=== PATIENT | male | born 1955 | race Caucasian/White ===

== ENCOUNTER 2021-07-22 09:50 | Inpatient (IN) | payer SELFPAY ==
[~2021-07-22] VITALS: Ht 193 cm; Wt 136.2 kg
--- NOTE | 2021-07-22 09:59 | ED General ---
General Stated Complaint: GEN WEAKNESS Source of Information: Patient, EMS Exam Limitations: No Limitations History of Present Illness Date Seen by Provider: Jul 22, 2021 Time Seen by Provider: 09:56 Initial Comments 65-year-old male presents via EMS for call this morning for a lift assist. Patient states he was feeling weak when he got up this morning so he called 911 as he could not get out of bed. On arrival EMS states he had a heart rate 180s to 200s with a blood pressure of 80 systolic. He was given adenosine to convert SVT and had improvement of both heart rate and blood pressure, given 1 L of fluid in route and much better appearance on arrival. Patient states he is feeling a little better. Past medical history of hypertension and diabetes. Denies history of heart problems. Also states he has not had an appetite for a couple weeks. Allergies and Home Medications Allergies Coded Allergies: No Known Drug Allergies (Unverified , 07/22/21) NKDA Patient Home Medication List Home Medication List Reviewed: Yes Review of Systems Review of Systems Constitutional: No chills, No diaphoresis, No fever; malaise, weakness EENTM: no symptoms reported Respiratory: No cough, No short of breath Cardiovascular: No chest pain, No edema, No palpitations, No syncope Gastrointestinal: No abdominal pain, No nausea, No vomiting Musculoskeletal: no symptoms reported Skin: No change in color, No rash Psychiatric/Neurological: Denies Headache, Denies Numbness, Denies Paresthesia, Denies Seizure; Weakness Past Qccgazb-Utsyph-Qsegvu Hx Patient Social History Tobacco Use?: Yes Alcohol Use?: Yes Physical Exam Vital Signs Vital Signs - First Documented 07/22/21 10:36 Temp 35.8 Pulse 113 Resp 20 B/P (MAP) 75/45 (55) Pulse Ox 97 O2 Delivery Room Air Capillary Refill : Height, Weight, BMI Height: '" Weight: lbs. oz. kg; BMI Method: General Appearance: No Apparent Distress, WD/WN; No Anxious, No Cachetic Eyes: Bilateral Eye Normal Inspection, Bilateral Eye PERRL, Bilateral Eye EOMI HEENT: PERRL/EOMI, Normal ENT Inspection Neck: Non Tender Respiratory: Chest Non Tender, Lungs Clear Cardiovascular: Regular Rate, Rhythm, No Edema, No JVD Gastrointestinal: Normal Bowel Sounds, Non Tender, Soft Back: No CVA Tenderness, No Vertebral Tenderness Extremity: Normal Capillary Refill, Normal Inspection, Non Tender Neurologic/Psychiatric: Alert, Oriented x3, No Motor/Sensory Deficits, Normal Mood/Affect, mold filling operator II-XII Norm as Tested Skin: Normal Color, Warm/Dry Focused Exam Lactate Level 07/22/21 11:21: Lactic Acid Level 3.34*H Lactic Acid Level Laboratory Tests Test 07/22/21 11:21 Lactic Acid Level 3.34 MMOL/L (0.50-2.00) *H Progress/Results/Core Measures Suspected Sepsis SIRS Temperature: Pulse: Respiratory Rate: Laboratory Tests 07/22/21 09:55: White Blood Count 6.9 Blood Pressure / Mean: 07/22/21 11:21: Lactic Acid Level 3.34*H Laboratory Tests 07/22/21 09:55: Creatinine 3.19H, Platelet Count 339, Total Bilirubin 0.6 07/22/21 11:37: Creatinine 2.97H Results/Orders Lab Results Laboratory Tests Test 07/22/21 09:55 07/22/21 10:53 07/22/21 11:21 07/22/21 11:37 Range/Units White Blood Count 6.9 4.3-11.0 10^3/uL Red Blood Count 3.30 L 4.30-5.52 10^6/uL Hemoglobin 10.4 L 13.3-17.7 g/dL Hematocrit 30 L 40-54 % Mean Corpuscular Volume 90 80-99 fL Mean Corpuscular Hemoglobin 32 25-34 pg Mean Corpuscular Hemoglobin Concent 35 32-36 g/dL Red Cell Distribution Width 13.7 10.0-14.5 % Platelet Count 339 130-400 10^3/uL Mean Platelet Volume 8.9 L 9.0-12.2 fL Immature Granulocyte % (Auto) 1 % Neutrophils (%) (Auto) 82 H 42-75 % Lymphocytes (%) (Auto) 10 L 12-44 % Monocytes (%) (Auto) 6 0-12 % Eosinophils (%) (Auto) 1 0-10 % Basophils (%) (Auto) 0 0-10 % Neutrophils # (Auto) 5.7 1.8-7.8 X 10^3 Lymphocytes # (Auto) 0.7 L 1.0-4.0 X 10^3 Monocytes # (Auto) 0.4 0.0-1.0 X 10^3 Eosinophils # (Auto) 0.1 0.0-0.3 10^3/uL Basophils # (Auto) 0.0 0.0-0.1 10^3/uL Immature Granulocyte # (Auto) 0.0 0.0-0.1 10^3/uL Sodium Level 126 L 127 L 135-145 MMOL/L Potassium Level 3.2 L 3.2 L 3.6-5.0 MMOL/L Chloride Level 85 L 87 L 98-107 MMOL/L Carbon Dioxide Level 20 L 21 21-32 MMOL/L Anion Gap 21 H 19 H 5-14 MMOL/L Blood Urea Nitrogen 82 H 77 H 7-18 MG/DL Creatinine 3.19 H 2.97 H 0.60-1.30 MG/DL Estimat Glomerular Filtration Rate 20 21 BUN/Creatinine Ratio 26 26 Glucose Level 257 H 194 H 70-105 MG/DL Calcium Level 9.1 9.1 8.5-10.1 MG/DL Corrected Calcium 9.7 8.5-10.1 MG/DL Magnesium Level 1.5 L 1.6-2.4 MG/DL Total Bilirubin 0.6 0.1-1.0 MG/DL Aspartate Amino Transf (AST/SGOT) 22 5-34 U/L Alanine Aminotransferase (ALT/SGPT) 29 0-55 U/L Alkaline Phosphatase 73 40-136 U/L Troponin I < 0.30 <0.30 NG/ML Total Protein 7.2 6.4-8.2 GM/DL Albumin 3.3 3.2-4.5 GM/DL Serum Alcohol < 10 <10 MG/DL Urine Color YELLOW Urine Clarity CLEAR Urine pH 5.5 5-9 Urine Specific [place] <=1.005 1.016-1.022 Urine Protein NEGATIVE NEGATIVE Urine Glucose (UA) 1+ H NEGATIVE Urine Ketones NEGATIVE NEGATIVE Urine Nitrite NEGATIVE NEGATIVE Urine Bilirubin NEGATIVE NEGATIVE Urine Urobilinogen 0.2 < = 1.0 MG/DL Urine Leukocyte Esterase NEGATIVE NEGATIVE Urine RBC (Auto) NEGATIVE NEGATIVE Urine RBC NONE /HPF Urine WBC 0-2 /HPF Urine Squamous Epithelial Cells 2-5 /HPF Urine Crystals NONE /LPF Urine Bacteria TRACE /HPF Urine Casts NONE /LPF Urine Mucus NEGATIVE /LPF Urine Culture Indicated NO Urine Opiates Screen NEGATIVE NEGATIVE Urine Oxycodone Screen NEGATIVE NEGATIVE Urine Methadone Screen NEGATIVE NEGATIVE Urine Propoxyphene Screen NEGATIVE NEGATIVE Urine Barbiturates Screen NEGATIVE NEGATIVE Ur Tricyclic Antidepressants Screen NEGATIVE NEGATIVE Urine Phencyclidine Screen NEGATIVE NEGATIVE Urine Amphetamines Screen NEGATIVE NEGATIVE Urine Methamphetamines Screen NEGATIVE NEGATIVE Urine Benzodiazepines Screen NEGATIVE NEGATIVE Urine Cocaine Screen NEGATIVE NEGATIVE Urine Cannabinoids Screen NEGATIVE NEGATIVE Lactic Acid Level 3.34 *H 0.50-2.00 MMOL/L My Orders Orders - CAITLINVENSTKENDALL DIAMOND DO Ed Iv/Invasive Line Start (07/22/21 10:03) Cbc With Automated Diff (07/22/21 10:03) Comprehensive Metabolic Panel (07/22/21 10:03) Urinalysis (07/22/21 10:03) Troponin I Fs (07/22/21 10:03) Chest 1 View Ap/Pa Only (07/22/21 10:03) Alcohol (07/22/21 10:03) Drug Screen Stat (Urine) (07/22/21 10:03) Lactic Acid Analyzer (07/22/21 10:03) Magnesium (07/22/21 10:03) Ns Iv 1000 Ml (Sodium Chloride 0.9%) (07/22/21 10:41) Basic Metabolic Panel (07/22/21 11:08) Medications Given in ED Current Medications Medications Dose Ordered Sig/Stephen Route Start Time Stop Time Status Last Admin Dose Admin Sodium Chloride 1,000 ml @ STK-MED ONCE .ROUTE 07/22/21 10:41 07/22/21 10:44 DC 07/22/21 10:52 999 MLS/HR Vital Signs/I&O 07/22/21 10:36 Temp 35.8 Pulse 113 Resp 20 B/P (MAP) 75/45 (55) Pulse Ox 97 O2 Delivery Room Air Capillary Refill : Progress Note : Time: 10:51 Progress Note spoke to patient about NEED for hospital admission and he is adamantly opposed at this point. Explained his medical condition and findings and that admission is indicated. He says he does not want to go, he does not have insurance and want to go home. ECG Initial ECG Impression Date: Jul 22, 2021 Initial ECG Impression Time: 10:00 Initial ECG Rate: 115 Diagnostic Imaging Diagonstic Imaging: Xray Plain Films/CT/US/NM/MRI: chest Comments Date of Exam:07/22/21 CHEST 1 VIEW AP/PA ONLY INDICATION: Tachyarrhythmia, weakness. EXAMINATION: Chest 07/22/2021 FINDINGS: The heart is prominent. There is a density in the left perihilar region, likely a vessel on end. Follow-up recommended to exclude a lung nodule. Remaining lungs clear. No infiltrates, effusions or pneumothorax. IMPRESSION: 1. Densities in the left perihilar region, nonspecific, see above discussion. Follow-up recommended. Dictated on workstation # [id number] Dict: 07/22/21 1019 Trans: 07/22/21 1025 [facility] [id number] Interpreted by: MARIUSZ DICKEY MD Electronically signed by: Departure Communication (Admissions) Time/Spoke to Admitting Phy: 11:[address] Altamirano regarding pt HPI, PMHx and need for admission. She accepts for admission Impression Primary Impression: Weakness Additional Impressions: SVT (supraventricular tachycardia) ARF (acute renal failure) Qualified Codes: N17.9 - Acute kidney failure, unspecified Dehydration Disposition: 30 STILL A PATIENT Condition: Improved Admissions Decision to Admit Reason: Admit from ER (General) Decision to Admit/Date: Jul 22, 2021 Time/Decision to Admit Time: 10:00 KENDALL WELLS DO Jul 22, 2021 09:59
[2021-07-22 10:07] LABS: BASOPHILS % (AUTO) 0 % (0-10); EOSINOPHILS # (AUTO) 0.1 10^3/uL (0.0-0.3); EOSINOPHILS % (AUTO) 1 % (0-10); HEMATOCRIT 30 % (40-54); HEMOGLOBIN 10.4 g/dL (13.3-17.7); LYMPHOCYTES # (AUTO) 0.7 X 10^3 (1.0-4.0); LYMPHOCYTES % (AUTO) 10 % (12-44); MEAN CORPUSCULAR HEMOGLOBIN 32 pg (25-34); MEAN CORPUSCULAR HGB CONC 35 g/dL (32-36); MEAN CORPUSCULAR VOLUME 90 fL (80-99); MEAN PLATELET VOLUME 8.9 fL (9.0-12.2); MONOCYTES # (AUTO) 0.4 X 10^3 (0.0-1.0); MONOCYTES % (AUTO) 6 % (0-12); NEUTROPHILS # (AUTO) 5.7 X 10^3 (1.8-7.8); NEUTROPHILS % (AUTO) 82 % (42-75); PLATELET COUNT 339 10^3/uL (130-400); WHITE BLOOD COUNT 6.9 10^3/uL (4.3-11.0)
[2021-07-22 10:22] LABS: BUN/CREATININE RATIO 26; CALCIUM 9.1 MG/DL (8.5-10.1); CARBON DIOXIDE 20 MMOL/L (21-32); CHLORIDE 85 MMOL/L (98-107); CREATININE SERUM 3.19 MG/DL (0.60-1.30); GFR ESTIMATED 20; GLUCOSE 257 MG/DL (70-105); POTASSIUM 3.2 MMOL/L (3.6-5.0); SODIUM 126 MMOL/L (135-145)
[2021-07-22 10:23] LABS: ALANINE AMINOTRANSFERASE 29 U/L (0-55); ALBUMIN 3.3 GM/DL (3.2-4.5); ALKALINE PHOSPHATASE 73 U/L (40-136); BILIRUBIN,TOTAL 0.6 MG/DL (0.1-1.0); MAGNESIUM 1.5 MG/DL (1.6-2.4); TOTAL PROTEIN 7.2 GM/DL (6.4-8.2)
--- NOTE | 2021-07-22 10:26 | Diagnostic Imaging Report ---
INDICATION: Tachyarrhythmia, weakness. EXAMINATION: Chest 07/22/2021 FINDINGS: The heart is prominent. There is a density in the left perihilar region, likely a vessel on end. Follow-up recommended to exclude a lung nodule. Remaining lungs clear. No infiltrates, effusions or pneumothorax. IMPRESSION: 1. Densities in the left perihilar region, nonspecific, see above discussion. Follow-up recommended. Dictated by: Dictated on workstation # [id number]
[2021-07-22] MEDS ORDERED: NS IV 1000 ML 1,000 ML ONE ×2 (10:41→12:21)
[2021-07-22 11:01] LABS: CLARITY,URINE CLEAR; COLOR,URINE YELLOW; PH,URINE 5.5 (5-9)
[2021-07-22 11:02] LABS: BACTERIA,URINE TRACE /HPF; BILIRUBIN,URINE NEGATIVE (NEGATIVE); GLUCOSE, URINE (UA) 1+ (NEGATIVE); KETONES,URINE NEGATIVE (NEGATIVE); LEUKOCYTE ESTERASE ,URINE NEGATIVE (NEGATIVE); NITRITE,URINE NEGATIVE (NEGATIVE); PROTEIN,URINE NEGATIVE (NEGATIVE); WBC,URINE 0-2 /HPF
[2021-07-22 11:09] LABS: AMPHETAMINE SCREEN, URINE NEGATIVE (NEGATIVE); BARBITURATE SCREEN URINE NEGATIVE (NEGATIVE); BENZODIAZEPINES SCREEN URINE NEGATIVE (NEGATIVE); CANNABINOID SCREEN, URINE NEGATIVE (NEGATIVE); COCAINE SCREEN URINE NEGATIVE (NEGATIVE); METHADONE STAT NEGATIVE (NEGATIVE); METHAMPHETAMINE SCREEN URINE S NEGATIVE (NEGATIVE); OPIATE SCREEN URINE NEGATIVE (NEGATIVE); OXYCODONE STAT NEGATIVE (NEGATIVE); PROPOXYPHENE STAT NEGATIVE (NEGATIVE); TRICYCLIC ANTIDEPRESSANTS SCRE NEGATIVE (NEGATIVE)
[2021-07-22 12:00] LABS: CALCIUM 9.1 MG/DL (8.5-10.1); CREATININE SERUM 2.97 MG/DL (0.60-1.30); POTASSIUM 3.2 MMOL/L (3.6-5.0)
[2021-07-22] MEDS ORDERED: KCL 20 MEQ TAB (K-DUR) PO ONE (12:30)
[2021-07-22] MEDS ORDERED: NS IV 1000 ML 1,000 ML IV SCH (12:30)
[2021-07-22 15:30] VITALS: BP 109/68
[2021-07-22] MEDS ORDERED: MELATONIN 3 MG TABLET PO PRN (17:00)
[2021-07-22] MEDS ORDERED: MILK OF MAGNESIA 400 MG/5 ML 30 ML UDC PO PRN (17:00)
[2021-07-22] MEDS ORDERED: BENZONATATE 100 MG (TESSALON) CAPSULE PO PRN (17:00)
[2021-07-22] MEDS ORDERED: ANTACID SUSP 30 ML UDC (MYLANTA) PO PRN (17:00)
[2021-07-22] MEDS ORDERED: ONDANSETRON 4 MG/2 ML (SDV) Z0FRAN IV PRN (17:00)
[2021-07-22] MEDS: NS IV 1000 ML 1,000 ML IV SCH ×2 (18:18→23:04)
[2021-07-22 19:44] VITALS: BP 107/60
[2021-07-22] MEDS: inSUlin ASPART (NovoLOG) 1 UNIT/0.01 ML (CHARGE PER UNIT) SC SCH (20:54)
[2021-07-22 23:04] VITALS: BP 103/58
[2021-07-23 03:47] VITALS: BP 97/56
[2021-07-23 05:42] LABS: BASOPHILS % (AUTO) 0 % (0-10); EOSINOPHILS # (AUTO) 0.1 10^3/uL (0.0-0.3); EOSINOPHILS % (AUTO) 1 % (0-10); HEMATOCRIT 27 % (40-54); HEMOGLOBIN 9.1 g/dL (13.3-17.7); LYMPHOCYTES # (AUTO) 0.7 10^3/uL (1.0-4.0); LYMPHOCYTES % (AUTO) 8 % (12-44); MEAN CORPUSCULAR HEMOGLOBIN 32 pg (25-34); MEAN CORPUSCULAR HGB CONC 34 g/dL (32-36); MEAN CORPUSCULAR VOLUME 93 fL (80-99); MEAN PLATELET VOLUME 9.1 fL (9.0-12.2); MONOCYTES # (AUTO) 0.6 10^3/uL (0.0-1.0); MONOCYTES % (AUTO) 7 % (0-12); NEUTROPHILS # (AUTO) 7.6 10^3/uL (1.8-7.8); NEUTROPHILS % (AUTO) 83 % (42-75); PLATELET COUNT 257 10^3/uL (130-400); WHITE BLOOD COUNT 9.2 10^3/uL (4.3-11.0)
[2021-07-23 05:53] LABS: POTASSIUM 3.7 MMOL/L (3.6-5.0)
[2021-07-23 05:55] LABS: CALCIUM 9.1 MG/DL (8.5-10.1)
[2021-07-23 05:59] LABS: CREATININE SERUM 2.21 MG/DL (0.60-1.30)
[2021-07-23] MEDS: inSUlin ASPART (NovoLOG) 1 UNIT/0.01 ML (CHARGE PER UNIT) SC SCH ×4 (06:00→20:53)
[2021-07-23 06:01] LABS: MAGNESIUM 1.4 MG/DL (1.6-2.4)
[2021-07-23] MEDS: NS IV 1000 ML 1,000 ML IV SCH ×3 (06:47→21:31)
[2021-07-23 07:49] VITALS: BP 113/67
[2021-07-23] MEDS: MAGNESIUM 1 GM/100 ML IVPB 100 ML IV SCH ×3 (09:27→11:40)
[2021-07-23 11:27] VITALS: BP 126/79
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
--- NOTE | 2021-07-23 15:21 | Consultation - Surgery ---
MAC MA 07/23/21 1521: History of Present Illness History of Present Illness Patient Consulted On(josh/time) 07/23/21 15:15 Time Seen by Provider: 02:45 History of Present Illness Was consulted today about blood in the stool which the pt denies. Nurses note blood after his bowel movements. He has a PMH of internal hemorrhoids and he has never had a colonoscopy done, he denies family history of colon cancer. He denies abdominal pain, blood in the urine or stool, coughing up blood, N/V, or heartburn. He states that he use to sleep for 12 hours a day and recently has been sleeping for 8 hours. He does not completely agree that he has a loss of interest over the past 18 months as he states there is nothing to do at home. He has a loss of energy, and decreased appetite for several weeks. He denies feeling guilty, loss of concentration, or suicidal ideation. Allergies and Home Medications Allergies Coded Allergies: No Known Drug Allergies (Unverified , 07/22/21) NKDA Patient Home Medication List Amlodipine Besylate (Amlodipine Besylate) 10 Mg Tablet, 10 MG PO BID, (Reported) Entered as Reported by: WOO FRAIRE on 07/23/211703 Last Action: Reviewed Diphenhydramine HCl (Benadryl Allergy) 25 Mg Tablet, 25-50 MG PO DAILY PRN for ALLERGY SYMPTOMS, (Reported) Entered as Reported by: MECHELLE TAYLOR on 07/24/21 1011 Last Action: Reviewed Ibuprofen (Ibuprofen) 200 Mg Tablet, 400 MG PO Q8H PRN for PAIN-MILD (1-4), (Reported) Entered as Reported by: MECHELLE TAYLOR on 07/24/21 1009 Last Action: Reviewed Lisinopril/Hydrochlorothiazide (Lisinopril-Hctz 20-25 mg Tab) 1 Each Tablet, 1 TAB PO DAILY, (Reported) Entered as Reported by: WOO FRAIRE on 07/23/211703 Last Action: Reviewed Metoprolol Tartrate (Metoprolol Tartrate) 50 Mg Tablet, 50 MG PO BID, (Reported) Entered as Reported by: WOO FRAIRE on 07/23/211703 Last Action: Reviewed Pioglitazone HCl (Pioglitazone HCl) 45 Mg Tablet, 22.5 MG PO DAILY, (Reported) Entered as Reported by: WOO FRAIRE on 07/23/21 4234 Last Action: Reviewed Past Jysgdep-Bzcmmj-Kvmpzk Hx Patient Social History Smoking Status: Former Smoker (stopped smoking 6yo, would smoke on and off before that about one pack a week for all his adult life) Alcohol Use?: Yes (15 year history of abuse mainly on hard liquor, quit 6 weeks ago) Substance type: Marijuana (He use smoke for 10 years, denies any other drug use) Have you traveled recently?: No Surgeries History of Surgeries: Yes Surgeries: Orthopedic (arthroscopic left knee 31yo) Cardiovascular Cardiac Disorders: Hypertension Musculoskeletal Musculoskeletal Disorders: Chronic Back Pain Endocrine Endocrine Disorders: Diabetes, Non-Insulin dep Integumentary Skin/Integumentary Disorders: Psoriasis (scalp) Family Medical History Significant Family History: No Pertinent Family Hx, Cancer (renal cancer in both his brother and sister who ), GI Disease (mother: lower GI problems), Hypertension (father) Review of Systems-General Constitutional: No chills; dizziness; No fever; weakness Respiratory: No hemoptysis, No short of breath Cardiovascular: No chest pain, No palpitations Gastrointestinal: No abdominal pain, No constipation, No diarrhea, No hematemesis, No heartburn; loss of appetite; No nausea, No vomiting Genitourinary: no symptoms reported Musculoskeletal: back pain Skin: dryness Psychiatric/Neurological: Denies Anxiety, Denies Depressed Physical Exam-General Problems Physical Exam Vital Signs Vital Signs - First Documented 07/22/21 10:36 Temp 35.8 Pulse 113 Resp 20 B/P (MAP) 75/45 (55) Pulse Ox 97 O2 Delivery Room Air Capillary Refill : Less Than 3 Seconds General Appearance: no apparent distress, obese HEENT: PERRL/EOMI Respiratory: lungs clear, normal breath sounds, no respiratory distress, no accessory muscle use; No wheezing Cardiovascular: no murmur, tachycardia Gastrointestinal: normal bowel sounds, non tender, soft; No rebound Rectal: hemorrhoids (internal hemorrhoids ) Neurologic/Psychiatric: traffic enumerator II-XII 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 as tested, alert, oriented x 3 Skin: other (dry skin, bruises on scalp) Data Review Labs Laboratory Tests 07/22/21 20:28: Glucometer 132H 07/22/21 22:10: Lactic Acid Level 1.24 07/23/21 05:25: White Blood Count 9.2, Red Blood Count 2.87L, Hemoglobin 9.1L, Hematocrit 27L, Mean Corpuscular Volume 93, Mean Corpuscular Hemoglobin 32, Mean Corpuscular Hemoglobin Concent 34, Red Cell Distribution Width 13.8, Platelet Count 257, Mean Platelet Volume 9.1, Immature Granulocyte % (Auto) 2, Neutrophils (%) (Auto) 83H, Lymphocytes (%) (Auto) 8L, Monocytes (%) (Auto) 7, Eosinophils (%) (Auto) 1, Basophils (%) (Auto) 0, Neutrophils # (Auto) 7.6, Lymphocytes # (Auto) 0.7L, Monocytes # (Auto) 0.6, Eosinophils # (Auto) 0.1, Basophils # (Auto) 0.0, Immature Granulocyte # (Auto) 0.2H, Sodium Level 131L, Potassium Level 3.7, Chloride Level 100, Carbon Dioxide Level 19L, Anion Gap 12, Blood Urea Nitrogen 61H, Creatinine 2.21H, Estimat Glomerular Filtration Rate 30, BUN/Creatinine Ratio 28, Glucose Level 125H, Calcium Level 9.1, Magnesium Level 1.4L 07/23/21 10:36: Glucometer 138H Assessment/Plan Assessment/Plan Assessment/Plan Anemia Hgb 9.1 down from 10.4 yesterday, unknown baseline he will be checked for iron/B12/folate due to his chronic alcohol abuse. Recommended outpatient colonoscopy, will sign off on pt. Acute kidney injury Due to dehydration and poor nutrition. His BUN has decreased from 82 to 61 today, and his BUN has decreased from 3.19 to 2.21, and his lactic acid level has decreased from 3.34 to 1.24. Hyponatremia With IVF increased from 126 to 131. Alcohol abuse in remission drug screen was negative, monitor for withdrawal symptoms as he states that he quit 6 weeks ago which may not be accurate. Depression Loss of interest and low energy, and recent alcohol abuse. Monitor mood. RICHIE GUDINO DO 07/24/21 1136: History of Present Illness History of Present Illness Date Seen by Provider: Jul 23, 2021 Time Seen by Provider: 16:00 History of Present Illness Consult requested by Dr. Cohen for blood in stools. Patient is a 65 year old male admitted for dehydration. Patient has been feeling weak and not really caring for himself. He has not noticed any blood in his stools. He was being cleaned up by nursing 2 days and had noticed bright red blood. He states has some hemorrhoids. Never had colonoscopy. Denies n/v fever sweats chills shortness of breath or chest pain at this time. Allergies and Home Medications Allergies Coded Allergies: No Known Drug Allergies (Unverified , 07/22/21) NKDA Patient Home Medication List Home Medication List Reviewed: Yes Amlodipine Besylate (Amlodipine Besylate) 10 Mg Tablet, 10 MG PO BID, (Reported) Entered as Reported by: WOO FRAIRE on 07/23/211703 Last Action: Reviewed Diphenhydramine HCl (Benadryl Allergy) 25 Mg Tablet, 25-50 MG PO DAILY PRN for ALLERGY SYMPTOMS, (Reported) Entered as Reported by: MECHELLE TAYLOR on 07/24/21 1011 Last Action: Reviewed Ibuprofen (Ibuprofen) 200 Mg Tablet, 400 MG PO Q8H PRN for PAIN-MILD (1-4), (Reported) Entered as Reported by: MECHELLE TAYLOR on 07/24/21 1009 Last Action: Reviewed Lisinopril/Hydrochlorothiazide (Lisinopril-Hctz 20-25 mg Tab) 1 Each Tablet, 1 TAB PO DAILY, (Reported) Entered as Reported by: WOO FRAIRE on 07/23/211703 Last Action: Reviewed Metoprolol Tartrate (Metoprolol Tartrate) 50 Mg Tablet, 50 MG PO BID, (Reported) Entered as Reported by: WOO FRAIRE on 07/23/211703 Last Action: Reviewed Pioglitazone HCl (Pioglitazone HCl) 45 Mg Tablet, 22.5 MG PO DAILY, (Reported) Entered as Reported by: WOO FRAIRE on 07/23/211703 Last Action: Reviewed Past Bntmfgp-Hrbjpf-Loqzsr Hx Reviewed Nursing Assessment Reviewed/Agree w Nursing PMH: Yes Family Medical History Significant Family History: No Pertinent Family Hx, Cancer (renal cancer in both his brother and sister who ) Review of Systems-General Constitutional: No chills; dizziness; No fever; weakness EENTM: No blurred vision, No double vision Respiratory: No dyspnea on exertion, No hemoptysis, No short of breath Cardiovascular: No chest pain, No palpitations Gastrointestinal: loss of appetite; No nausea, No vomiting Musculoskeletal: back pain; No joint pain Skin: No change in color, No change in hair/nails Psychiatric/Neurological: Denies Anxiety, Denies Depressed All Other Systems Reviewed Negative Unless Noted: Yes (Negative excepted noted.) Physical Exam-General Problems Physical Exam General Appearance: WD/WN, no apparent distress, obese HEENT: PERRL/EOMI, normal ENT inspection Neck: non-tender, supple Respiratory: chest non-tender, no respiratory distress, no accessory muscle use Cardiovascular: regular rate, rhythm, no JVD Gastrointestinal: non tender, soft; No guarding, No rebound Rectal: hemorrhoids (internal hemorrhoids ), other (no gross blood) Back: normal inspection, no CVA tenderness Extremities: non-tender, no pedal edema Neurologic/Psychiatric: traffic enumerator II-XII nml as tested, alert, oriented x 3 Skin: normal color, warm/dry, other (abrasions on forehead.) Lymphatic: no adenopathy Assessment/Plan Assessment/Plan Assessment/Plan Bright red blood in stool Hemorrhoids Anemia Patient was discussed risks and benefits of having Colonoscopy to further evaluate. He has never had one and discussed screening purposes as well. He understands need to have one but not willing to have one at this time, or as outpatient. Patient if changes his mind can contact the office and we will discuss further on outpatient basis. Will sign off, call if needed. Supervisory-Addendum Brief Verification & Attestation Participated in pt care: history, MDM, physical Personally performed: exam, history, MDM, supervision of care Care discussed with: Medical Student Procedures: n/a Results interpretation: Verified all documentation Verification and Attestation of Medical Student E/M Service A medical student performed and documented this service in my presence. I revi ewed and verified all information documented by the medical student and made modifications to such information, when appropriate. I personally performed the physical exam and medical decision making. Richie Gudino, Jul 23, 2021,18:38 MAC MA Jul 23, 2021 15:21 RICHIE GUDINO DO Jul 24, 2021 11:36
[2021-07-23 16:22] VITALS: BP 113/70
[2021-07-23] MEDS ORDERED: METO50TA15 PO (17:04)
[2021-07-23] MEDS ORDERED: LISI1TAB26 PO (17:04)
[2021-07-23] MEDS ORDERED: AMLO-251 PO (17:04)
[2021-07-23] MEDS ORDERED: PIOG45TA65 PO (17:04)
[2021-07-23 20:00] VITALS: BP 130/77
[2021-07-24 00:16] VITALS: BP 129/75
[2021-07-24 04:44] VITALS: BP 111/76
[2021-07-24] MEDS: NS IV 1000 ML 1,000 ML IV SCH (05:41)
[2021-07-24] MEDS: inSUlin ASPART (NovoLOG) 1 UNIT/0.01 ML (CHARGE PER UNIT) SC SCH ×2 (05:41→11:00)
[2021-07-24 05:58] LABS: HEMOGLOBIN 9.4 g/dL (13.3-17.7)
[2021-07-24 06:16] LABS: POTASSIUM 3.5 MMOL/L (3.6-5.0)
[2021-07-24 06:17] LABS: CALCIUM 9.3 MG/DL (8.5-10.1)
[2021-07-24 06:21] LABS: CREATININE SERUM 1.58 MG/DL (0.60-1.30)
[2021-07-24 08:00] VITALS: BP 144/84
[2021-07-24] MEDS ORDERED: POTASSIUM CL 10MEQ/50ML IVPB 50 ML IV SCH (08:00)
[2021-07-24] MEDS ORDERED: KCL 20 MEQ TAB (K-DUR) PO SCH (08:00)
[2021-07-24] MEDS ORDERED: MAGNESIUM 1 GM/100 ML IVPB 100 ML IV SCH (08:00)
--- NOTE | 2021-07-24 09:52 | Physical Therapy Evaluation ---
PT Evaluation-General Medical Diagnosis Admission Date Jul 22, 2021 at 15:28 Medical Diagnosis: hypotension/dehydration/ARF Onset Date: Jul 22, 2021 Therapy Diagnosis Therapy Diagnosis: debility/weakness Precautions Precautions/Isolations: Fall Prevention, Standard Precautions Referral Physician: Vicki Reason for Referral: Evaluation/Treatment Medical History Pertinent Medical History: DM, HTN Additional Medical History morbid obesity Current History EMS for lift assist and was found to have elevated HR and weakness Reviewed History: Yes Social History Home: Single Level Current Living Status: Alone Entry Into Home: Level Entry Prior Prior Level of Function SCALE: Activities may be completed with or without assistive devices. 6-Iageuaagxw-aipvzbk completes the activity by him/herself with no assistance from a helper. 5-Set-up or Clean-up Assistance-helper sets up or cleans up; patient completes activity. [place] assists only prior to or following the activity. 4-Supervision or Touching Assistance-helper provides verbal cues and/or touching/steadying and/or contact guard assistance as patient completes activity. Assistance may be provided throughout the activity or intermittently. 3-Partial/Moderate Assistance-helper does LESS THAN HALF the effort. [place] lifts, holds or supports trunk or limbs, but provides less than half the effort. 2-Substantial/Maximal Assistance-helper does MORE THAN HALF the effort. [place] lifts or holds trunk or limbs and provides more than half the effort. 7-Hzzvodajr-pdmcbe does ALL the effort. Patient does none of the effort to complete the activity. Or, the assistance of 2 or more helpers is required for the patient to complete the activity. If activity was not attempted, code reason: 7-Patient Refused. 9-Not Applicable-not attempted and the patient did not perform the activity before the current illness, exacerbation or injury. 10-Not Attempted due to Environmental Limitations-(lack of equipment, weather restraints, etc.). 88-Not Attempted due to Medical Conditions or Safety Concerns. Bed Mobility: 6 Transfers (B,C,W/C): 6 Gait: 6 Stairs: 9 Indoor Mobility (Ambulation): Independent Stairs: Not Applicalbe Prior Devices Use: Walker PT Evaluation-Current Subjective Patient reports he doesn't do much at home. He reports he retired and decided he wasn't going to do much after that. Objective Patient Orientation: Normal For Age Attachments: IV ROM/Strength ROM Lower Extremities bilateral LE WFL Strength Lower Extremities 4-/5 grossly bilateral LE Integumentary/Posture Integumentary refer to nursing notes Bowel Incontinence: No Bladder Incontinence: No Posture WFL Neuromuscular (Tone, Coordination, Reflexes) grossly intact Sensory Vision: Wears Glasses Hearing: Functional Sensation Right Lower Extremit: Impaired Sensation Left Lower Extremity: Impaired Transfers Lying to Sitting/Side of Bed(Q: 6 Sit to Stand (QC): 4 (SBA) Chair/Vuu-pw-Ypdue Xfer(QC): 4 (SBA) Gait Does the Patient Walk?: Yes Mode of Locomotion: Walk Anticipated Mode of Locomotion: Walk Walk 10 feet (QC): 4 (SBA) Walk 50 ft with 2 Turns(QC): 4 (SBA) Walk 150 ft (QC): 7 Gait Assistive Device: FWW Comments/Gait Description slow, steady, functional gait sequence Balance Sitting Static: Normal Sitting Dynamic: Normal Standing Static: Normal Standing Dynamic: Normal Picking up an Object (QC): 88 Assessment/Needs 65 y.o. male, will be seen short term by skilled PT to address functional strength and mobility to ensure safe return to home at maximum LOF. Rehab Potential: Fair PT Snf Goals Materials Scheduler Goals PT Snf Goals Time Frame: Jul 29, 2021 Roll Left & Right (QC): 6 Sit to Lying (QC): 6 Lying-Sitting on Side/Bed(QC): 6 Sit to Stand (QC): 6 Chair/Opr-dq-Abbyu Xfer(QC): 6 Toilet Transfer (QC): 6 Walk 10 feet (QC): 6 Walk 50ft with 2 Turns (QC): 6 Walk 150 ft (QC): 6 PT Plan Problem List Problem List: Activity Tolerance, Functional Strength, Transfer Treatment/Plan Treatment Plan: Continue Plan of Care Treatment Plan: Bed Mobility, Education, Functional Activity Gabriella, Functional Strength, Gait, Safety, Therapeutic Exercise, Transfers Treatment Duration: Jul 29, 2021 Frequency: 6 times per week Estimated Hrs Per Day: .25 hour per day Patient and/or Family Agrees t: Yes Time/GCodes Time In: 804 Time Out: 820 Total Billed Treatment Time: 16 Total Billed Treatment 1 visit EVModC 16 min ESTEFANIA WASHINGTON PT Jul 24, 2021 09:52
[2021-07-24] MEDS ORDERED: IBUP-2473 PO (10:09)
[2021-07-24] MEDS ORDERED: DIPH25TA65 PO (10:11)
[2021-07-24 12:00] VITALS: BP 113/76
--- NOTE | 2021-07-24 12:04 | Occupational Therapy Eval ---
OT Evaluation-General/PLF Medical Diagnosis Admission Date Jul 22, 2021 at 15:28 Medical Diagnosis: hypotension/dehydration/ARF Onset Date: Jul 22, 2021 Therapy Diagnosis Therapy Diagnosis: NA Precautions Precautions/Isolations: Fall Prevention, Standard Precautions Referral Physician: Vicki Fields Reason: Evaluation/Treatment Medical History Pertinent Medical History: DM, HTN Additional Medical History alcohol abuse Current History Admit due to dehydration Social History Home: Single Level Current Living Status: Alone Entry Into Home: Level Entry ADL-Prior Level of Function SCALE: Activities may be completed with or without assistive devices. 4-Cikxnkejkq-ztdmpah completes the activity by him/herself with no assistance from a helper. 5-Set-up or Clean-up Assistance-helper sets up or cleans up; patient completes activity. [place] assists only prior to or following the activity. 4-Supervision or Touching Assistance-helper provides verbal cues and/or touching/steadying and/or contact guard assistance as patient completes activity. Assistance may be provided throughout the activity or intermittently. 3-Partial/Moderate Assistance-helper does LESS THAN HALF the effort. [place] lifts, holds or supports trunk or limbs, but provides less than half the effort. 2-Substantial/Maximal Assistance-helper does MORE THAN HALF the effort. [place] lifts or holds trunk or limbs and provides more than half the effort. 3-Oafojqeat-zspsrs does ALL the effort. Patient does none of the effort to complete the activity. Or, the assistance of 2 or more helpers is required for the patient to complete the activity. If activity was not attempted, code reason: 7-Patient Refused. 9-Not Applicable-not attempted and the patient did not perform the activity before the current illness, exacerbation or injury. 10-Not Attempted due to Environmental Limitations-(lack of equipment, weather restraints, etc.). 88-Not Attempted due to Medical Conditions or Safety Concerns. ADL PLOF Comments Pt reports IND with ADLs and functional mobility at PLOF, no AD/AE. He indicates he is looking into buying a shower chair and grab bars for his bathroom. He has a tall toilet. Self Care: Independent Functional Cognition: Independent DME/Equipment: Shower, Tall Toilet OT Current Status Subjective Pt seated in recliner, agreeable to OT Tx. Mental Status/Objective Patient Orientation: Person, Place, Time, Situation Attachments: IV Current Upper Extremity ROM WFL Upper Extremity Strength WFL ADL-Treatment Eating (QC): 6 (Per pt report) On/Off Footwear (QC): 6 Toileting Hygiene (QC): 6 (Pt indicates able to manage clothing and hygiene.) Other Treatments Pt up in recliner, agreeable to OT Tx. states he is independent with ADLs and at his PLOF, him main concern is his balance and fear of falling. OT educated pt on home modifications/adaptations in house to decrease fall risk, including recommendations for SC and GBs in bathroom, removing falls, and being careful with thresholds between changes in surface of sara. Pt verbalized understanding. Pt states he has no concerns with ability to complete ADLs upon returning home, and feels like he is at his PLOF. Pt declines further OT services. Post tx, pt up in recliner, call light in reach and all needs met. Education OT Patient Education: Correct positioning, Modified ADL techniques, Progress toward Goal/Update tx plan, Purpose of tx/functional activities Teaching Recipient: Patient Teaching Methods: Discussion Response to Teaching: Verbalize Understanding OT Prison Goals Blind Teacher Goals 1=Demonstrate adherence to instructed precautions during ADL tasks. 2=Patient will verbalize/demonstrate understanding of assistive devices/modifications for ADL. 3=Patient will improve strength/tolerance for activity to enable patient to perform ADL's. OT Education/Plan Problem List/Assessment Assessment: No Skilled OT Needs ID'd No skilled OT services indicated at this time, as pt is independent with ADLs and at his PLOF. Pt declines further OT services. Discharge Recommendations Plan/Recommendations: Discharge/Goals Met Treatment Plan/Plan of Care Patient would benefit from OT for education, treatment and training to promote independence in ADL's, mobility, safety and/or upper extremity function for ADL's. Plan of Care: ADL Retraining, Functional Mobility, UE Funct Exercise/Act Treatment Duration: Jul 24, 2021 Frequency: 1 time per week Rehab Potential: Fair Time/GCodes Start Time: 11:31 Stop Time: 11:40 Total Time Billed (hr/min): 9 Billed Treatment Time 1, LIT ERAZO OT Jul 24, 2021 12:04
[2021-07-24] MEDS ORDERED: FOLI1TAB33 PO (13:24)
--- NOTE | 2021-07-24 13:32 | Discharge Summary ---
Discharge Summary Hospital Course Problems/Dx: (1) Acute kidney injury superimposed on chronic kidney disease Status: Acute (2) JENNI (acute kidney injury) (3) SVT (supraventricular tachycardia) Status: Acute (4) Alcohol abuse, in remission Status: Chronic (5) Hyponatremia Status: Acute (6) Hypokalemia Status: Acute (7) Hypomagnesemia Status: Acute (8) Normocytic anemia Status: Acute (9) Hypertension Status: Chronic (10) Type 2 diabetes mellitus Status: Chronic Qualifiers: Qualified Codes: E11.9 - Type 2 diabetes mellitus without complications (11) Debility Status: Acute (12) Obesity Status: Chronic Hospital Course Date of Admission: Jul 22, 2021 at 15:28 Admission Diagnosis : Acute kidney injury superimposed on chronic kidney disease Family Physician/Provider: Sam Zambrano DO Date of Discharge: 07/24/21 Discharge Diagnosis: Acute kidney injury superimposed on chronic kidney disease Hospital Course: Capo Matthews is a 65-year-old male with past medical history of hypertension, diabetes, CKD3, who was admitted with acute kidney injury superimposed on chronic kidney disease. He was treated with IV fluids and his knee function improved. His course was complicated by electrolyte abnormalities which were corrected as needed. He was also anemic and found to have folic acid deficiency. He was started on folic acid replacement. He also had issues with weakness. Physical and Occupational Therapy evaluated him and worked with him while inpatient. He was offered home health care but refused. He was discharged home in stable condition. Labs and Pending Lab Test: Laboratory Tests 07/23/21 16:12: Glucometer 193H 07/23/21 20:24: Glucometer 125H 07/24/21 04:59: Glucometer 119H 07/24/21 05:25: Hemoglobin 9.4L, Hematocrit 27L, Sodium Level 135, Potassium Level 3.5L, Chloride Level 102, Carbon Dioxide Level 21, Anion Gap 12, Blood Urea Nitrogen 36H, Creatinine 1.58H, Estimat Glomerular Filtration Rate 44, BUN/Creatinine Ratio 23, Glucose Level 113H, Calcium Level 9.3, Magnesium Level 1.9 07/24/21 11:06: Glucometer 159H Home Meds Active Folic Acid 1 Mg Tablet 1 Mg PO DAILY@0700 90 Days Reported Benadryl Allergy (Diphenhydramine HCl) 25 Mg Tablet 25-50 Mg PO DAILY PRN Ibuprofen 200 Mg Tablet 400 Mg PO Q8H PRN Amlodipine Besylate 10 Mg Tablet 10 Mg PO BID Metoprolol Tartrate 50 Mg Tablet 50 Mg PO BID Lisinopril-Hctz 20-25 mg Tab (Lisinopril/Hydrochlorothiazide) 1 Each Tablet 1 Tab PO DAILY Pioglitazone HCl 45 Mg Tablet 22.5 Mg PO DAILY TAKES 1/2 OF A 45MG TABLET Assessment/Pt Instructions Take medications as prescribed. Follow-up with your primary care physician. Apply for Medicare once you are able. Return with worsening weakness or if you feel like you are getting worse. Discharge Planning: <30 minutes discharge planning Discharge Instructions Discharge Diet: No Restrictions Activity as Tolerated: Yes Discharge Physical Examination Vital Signs Vital Signs Date Time Temp Pulse Resp B/P (MAP) Pulse Ox O2 Delivery O2 Flow Rate FiO2 07/24/21 12:00 36.4 104 20 113/76 (88) 97 Room Air General Appearance: No Apparent Distress, WD/WN Respiratory: Lungs Clear, Normal Breath Sounds, No Respiratory Distress Cardiovascular: Regular Rate, Rhythm, No Edema, No Murmur Gastrointestinal: Normal Bowel Sounds, Non Tender, Soft Extremity: Normal Inspection, Non Tender, No Pedal Edema Skin: Normal Color, Warm/Dry Neurologic/Psychiatric: Alert, Oriented x3, No Motor/Sensory Deficits, Normal Mood/Affect Allergies: Coded Allergies: No Known Drug Allergies (Unverified , 07/22/21) NKDA Copy Copies To 1: SAM ZAMBRANO DO Discharge Summary Date of Admission Jul 22, 2021 at 15:28 Date of Discharge Discharge Date: Jul 24, 2021 Discharge Time: 13:31 Admission Diagnosis Acute kidney injury superimposed on chronic kidney disease Discharge Diagnosis Acute kidney injury superimposed on chronic kidney disease (1) Acute kidney injury superimposed on chronic kidney disease Status: Acute (2) JENNI (acute kidney injury) (3) SVT (supraventricular tachycardia) Status: Acute (4) Alcohol abuse, in remission Status: Chronic (5) Hyponatremia Status: Acute (6) Hypokalemia Status: Acute (7) Hypomagnesemia Status: Acute (8) Normocytic anemia Status: Acute (9) Hypertension Status: Chronic (10) Type 2 diabetes mellitus Status: Chronic Qualifiers: Qualified Codes: E11.9 - Type 2 diabetes mellitus without complications (11) Debility Status: Acute (12) Obesity Status: Chronic COMPA PATHAK MD Jul 24, 2021 13:31
[2021-07-25] MEDS ORDERED: FOLIC ACID 1 MG TAB PO SCH (07:00)
== END 2021-07-24 16:00 | disposition home or self-care (01) | DRG 683 ==
LOC: ER FS 09:51 → OBSVTOIN 15:28 → 4TH 15:28
PROVIDERS: ADMIT Family Medicine; ATTEND Internal Medicine
DX: N17.9 Acute kidney failure, unspecified (principal); E87.1 Hypo-osmolality and hyponatremia; I47.1 Supraventricular tachycardia; K92.1 Melena; E86.0 Dehydration; D64.9 Anemia, unspecified; I12.9 Hypertensive chronic kidney disease with stage 1 through stage 4 chronic kidney disease, or unspecified chronic kidney disease; N18.30 Chronic kidney disease, stage 3 unspecified; F10.11 Alcohol abuse, in remission; E87.6 Hypokalemia; E83.42 Hypomagnesemia; E11.22 Type 2 diabetes mellitus with diabetic chronic kidney disease; E66.9 Obesity, unspecified; E53.8 Deficiency of other specified B group vitamins; F32.A Depression, unspecified; K64.9 Unspecified hemorrhoids; R53.1 Weakness; Z68.36 Body mass index [BMI] 36.0-36.9, adult; Z87.891 Personal history of nicotine dependence; Z79.84 Long term (current) use of oral hypoglycemic drugs; Z79.899 Other long term (current) drug therapy
CPT/HCPCS: 36415; 71045; 80048; 80053; 80306; 80320; 81000; 82607; 82728; 82746; 82947; 83540; 83550; 83605; 83735; 84484; 85014; 85018; 85025; 93005

== ENCOUNTER 2021-08-18 16:26 | Observation (INO) | payer SELFPAY ==
[~2021-08-18] VITALS: Ht 190.5 cm; Wt 113.4 kg
[~2021-08-18 16:26] MED LIST: AMLO-251 PO; DIPH25TA65 PO; FOLI1TAB33 PO; IBUP-2473 PO; LISI1TAB26 PO; METO50TA15 PO; PIOG45TA65 PO
--- NOTE | 2021-08-18 16:36 | ED General ---
General Stated Complaint: GENERAL WEAKNESS History of Present Illness Date Seen by Provider: Aug 18, 2021 Time Seen by Provider: 16:36 Initial Comments 65-year-old male brought in with complaints of generalized weakness. EMS reports that over approximately the last week and a half that they have had to go out for lift assist as patient lives alone.. They reported that it was every couple days but now has been 1-2 times daily over the last few days. Patient reports that he "got out of the hospital about 2 weeks ago" and is gotten worse since then. Chart review shows that he was admitted on 07/22-07/24 for acute on chronic kidney failure was discharged on the at that time he was offered home health care and declined. Patient has no other complaints besides his "generalized weakness. Patient was evaluated by PT OT at his previous hospital visit. Patient also complains of some mild swelling and erythema to his left hand and wrist with no injury. patient denies any nausea vomiting fevers chills cough abdominal pain or any other systemic complaints outside of his generalized weakness and mild erythema to his left hand and wrist. Allergies and Home Medications Allergies Coded Allergies: No Known Drug Allergies (Unverified , 07/22/21) NKDA Patient Home Medication List Home Medication List Reviewed: Yes Diphenhydramine HCl (Benadryl Allergy) 25 Mg Tablet, 25-50 MG PO DAILY PRN for ALLERGY SYMPTOMS, (Reported) Entered as Reported by: MECHELLE TAYLOR on 07/24/21 1011 Folic Acid (Folic Acid) 1 Mg Tablet, 1 MG PO DAILY@0700 Prescribed by: COMPA PATHAK on 07/24/21 1324 Metoprolol Tartrate (Metoprolol Tartrate) 50 Mg Tablet, 50 MG PO BID, (Reported) Entered as Reported by: WOO FRAIRE on 07/23/21 1704 Pioglitazone HCl (Pioglitazone HCl) 45 Mg Tablet, 22.5 MG PO DAILY, (Reported) Entered as Reported by: WOO FRAIRE on 07/23/211703 Review of Systems Review of Systems Constitutional: No chills, No fever; malaise, weakness EENTM: no symptoms reported Respiratory: no symptoms reported Cardiovascular: no symptoms reported Gastrointestinal: no symptoms reported Genitourinary: no symptoms reported Musculoskeletal: see HPI Skin: see HPI Psychiatric/Neurological: No Symptoms Reported Hematologic/Lymphatic: No Symptoms Reported Immunological/Allergic: no symptoms reported Past Rxahtki-Elfjpx-Neswls Hx Immunizations Up To Date First/Initial COVID19 Vaccinat: 04-27-21 Second COVID19 Vaccination Duc: 05-14-21 Past Medical History Surgeries: Yes Orthopedic Hypertension Chronic Back Pain Diabetes, Non-Insulin dep Psoriasis Family Medical History No Pertinent Family Hx, Cancer Physical Exam Vital Signs Vital Signs - First Documented 08/18/21 08/18/21 16:28 19:39 Temp 36.1 Pulse 84 Resp 16 B/P (MAP) 145/89 (107) Pulse Ox 98 O2 Delivery Room Air Capillary Refill : Height, Weight, BMI Height: '" Weight: lbs. oz. kg; 36.56 BMI Method: General Appearance: No Apparent Distress, WD/WN Neck: Non Tender, Supple Respiratory: Lungs Clear, Normal Breath Sounds Cardiovascular: Regular Rate, Rhythm, No Edema Gastrointestinal: Non Tender, Soft Extremity: Normal Capillary Refill, Swelling (mild left hand/wrist ) Neurologic/Psychiatric: Oriented x3, No Motor/Sensory Deficits Skin: Erythema (mild dorsal aspect left hand ) Progress/Results/Core Measures Suspected Sepsis SIRS Temperature: Pulse: Respiratory Rate: Laboratory Tests 08/18/21 16:50: White Blood Count 14.5H Blood Pressure / Mean: Laboratory Tests 08/18/21 16:50: Creatinine 1.46H, Platelet Count 399, Total Bilirubin 1.0 Results/Orders Lab Results Laboratory Tests Test 08/18/21 16:50 Range/Units White Blood Count 14.5 H 4.3-11.0 10^3/uL Red Blood Count 3.18 L 4.30-5.52 10^6/uL Hemoglobin 9.7 L 13.3-17.7 g/dL Hematocrit 29 L 40-54 % Mean Corpuscular Volume 91 80-99 fL Mean Corpuscular Hemoglobin 31 25-34 pg Mean Corpuscular Hemoglobin Concent 34 32-36 g/dL Red Cell Distribution Width 14.6 H 10.0-14.5 % Platelet Count 399 130-400 10^3/uL Mean Platelet Volume 9.2 9.0-12.2 fL Immature Granulocyte % (Auto) 0 % Neutrophils (%) (Auto) 88 H 42-75 % Lymphocytes (%) (Auto) 5 L 12-44 % Monocytes (%) (Auto) 6 0-12 % Eosinophils (%) (Auto) 0 0-10 % Basophils (%) (Auto) 0 0-10 % Neutrophils # (Auto) 12.7 H 1.8-7.8 X 10^3 Lymphocytes # (Auto) 0.8 L 1.0-4.0 X 10^3 Monocytes # (Auto) 0.9 0.0-1.0 X 10^3 Eosinophils # (Auto) 0.0 0.0-0.3 10^3/uL Basophils # (Auto) 0.0 0.0-0.1 10^3/uL Immature Granulocyte # (Auto) 0.1 0.0-0.1 10^3/uL Neutrophils % (Manual) 91 % Lymphocytes % (Manual) 6 % Monocytes % (Manual) 3 % Sodium Level 133 L 135-145 MMOL/L Potassium Level 3.9 3.6-5.0 MMOL/L Chloride Level 95 L 98-107 MMOL/L Carbon Dioxide Level 25 21-32 MMOL/L Anion Gap 13 5-14 MMOL/L Blood Urea Nitrogen 16 7-18 MG/DL Creatinine 1.46 H 0.60-1.30 MG/DL Estimat Glomerular Filtration Rate 49 BUN/Creatinine Ratio 11 Glucose Level 144 H 70-105 MG/DL Calcium Level 9.3 8.5-10.1 MG/DL Corrected Calcium 9.7 8.5-10.1 MG/DL Magnesium Level 1.7 1.6-2.4 MG/DL Total Bilirubin 1.0 0.1-1.0 MG/DL Aspartate Amino Transf (AST/SGOT) 30 5-34 U/L Alanine Aminotransferase (ALT/SGPT) 32 0-55 U/L Alkaline Phosphatase 87 40-136 U/L Troponin I < 0.30 <0.30 NG/ML C-Reactive Protein 16.74 H <0.50 MG/DL Total Protein 7.8 6.4-8.2 GM/DL Albumin 3.5 3.2-4.5 GM/DL Serum Alcohol < 10 <10 MG/DL My Orders Orders - CANELA,SANDRA L DO Alcohol (08/18/21 16:37) Cbc With Automated Diff (08/18/21 16:37) Comprehensive Metabolic Panel (08/18/21 16:37) Lactic Acid Analyzer (08/18/21 16:37) Magnesium (08/18/21 16:37) Ua Culture If Indicated (08/18/21 16:37) Crp Fs (08/18/21 16:37) Troponin I Fs (08/18/21 16:37) Ed Iv/Invasive Line Start (08/18/21 16:37) Ekg Tracing (08/18/21 16:37) Manual Differential (08/18/21 16:50) Hand 2 View Left (08/18/21 17:00) Wrist 2 View Left (08/18/21 17:00) Ceftriaxone (Rocephin) (08/18/21 17:45) Medications Given in ED Vital Signs/I&O 08/18/21 08/18/21 16:28 19:39 Temp 36.1 Pulse 84 80 Resp 16 18 B/P (MAP) 145/89 (107) 157/96 Pulse Ox 98 O2 Delivery Room Air Room Air Capillary Refill : Progress Note : Progress Note Patient with generalized weakness of unknown cause. He does have what appears to be maybe some mild cellulitis on the left hand with a slight increase in white count and CRP. Patient otherwise has no generalized complaints. Patient would likely benefit from PT OT. Discussed with Dr. Altamirano. Patient may warrant further evaluation after PT OT if no improvement or if his symptoms change to give it better clarification what might be causing elevated white count and CRP. Patient will be admitted to [facility] for observation. ECG Initial ECG Impression Date: Aug 18, 2021 Initial ECG Impression Time: 16:51 Initial ECG Rate: 83 Initial ECG Rhythm: Normal Sinus Initial ECG Intervals: QT (qtc 505) Initial ECG Impression: Nonspecific Changes Comment no acute st elevation or changes Departure Impression Primary Impression: Cellulitis of left hand Additional Impressions: Reactive arthritis of left hand Generalized muscle weakness Disposition: 30 STILL A PATIENT Condition: Stable Admissions Decision to Admit Reason: Admit from ER (General) Decision to Admit/Date: Aug 18, 2021 Time/Decision to Admit Time: 18:20 Transfer Method of Transfer: EMS Departure-Patient Inst. Referrals: SANDY MONGE DO (PCP/Family) Primary Care Physician SANDRA CANELA DO Aug 18, 2021 16:36
[2021-08-18 16:59] LABS: BASOPHILS % (AUTO) 0 % (0-10); EOSINOPHILS % (AUTO) 0 % (0-10); HEMATOCRIT 29 % (40-54); HEMOGLOBIN 9.7 g/dL (13.3-17.7); LYMPHOCYTES # (AUTO) 0.8 X 10^3 (1.0-4.0); LYMPHOCYTES % (AUTO) 5 % (12-44); MEAN CORPUSCULAR HEMOGLOBIN 31 pg (25-34); MEAN CORPUSCULAR HGB CONC 34 g/dL (32-36); MEAN CORPUSCULAR VOLUME 91 fL (80-99); MEAN PLATELET VOLUME 9.2 fL (9.0-12.2); MONOCYTES # (AUTO) 0.9 X 10^3 (0.0-1.0); MONOCYTES % (AUTO) 6 % (0-12); NEUTROPHILS # (AUTO) 12.7 X 10^3 (1.8-7.8); NEUTROPHILS % (AUTO) 88 % (42-75); PLATELET COUNT 399 10^3/uL (130-400); WHITE BLOOD COUNT 14.5 10^3/uL (4.3-11.0)
[2021-08-18 17:17] LABS: ALANINE AMINOTRANSFERASE 32 U/L (0-55); ALBUMIN 3.5 GM/DL (3.2-4.5); ALKALINE PHOSPHATASE 87 U/L (40-136); BUN/CREATININE RATIO 11; CALCIUM 9.3 MG/DL (8.5-10.1); CARBON DIOXIDE 25 MMOL/L (21-32); CHLORIDE 95 MMOL/L (98-107); CREATININE SERUM 1.46 MG/DL (0.60-1.30); GFR ESTIMATED 49; GLUCOSE 144 MG/DL (70-105); MAGNESIUM 1.7 MG/DL (1.6-2.4); POTASSIUM 3.9 MMOL/L (3.6-5.0); SODIUM 133 MMOL/L (135-145); TOTAL PROTEIN 7.8 GM/DL (6.4-8.2)
[2021-08-18 17:27] LABS: LYMPHOCYTES % (MANUAL) 6 %; MONOCYTES % (MANUAL) 3 %; NEUTROPHILS % (MANUAL) 91 %
[2021-08-18] MEDS ORDERED: cefTRIAXone 1,000 MG in WATER (STERILE) FOR INJECTION 10 ML IV ONE (17:45)
--- NOTE | 2021-08-18 17:46 | Diagnostic Imaging Report ---
EXAM: WRIST 2 VIEW LEFT INDICATION: Left wrist pain, swelling and redness. COMPARISON: None. FINDINGS: No fracture or malalignment. Soft tissue shadows are unremarkable. IMPRESSION: No acute radiographic findings in the left wrist. Dictated by: Dictated on workstation # [id number]
--- NOTE | 2021-08-18 17:48 | Diagnostic Imaging Report ---
INDICATION: Left hand pain and swelling. EXAMINATION: AP and lateral views of left hand were obtained. FINDINGS: There is no acute fracture or malalignment. There is slight irregularity involving the terminal tuft of the 3rd finger which could be related to previous injury. Mild joint space narrowing at the 1st through 3rd metacarpophalangeal joints is likely related to developing osteoarthritis. There is also mild degenerative change at the distal radial and ulnar joints. IMPRESSION: Degenerative-type findings without acute osseous abnormality detected. Dictated by: Dictated on workstation # [id number]
[2021-08-19 00:30] VITALS: BP 132/93
[2021-08-19 04:23] VITALS: BP 156/95
[2021-08-19 06:37] LABS: BASOPHILS % (AUTO) 0 % (0-10); EOSINOPHILS % (AUTO) 0 % (0-10); HEMATOCRIT 28 % (40-54); LYMPHOCYTES # (AUTO) 0.8 10^3/uL (1.0-4.0); LYMPHOCYTES % (AUTO) 7 % (12-44); MEAN CORPUSCULAR HEMOGLOBIN 30 pg (25-34); MEAN CORPUSCULAR HGB CONC 33 g/dL (32-36); MEAN CORPUSCULAR VOLUME 93 fL (80-99); MEAN PLATELET VOLUME 9.3 fL (9.0-12.2); MONOCYTES # (AUTO) 0.7 10^3/uL (0.0-1.0); MONOCYTES % (AUTO) 6 % (0-12); NEUTROPHILS # (AUTO) 10.2 10^3/uL (1.8-7.8); NEUTROPHILS % (AUTO) 86 % (42-75); PLATELET COUNT 321 10^3/uL (130-400); WHITE BLOOD COUNT 11.8 10^3/uL (4.3-11.0)
[2021-08-19 06:52] LABS: CALCIUM 9.1 MG/DL (8.5-10.1); CREATININE SERUM 1.21 MG/DL (0.60-1.30); POTASSIUM 3.4 MMOL/L (3.6-5.0)
[2021-08-19 07:22] VITALS: BP 171/112
--- NOTE | 2021-08-19 08:14 | Physical Therapy Evaluation ---
PT Evaluation-General Medical Diagnosis Admission Date Aug 18, 2021 at 20:36 Medical Diagnosis: cellullitis Onset Date: Aug 18, 2021 Therapy Diagnosis Therapy Diagnosis: difficulty walking Precautions Precautions/Isolations: Standard Precautions Referral Physician: Carmen Reason for Referral: Evaluation/Treatment Medical History Pertinent Medical History: DM, HTN Social History Home: Single Level Current Living Status: Alone PT Steps Into Home: 0 PT Steps Inside Home: 0 Prior Prior Level of Function SCALE: Activities may be completed with or without assistive devices. 0-Ckvokrozco-mldiyla completes the activity by him/herself with no assistance from a helper. 5-Set-up or Clean-up Assistance-helper sets up or cleans up; patient completes activity. Martha assists only prior to or following the activity. 4-Supervision or Touching Assistance-helper provides verbal cues and/or touching/steadying and/or contact guard assistance as patient completes activity. Assistance may be provided throughout the activity or intermittently. 3-Partial/Moderate Assistance-helper does LESS THAN HALF the effort. Martha lifts, holds or supports trunk or limbs, but provides less than half the effort. 2-Substantial/Maximal Assistance-helper does MORE THAN HALF the effort. Martha lifts or holds trunk or limbs and provides more than half the effort. 8-Oopclewvc-srpleu does ALL the effort. Patient does none of the effort to complete the activity. Or, the assistance of 2 or more helpers is required for the patient to complete the activity. If activity was not attempted, code reason: 7-Patient Refused. 9-Not Applicable-not attempted and the patient did not perform the activity before the current illness, exacerbation or injury. 10-Not Attempted due to Environmental Limitations-(lack of equipment, weather restraints, etc.). 88-Not Attempted due to Medical Conditions or Safety Concerns. Bed Mobility: 6 Transfers (B,C,W/C): 6 Gait: 6 Indoor Mobility (Ambulation): Independent Prior Devices Use: Walker PT Evaluation-Current Subjective The patient states that he is really weak and that he has cellulitis in the (L) arm and hand. Pain Numeric Pain Scale: 4 Location Body Site: Back Objective Patient Orientation: Person, Place, Time ROM/Strength ROM Lower Extremities WFL Strength Lower Extremities 3+/5 Transfers Sit to Stand (QC): 4 Chair/Jbd-hf-Txyia Xfer(QC): 4 Gait Does the Patient Walk?: Yes Mode of Locomotion: Walk Anticipated Mode of Locomotion: Walk Walk 10 feet (QC): 88 Walk 50 ft with 2 Turns(QC): 88 Walk 150 ft (QC): 88 Walking 10ft/uneven surface-QC: 88 Distance: 5' Gait Assistive Device: Walker 4 Wheeled Comments/Gait Description shuffling gait pattern and poor foot clearance Balance Sitting Static: Good Sitting Dynamic: Fair Standing Static: Fair Standing Dynamic: Fair Assessment/Needs 65 y.o. male with significant functional mobility limitations. He has weakness in (B) legs and fear of falling. Rehab Potential: Good PT Short Term Goals Short Term Goals Time Frame: Aug 26, 2021 Roll Left & Right: 5 Sit to lyin Lying to sitting on side of be: 5 Sit to stand: 5 Chair/pua-dx-ostrn transfer: 5 Toilet transfer: 5 Walk 10 feet: 5 Walk 50 feet with two turns: 5 Walk 150 feet: 5 Walking 10ft on uneven surface: 5 1 step (curb): 5 4 steps: 5 Picking up objects: 5 PT Microeconomics Professor Goals Microeconomics Professor Goals PT Microeconomics Professor Goals Time Frame: Sep 02, 2021 Roll Left & Right (QC): 6 Sit to Lying (QC): 6 Lying-Sitting on Side/Bed(QC): 6 Sit to Stand (QC): 6 Chair/Xbx-id-Vtaum Xfer(QC): 6 Toilet Transfer (QC): 6 Car Transfer (QC): 6 Does the Patient Walk: Yes Walk 10 feet (QC): 6 Walk 50ft with 2 Turns (QC): 6 Walk 150 ft (QC): 6 Walking 10ft on Uneven Surface: 6 1 Step (curb) (QC): 6 4 Steps (QC): 6 PT Plan Problem List Problem List: Activity Tolerance, Functional Strength, Safety, Balance, Gait, Transfer, Bed Mobility, ROM Treatment/Plan Treatment Plan: Continue Plan of Care Treatment Plan: Bed Mobility, Functional Activity Gabriella, Functional Strength, Gait, Safety, Therapeutic Exercise, Transfers Treatment Duration: Sep 02, 2021 Frequency: 11 times per week Estimated Hrs Per Day: .5 hour per day Discharge Recommendations Therapy Discharge Recommendati: Post Acute PT Target Placement patient is a good candidate for SNF rehab Time/GCodes Time In: 0745 Time Out: 0810 Total Billed Treatment Time: 25 Total Billed Treatment 1, EV low complexity x 25' ROXY POTTS PT Aug 19, 2021 08:14
--- NOTE | 2021-08-19 11:15 | History & Physical-Hospitalist ---
History of Present Illness HPI/Chief Complaint Pt is a 66-year-old male with past medical history of hypertension who was recently admitted last month for debility and JENNI. He did well following that admission for a few days but over the past few weeks has had progressive weakness. Per ER report the fire department has been to his house multiple times a day due to falls or inability to get out of chair. He reports that he lives alone and declined home health after his last admission because he thought he was doing better. He also complains of some edema and redness to his left hand and wrist. He denies any injury. He was admitted due to inability to care for himself at home and for treatment of left hand cellulitis. His daughter is at bedside during our exam. They are inquiring about inpatient rehab. Date Seen 08/19/21 Time Seen by a Provider: 10:30 Attending Physician Irma Altamirano MD PCP Sam Zambrano DO Referring Physician Date of Admission Aug 18, 2021 at 20:36 Home Medications & Allergies Home Medications Reviewed patient Home Medication Reconciliation performed by pharmacy medication reconciliations bindery technician and/or nursing. Patients Allergies have been reviewed. Allergies Allergies Coded Allergies No Known Drug Allergies (Jyjtmsgfba47/9/21) NKDA Past Mwzmvnd-Ejzqir-Epdtoa Hx Patient Social History Employed/Student: retired Tobacco Use?: No Smoking Status: Former Smoker Substance use?: No Alcohol Use?: No Pt feels they are or have been: No Immunizations Up To Date First/Initial COVID19 Vaccinat: 03/2021 Second COVID19 Vaccination Duc: 03/2021 Tetanus Booster (TDap): Unknown Hepatitis A: No Hepatitis B: No Current Status Advance Directives: No Communicates: Verbally Primary Language: [place] Preferred Spoken Language: [place] Is interpretation needed?: No Sensory deficits: Vision impairment Implanted or Applied Medical D: None Past Medical History Surgeries: Orthopedic Hypertension Chronic Back Pain Diabetes, Non-Insulin dep Psoriasis Family Medical History Reviewed Nursing Family Hx Cancer Review of Systems Constitutional: No chills, No fever; malaise, weakness EENTM: no symptoms reported Respiratory: No cough, No short of breath Cardiovascular: No chest pain, No edema, No Hx of Intervention, No palpitations Gastrointestinal: No abdominal pain, No constipation, No nausea, No vomiting Genitourinary: no symptoms reported Musculoskeletal: no symptoms reported Skin: no symptoms reported Psychiatric/Neurological: No Symptoms Reported Physical Exam Physical Exam Vital Signs Vital Signs - First Documented 08/18/21 08/18/21 16:28 19:39 Temp 36.1 Pulse 84 Resp 16 B/P (MAP) 145/89 (107) Pulse Ox 98 O2 Delivery Room Air Capillary Refill : Less Than 3 Seconds Height, Weight, BMI Height: '" Weight: lbs. oz. kg; 31.24 BMI Method: General Appearance: No Apparent Distress, Chronically ill HEENT: PERRL/EOMI, Moist Mucous Membranes; No Scleral Icterus (L), No Scleral Icterus (R) Neck: Normal Inspection, Supple Respiratory: Lungs Clear, No Accessory Muscle Use, No Respiratory Distress Cardiovascular: Regular Rate, Rhythm, No Murmur Gastrointestinal: Normal Bowel Sounds, Non Tender, Soft Extremity: No Pedal Edema, Other (left hand with very minimal erythema on dorsal aspect, no evidence of skin breakdown) Neurologic/Psychiatric: Alert, Oriented x3, Normal Mood/Affect Skin: Normal Color, Warm/Dry Results Results/Procedures Labs Laboratory Tests 08/18/21 16:50 08/19/21 06:08 Patient resulted labs reviewed. Imaging: Reviewed Imaging Report Imaging [facility] [place], [place] NAME: [facility] REC#: [id number] PT STATUS: REG ER : 1955 PHYSICIAN: SANDRA CANELA DO ADMIT DATE: 08/18/21/ER FS Signed Date of Exam:08/18/21 HAND 2 VIEW LEFT INDICATION: Left hand pain and swelling. EXAMINATION: AP and lateral views of left hand were obtained. FINDINGS: There is no acute fracture or malalignment. There is slight irregularity involving the terminal tuft of the 3rd finger which could be related to previous injury. Mild joint space narrowing at the 1st through 3rd metacarpophalangeal joints is likely related to developing osteoarthritis. There is also mild degenerative change at the distal radial and ulnar joints. IMPRESSION: Degenerative-type findings without acute osseous abnormality detected. Dictated by: Dictated on workstation # [id number] Dict: 08/18/21 1745 Trans: 08/18/211816 [facility] [id number] Interpreted by: MIKHAIL LÓPEZ MD Electronically signed by: MIKHAIL LÓPEZ MD 08/18/211816 [facility] [place], [place] NAME: S[facility]ANNA [facility] REC#: [id number] PT STATUS: REG ER : 1955 PHYSICIAN: SANDRA CANELA DO ADMIT DATE: 08/18/21/ER FS Signed Date of Exam:08/18/21 WRIST 2 VIEW LEFT EXAM: WRIST 2 VIEW LEFT INDICATION: Left wrist pain, swelling and redness. COMPARISON: None. FINDINGS: No fracture or malalignment. Soft tissue shadows are unremarkable. IMPRESSION: No acute radiographic findings in the left wrist. Dictated by: Dictated on workstation # [id number] Dict: 08/18/21 174 Trans: 08/18/211844 [facility] [id number] Interpreted by: REBECCA ALVARADO MD Electronically signed by: REBECCA ALVARADO MD 08/18/21 Assessment/Plan Admission Diagnosis Cellulitis Admission Status: Observation Reason for Inpatient Admission: see below Assessment and Plan Cellulitis Continue on IV abx No wound to culture Hopefuly can transition to oral in a day or two Debility Failure to thrive Appears to have an significant weight loss through chart review (136kg to 113kg in 1 month) though physically no evidence of this PT/OT Open to IRF if able to admit there Agreeable to home health as well if unable to go to IRF, still hesistant to SNF Encouraged OOB HTN Resume metoprolol Reports only taking it once a daily though rx is for BID Will start Toprol XL to assist with compliance DMII Denies history of this Filled pioglitazone in April but denies taking this Fasting BS 107 so just trend BS for now DVT ppx: Lovenox Diagnosis/Problems Diagnosis/Problems (1) Cellulitis of left hand Status: Acute (2) Generalized muscle weakness Status: Acute (3) Type 2 diabetes mellitus Status: Chronic (4) Hypertension Status: Chronic (5) Normocytic anemia Status: Acute (6) Hyponatremia Status: Acute (7) Weakness Status: Acute (8) ARF (acute renal failure) Status: Acute Copy Copies To 1: SAM ZAMBRANO KATELYN M MD Aug 19, 2021 11:15
[2021-08-19] MEDS: IBUPROFEN 600 MG (MOTRIN) TAB PO PRN (11:21)
[2021-08-19] MEDS ORDERED: MILK OF MAGNESIA 400 MG/5 ML 30 ML UDC PO PRN (11:30)
[2021-08-19] MEDS ORDERED: KCL 20 MEQ TAB (K-DUR) PO ONE (11:30)
[2021-08-19] MEDS ORDERED: meTOproloL SUCCINATE 50 MG (TOPROL XL) TAB PO SCH (11:30)
[2021-08-19] MEDS ORDERED: ANTACID SUSP 30 ML UDC (MYLANTA) PO PRN (11:30)
[2021-08-19] MEDS ORDERED: BENZONATATE 100 MG (TESSALON) CAPSULE PO PRN (11:30)
[2021-08-19] MEDS ORDERED: ONDANSETRON 4 MG/2 ML (SDV) Z0FRAN IV PRN (11:30)
[2021-08-19] MEDS ORDERED: MELATONIN 3 MG TABLET PO PRN (11:30)
[2021-08-19 11:35] VITALS: BP 149/101
[2021-08-19 16:00] VITALS: BP 136/94
[2021-08-19] MEDS: cefTRIAXone 1,000 MG/SWFI 10 ML IV PUSH IV SCH ×2 (18:17)
[2021-08-19 19:46] VITALS: BP 153/98
[2021-08-20] VITALS (7 sets, daily range): BP systolic 134–167; BP diastolic 93–106
[2021-08-20] MEDS: MAGNESIUM 1 GM/100 ML IVPB 100 ML IV SCH (07:00)
[2021-08-20] MEDS: POTASSIUM CL 10MEQ/50ML IVPB 50 ML IV SCH (07:00)
[2021-08-20 07:09] LABS: HEMATOCRIT 28 % (40-54); HEMOGLOBIN 9.1 g/dL (13.3-17.7); MEAN CORPUSCULAR HEMOGLOBIN 30 pg (25-34); MEAN CORPUSCULAR HGB CONC 33 g/dL (32-36); MEAN CORPUSCULAR VOLUME 92 fL (80-99); MEAN PLATELET VOLUME 9.3 fL (9.0-12.2); PLATELET COUNT 317 10^3/uL (130-400); WHITE BLOOD COUNT 9.7 10^3/uL (4.3-11.0)
[2021-08-20 07:29] LABS: CALCIUM 9.1 MG/DL (8.5-10.1); CREATININE SERUM 1.29 MG/DL (0.60-1.30); MAGNESIUM 1.8 MG/DL (1.6-2.4); POTASSIUM 3.6 MMOL/L (3.6-5.0)
[2021-08-20] MEDS: meTOproloL SUCCINATE 50 MG (TOPROL XL) TAB PO SCH (08:11)
[2021-08-20] MEDS: KCL 20 MEQ TAB (K-DUR) PO SCH (08:11)
[2021-08-20] MEDS: IBUPROFEN 600 MG (MOTRIN) TAB PO PRN ×2 (09:06→15:55)
--- NOTE | 2021-08-20 11:00 | Progress Note - Hospitalist ---
Subjective HPI/CC On Admission Date Seen by Provider: Aug 20, 2021 Time Seen by Provider: 10:57 Pt is a 66-year-old male with past medical history of hypertension who was recently admitted last month for debility and JENNI. He did well following that admission for a few days but over the past few weeks has had progressive w eakness. Per ER report the fire department has been to his house multiple times a day due to falls or inability to get out of chair. He reports that he lives alone and declined home health after his last admission because he thought he was doing better. He also complains of some edema and redness to his left hand and wrist. He denies any injury. He was admitted due to inability to care for himself at home and for treatment of left hand cellulitis. His daughter is at bedside during our exam. They are inquiring about inpatient rehab. Subjective/Events-last exam Pt reports feeling ok today. Hand felt better overnight but now some swelling (though on exam appears improved from yesterday). He has ice pack in place. Objective Exam Vital Signs Vital Signs Date Time Temp Pulse Resp B/P (MAP) Pulse Ox O2 Delivery O2 Flow Rate FiO2 08/20/21 08:59 36.2 103 18 158/93 (114) 96 Room Air Capillary Refill : Less Than 3 Seconds General Appearance: No Apparent Distress, Obese Respiratory: Lungs Clear, No Respiratory Distress Cardiovascular: Regular Rate, Rhythm, No Murmur Gastrointestinal: Normal Bowel Sounds, Non Tender, Soft Extremity: Other (left hand with very minimal edema on the dorsal aspect and no erythema noted) Neurologic/Psychiatric: Alert, Oriented x3 Results/Procedures Lab Laboratory Tests 08/20/21 06:43 Patient resulted labs reviewed. Imaging: Reviewed Imaging Report Assessment/Plan Assessment and Plan Assess & Plan/Chief Complaint Cellulitis Continue on IV abx No wound to culture Hopefully can transition to oral tomorrow Debility Failure to thrive Appears to have an significant weight loss through chart review (136kg to 113kg in 1 month) though physically no evidence of this PT/OT Open to IRF if able to admit there Agreeable to home health as well if unable to go to IRF, still hesistant to SNF Encouraged OOB again today HTN Continue metoprolol, BP running in the 150s so tolerable Will add back him amlodipine that he filled in April is second agent needed DMII Denies history of this Filled pioglitazone in April but denies taking this Fasting BS 116 this AM so just trend BS for now DVT ppx: Lovenox Diagnosis/Problems Diagnosis/Problems (1) Cellulitis of left hand Status: Acute (2) Generalized muscle weakness Status: Acute (3) Type 2 diabetes mellitus Status: Chronic (4) Hypertension Status: Chronic (5) Normocytic anemia Status: Acute (6) Hyponatremia Status: Acute (7) Weakness Status: Acute (8) ARF (acute renal failure) Status: Acute CICI SNELL MD Aug 20, 2021 11:00
[2021-08-20] MEDS: cefTRIAXone 1,000 MG/SWFI 10 ML IV PUSH IV SCH ×2 (17:29)
[2021-08-21 03:17] VITALS: BP 156/106
[2021-08-21 06:28] LABS: CALCIUM 9.5 MG/DL (8.5-10.1); CREATININE SERUM 1.72 MG/DL (0.60-1.30); MAGNESIUM 1.9 MG/DL (1.6-2.4); POTASSIUM 3.9 MMOL/L (3.6-5.0)
[2021-08-21] MEDS: KCL 20 MEQ TAB (K-DUR) PO SCH (06:31)
[2021-08-21] MEDS: POTASSIUM CL 10MEQ/50ML IVPB 50 ML IV SCH (06:31)
[2021-08-21] MEDS: MAGNESIUM 1 GM/100 ML IVPB 100 ML IV SCH (06:31)
[2021-08-21 07:48] VITALS: BP 121/94
[2021-08-21] MEDS: meTOproloL SUCCINATE 50 MG (TOPROL XL) TAB PO SCH (08:10)
[2021-08-21] MEDS: IBUPROFEN 600 MG (MOTRIN) TAB PO PRN (10:47)
--- NOTE | 2021-08-21 10:58 | Physical Therapy Daily Note ---
PT Daily Note-Current Subjective Patient lying supine in bed upon PT arrival, daughter in the room, both agreeable to treatment. Patient reports increased back pain this morning and rates it at 2/10. Mental Status Patient Orientation: Person, Place, Time, Situation Transfers SCALE: Activities may be completed with or without assistive devices. 4-Izzcencipr-zoeesdo completes the activity by him/herself with no assistance from a helper. 5-Set-up or Clean-up Assistance-helper sets up or cleans up; patient completes activity. Whitney assists only prior to or following the activity. 4-Supervision or Touching Assistance-helper provides verbal cues and/or touc ksenia/steadying and/or contact guard assistance as patient completes activity. Assistance may be provided throughout the activity or intermittently. 3-Partial/Moderate Assistance-helper does LESS THAN HALF the effort. Whitney lifts, holds or supports trunk or limbs, but provides less than half the effort. 2-Substantial/Maximal Assistance-helper does MORE THAN HALF the effort. Whitney lifts or holds trunk or limbs and provides more than half the effort. 8-Koppwsxhn-uhromb does ALL the effort. Patient does none of the effort to complete the activity. Or, the assistance of 2 or more helpers is required for the patient to complete the activity. If activity was not attempted, code reason: 7-Patient Refused. 9-Not Applicable-not attempted and the patient did not perform the activity before the current illness, exacerbation or injury. 10-Not Attempted due to Environmental Limitations-(lack of equipment, weather restraints, etc.). 88-Not Attempted due to Medical Conditions or Safety Concerns. Roll Left & Right (QC): 4 Sit to Lying (QC): 4 Lying to Sitting/Side of Bed(Q: 4 Sit to Stand (QC): 4 Chair/Fjt-qj-Ipwko Xfer(QC): 4 Gait Training Does the Patient Walk?: Yes Distance: 30 feet Walk 10 feet (QC): 4 Gait Assistive Device: FWW Exercises Seated Therapy Exercises: Ankle pumps, Long arc quads, Hip flexion, Hamstring Curls, Hip abd/add Seated Reps: 20 Assessment Current Status: Fair Progress Patient tolerated treatment well. Demonstrates minimal improvement in bed mo bility and transfers. Patient able to ambulate this date. Patient ambulates 30 feet with FWW, with CGA and verbal cues for safety, progression, posture and balance. Patient performed LE therapeutic exercise while sitting in the chair as listed above. Patient in chair post treatment with all needs met, nursing notified, call light in reach and daughter returning to room. PT Short Term Goals Short Term Goals Time Frame: Aug 26, 2021 Roll Left & Right: 5 Sit to lyin Lying to sitting on side of be: 5 Sit to stand: 5 Chair/urb-yx-temwk transfer: 5 Toilet transfer: 5 Walk 10 feet: 5 Walk 50 feet with two turns: 5 Walk 150 feet: 5 Walking 10ft on uneven surface: 5 1 step (curb): 5 4 steps: 5 Picking up objects: 5 PT Half-Way Goals Half-Way Goals PT Loan Secretary Goals Time Frame: Sep 02, 2021 Roll Left & Right (QC): 6 Sit to Lying (QC): 6 Lying-Sitting on Side/Bed(QC): 6 Sit to Stand (QC): 6 Chair/Uhc-je-Whxbn Xfer(QC): 6 Toilet Transfer (QC): 6 Car Transfer (QC): 6 Does the Patient Walk: Yes Walk 10 feet (QC): 6 Walk 50ft with 2 Turns (QC): 6 Walk 150 ft (QC): 6 Walking 10ft on Uneven Surface: 6 1 Step (curb) (QC): 6 4 Steps (QC): 6 PT Plan Treatment/Plan Treatment Plan: Continue Plan of Care Treatment Plan: Bed Mobility, Functional Activity Gabriella, Functional Strength, Gait, Safety, Therapeutic Exercise, Transfers Treatment Duration: Sep 02, 2021 Frequency: 11 times per week Estimated Hrs Per Day: .5 hour per day Safety Risks/Education Patient Education: Gait Training, Transfer Techniques Teaching Recipient: Patient, Family Teaching Methods: Demonstration, Discussion Response to Teaching: Verbalize Understanding, Return Demonstration Time/GCodes Time In: 932 Time Out: 956 Total Billed Treatment Time: 24 Total Billed Treatment Visit, Exercise, gait LESLIE HARDIN PT Aug 21, 2021 10:58
[2021-08-21 11:42] VITALS: BP 141/93
[2021-08-21] MEDS ORDERED: FOLI1TAB33 PO (12:58)
--- NOTE | 2021-08-21 14:08 | Progress Note - Hospitalist ---
Subjective HPI/CC On Admission Date Seen by Provider: Aug 21, 2021 Time Seen by Provider: 10:00 Pt is a 66-year-old male with past medical history of hypertension who was recently admitted last month for debility and JENNI. He did well following that admission for a few days but over the past few weeks has had progressive w eakness. Per ER report the fire department has been to his house multiple times a day due to falls or inability to get out of chair. He reports that he lives alone and declined home health after his last admission because he thought he was doing better. He also complains of some edema and redness to his left hand and wrist. He denies any injury. He was admitted due to inability to care for himself at home and for treatment of left hand cellulitis. His daughter is at bedside during our exam. They are inquiring about inpatient rehab. Subjective/Events-last exam Pt reports doing better today. laying in bed. Discussed plan to see how therapy goes and await IRF eval. Objective Exam Vital Signs Vital Signs Date Time Temp Pulse Resp B/P (MAP) Pulse Ox O2 Delivery O2 Flow Rate FiO2 08/21/21 11:42 36.8 102 20 141/93 (109) 94 Room Air Capillary Refill : Less Than 3 Seconds General Appearance: No Apparent Distress, Chronically ill, Obese Respiratory: Lungs Clear, No Respiratory Distress Cardiovascular: Regular Rate, Rhythm, No Murmur Neurologic/Psychiatric: Alert, Oriented x3 Results/Procedures Lab Laboratory Tests 08/21/21 05:20 Patient resulted labs reviewed. Imaging: Reviewed Imaging Report Assessment/Plan Assessment and Plan Assess & Plan/Chief Complaint Cellulitis Continue on abx, switch to oral No wound to culture Much improved Debility Failure to thrive Appears to have an significant weight loss through chart review (136kg to 113kg in 1 month) though physically no evidence of this PT/OT IRF to evaluate HTN Continue metoprolol, BP running in the 150s so tolerable Will add back him amlodipine that he filled in April is second agent needed DMII Originally denied history of this but now asking about resuming his DM meds (though review of refill history shows last filled in April) Fasting BS within goal so holding it for now DVT ppx: Lovenox Diagnosis/Problems Diagnosis/Problems (1) Cellulitis of left hand Status: Acute (2) Generalized muscle weakness Status: Acute (3) Type 2 diabetes mellitus Status: Chronic (4) Hypertension Status: Chronic (5) Normocytic anemia Status: Acute (6) Hyponatremia Status: Acute (7) Weakness Status: Acute (8) ARF (acute renal failure) Status: Acute CICI SNELL MD Aug 21, 2021 14:08
[2021-08-21 15:47] VITALS: BP 138/98
[2021-08-21 19:30] VITALS: BP 138/97
[2021-08-21] MEDS: CEPHALEXIN 250 MG (KEFLEX) CAP PO SCH (21:07)
[2021-08-22] VITALS: BP 155/101
[2021-08-22 04:00] VITALS: BP 156/100
[2021-08-22 06:39] LABS: POTASSIUM 3.8 MMOL/L (3.6-5.0)
[2021-08-22 06:40] LABS: CALCIUM 9.2 MG/DL (8.5-10.1)
[2021-08-22 06:45] LABS: CREATININE SERUM 1.44 MG/DL (0.60-1.30)
[2021-08-22 06:47] LABS: MAGNESIUM 1.9 MG/DL (1.6-2.4)
[2021-08-22] MEDS: POTASSIUM CL 10MEQ/50ML IVPB 50 ML IV SCH (06:52)
[2021-08-22] MEDS: KCL 20 MEQ TAB (K-DUR) PO SCH (06:52)
[2021-08-22] MEDS: MAGNESIUM 1 GM/100 ML IVPB 100 ML IV SCH (06:52)
[2021-08-22] MEDS: CEPHALEXIN 250 MG (KEFLEX) CAP PO SCH (08:34)
[2021-08-22] MEDS: meTOproloL SUCCINATE 50 MG (TOPROL XL) TAB PO SCH (08:35)
[2021-08-22] MEDS: IBUPROFEN 600 MG (MOTRIN) TAB PO PRN (08:35)
[2021-08-22 08:43] VITALS: BP 146/90
[2021-08-22] MEDS ORDERED: CEPH250C PO (09:29)
--- NOTE | 2021-08-22 09:47 | Physical Therapy Daily Note ---
PT Daily Note-Current Subjective Patient sitting in chair upon PT arrival, agreeable to treatment. Patient reports 0/10 pain currently. Mental Status Patient Orientation: Person, Place, Time, Situation Transfers SCALE: Activities may be completed with or without assistive devices. 0-Onaknuaela-fjjpedg completes the activity by him/herself with no assistance from a helper. 5-Set-up or Clean-up Assistance-helper sets up or cleans up; patient completes activity. [place] assists only prior to or following the activity. 4-Supervision or Touching Assistance-helper provides verbal cues and/or touching/steadying and/or contact guard assistance as patient completes activity. Assistance may be provided throughout the activity or intermittently. 3-Partial/Moderate Assistance-helper does LESS THAN HALF the effort. [place] lifts, holds or supports trunk or limbs, but provides less than half the effort. 2-Substantial/Maximal Assistance-helper does MORE THAN HALF the effort. [place] lifts or holds trunk or limbs and provides more than half the effort. 6-Kqxycxuhb-zzvcdw does ALL the effort. Patient does none of the effort to complete the activity. Or, the assistance of 2 or more helpers is required for the patient to complete the activity. If activity was not attempted, code reason: 7-Patient Refused. 9-Not Applicable-not attempted and the patient did not perform the activity before the current illness, exacerbation or injury. 10-Not Attempted due to Environmental Limitations-(lack of equipment, weather restraints, etc.). 88-Not Attempted due to Medical Conditions or Safety Concerns. Sit to Stand (QC): 4 Chair/Wke-sp-Jujbw Xfer(QC): 4 Toilet Transfer (QC): 4 Gait Training Does the Patient Walk?: Yes Distance: 120 feet Walk 10 feet (QC): 4 Walk 50 ft with 2 Turns(QC): 4 Walk 150 ft (QC): 4 Gait Persons Needed: 1 Gait Assistive Device: FWW Exercises Supine Ex: Quad Set Supine Reps: 20 Seated Therapy Exercises: Ankle pumps, Long arc quads, Hip flexion, Hip abd/add, Glut set Seated Reps: 20 Assessment Current Status: Fair Progress Patient sitting in chair upon PT arrival, demonstrates mild difficulty performing sit to stand due to low chair level and LE strength deficit. Patient performs all observed transfers with CGA. Patient ambulates 120 feet with FWW, with CGA. Patient performed LE therapeutic exercise as listed above. Patient will benefit from continued PT to improve continued deficits. Patient in chair post treatment with all needs met, nursing notified, and call light in reach. PT Short Term Goals Short Term Goals Time Frame: Aug 26, 2021 Roll Left & Right: 5 Sit to lyin Lying to sitting on side of be: 5 Sit to stand: 5 Chair/iin-tr-xtich transfer: 5 Toilet transfer: 5 Walk 10 feet: 5 Walk 50 feet with two turns: 5 Walk 150 feet: 5 Walking 10ft on uneven surface: 5 1 step (curb): 5 4 steps: 5 Picking up objects: 5 PT Plumbing Engineer Goals Plumbing Engineer Goals PT Plumbing Engineer Goals Time Frame: Sep 02, 2021 Roll Left & Right (QC): 6 Sit to Lying (QC): 6 Lying-Sitting on Side/Bed(QC): 6 Sit to Stand (QC): 6 Chair/Sjc-zs-Gwusz Xfer(QC): 6 Toilet Transfer (QC): 6 Car Transfer (QC): 6 Does the Patient Walk: Yes Walk 10 feet (QC): 6 Walk 50ft with 2 Turns (QC): 6 Walk 150 ft (QC): 6 Walking 10ft on Uneven Surface: 6 1 Step (curb) (QC): 6 4 Steps (QC): 6 PT Plan Treatment/Plan Treatment Plan: Continue Plan of Care Treatment Plan: Bed Mobility, Functional Activity Gabriella, Functional Strength, Gait, Safety, Therapeutic Exercise, Transfers Treatment Duration: Sep 02, 2021 Frequency: 11 times per week Estimated Hrs Per Day: .5 hour per day Safety Risks/Education Patient Education: Gait Training Teaching Recipient: Patient, Family Teaching Methods: Demonstration, Discussion Response to Teaching: Verbalize Understanding, Return Demonstration Time/GCodes Time In: 856 Time Out: 922 Total Billed Treatment Time: 26 Total Billed Treatment Visit, Gait, Ex LESLIE HARDIN PT Aug 22, 2021 09:47
--- NOTE | 2021-08-22 10:31 | Discharge Summary ---
Diagnosis/Chief Complaint Date of Admission Aug 18, 2021 at 20:36 Date of Discharge Discharge Date: Aug 22, 2021 Admission Diagnosis Cellulitis Primary Care Sam Zambrano DO Discharge Diagnosis (1) Cellulitis of left hand Status: Acute (2) Generalized muscle weakness Status: Acute (3) Type 2 diabetes mellitus Status: Chronic (4) Hypertension Status: Chronic (5) Normocytic anemia Status: Acute (6) Hyponatremia Status: Acute (7) Weakness Status: Acute (8) ARF (acute renal failure) Status: Acute Discharge Summary Discharge Physical Exam Allergies: Coded Allergies: No Known Drug Allergies (Unverified , 07/22/21) NKDA Vitals & I&Os Vital Signs Date Time Temp Pulse Resp B/P (MAP) Pulse Ox O2 Delivery O2 Flow Rate FiO2 08/22/21 11:10 36.3 77 18 146/90 97 Room Air General Appearance: No Apparent Distress, WD/WN Cardiovascular: Regular Rate, Rhythm, No Murmur Neurologic/Psychiatric: Alert, Oriented x3 Hospital Course Patient was admitted secondary to generalized weakness and mild cellulitis of left hand. He was treated with IV Rocephin and the cellulitis resolved. He c ontinued to have weakness and PT OT was consulted was evaluated by the inpatient rehab unit. He was deemed an acceptable candidate for IRU and was discharged there in stable and improved condition. Labs (last 24 hrs) Laboratory Tests 08/22/21 05:37: Sodium Level 135, Potassium Level 3.8, Chloride Level 100, Carbon Dioxide Level 21, Anion Gap 14, Blood Urea Nitrogen 18, Creatinine 1.44H, Estimat Glomerular Filtration Rate 49, BUN/Creatinine Ratio 13, Glucose Level 111H, Calcium Level 9.2, Magnesium Level 1.9 Patient resulted labs reviewed. Pending Labs Laboratory Tests 08/22/21 05:37: Sodium Level 135, Potassium Level 3.8, Chloride Level 100, Carbon Dioxide Level 21, Anion Gap 14, Blood Urea Nitrogen 18, Creatinine 1.44, Estimat Glomerular Filtration Rate 49, BUN/Creatinine Ratio 13, Glucose Level 111, Calcium Level 9.2, Magnesium Level 1.9 Imaging: Reviewed Imaging Report Discussion & Recommendations Discharge Planning: >30 minutes discharge planning Discharge Home Medications: Active Scripts Active Cephalexin 250 Mg Capsule 500 Mg PO BID Reported Folic Acid 1 Mg Tablet 1 Mg PO DAILY Metoprolol Tartrate 50 Mg Tablet 50 Mg PO DAILY Instructions to patient/family Please see electronic discharge instructions given to patient. CICI SNELL MD Aug 22, 2021 10:31
[2021-08-22 11:10] VITALS: BP 146/90
== END 2021-08-22 10:27 ==
LOC: EDUNIT# 16:26 → ER FS 16:27 → UNDOADMOB 20:36 → 4TH 20:36 → UNDODISOB 08-22 11:10
PROVIDERS: ADMIT Family Medicine; ATTEND Family Medicine
DX: L03.114 Cellulitis of left upper limb (principal); M62.81 Muscle weakness (generalized); E11.9 Type 2 diabetes mellitus without complications; I10 Essential (primary) hypertension; D64.9 Anemia, unspecified; E87.1 Hypo-osmolality and hyponatremia; N17.9 Acute kidney failure, unspecified; M54.9 Dorsalgia, unspecified; G89.29 Other chronic pain; M02.342 Reiter's disease, left hand; Z79.899 Other long term (current) drug therapy; Z87.891 Personal history of nicotine dependence; Z79.84 Long term (current) use of oral hypoglycemic drugs
CPT/HCPCS: 36415; 73100; 73120; 80048 ×4; 80053; 83735 ×4; 84484; 85007; 85025; 85027 ×2; 86141; 93005; 96374; 97110; 97116; 97161; 99284; G0378; G0480; 80320

== ENCOUNTER 2021-08-22 10:21 | Inpatient (IN) | payer SELFPAY ==
[~2021-08-22] VITALS: Ht 195.6 cm; Wt 110.6 kg
[~2021-08-22 10:21] MED LIST changes: +CEPH250C PO; -LISI1TAB26 PO; +LISI1TAB48 PO
[2021-08-22] MEDS ORDERED: DOCUSATE SODIUM 100 MG (COLACE) CAP PO PRN (10:30)
[2021-08-22] MEDS ORDERED: FLEET ENEMA ADULT 1 EA BTL PR PRN (10:30)
[2021-08-22] MEDS ORDERED: BISACODYL 10 MG SUPP (DULCOLAX) PR PRN (10:30)
[2021-08-22] MEDS ORDERED: ALPRAZolam 0.25 MG (XANAX) TAB PO PRN (10:30)
[2021-08-22] MEDS ORDERED: CALCIUM CARBONATE 500 MG (TUMS) TAB.CHEW PO PRN (10:30)
[2021-08-22] MEDS ORDERED: LACTULOSE SYRUP 10GM/15ML (ENULOSE) 30ML UDC PO PRN (10:30)
[2021-08-22] MEDS ORDERED: LOPERAMIDE 2 MG (IMODIUM) TABLET PO PRN (10:30)
[2021-08-22] MEDS ORDERED: guaiFENesin/CODEINE (ROBITUSSIN AC) 10ML UDC PO PRN (10:30)
[2021-08-22] MEDS ORDERED: ONDANSETRON 4 MG (ZOFRAN) ORAL DISSOLVE TAB PO PRN (10:30)
[2021-08-22] MEDS ORDERED: diphenhydrAMINE 25 MG TAB (BENADRYL) PO PRN (10:30)
--- NOTE | 2021-08-22 12:06 | Progress Note ---
IOANABLAYNE MED STUDENT 08/22/21 1206: Progress Note H&P CC: Debility, weakness, falls HPI: Caop is a 65yo male presenting to IRF for PT/OT d/t recent history of increasing weakness, falls, debility. Daughter Susanna is in the room and helps with history. He has delayed responses, but is otherwise neurologically intact. They report that he quit drinking about 2-3months ago, and ever since he has been increasingly weak, lost his appetite, and has experienced multiple falls at home. He was admitted to the hospital 1mo ago due to dehydration and similar sym ptoms. Denies losing consciousness when he falls, describes it as his legs giving out. Significant hx of alcohol abuse (1/5 liquor every other day), T2DM, HTN. He has some erythema/edema of his L hand, onset 1week ago, that has been improving since receiving Abx on his recent admission; denies trauma to his hand. ROS: denies lightheadedness, chest pain, SOB, N/V, abd pain, diarrhea/constipation, dysuria, hematuria, urinary frequency, numbness/tingling. PMHx: T2DM, HTN PSHx: L Knee arthroscopy, never had colonoscopy Meds: Pioglitazone 22.5mg PO QD, Metoprolol 50mg PO QD Allergies: NKDA, no environmental/food allergies FHx: Father(HTN, CAD) SocialHx: Quit smoking(10pack/year history), Alcohol(quit drinking 3mos ago, hx of drinking 1/5 liquor QOD), denies recreational drug use. Retired 1yr ago. 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 States that his mother/father were farmers in the 1950's and his older brother/sister from renal cancer due to the pesticide they used on the farm that poisoned the well water; they moved before pt was born so he was not exposed. PE: VS: Pending Labs: Pending General: Well nourished. Slow to respond. Pleasant affect Neuro: A&Ox3. No focal deficits. HEENT: Atraumatic, moist mucosa, PERRLA, EOMI, CV: RRR, no rubs/clicks/murmurs, no edema, pulses +2/4 x4 extremities Respiratory: Lungs CTAB, no accessory muscle use Abd: large, soft, nontender, nondistended. BS active x4 MSK: Full ROM x4 extremities, strength +5/5 x4 extremities, gait not assessed Skin: warm/dry, normal color, dorsal L hand with mild edema/erythema no evidence of abscess/wound A/P: Debility, weakness, loss of appetite, frequent falls PT/OT eval and rehab Dietary eval Thyroid function labs L hand cellulitis Finish course of Keflex, started during inpt stay T2DM HTN Resume home meds Normocytic anemia CHANTAL LAIRD DO 08/23/21 0612: Supervisory-Addendum Brief Verification & Attestation Participated in pt care: history, MDM, physical Personally performed: exam, history, MDM, supervision of care Care discussed with: Medical Student Procedures: n/a Results interpretation: Verified all documentation Verification and Attestation of Medical Student E/M Service A medical student performed and documented this service in my presence. I reviewed and verified all information documented by the medical student and made modifications to such information, when appropriate. I personally performed the physical exam and medical decision making. Chantal Laird, Aug 23, 2021,06:11 BLAYNE TRIPLETT MED STUDENT Aug 22, 2021 12:06 CHANTAL LAIRD DO Aug 23, 2021 06:12
--- NOTE | 2021-08-22 12:25 | Occupational Therapy Eval ---
OT Evaluation-General/PLF Medical Diagnosis Admission Date Aug 22, 2021 at 11:00 Medical Diagnosis: weakness, cellulitis Onset Date: Aug 18, 2021 Therapy Diagnosis Therapy Diagnosis: impaired balance, endurance, adls, iadls, strength Precautions Precautions/Isolations: Fall Prevention, Standard Precautions Referral Physician: nicolette Fields Reason: Evaluation/Treatment Medical History Pertinent Medical History: DM, HTN Current History Pt admitted to ARU with weakness and cellulitis of LUE. 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 Per patient, he lives alone in a single story home. He was indep with adls and Iadls except that his daughter will provide assist with groceries. He states that his family recently purchased a shower chair but he has not used it yet. Reviewed History: Yes Social History Home: Single Level Current Living Status: Alone Entry Into Home: Level Entry ADL-Prior Level of Function SCALE: Activities may be completed with or without assistive devices. 4-Jwrzrvagya-axvwwrv completes the activity by him/herself with no assistance from a helper. 5-Set-up or Clean-up Assistance-helper sets up or cleans up; patient completes activity. [place] assists only prior to or following the activity. 4-Supervision or Touching Assistance-helper provides verbal cues and/or touching/steadying and/or contact guard assistance as patient completes activity. Assistance may be provided throughout the activity or intermittently. 3-Partial/Moderate Assistance-helper does LESS THAN HALF the effort. [place] lifts, holds or supports trunk or limbs, but provides less than half the effort. 2-Substantial/Maximal Assistance-helper does MORE THAN HALF the effort. [place] lifts or holds trunk or limbs and provides more than half the effort. 2-Jmtagojtz-jsaovs does ALL the effort. Patient does none of the effort to complete the activity. Or, the assistance of 2 or more helpers is required for the patient to complete the activity. If activity was not attempted, code reason: 7-Patient Refused. 9-Not Applicable-not attempted and the patient did not perform the activity before the current illness, exacerbation or injury. 10-Not Attempted due to Environmental Limitations-(lack of equipment, weather restraints, etc.). 88-Not Attempted due to Medical Conditions or Safety Concerns. Self Care: Independent Functional Cognition: Independent DME/Equipment: Shower, Tall Toilet Drive Self: Yes OT Current Status Subjective Pt reports 3/10 pain in LUE Appearance Pt left supine in bed, all needs within reach at OT departure. Mental Status/Objective Patient Orientation: Person, Situation Attachments: IV Current Glasses/Contacts: Yes Hand Dominance: Right Upper Extremity ROM Impaired LUE elbow/hand secondary to pain and cellulitis ADL-Treatment Eating (QC): 5 (per clinical judgment) Oral Hygiene (QC): 4 (steadying assist) Shower/Bathe Self (QC): 7 Upper Body Dressing (QC): 4 Lower Body Dressing (QC): 3 (min) On/Off Footwear (QC): 4 Toileting Hygiene (QC): 3 (min) Will be co-treating with PT due to poor patient mobility, strength, endurance, balance, activity tolerance, safety and high fall risk. Pt declines shower. Dressing tasks performed sitting EOB. Significant time required due to reduced initiation and very slow processing speed. Incontinent of urine (contained in brief) but pt also reports that he hasn't changed briefs in almost 3 days. He initially appears to have difficulty threading feet into LB clothing and requires cue to use LUE; Appears to be guarded of using L hand during functional tasks. Post cue, he was able to reach feet to complete task and don socks without assist. CGA-min a when standing to pull clothing up to waist with 0-1 UE support on walker. With fatigue, unsteadiness increases. Cues needed to alternate single UE support on walker. When given 2 choices, pt often verbalizing "i don't know" and requires extra time to express thought. Education OT Patient Education: Correct positioning, Modified ADL techniques, Progress toward Goal/Update tx plan, Purpose of tx/functional activities, Reviewed precautions, Rehab process, Safety issues, Transfer techniques Teaching Recipient: Patient Teaching Methods: Demonstration, Discussion Response to Teaching: Verbalize Understanding, Reinforcement Needed OT Short Term Goals Short Term Goals Time Frame: Sep 01, 2021 Eatin Oral hygiene: 5 Toileting hygiene: 4 Shower/bathe self: 4 Upper body dressin Lower body dressin Putting on/taking off footwear: 5 OT Longterm Goals Longterm Goals Time Frame: Sep 08, 2021 Eating (QC): 6 Oral Hygiene (QC): 6 Toileting Hygiene (QC): 6 Shower/Bathe Self (QC): 5 Upper Body Dressing (QC): 6 Lower Body Dressing (QC): 6 On/Off Footwear (QC): 6 1=Demonstrate adherence to instructed precautions during ADL tasks. 2=Patient will verbalize/demonstrate understanding of assistive devices/modifications for ADL. 3=Patient will improve strength/tolerance for activity to enable patient to perform ADL's. OT Education/Plan Problem List/Assessment Assessment: Decreased Activ Tolerance, Decreased UE Strength, Impaired Cognition, Impaired Funct Balance, Impaired I ADL's, Impaired Self-Care Skills, Restricted Funct UE ROM Discharge Recommendations Plan/Recommendations: Continue POC Comment continue to assess, anticipate home health pending progress Treatment Plan/Plan of Care Treatment,Training & Education: Yes Patient would benefit from OT for education, treatment and training to promote independence in ADL's, mobility, safety and/or upper extremity function for ADL's. Plan of Care: ADL Retraining Treatment Duration: Sep 08, 2021 Frequency: At least 5 of 7 days/Wk (IRF) Estimated Hrs Per Day: 1.5 hours per day Agreement: Yes Time/GCodes Start Time: 11:15 Stop Time: 12:10 Total Time Billed (hr/min): 55 Billed Treatment Time 1 visit EVM (10 min) ADL x3 (45 min) OT sanjay [id number], Co-treat [id number] Gema Araya OT Aug 22, 2021 12:25
--- NOTE | 2021-08-22 12:31 | History & Physical ---
History of Present Illness Date Seen 08/22/21 Attending Physician Tati Humphreys DO PCP Sam Zambrano DO Referring Physician Date of Admission Aug 22, 2021 at 11:00 Home Medications & Allergies Home Medications Reviewed patient Home Medication Reconciliation performed by pharmacy medication reconciliations thin film technician and/or nursing. Patients Allergies have been reviewed. Allergies Allergies Coded Allergies No Known Drug Allergies (Nczyamulre52/9/21) NKDA Past Xalkjux-Xnvnea-Vqrtcd Hx Past Medical History Surgeries: Orthopedic Cardiac: Hypertension Musculoskeletal: Chronic Back Pain Endocrine: Diabetes, Non-Insulin dep Skin/Integumentary: Psoriasis Family History Cancer Physical Exam Physical Exam Vital Signs Vital Signs - First Documented 08/22/21 08/22/21 11:15 20:06 Temp 35.4 Pulse 85 Resp 19 B/P (MAP) 159/93 (115) Pulse Ox 100 O2 Delivery Room Air Capillary Refill : Height, Weight, BMI Height: '" Weight: lbs. oz. kg; 31.24 BMI Method: Results Results/Procedures Labs Patient resulted labs reviewed. TATI HUMPHREYS DO Aug 22, 2021 12:31
--- NOTE | 2021-08-22 12:35 | Physical Therapy Evaluation ---
PT Evaluation-General Medical Diagnosis Admission Date Aug 22, 2021 at 11:00 Medical Diagnosis: weakness, cellulitis Onset Date: Aug 18, 2021 Therapy Diagnosis Therapy Diagnosis: impaired mobility, strength, endurance Precautions Precautions/Isolations: Fall Prevention, Standard Precautions Referral Physician: Tati Humphreys DO Reason for Referral: Evaluation/Treatment Medical History Pertinent Medical History: DM, HTN Reviewed History: Yes Social History Home: Single Level Current Living Status: Alone Entry Into Home: Level Entry Prior Prior Level of Function SCALE: Activities may be completed with or without assistive devices. 3-Yecqyuzkhb-ivmeljj completes the activity by him/herself with no assistance from a helper. 5-Set-up or Clean-up Assistance-helper sets up or cleans up; patient completes activity. [place] assists only prior to or following the activity. 4-Supervision or Touching Assistance-helper provides verbal cues and/or touching/steadying and/or contact guard assistance as patient completes activity. Assistance may be provided throughout the activity or intermittently. 3-Partial/Moderate Assistance-helper does LESS THAN HALF the effort. [place] lifts, holds or supports trunk or limbs, but provides less than half the effort. 2-Substantial/Maximal Assistance-helper does MORE THAN HALF the effort. [place] lifts or holds trunk or limbs and provides more than half the effort. 7-Ghhfxzzfj-geqniy does ALL the effort. Patient does none of the effort to complete the activity. Or, the assistance of 2 or more helpers is required for the patient to complete the activity. If activity was not attempted, code reason: 7-Patient Refused. 9-Not Applicable-not attempted and the patient did not perform the activity before the current illness, exacerbation or injury. 10-Not Attempted due to Environmental Limitations-(lack of equipment, weather restraints, etc.). 88-Not Attempted due to Medical Conditions or Safety Concerns. Bed Mobility: 6 Transfers (B,C,W/C): 6 Gait: 6 Indoor Mobility (Ambulation): Independent Prior Devices Use: Walker PT Evaluation-Current Subjective Patient in recliner pre tx, agrees to PT, says he has some minor pain in his IV site in his right arm and in his left hand due to the cellulitis. Will be co- treating with OT for part of tx due to poor patient mobility, strength, endurance, balance, coordinate UE and LE during activity, safety and reduce risk of falls. Pt/Family Goals to be independent at home Objective Patient Orientation: Person, Place, Situation ROM/Strength ROM Lower Extremities WNL Strength Lower Extremities 4/5 gross BLE Sensory Vision: Wears Glasses Hearing: Functional Hand Dominance: Right Sensation Right Lower Extremit: Intact Sensation Left Lower Extremity: Intact Transfers Roll Left & Right (QC): 4 Sit to Lying (QC): 4 Lying to Sitting/Side of Bed(Q: 4 Sit to Stand (QC): 3 Chair/Ewj-rw-Vypdp Xfer(QC): 4 Toilet Transfer (QC): 4 Car Transfer (QC): 4 Patient performs bed mobility and supine <-> sit with SBA, sit <-> stand min assist (from low surfaces), transfers and car transfer SBA. Gait Does the Patient Walk?: Yes Mode of Locomotion: Walk Anticipated Mode of Locomotion: Walk Walk 10 feet (QC): 4 Walk 50 ft with 2 Turns(QC): 4 Walk 150 ft (QC): 4 Walking 10ft/uneven surface-QC: 4 Distance: 150', 120' Gait Assistive Device: FWW Comments/Gait Description Patient can ambulate 150' with a rolling walker with CGA (including 50' with at least 2 turns of 90 degrees and 10' over an uneven surface). Ambulation is slow and he needs some steadying assist on occasion Wheelchair Training Does the Pt Use a Wheelchair?: No Wheel 50 ft with 2 turns (QC): 9 Wheel 150 ft (QC): 9 Stairs #of Steps: 1 1 Step (curb) (QC): 4 4 Steps (QC): 88 12 Steps (QC): 88 Balance Sitting Static: Normal Sitting Dynamic: Normal Standing Static: Fair Standing Dynamic: Fair Picking up an Object (QC): 88 Treatment PT performed bed mobility and transfers, ambulation, stair training, gait training, standing during dressing, OT performed dressing, ADL's, UE positioning and safety during activity Assessment/Needs Patient in bed post tx with nurse call, phone, tray, all needs met. Patent has impaired mobility, strength, endurance. Patient is mostly CGA with mobility but needs min assist for sit to stand from lower surfaces. His blood pressure was running high. Tested at 146/103, 107 bpm, 97% O2. Later it was 151/95, 119 bpm, 98% O2. Rehab Potential: Fair PT Short Term Goals Short Term Goals Time Frame: Aug 29, 2021 Roll Left & Right: 6 Sit to lyin Lying to sitting on side of be: 5 Sit to stand: 4 (SBA) Chair/zly-uw-eyemk transfer: 4 (SBA) Walk 10 feet: 4 (SBA) Walk 50 feet with two turns: 4 (SBA) Walk 150 feet: 4 (SBA) PT [facility] Goals Stripping And Booking Machine Operator Goals PT [facility] Goals Time Frame: Sep 12, 2021 Roll Left & Right (QC): 6 Sit to Lying (QC): 6 Lying-Sitting on Side/Bed(QC): 6 Sit to Stand (QC): 5 Chair/Ezp-xf-Aupnm Xfer(QC): 5 Toilet Transfer (QC): 5 Car Transfer (QC): 5 Does the Patient Walk: Yes Walk 10 feet (QC): 5 Walk 50ft with 2 Turns (QC): 5 Walk 150 ft (QC): 5 Walking 10ft on Uneven Surface: 5 1 Step (curb) (QC): 4 4 Steps (QC): 4 12 Steps (QC): 88 Picking up an Object (QC): 4 Wheel 50 feet with 2 turns (QC: 9 Wheel 150 feet: 9 PT Plan Problem List Problem List: Activity Tolerance, Functional Strength, Safety, Balance, Gait, Transfer, Bed Mobility, ROM Treatment/Plan Treatment Plan: Continue Plan of Care Treatment Plan: Bed Mobility, Education, Functional Activity Gabriella, Functional Strength, Group Therapy, Gait, Safety, Therapeutic Exercise, Transfers Treatment Duration: Sep 12, 2021 Frequency: At least 5 of 7 days/Wk (IRF) Estimated Hrs Per Day: 1.5 hours per day Patient and/or Family Agrees t: Yes Safety Risks/Education Patient Education: Gait Training, Transfer Techniques, Steps, Correct Positioning, Safety Issues Teaching Recipient: Patient Teaching Methods: Demonstration, Discussion Response to Teaching: Reinforcement Needed Discharge Recommendations Plan Patient will perform bed mobility and transfer training, balance and endurance training, functional strengthening, stair training, gait training, and education, to improve functional mobility and independence at home. Therapy Discharge Recommendati: Scheduled Assistance, Home & Family, Post Acute PT Time/GCodes Time In: 1100 Time Out: 1210 Total Billed Treatment Time: 60 Total Billed Treatment 1 visit EVM 15' FA 45' PT eval from [id number], OT eval from [id number], co-treat from [id number] OFELIA CHAPARRO PT Aug 22, 2021 12:35
--- NOTE | 2021-08-22 13:53 | Occupational Ther Daily Note ---
OT Current Status-Daily Note Subjective Pt in agreement with treatment. Appearance Left reclined in bed, all needs within reach. ADL-Treatment Therapy Code Descriptions/Definitions Functional [place] Measure: 0=Not Assessed/NA 4=Minimal Assistance 1=Total Assistance 5=Supervision or Setup 2=Maximal Assistance 6=Modified [place] 3=Moderate Assistance 7=Complete IndependenceSCALE: Activities may be completed with or without assistive devices. 8-Owyzlryeqq-gkewjvg completes the activity by him/herself with no assistance from a helper. 5-Set-up or Clean-up Assistance-helper sets up or cleans up; patient completes activity. [place] assists only prior to or following the activity. 4-Supervision or Touching Assistance-helper provides verbal cues and/or touching/steadying and/or contact guard assistance as patient completes activity. Assistance may be provided throughout the activity or intermittently. 3-Partial/Moderate Assistance-helper does LESS THAN HALF the effort. [place] lifts, holds or supports trunk or limbs, but provides less than half the effort. 2-Substantial/Maximal Assistance-helper does MORE THAN HALF the effort. [place] lifts or holds trunk or limbs and provides more than half the effort. 4-Rfzvrneke-efmfmn does ALL the effort. Patient does none of the effort to complete the activity. Or, the assistance of 2 or more helpers is required for the patient to complete the activity. If activity was not attempted, code reason: 7-Patient Refused. 9-Not Applicable-not attempted and the patient did not perform the activity before the current illness, exacerbation or injury. 10-Not Attempted due to Environmental Limitations-(lack of equipment, weather restraints, etc.). 88-Not Attempted due to Medical Conditions or Safety Concerns. Other Treatment Pt participated in UE exercises with goal to promote increased endurance and strength needed for adls and transfers. He presents with cellulitis in L forearm/hand. Education provided on etiology, management, and good hygiene. OT provided retrograde massage to hand/forearm in effort to promote lymphatic drainage. All RUE exercises performed with 2# dumbbell. He was able to perform all movements within full range, min cues for correct form/speed. 15x2. Zero resistance-1# utilized for LUE. Pt exhibits difficulty with maintaining grasp with L hand due to swelling and pain. AROM-AAROM at wrist/hand x15 reps. Pt will benefit from L hand strengthening exercises. Education OT Patient Education: Correct positioning, Disease process, Exercise program, Reviewed precautions, Rehab process Teaching Recipient: Patient Teaching Methods: Demonstration Response to Teaching: Verbalize Understanding, Return Demonstration, Reinforcement Needed OT Short Term Goals Short Term Goals Time Frame: Sep 01, 2021 Eatin Oral hygiene: 5 Toileting hygiene: 4 Shower/bathe self: 4 Upper body dressin Lower body dressin Putting on/taking off footwear: 5 OT Correction Goals Nailing Machine Operator Automatic Goals Time Frame: Sep 08, 2021 Eating (QC): 6 Oral Hygiene (QC): 6 Toileting Hygiene (QC): 6 Shower/Bathe Self (QC): 5 Upper Body Dressing (QC): 6 Lower Body Dressing (QC): 6 On/Off Footwear (QC): 6 1=Demonstrate adherence to instructed precautions during ADL tasks. 2=Patient will verbalize/demonstrate understanding of assistive devices/modifications for ADL. 3=Patient will improve strength/tolerance for activity to enable patient to perform ADL's. OT Education/Plan Problem List/Assessment Assessment: Decreased Activ Tolerance, Decreased UE Strength, Impaired Funct Balance, Impaired I ADL's, Impaired Self-Care Skills, Restricted Funct UE ROM Discharge Recommendations Plan/Recommendations: Continue POC Treatment Plan/Plan of Care Treatment,Training & Education: Yes Patient would benefit from OT for education, treatment and training to promote independence in ADL's, mobility, safety and/or upper extremity function for ADL's. Plan of Care: ADL Retraining, Functional Mobility, Group Exercise/Act as Ind, UE Funct Exercise/Act Treatment Duration: Sep 08, 2021 Frequency: At least 5 of 7 days/Wk (IRF) Estimated Hrs Per Day: 1.5 hours per day Agreement: Yes Rehab Potential: Fair Time/GCodes Start Time: 13:10 Stop Time: 13:45 Total Time Billed (hr/min): 35 Billed Treatment Time 1 visit, EX x2 Gema Araya OT Aug 22, 2021 13:53
--- NOTE | 2021-08-22 14:21 | Physical Therapy Daily Note ---
PT Daily Note-Current Subjective Pt in bed upon arrival and agrees to tx. Pt states pain 3/10 in L hand. Pain Numeric Pain Scale: 3 Location: Left Location Body Site: Hand Transfers SCALE: Activities may be completed with or without assistive devices. 2-Omjfxbkork-bpcxubv completes the activity by him/herself with no assistance from a helper. 5-Set-up or Clean-up Assistance-helper sets up or cleans up; patient completes activity. [place] assists only prior to or following the activity. 4-Supervision or Touching Assistance-helper provides verbal cues and/or touching/steadying and/or contact guard assistance as patient completes activity. Assistance may be provided throughout the activity or intermittently. 3-Partial/Moderate Assistance-helper does LESS THAN HALF the effort. [place] lifts, holds or supports trunk or limbs, but provides less than half the effort. 2-Substantial/Maximal Assistance-helper does MORE THAN HALF the effort. [place] lifts or holds trunk or limbs and provides more than half the effort. 1-Rgvpdgjtz-mqhpdh does ALL the effort. Patient does none of the effort to complete the activity. Or, the assistance of 2 or more helpers is required for the patient to complete the activity. If activity was not attempted, code reason: 7-Patient Refused. 9-Not Applicable-not attempted and the patient did not perform the activity b efore the current illness, exacerbation or injury. 10-Not Attempted due to Environmental Limitations-(lack of equipment, weather restraints, etc.). 88-Not Attempted due to Medical Conditions or Safety Concerns. Roll Left & Right (QC): 4 Sit to Lying (QC): 4 Lying to Sitting/Side of Bed(Q: 4 Sit to Stand (QC): 3 Gait Training Does the Patient Walk?: Yes Distance: 150' x2 Walk 10 feet (QC): 4 Walk 50 ft with 2 Turns(QC): 4 Walk 150 ft (QC): 3 Gait Persons Needed: 1 Gait Assistive Device: FWW Pt amb w/ FWW 150' x2, pt had slight LOB when turning as pt scissored LE but self corrected. Exercises NuStep Minutes: 10 NuStep Workload: 4 Treatments Pt completes bed mobility and sits EOB. Pt sit to stand CGA and amb 150' on ARU to therapy gym. Pt completes NuStep on WL of 4 for 10 minutes. Pt has short rest break, then amb 150' back to room. Pt sits EOB for rest break, then sit <> supine. Pt remains in bed with all needs met, call light in hand. Assessment Current Status: Fair Progress Pt increasing strenght, endurance, mobility, and gait. Had slight LOB with amb d/t scissoring with a turn. PT Short Term Goals Short Term Goals Time Frame: Aug 29, 2021 Roll Left & Right: 6 Sit to lyin Lying to sitting on side of be: 5 Sit to stand: 4 (SBA) Chair/njd-jz-yrlrt transfer: 4 (SBA) Walk 10 feet: 4 (SBA) Walk 50 feet with two turns: 4 (SBA) Walk 150 feet: 4 (SBA) PT Program Mgr Goals Fci Goals PT Fci Goals Time Frame: Sep 12, 2021 Roll Left & Right (QC): 6 Sit to Lying (QC): 6 Lying-Sitting on Side/Bed(QC): 6 Sit to Stand (QC): 5 Chair/Dxh-yq-Mtmwh Xfer(QC): 5 Toilet Transfer (QC): 5 Car Transfer (QC): 5 Does the Patient Walk: Yes Walk 10 feet (QC): 5 Walk 50ft with 2 Turns (QC): 5 Walk 150 ft (QC): 5 Walking 10ft on Uneven Surface: 5 1 Step (curb) (QC): 4 4 Steps (QC): 4 12 Steps (QC): 88 Picking up an Object (QC): 4 Wheel 50 feet with 2 turns (QC: 9 Wheel 150 feet: 9 PT Plan Problem List Problem List: Activity Tolerance, Functional Strength, Balance, Gait Treatment/Plan Treatment Plan: Continue Plan of Care Treatment Plan: Bed Mobility, Education, Functional Activity Gabriella, Functional Strength, Group Therapy, Gait, Safety, Therapeutic Exercise, Transfers Treatment Duration: Sep 12, 2021 Frequency: At least 5 of 7 days/Wk (IRF) Estimated Hrs Per Day: 1.5 hours per day Patient and/or Family Agrees t: Yes Safety Risks/Education Patient Education: Gait Training, Correct Positioning Teaching Recipient: Patient Teaching Methods: Discussion Response to Teaching: Verbalize Understanding Time/GCodes Time In: 1345 Time Out: 1415 Total Billed Treatment Time: 30 Total Billed Treatment 1, GT, Ex SANDOR SPENCE FIRE EXTINGUISHER INSTALLER Aug 22, 2021 14:21
[2021-08-22] MEDS: CEPHALEXIN 250 MG (KEFLEX) CAP PO SCH ×2 (14:32→20:19)
[2021-08-22 17:49] LABS: CLARITY,URINE CLOUDY; COLOR,URINE BROWN; GLUCOSE, URINE (UA) NEGATIVE (NEGATIVE); KETONES,URINE TRACE (NEGATIVE); LEUKOCYTE ESTERASE ,URINE TRACE (NEGATIVE); NITRITE,URINE POSITIVE (NEGATIVE); PH,URINE 6.5 (5-9); PROTEIN,URINE 3+ (NEGATIVE)
[2021-08-22 18:08] LABS: AMORPHOUS SEDIMENT,UR LARGE AMOR URATES /LPF
[2021-08-22 18:09] LABS: RBC,URINE 50-100 /HPF
[2021-08-22 18:10] LABS: BACTERIA,URINE TRACE /HPF
[2021-08-22 20:06] VITALS: BP 159/93
[2021-08-22] MEDS: DOCUSATE SODIUM 100 MG (COLACE) CAP PO SCH (20:19)
[2021-08-22] MEDS: SENNA W/DOCUSATE (SENOKOT S) TABLET PO SCH (20:19)
[2021-08-22] MEDS: polyethylene glycoL POWDER 17 GM (MIRALAX) PACK PO SCH (20:20)
--- NOTE | 2021-08-22 20:54 | PM&R Post Admission Assessment ---
PM&R HP Date of Visit: Aug 22, 2021 Time of Visit: 13:00 History of Present Illness CC: Debility HPI: This is a 65yoWM clinic pt of Dr. Zambrano who presented to the ER with left arm cellulitis and significant and significant weakness with multiple falls recently. He is an alcoholic. He stopped drinking three months ago. He will be in need of further strengthening and given the ability to return back to independent living with his daughter. H&P CC: Debility, weakness, falls HPI: Capo is a 65yo male presenting to [facility] for PT/OT d/t recent history of increasing weakness, falls, debility. Daughter Susanna is in the room and helps with history. He has delayed responses, but is otherwise neurologically intact. They report that he quit drinking about 2-3months ago, and ever since he has been increasingly weak, lost his appetite, and has experienced multiple falls at home. He was admitted to the hospital 1mo ago due to dehydration and similar symptoms. Denies losing consciousness when he falls, describes it as his legs giving out. Significant hx of alcohol abuse (1/5 liquor every other day), T2DM, HTN. He has some erythema/edema of his L hand, onset 1week ago, that has been improving since receiving Abx on his recent admission; denies trauma to his hand. ROS: denies lightheadedness, chest pain, SOB, N/V, abd pain, diarrhea/constipation, dysuria, hematuria, urinary frequency, numbness/tingling. PMHx: T2DM, HTN PSHx: L Knee arthroscopy, never had colonoscopy Meds: Pioglitazone 22.5mg PO QD, Metoprolol 50mg PO QD Allergies: NKDA, no environmental/food allergies FHx: Father(HTN, CAD) SocialHx: Quit smoking(10pack/year history), Alcohol(quit drinking 3mos ago, hx of drinking 1/5 liquor QOD), denies recreational drug use. Retired 1yr ago. 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 States that his mother/father were farmers in the 1950's and his older brother/sister from renal cancer due to the pesticide they used on the farm that poisoned the well water; they moved before pt was born so he was not exposed. PE: VS: Pending Labs: Pending General: Well nourished. Slow to respond. Pleasant affect Neuro: A&Ox3. No focal deficits. HEENT: Atraumatic, moist mucosa, PERRLA, EOMI, CV: RRR, no rubs/clicks/murmurs, no edema, pulses +2/4 x4 extremities Respiratory: Lungs CTAB, no accessory muscle use Abd: large, soft, nontender, nondistended. BS active x4 MSK: Full ROM x4 extremities, strength +5/5 x4 extremities, gait not assessed Skin: warm/dry, normal color, dorsal L hand with mild edema/erythema no evidence of abscess/wound A/P: Debility, weakness, loss of appetite, frequent falls PT/OT eval and rehab Dietary eval Thyroid function labs L hand cellulitis Finish course of Keflex, started during inpt stay T2DM HTN Resume home meds Normocytic anemia Taiwo Hodgson, MSIV Past Llgzjeo-Urmfjv-Wbkyvm Hx Past Med/Social Hx: Reviewed Nursing Past Med/Soc Hx, Reviewed and Corrections made Patient Social History Marrital Status: single Employed/Student: unemployed Alcohol Use: Past History Past Medical History Surgeries: Orthopedic Cardiac: Hypertension Musculoskeletal: Chronic Back Pain Endocrine: Diabetes, Non-Insulin dep Skin/Integumentary: Psoriasis Family History Cancer Prior Level of Function Bed Mobility: 6 Transfers: 6 Gait: 6 Indoor Mobility (Ambulation): Independent Prior Devices Use: Walker Self Care: Independent Functional Cognition: Independent Drive Self: Yes Current Level of Fuctioning Roll Left to Right: 4 Sit to Lyin Lying to Sitting/Side of Bed: 4 Sit to Stand: 3 Chair/Wnp-cp-Xzeba Xfer: 4 Car Transfer: 4 Does the Patient Walk: Yes Mode of Locomotion: Walk Anticipated Mode of Locomotion: Walk Walk 10 feet: 4 Walk 50 ft with 2 Turns: 4 Walk 150 ft: 3 Walking 10ft on uneven surface: 4 Gait Assistive Device: FWW Does the Pt Use a Wheelchair: No Wheel 50 ft with 2 turns: 9 Wheel 150 ft: 9 #of Steps: 1 1 Step (curb): 4 4 Steps: 88 12 Steps: 88 Picking up an Object: 88 Eatin (per clinical judgment) Oral Hygiene: 4 (steadying assist) Shower/Bathe Self: 7 Upper Body Dressin Lower Body Dressin (min) On/Off Footwear: 4 Toileting Hygiene: 3 (min) PM&R Allergy/Meds/Data Review Allergies Coded Allergies: No Known Drug Allergies (Unverified , 07/22/21) NKDA Home Medications Scheduled Cephalexin (Cephalexin), 500 MG PO BID Folic Acid (Folic Acid), 1 MG PO DAILY, (Reported) Metoprolol Tartrate (Metoprolol Tartrate), 50 MG PO DAILY, (Reported) Discontinued Medications Diphenhydramine HCl (Benadryl Allergy), 25-50 MG PO DAILY PRN for ALLERGY SYMPTOMS, (Reported) Discontinued Reason: No Longer Taking Folic Acid (Folic Acid), 1 MG PO DAILY@0700 Discontinued Reason: Duplicate Order Pioglitazone HCl (Pioglitazone HCl), 22.5 MG PO DAILY, (Reported) Current Medications Current Medications Reviewed Laboratory Data Laboratory Tests 08/22/21 17:02: Urine Color BROWNH, Urine Clarity CLOUDY, Urine pH 6.5, Urine Specific [place] 1.025H, Urine Protein 3+H, Urine Glucose (UA) NEGATIVE, Urine Ketones TRACEH, Urine Nitrite POSITIVEH, Urine Bilirubin 1+H, Urine Urobilinogen 1.0, Urine Leukocyte Esterase TRACEH, Urine RBC (Auto) 3+H, Urine RBC 50-100H, Urine WBC 5- 10H, Urine Crystals PRESENTH, Urine Amorphous Sediment LARGE PAZ URATESH, Urine Bacteria TRACE, Urine Casts NONE, Urine Mucus NEGATIVE, Urine Culture Indicated YES Review of Systems Constitutional: see HPI, dizziness, malaise, weakness EENTM: no symptoms reported Respiratory: no symptoms reported Cardiovascular: no symptoms reported Gastrointestinal: no symptoms reported Genitourinary: no symptoms reported Musculoskeletal: no symptoms reported Skin: no symptoms reported Psychiatric/Neurological: No Symptoms Reported All Other Systems Reviewed Negative Unless Noted: Yes Physical Exam Physical Exam Vital Signs Vital Signs - First Documented 08/22/21 08/22/21 11:15 20:06 Temp 35.4 Pulse 85 Resp 19 B/P (MAP) 159/93 (115) Pulse Ox 100 O2 Delivery Room Air Capillary Refill : Height, Weight, BMI Height: '" Weight: lbs. oz. kg; 29.63 BMI Method: General Appearance: No Apparent Distress, WD/WN, Chronically ill, Obese Eyes: Bilateral Eye Normal Inspection, Bilateral Eye PERRL HEENT: PERRL/EOMI, Normal ENT Inspection, Pharynx Normal Neck: Full Range of Motion, Normal Inspection, Non Tender, Supple, Carotid Bruit Respiratory: Chest Non Tender, Lungs Clear, Normal Breath Sounds, No Accessory Muscle Use, No Respiratory Distress Cardiovascular: Regular Rate, Rhythm, No Edema, No Gallop, No JVD, No Murmur, Normal Peripheral Pulses Gastrointestinal: Normal Bowel Sounds, No Organomegaly, No Pulsatile Mass, Non Tender, Soft Back: Normal Inspection, No CVA Tenderness, No Vertebral Tenderness Extremity: Normal Capillary Refill, Normal Inspection, Normal Range of Motion, Non Tender, No Calf Tenderness, No Pedal Edema Neurologic/Psychiatric: Alert, Oriented x3, Normal Mood/Affect, trash hauler II-XII Norm as Tested, Abnormal Gait, Motor Weakness (Generalized 4/5) Skin: Normal Color, Warm/Dry Lymphatic: No Adenopathy PM&R Medical Assessment & Plan REHAB/MEDICAL ASSESSMENT AND PLAN: REHAB IMPAIRMENT GROUP: Debility ETIOLOGIC DIAGNOSIS: Debility The comorbidities that impact the patients function and/or functional outcome by: Alcoholism, noncompliance, cognitive deficit REHAB PLAN: The patient is being admitted to our comprehensive inpatient rehabilitation facility and can tolerate the intensity of service consisting of at least: 180 minutes of therapy a day, 5 out of 7 days a week Rehab treatment will consist of: PT and OT will focus on regaining function with use of assistive device to improve ambulation and decrease fall risk and increase independence in ADLs in order to return back to independent living The patient/family has a good understanding of our discharge process and will benefit from an interdisciplinary inpatient rehabilitation program. The patient has potential to make improvement and is in need of at least two of the following multidisciplinary therapies including but not limited to physical, occupational, speech, and prosthetics and orthotics. Additionally the patient will need services from respiratory, nutritional services, wound care, psychology, etc. (Customize this to each patient). Given the patients complex c ondition and risk of further medical complications, rehabilitation services cannot be safely or effectively provided at a lower level of care such as a penitentiary facility. BARRIERS TO DISCHARGE: Alcoholism ESTIMATED LOS: 10 days DISPOSITION: Home RELEVANT CHANGES SINCE PREADMISSION SCREENING: I have compared the patients medical and functional status at the time of the preadmission screening and there are: No changes PROGNOSIS: Fair REHABILITATION GOALS: 1. PT and OT will focus on regaining function with use of assistive device to improve ambulation and decrease fall risk and increase independence in ADLs in order to return back to independent living All the above goals were reviewed with the patient and he/she is in agreement. By signing this document, I acknowledge that I have personally performed a full physical examination on this patient within 24 hours of admission to this inpatient rehabilitation facility and have determined the patient to be able to tolerate the above course of treatment at an intensive level for a reasonable period of time. I will be completing a detailed individualized Plan of Care for this patient by day #4 of the patients stay based upon the Preadmission Screen, the Post-Admission Evaluation, and the therapy evaluations. Admission Dx/Comorbidities: (1) Debility Status: Acute ICD Codes: R53.81 - Other malaise (2) Type 2 diabetes mellitus Status: Chronic ICD Codes: E11.9 - Type 2 diabetes mellitus without complications (3) Hypertension Status: Chronic ICD Codes: I10 - Essential (primary) hypertension (4) Weakness Status: Acute ICD Codes: R53.1 - Weakness Assessment/Plan Assessment and Plan Assess & Plan/Chief Complaint Assessment: Generalized weakness with debility Alcoholism no alcohol use for 3 months Diabetes mellitus Hypertension Cognitive deficit Obesity Plan: Supportive care Inpatient rehab protocol CHANTAL LAIRD DO Aug 22, 2021 20:54
[2021-08-23] MEDS: ACETAMINOPHEN 325 MG TABLET PO PRN ×2 (04:25→09:39)
--- NOTE | 2021-08-23 07:02 | Individualized Plan of Care ---
Individualized Plan of Care Rehab Nursing IPOC Order Admission Date Aug 22, 2021 at 11:00 Current Orders Orders Admission Order(Inpt,Obs,Sdc) (08/22/21 10:26) Vital Signs: Per Unit Policy ( , (08/22/21 10:26) Johnny Scott (08/22/21 10:26) Sequential Compression Device (08/22/21 10:26) [place] Inspector-Inpt Rehab Con (08/22/21 10:) Rehab Nursing Orders-Ipoc (08/22/21 10:26) Physical Therapy Rehab Orders (08/22/21 10:26) Occupational Therapy Rehab Ord (08/22/21 10:) Speech Therapy Rehab Orders (08/22/21 10:) Cbc With Automated Diff (08/23/21 06:00) Comprehensive Metabolic Panel (08/23/21 06:00) Precautions (Aru) (08/22/21 10:) Rehab-Intensity Of Therapy (08/22/21 10:) Initiate Admission Nursing Pro .admission (08/22/21 10:26) Alprazolam Tablet (Xanax Tablet) (08/22/21 10:30) Calcium Carbonate Chew Tablet (Antacid C (08/22/21 10:30) Diphenhydramine Tablet (Benadryl Tablet) (08/22/21 10:30) Docusate Sodium Capsule (Colace Capsule) (08/22/21 21:00) Docusate Sodium Capsule (Colace Capsule) (08/22/21 10:30) Bisacodyl Suppository (Dulcolax Supposit (08/22/21 10:30) Lactulose Oral Solution (Enulose Oral So (08/22/21 10:30) Na Phos/Na Biphos Enema (Fleet Enema Jey (08/22/21 10:30) Guaifenesin/Codeine Syrup (Robitussin Ac (08/22/21 10:30) Loperamide Tablet (Imodium Tablet) (08/22/21 10:30) Melatonin Tablet (Melatonin Tablet) (08/22/21 10:30) Polyethylene Glycol Powder Pkt (Miralax (08/22/21 21:00) Ondansetron Oral Dissolve Tab (Zofran (08/22/21 10:30) Senna S Tablet (Senokot S Tablet) (08/22/21 21:00) Initiate Admission Nursing Pro .admission (08/22/21 10:26) Admission Arrival Bed Request (08/22/21 ) Cho 75g/M 0snack (21-2400 Jomar) (08/22/21 Lunch) Acetaminophen Tablet/[place] (Tylenol T (08/22/21 12:30) Urinalysis (08/22/21 17:02) Cephalexin Capsule (Keflex Capsule) (08/22/21 12:34) Folic Acid Tablet (Folic Acid Tablet) (08/23/21 09:00) Metoprolol Tartrate (Ir) Tab (Lopressor (08/23/21 09:00) Patient Visit (08/22/21 ) Exercise Therap, Ea 15 Min (08/22/21 ) Gait Training, Ea 15 Min (08/22/21 ) Patient Visit (08/22/21 ) Pt Eval Moderate Complexity (08/22/21 ) Functional Activities, Ea 15 (08/22/21 ) Patient Visit (08/22/21 ) Gait Training, Ea 15 Min (08/22/21 ) Exercise Therap, Ea 15 Min (08/22/21 ) Urine Culture (08/22/21 17:02) Metoprolol Succinate (Xl) Tab (Toprol Xl (08/24/21 09:00) Consult Urology (08/23/21 12:03) Patient Visit (08/23/21 ) Functional Activities, Ea 15 (08/23/21 ) Ex Neuromuscular, Ea 15 Min (08/23/21 ) Gait Training, Ea 15 Min (08/23/21 ) Patient Visit (08/23/21 ) Speech Sound Lang Comp (08/23/21 ) Treat. Speech/Lang/Voice (08/23/21 ) Nursing Communication (Order) (08/23/21 13:17) Sulfamethoxazole/Trimet Ds Tab (Bactrim (08/23/21 18:00) Rehab Nursing Orders: Ongoing Assess. of Cognitive Status, Ongoing Assess. of Function Status, Bladder Management, Bladder Scan, Bladder Training, Bowel Management, Bowel Training, Disease Management & Educaiton, DVT Prophylaxis, Fall Prevention, Fluid/Electrolyte/Nutrition Mgmt, Infection Prevention, Medication Management & Education, Management of Risks & Complications, Management of Skin Intergrity, Nutrition Management, Pain Management, Patient/Family Support, Safety Management Intensity of Therapy to be met Patient to be seen: Min.3h per day/5 of 7d PT IPOC Problem List: Activity Tolerance, Functional Strength, Balance, Gait Treatment Plan: Continue Plan of Care Bed Mobility, Education, Functional Activity Gabriella, Functional Strength, Group Therapy, Gait, Safety, Therapeutic Exercise, Transfers Treatment Duration: Sep 12, 2021 Frequency: At least 5 of 7 days/Wk (IRF) Estimated Hrs Per Day: 1.5 hours per day OT IPOC Problems: Decreased Activ Tolerance, Decreased UE Strength, Impaired Funct Balance, Impaired I ADL's, Impaired Self-Care Skills, Restricted Funct UE ROM OT Treatment, Training and Edu: Yes Plan of Care: ADL Retraining, Functional Mobility, Group Exercise/Act as Ind, UE Funct Exercise/Act Treatment Duration: Sep 08, 2021 Frequency: At least 5 of 7 days/Wk (IRF) Estimated Hrs Per Day: 1.[address] IPOC Speech Therapy Treatment Plan: Continue Plan of Care Treatment Duration: Aug 23, 2021 Frequency: Modified Program (IRF) Estimated Hrs Per Day: Other [place] Inspector/Case Mgmt [place] Inspector/Case Managemen: Discharge Planning Dietitian/Property Portfolio Officer Dietitian/Property Portfolio Officer to monitor nutritional status and make changes and/or recommendations as needed and work with speech pathology on dietary upgrades as the occur. Physician IPOC Medical Issues being managed closely and that require the 24 hour availability of a physician: Recent falls and confusion from long standing etohism and depression will require close monitoring for decompensation Medical Issues: Bowel/Bladder Function, DVT Prophylaxis, Falls Precautions, Fluid/Electrolyte/Nutrition Balance, Infection Protection, Pain Management Brief Synthesis of Preadmission Screen, Post-Admission Evaluation, and Therapy Evaluations: PT OT ST will all focus on regaining independence with use of assistive devices and improve ambulatory skills with fall risk prevention Medical Prognosis: Fair Anticipated Length of Stay: 7 days CHANTAL LAIRD DO Aug 23, 2021 07:02
--- NOTE | 2021-08-23 07:02 | PM&R Progress Note ---
Subjective HPI/CC On Admission Date Seen by Provider: Aug 23, 2021 Time Seen by Provider: 11:45 Subjective/Events-last exam 08/23/21: Pt doing okay Requiring verbal cues for therapy Need additional motivation Requires rest breaks Checked meds and labs Hematuria requiring urology consult Review of Systems General: Fatigue, Malaise Genitourinary: Hematuria Neurological: Weakness, Confusion Objective Exam Vital Signs Vital Signs Date Time Temp Pulse Resp B/P (MAP) Pulse Ox O2 Delivery O2 Flow Rate FiO2 08/23/21 20:07 Room Air 08/23/21 20:05 36.2 93 21 159/90 (113) 96 Capillary Refill : General Appearance: No Apparent Distress, WD/WN, Chronically ill, Obese HEENT: PERRL/EOMI, Normal ENT Inspection, Pharynx Normal Neck: Full Range of Motion, Normal Inspection, Non Tender, Supple, Carotid Bruit Respiratory: Chest Non Tender, Lungs Clear, Normal Breath Sounds, No Accessory Muscle Use, No Respiratory Distress Cardiovascular: Regular Rate, Rhythm, No Edema, No Gallop, No JVD, No Murmur, Normal Peripheral Pulses Gastrointestinal: Normal Bowel Sounds, No Organomegaly, No Pulsatile Mass, Non Tender, Soft Back: Normal Inspection, No CVA Tenderness, No Vertebral Tenderness Extremity: Normal Capillary Refill, Normal Inspection, Normal Range of Motion, Non Tender, No Calf Tenderness, No Pedal Edema Neurologic/Psychiatric: Alert, Oriented x3, Normal Mood/Affect, shampoo person II-XII Norm as Tested, Abnormal Gait, Motor Weakness (Generalized 4/5) Skin: Normal Color, Warm/Dry Lymphatic: No Adenopathy Results/Procedures Lab Laboratory Tests 08/23/21 06:44 Patient resulted labs reviewed. FIM Transfers Therapy Code Descriptions/Definitions Functional [place] Measure: 0=Not Assessed/NA 4=Minimal Assistance 1=Total Assistance 5=Supervision or Setup 2=Maximal Assistance 6=Modified [place] 3=Moderate Assistance 7=Complete IndependenceSCALE: Activities may be completed with or without assistive devices. 4-Ordvocbduf-sbqrdea completes the activity by him/herself with no assistance from a helper. 5-Set-up or Clean-up Assistance-helper sets up or cleans up; patient completes activity. [place] assists only prior to or following the activity. 4-Supervision or Touching Assistance-helper provides verbal cues and/or touching/steadying and/or contact guard assistance as patient completes activity. Assistance may be provided throughout the activity or intermittently. 3-Partial/Moderate Assistance-helper does LESS THAN HALF the effort. [place] lifts, holds or supports trunk or limbs, but provides less than half the effort. 2-Substantial/Maximal Assistance-helper does MORE THAN HALF the effort. [place] lifts or holds trunk or limbs and provides more than half the effort. 3-Unnzfntfe-kuxngn does ALL the effort. Patient does none of the effort to complete the activity. Or, the assistance of 2 or more helpers is required for the patient to complete the activity. If activity was not attempted, code reason: 7-Patient Refused. 9-Not Applicable-not attempted and the patient did not perform the activity before the current illness, exacerbation or injury. 10-Not Attempted due to Environmental Limitations-(lack of equipment, weather restraints, etc.). 88-Not Attempted due to Medical Conditions or Safety Concerns. Roll Left to Right (QC): 4 Sit to Lying (QC): 4 Sit to Stand (QC): 3 Chair/Nqn-tr-Nzlaa Xfer(QC): 4 Car Transfer (QC): 4 Gait Training Does the Patient Walk?: Yes Distance: 150' x2 Walk 10 feet (QC): 4 Walk 50 ft with 2 Turns(QC): 4 Walk 150 ft (QC): 3 Walking 10ft/uneven surface-QC: 4 Gait Persons Needed: 1 Gait Assistive Device: FWW Wheelchair Training Does the Pt Use a Wheelchair?: No Wheel 50 ft with 2 turns (QC): 9 Wheel 150 ft (QC): 9 Stair Training #of Steps: 1 1 Step (curb) (QC): 4 4 Steps (QC): 88 12 Steps (QC): 88 Balance Picking up an Object (QC): 88 ADL-Treatment Eating (QC): 5 (per clinical judgment) Oral Hygiene (QC): 4 (steadying assist) Shower/Bathe Self (QC): 7 Upper Body Dressing (QC): 4 Lower Body Dressing (QC): 3 (min) On/Off Footwear (QC): 4 Toileting Hygiene (QC): 3 (min) Assessment/Plan Assessment and Plan Assess & Plan/Chief Complaint Assessment: Generalized weakness with debility Alcoholism no alcohol use for 3 months Diabetes mellitus Hypertension Cognitive deficit Anemia CKD Obesity Hematuria Plan: Supportive care Inpatient rehab protocol 08/23/21: Urology consult Supportive care (1) Debility Status: Acute (2) Type 2 diabetes mellitus Status: Chronic (3) Hypertension Status: Chronic (4) Weakness Status: Acute CHANTAL LAIRD DO Aug 23, 2021 07:02
[2021-08-23 07:35] LABS: BASOPHILS % (AUTO) 0 % (0-10); EOSINOPHILS # (AUTO) 0.1 10^3/uL (0.0-0.3); EOSINOPHILS % (AUTO) 1 % (0-10); HEMATOCRIT 30 % (40-54); HEMOGLOBIN 9.6 g/dL (13.3-17.7); LYMPHOCYTES # (AUTO) 0.8 10^3/uL (1.0-4.0); LYMPHOCYTES % (AUTO) 8 % (12-44); MEAN CORPUSCULAR HEMOGLOBIN 30 pg (25-34); MEAN CORPUSCULAR HGB CONC 33 g/dL (32-36); MEAN CORPUSCULAR VOLUME 92 fL (80-99); MEAN PLATELET VOLUME 9.2 fL (9.0-12.2); MONOCYTES # (AUTO) 0.5 10^3/uL (0.0-1.0); MONOCYTES % (AUTO) 5 % (0-12); NEUTROPHILS # (AUTO) 8.2 10^3/uL (1.8-7.8); NEUTROPHILS % (AUTO) 85 % (42-75); PLATELET COUNT 362 10^3/uL (130-400); WHITE BLOOD COUNT 9.7 10^3/uL (4.3-11.0)
[2021-08-23 07:46] LABS: ALBUMIN 3.4 GM/DL (3.2-4.5); BILIRUBIN,TOTAL 0.7 MG/DL (0.1-1.0); CALCIUM 9.5 MG/DL (8.5-10.1); CREATININE SERUM 1.85 MG/DL (0.60-1.30); POTASSIUM 3.9 MMOL/L (3.6-5.0); TOTAL PROTEIN 7.5 GM/DL (6.4-8.2)
[2021-08-23] MEDS: polyethylene glycoL POWDER 17 GM (MIRALAX) PACK PO SCH ×2 (07:55→19:04)
[2021-08-23] MEDS: CEPHALEXIN 250 MG (KEFLEX) CAP PO SCH ×2 (07:56→20:05)
[2021-08-23] MEDS: SENNA W/DOCUSATE (SENOKOT S) TABLET PO SCH ×2 (07:56→19:04)
[2021-08-23] MEDS: DOCUSATE SODIUM 100 MG (COLACE) CAP PO SCH ×2 (07:56→19:04)
[2021-08-23] MEDS: FOLIC ACID 1 MG TAB PO SCH (07:56)
[2021-08-23 08:00] VITALS: BP 161/91
[2021-08-23] MEDS ORDERED: meTOprolol TARTRATE 50 MG (LOPRESSOR) TAB PO SCH (09:00)
--- NOTE | 2021-08-23 09:06 | Occupational Ther Daily Note ---
OT Current Status-Daily Note Subjective Pt reports pain as 3/10 in L hand. RN notified. Appearance Pt left sitting in chair with physical therapy present. Mental Status/Objective Patient Orientation: Person, Place ADL-Treatment Therapy Code Descriptions/Definitions Functional [place] Measure: 0=Not Assessed/NA 4=Minimal Assistance 1=Total Assistance 5=Supervision or Setup 2=Maximal Assistance 6=Modified [place] 3=Moderate Assistance 7=Complete IndependenceSCALE: Activities may be completed with or without assistive devices. 2-Uurkbrjvqk-diamrhb completes the activity by him/herself with no assistance from a helper. 5-Set-up or Clean-up Assistance-helper sets up or cleans up; patient completes activity. [place] assists only prior to or following the activity. 4-Supervision or Touching Assistance-helper provides verbal cues and/or touching/steadying and/or contact guard assistance as patient completes activity. Assistance may be provided throughout the activity or intermittently. 3-Partial/Moderate Assistance-helper does LESS THAN HALF the effort. [place] lifts, holds or supports trunk or limbs, but provides less than half the effort. 2-Substantial/Maximal Assistance-helper does MORE THAN HALF the effort. [place] lifts or holds trunk or limbs and provides more than half the effort. 9-Reraixdnd-mjjyju does ALL the effort. Patient does none of the effort to complete the activity. Or, the assistance of 2 or more helpers is required for the patient to complete the activity. If activity was not attempted, code reason: 7-Patient Refused. 9-Not Applicable-not attempted and the patient did not perform the activity before the current illness, exacerbation or injury. 10-Not Attempted due to Environmental Limitations-(lack of equipment, weather restraints, etc.). 88-Not Attempted due to Medical Conditions or Safety Concerns. Eating (QC): 5 Shower/Bathe Self (QC): 3 Upper Body Dressing (QC): 3 Lower Body Dressing (QC): 3 Toileting Hygiene (QC): 3 Toilet Transfer (QC): 3 Co-treat with PT for part of session ([id number]) due to impaired balance, endurance/activity tolerance, cognition, safety, and increased fall risk. Pt resting in bed at OT arrival. Mod-max a to elevate torso to sit EOB. Pt continues to require lengthy amounts of time to initiate and process commands. Initially pt required CGA with sit<>stand and when standing to void at toilet. Yet as fatigue increases during session, pt requires increased amount of lifting assist and min-mod a for balance while ambulating. Mild scissoring and trembling noted in LE's as fatigue worsens. Pt refused shower due to poor stamina.Agreeable to sponge bath seated at sink. Cues needed to initiate washing face, upper body, and lower body. Significant time as pt often initiating rest breaks. OT encouraging pt to continue through tasks (at least finish upper body) before taking a break in order to improve endurance. He stood to wash shelby area/buttocks, mod a to wash L side of buttocks. Pt is very guarded of using L hand and requires frequent cues to incorporate hand into tasks. Post cue to use L hand, pt able to thread L foot into brief/pants with extra time/effort. Min a and mod cues when threading RLE into clothing due to weakness and poor problem solving. Verbal cue to initiate clothing management, with min a to pull up completely in the back. Pt able to initiate fist 3 steps of donning shirt but then required cue and physical assist to pull shirt down in back. Due to time restraints, OT donned pt's socks. Other Treatment Attempt to ambulate to laundry room to start load of laundry. Pt only able to ambulate short distance before needing a lengthy sitting rest break. Mod a for balance needed during times of fatigue. Due to time, OT started load for patient. Discussion of home set up with pt explaining that he usually places laundry in a basket and will then kick the basket to the washer. OT discussed safer and more energy conserving methods such as placing clothing directly into washer after doffing, placing basket closer to washer, or use of walker basket/tray. Education OT Patient Education: Correct positioning, Energy conservation, Modified ADL techniques, Progress toward Goal/Update tx plan, Purpose of tx/functional activities, Reviewed precautions, Rehab process, Safety issues, Transfer techniques, W/C management Teaching Recipient: Patient Teaching Methods: Demonstration, Discussion Response to Teaching: Verbalize Understanding, Reinforcement Needed OT Short Term Goals Short Term Goals Time Frame: Sep 01, 2021 Eatin Oral hygiene: 5 Toileting hygiene: 4 Shower/bathe self: 4 Upper body dressin Lower body dressin Putting on/taking off footwear: 5 OT Snf Goals Floor Assembler Goals Time Frame: Sep 08, 2021 Eating (QC): 6 Oral Hygiene (QC): 6 Toileting Hygiene (QC): 6 Shower/Bathe Self (QC): 5 Upper Body Dressing (QC): 6 Lower Body Dressing (QC): 6 On/Off Footwear (QC): 6 1=Demonstrate adherence to instructed precautions during ADL tasks. 2=Patient will verbalize/demonstrate understanding of assistive devices/modifications for ADL. 3=Patient will improve strength/tolerance for activity to enable patient to perform ADL's. OT Education/Plan Problem List/Assessment Assessment: Decreased Activ Tolerance, Decreased Safety Aware, Decreased UE Strength, Impaired Coordination, Impaired Funct Balance, Impaired I ADL's, Impaired Self-Care Skills, Restricted Funct UE ROM Discharge Recommendations Plan/Recommendations: Continue POC Treatment Plan/Plan of Care Treatment,Training & Education: Yes Patient would benefit from OT for education, treatment and training to promote independence in ADL's, mobility, safety and/or upper extremity function for ADL's. Plan of Care: ADL Retraining, Functional Mobility, Group Exercise/Act as Ind, UE Funct Exercise/Act Treatment Duration: Sep 08, 2021 Frequency: At least 5 of 7 days/Wk (IRF) Estimated Hrs Per Day: 1.5 hours per day Agreement: Yes Rehab Potential: Fair Time/GCodes Start Time: 07:45 Stop Time: 09:00 Total Time Billed (hr/min): 75 Billed Treatment Time 1 visit ADL x5 Gema Araya OT Aug 23, 2021 09:06
--- NOTE | 2021-08-23 09:16 | Physical Therapy Daily Note ---
PT Daily Note-Current Subjective Pt in bathroom with OT upon arrival and agrees to co-treat. Pt states pain in L hand 3/10. Pain Numeric Pain Scale: 3 Location: Left Location Body Site: Hand Mental Status Patient Orientation: Person, Confused, Place, Situation Transfers SCALE: Activities may be completed with or without assistive devices. 7-Kdtmayizyv-vkpmmgu completes the activity by him/herself with no assistance from a helper. 5-Set-up or Clean-up Assistance-helper sets up or cleans up; patient completes activity. [place] assists only prior to or following the activity. 4-Supervision or Touching Assistance-helper provides verbal cues and/or touching/steadying and/or contact guard assistance as patient completes activity. Assistance may be provided throughout the activity or intermittently. 3-Partial/Moderate Assistance-helper does LESS THAN HALF the effort. [place] lifts, holds or supports trunk or limbs, but provides less than half the effort. 2-Substantial/Maximal Assistance-helper does MORE THAN HALF the effort. [place] lifts or holds trunk or limbs and provides more than half the effort. 7-Boiyytykp-soebtd does ALL the effort. Patient does none of the effort to complete the activity. Or, the assistance of 2 or more helpers is required for the patient to complete the activity. If activity was not attempted, code reason: 7-Patient Refused. 9-Not Applicable-not attempted and the patient did not perform the activity before the current illness, exacerbation or injury. 10-Not Attempted due to Environmental Limitations-(lack of equipment, weather restraints, etc.). 88-Not Attempted due to Medical Conditions or Safety Concerns. Sit to Lying (QC): 4 Sit to Stand (QC): 3 Gait Training Does the Patient Walk?: Yes Distance: 100' x2 Walk 10 feet (QC): 3 Walk 50 ft with 2 Turns(QC): 3 Gait Assistive Device: FWW Pt amb with slow gait, scissors with turns and tends to have LOB. VC given when turning, scissoring decreased with less LOB Treatments 800-900 Co-treat: Co-treat with OT for part of session due to impaired balance, endurance/activity tolerance, cognition, safety, and increased fall risk. OT focused on bathing, dressing, and ADLs. PT focused on transfers, gait, and balance. Pt standing using toilet with OT upon arrival. Pt then amb back to room to eat breakfast in recliner. Pt then sit to stand Sourav and amb to bathroom to complete sponge bath. Pt holds standing approx 5 mins to clean self with CGA. Pt dons LB clothes seated with no back support or UE support, seated balance fair with slight LOB, corrected by sitting upright. Pt then stands again to don clothes. Pt amb 100' on ARU to go to laundry room, but pt required a seated rest break prior to making it to start laundry. OT started laundry for pt, then OT exits tx. : Pt amb back to room and sits EOB. Pt sit <> supine CGA, VC for sequencing and placement of LE. Pt remains in bed with all needs met, call light in hand. Assessment Current Status: Fair Progress With conversation pt has delayed reaction and replies, difficulties making choices. Pt has LOB with turns and tends to scissor LE, VC given and pt corrects. Pt requires frequent rest breaks d/t low activity tolerance and pt c/o SOB. O2 at 99% and 103 HR when pt c/o SOB. PT Short Term Goals Short Term Goals Time Frame: Aug 29, 2021 Roll Left & Right: 6 Sit to lyin Lying to sitting on side of be: 5 Sit to stand: 4 (SBA) Chair/ggp-wq-urxkp transfer: 4 (SBA) Walk 10 feet: 4 (SBA) Walk 50 feet with two turns: 4 (SBA) Walk 150 feet: 4 (SBA) PT Packing And Stamping Machine Operator Goals Packing And Stamping Machine Operator Goals PT Packing And Stamping Machine Operator Goals Time Frame: Sep 12, 2021 Roll Left & Right (QC): 6 Sit to Lying (QC): 6 Lying-Sitting on Side/Bed(QC): 6 Sit to Stand (QC): 5 Chair/Pfw-cj-[place] Xfer(QC): 5 Toilet Transfer (QC): 5 Car Transfer (QC): 5 Does the Patient Walk: Yes Walk 10 feet (QC): 5 Walk 50ft with 2 Turns (QC): 5 Walk 150 ft (QC): 5 Walking 10ft on Uneven Surface: 5 1 Step (curb) (QC): 4 4 Steps (QC): 4 12 Steps (QC): 88 Picking up an Object (QC): 4 Wheel 50 feet with 2 turns (QC: 9 Wheel 150 feet: 9 PT Plan Problem List Problem List: Activity Tolerance, Functional Strength, Safety, Balance Treatment/Plan Treatment Plan: Continue Plan of Care Treatment Plan: Bed Mobility, Education, Functional Activity Gabriella, Functional Strength, Group Therapy, Gait, Safety, Therapeutic Exercise, Transfers Treatment Duration: Sep 12, 2021 Frequency: At least 5 of 7 days/Wk (IRF) Estimated Hrs Per Day: 1.5 hours per day Patient and/or Family Agrees t: Yes Safety Risks/Education Patient Education: Gait Training, Transfer Techniques, Correct Positioning, Safety Issues Teaching Recipient: Patient Teaching Methods: Discussion Response to Teaching: Verbalize Understanding, Reinforcement Needed Time/GCodes Time In: 800 Time Out: 915 Total Billed Treatment Time: 75 Total Billed Treatment 1, FA x3, NM, GT BEBESANDOR PROFESSOR OF ARCHITECTURE Aug 23, 2021 09:16
[2021-08-23 09:36] LABS: BILIRUBIN,URINE 1+ (NEGATIVE)
--- NOTE | 2021-08-23 12:24 | ST Cognitive Linguistic Eval ---
Speech Evaluation-General Medical Diagnosis weakness, cellulitis Onset Date: Aug 18, 2021 Therapy Diagnosis Therapy Diagnosis: Cognitive-communication Referral Referring Physician: Dr. Humphreys Medical History Pertinent Medical History: DM, HTN Reviewed History: Yes Social History Current Living Status: Alone Speech PLF-Current Status Prior Level of Function Patient lived home alone where he states he was mostly sedentary. Subjective Patient was pleasant and cooperative with the cognitive assessment. Language Eval: Auditory Comprehends Simple Yes/No Ques: Functional Indent/Objects Multiple Ascencio: Functional Ident/Pics in Multiple Ascencio: Functional Follows 1-Step Commands: Functional Follows Complex Directions: Mild Follows General Conversations: Mild Language Eval: Verbal Language Completes Spontaneous Greeting: Functional Produces Auto, Serial Info: Functional Imitates Simple Words/Phrases: Functional Word Finding: Mild Requests Basic Needs: Functional States Basic Personal Info: Functional Expresses Complex Ideas: Mild Cognitive Patient Orientation Oriented to all concepts Objective Cognitive Domain Attention: Mild Memory: Mild Problem Solving: Mild Executive Functions: Mild Visuospatial Skills: WNL Composite Severity Rating: Mild Clock Drawing Severity Rating: Mild Objective Formal/Standardized Tests [facility] Mental Status ([facility]) Results 23/30, Mild Neurocognitive Disorder range of function Oral Motor/Speech Production Within Normal Limits Impression Patient is a 65 y/o male who admitted to the ARU due to debility and weakness. He is an alcoholic who has been sober for the past 3 months. The patient lives home alone and was independent prior to this episode of weakness. The patient is reported to require frequent verbal cues with the other therapies. Patient was given the SLUMS at bedside with a score of 23/30 obtained. This score is within the MNCD range of function which indicates a need for further ST services. Speech Patient Assess Expression of Ideas/Wants: Exhibits (3) Understanding Verbal Content: Usually Understands (3) Brief Interview-Mental Status: Yes Repetition of Three Words: Three (3) Temporal Orientation: Year: Correct (3) Temporal Orientation: Month: Accurate within 5 days(2) Temporal Orientation: Day: Correct (1) Recall : Wear to say "Sock": Yes,after cueing (1) Recall : Color: Yes, after cueing (1) Recall : Bed: Yes,after cueing (1) Memory/Recall Ability: Current season, That he or she is in a hsp/hsp unit Speech Short Term Goals Short Term Goals Short Term Goals 1) The patient will complete memory tasks related to his daily needs at 80% or greater with minimal cues. 2) The patient will complete safety awareness tasks related to his daily needs at 80% or greater with minimal cues. 3) The patient will complete problem solving tasks related to his daily needs at 80% or greater with minimal cues. Speech Mcfp Goals Lvn Goals Patient will improve functional abilities in order to return home safer and independent. Speech-Plan Patient/Family Goals Patient/Family Goals: The patient plans on living with his daughter upon discharge until he is fully independent. Treatment Plan Speech Therapy Treatment Plan: Continue Plan of Care Frequency: 4 times per week (Patient will receive skilled ST 4-5x per week) Estimated Hrs Per Day: .5 hour per day Rehab Potential: Fair Barriers to Learning: Patient's decreased cognitive function Pt/Family Agrees to Plan: Yes Safety Risks/Education Teaching Recipient: Patient Teaching Methods: Discussion Response to Teaching: Verbalize Understanding Education Topics Provided: Safety within his room and communication of wants/needs Time Speech Therapy Time In: 10:30 Speech Therapy Time Out: 11:00 Total Billed Time: 30 Billed Treatment Time 1, FABIAN HARRY [address] ST Aug 23, 2021 12:24
--- NOTE | 2021-08-23 14:22 | CONSULTATION REPORT ---
DATE OF SERVICE: 08/23/2021 ATTENDING PHYSICIAN: Dr. Humphreys. SUMMARY: After reviewing the patient's records, interviewing him, this is a 65-year-old white man admitted because of debility and significant weakness and multiple falls. Yesterday, he started having gross hematuria, which is totally asymptomatic, start clearing up. Never had it before. He denies any history of urolithiasis. Denies any history of cancer. Denies any usage of aspirin or blood thinners. Physical exam was deferred at the time of cystoscopy. IMPRESSION: Gross hematuria. PLAN: 1. Urine cytology. 2. Cystoscopy at bedside local tomorrow, fully explained to the patient with instructions. 3. We will order a noncontrast CT scan of the abdomen after the cystoscopy. The plan was fully explained to the patient. Job ID: [id number] DocumentID: [id number] Dictated Date: 08/23/2021 13:24:17 Environmental Economist Date: 08/23/2021 14:22:19 Dictated By: FAYE ALBRIGHT MD
[2021-08-23] MEDS: TRIM/SULFAMETH 160/800 (SEPTRA DS) TAB PO SCH (18:47)
[2021-08-23 20:05] VITALS: BP 159/90
[2021-08-24] MEDS ORDERED: LIDOCAINE UROJET 2% GEL 10 ML PKG ONE (06:56)
[2021-08-24 07:43] VITALS: BP 162/92
[2021-08-24] MEDS: TRIM/SULFAMETH 160/800 (SEPTRA DS) TAB PO SCH ×2 (08:32→17:48)
[2021-08-24] MEDS: FOLIC ACID 1 MG TAB PO SCH (08:32)
[2021-08-24] MEDS: meTOproloL SUCCINATE 50 MG (TOPROL XL) TAB PO SCH (08:32)
[2021-08-24] MEDS: CEPHALEXIN 250 MG (KEFLEX) CAP PO SCH ×2 (08:32→20:30)
--- NOTE | 2021-08-24 09:05 | Physical Therapy Daily Note ---
PT Daily Note-Current Subjective Pt in bed upon arrival and agrees to co-treat. Pt states pain in L hand, post tx rates 6. Use of 2 skilled clinicians d/t pt poor mobility, low activity tolerance, poor balance, safety, weakness, and decrease risk of falls Mental Status Patient Orientation: Person, Place, Time, Situation Transfers SCALE: Activities may be completed with or without assistive devices. 0-Nlffsaefrf-pivwmub completes the activity by him/herself with no assistance from a helper. 5-Set-up or Clean-up Assistance-helper sets up or cleans up; patient completes activity. [place] assists only prior to or following the activity. 4-Supervision or Touching Assistance-helper provides verbal cues and/or touching/steadying and/or contact guard assistance as patient completes ac tivity. Assistance may be provided throughout the activity or intermittently. 3-Partial/Moderate Assistance-helper does LESS THAN HALF the effort. [place] lifts, holds or supports trunk or limbs, but provides less than half the effort. 2-Substantial/Maximal Assistance-helper does MORE THAN HALF the effort. [place] lifts or holds trunk or limbs and provides more than half the effort. 1-Dtizjcmsq-hslynv does ALL the effort. Patient does none of the effort to complete the activity. Or, the assistance of 2 or more helpers is required for the patient to complete the activity. If activity was not attempted, code reason: 7-Patient Refused. 9-Not Applicable-not attempted and the patient did not perform the activity before the current illness, exacerbation or injury. 10-Not Attempted due to Environmental Limitations-(lack of equipment, weather restraints, etc.). 88-Not Attempted due to Medical Conditions or Safety Concerns. Roll Left & Right (QC): 3 Lying to Sitting/Side of Bed(Q: 3 Sit to Stand (QC): 3 Sourav rolling and supine <> sit as pt states he is unable to grasp with the L hand and can't use hand railings to pull self up or roll. Gait Training Does the Patient Walk?: Yes Distance: 150' x2 Walk 10 feet (QC): 3 Walk 50 ft with 2 Turns(QC): 3 Walk 150 ft (QC): 3 Gait Persons Needed: 1 Gait Assistive Device: FWW Pt has slow gait, with turns has narrow JOSE but no longer scissors. Pt R knee buckled during first gait bout and pt had LOB, with Sourav pt corrected Treatments OT focused on ADLs, UE strengthening, and functional grasp. PT focused on mobility, gait, and balance. Pt completes bed mobility and sits EOB, sit <> stand Sourav from lower surface, and amb 150' to therapy gym. Pt performs static standing balance activity, supported with R UE as pt uses L UE for g rasping/strengthening activity with resistant clothes pins. Pt then amb 150' back to room with no LOB at this time. Pt sits EOB, PT leaves tx at this time. OT remains with pt and all needs met. Assessment Current Status: Fair Progress Pt increasing strength, mobility, and gait. Easily fatigues and rest often PT Short Term Goals Short Term Goals Time Frame: Aug 29, 2021 Roll Left & Right: 6 Sit to lyin Lying to sitting on side of be: 5 Sit to stand: 4 (SBA) Chair/xos-mb-latpg transfer: 4 (SBA) Walk 10 feet: 4 (SBA) Walk 50 feet with two turns: 4 (SBA) Walk 150 feet: 4 (SBA) PT Alf Goals Transmission Systems Operator Goals PT Transmission Systems Operator Goals Time Frame: Sep 12, 2021 Roll Left & Right (QC): 6 Sit to Lying (QC): 6 Lying-Sitting on Side/Bed(QC): 6 Sit to Stand (QC): 5 Chair/Qce-uw-Nygbj Xfer(QC): 5 Toilet Transfer (QC): 5 Car Transfer (QC): 5 Does the Patient Walk: Yes Walk 10 feet (QC): 5 Walk 50ft with 2 Turns (QC): 5 Walk 150 ft (QC): 5 Walking 10ft on Uneven Surface: 5 1 Step (curb) (QC): 4 4 Steps (QC): 4 12 Steps (QC): 88 Picking up an Object (QC): 4 Wheel 50 feet with 2 turns (QC: 9 Wheel 150 feet: 9 PT Plan Treatment/Plan Treatment Plan: Continue Plan of Care Treatment Plan: Bed Mobility, Education, Functional Activity Gabriella, Functional Strength, Group Therapy, Gait, Safety, Therapeutic Exercise, Transfers Treatment Duration: Sep 12, 2021 Frequency: At least 5 of 7 days/Wk (IRF) Estimated Hrs Per Day: 1.5 hours per day Patient and/or Family Agrees t: Yes Time/GCodes Time In: 830 Time Out: 900 Total Billed Treatment Time: 30 Total Billed Treatment 1, GT, NM SANDOR SPENCE CHEESE PROCESSOR Aug 24, 2021 09:05
[2021-08-24] MEDS: ACETAMINOPHEN 325 MG TABLET PO PRN (09:15)
[2021-08-24] MEDS: SENNA W/DOCUSATE (SENOKOT S) TABLET PO SCH ×2 (09:29→20:31)
[2021-08-24] MEDS: polyethylene glycoL POWDER 17 GM (MIRALAX) PACK PO SCH ×2 (09:29→20:31)
[2021-08-24] MEDS: DOCUSATE SODIUM 100 MG (COLACE) CAP PO SCH ×2 (09:29→20:30)
--- NOTE | 2021-08-24 09:30 | Occupational Ther Daily Note ---
OT Current Status-Daily Note Subjective Pt initially reports pain in L hand as 4/10. Post activity, pain increases to 6/10. RN notified. co-treat with PT for part of session ([id number]) due to need of 2 skilled clinicians d/t pt poor mobility, low activity tolerance, poor balance, safety, weakness, and decrease risk of falls Appearance Pt returned to supine in bed, all needs within reach, RN in room at end of session. ADL-Treatment Therapy Code Descriptions/Definitions Functional [place] Measure: 0=Not Assessed/NA 4=Minimal Assistance 1=Total Assistance 5=Supervision or Setup 2=Maximal Assistance 6=Modified [place] 3=Moderate Assistance 7=Complete IndependenceSCALE: Activities may be completed with or without assistive devices. 4-Lvlczdfytn-lzdyiag completes the activity by him/herself with no assistance from a helper. 5-Set-up or Clean-up Assistance-helper sets up or cleans up; patient completes activity. [place] assists only prior to or following the activity. 4-Supervision or Touching Assistance-helper provides verbal cues and/or touching/steadying and/or contact guard assistance as patient completes activity. Assistance may be provided throughout the activity or intermittently. 3-Partial/Moderate Assistance-helper does LESS THAN HALF the effort. [place] lifts, holds or supports trunk or limbs, but provides less than half the effort. 2-Substantial/Maximal Assistance-helper does MORE THAN HALF the effort. [place] lifts or holds trunk or limbs and provides more than half the effort. 6-Lvzpshlsr-dquxqa does ALL the effort. Patient does none of the effort to complete the activity. Or, the assistance of 2 or more helpers is required for the patient to complete the activity. If activity was not attempted, code reason: 7-Patient Refused. 9-Not Applicable-not attempted and the patient did not perform the activity before the current illness, exacerbation or injury. 10-Not Attempted due to Environmental Limitations-(lack of equipment, weather restraints, etc.). 88-Not Attempted due to Medical Conditions or Safety Concerns. 1st session: Pt resting in bed at OT arrival. Extra time, vc's for sequencing and min A to come to EOB. Pt continues to require extra time for initiation but slight improvement noted this session. He stood with Min a (bed slightly elevated) and ambulated to bathroom with min-mod A. One episode of R knee buckling requiring mod a for recovery. He stood at the toilet to void with steadying assist. Reminder cue on placement of walker at toilet. Session interrupted as staff enters room and reports pt is to have cystoscopy. OT to return post procedure. Other Treatment 2nd session: Same amount of assist/cues needed for bed mobility as noted previously. Pt ambulated to/from gym with min-mod a and use of walker. Again, pt with episode of knee buckling. As fatigue increases, LE's begin to tremble. Requires several lengthy rest breaks throughout session. While in gym, pt participated in static standing activities with focus on improving LE strength, balance, endurance, and LUE pinch/programming internship strength. Steadying assist in standing as pt completed resistive clothespin task. Pt only able to tolerate yellow, red, green clothespins. Requires HOHA to squeeze/maintain pinch with blue resistance. Pt then completed 4 step sequence (log, pinch, roll, squeeze) with yellow theraputty x2 with focus on strength, pinch needed for FM/dexterity tasks and grasp needed for walker management. Rest break needed after first 4-step sequence due to pain and fatigue. L hand tremors noted after 2nd set. Education OT Patient Education: Correct positioning, Disease process, Energy conservation, Exercise program, Modified ADL techniques, Progress toward Goal/Update tx plan, Purpose of tx/functional activities, Reviewed precautions, Rehab process, Safety issues, Transfer techniques Teaching Recipient: Patient Teaching Methods: Demonstration, Discussion Response to Teaching: Verbalize Understanding, Return Demonstration, Reinforcement Needed OT Short Term Goals Short Term Goals Time Frame: Sep 01, 2021 Eatin Oral hygiene: 5 Toileting hygiene: 4 Shower/bathe self: 4 Upper body dressin Lower body dressin Putting on/taking off footwear: 5 OT Heater Installer Goals Heater Installer Goals Time Frame: Sep 08, 2021 Eating (QC): 6 Oral Hygiene (QC): 6 Toileting Hygiene (QC): 6 Shower/Bathe Self (QC): 5 Upper Body Dressing (QC): 6 Lower Body Dressing (QC): 6 On/Off Footwear (QC): 6 1=Demonstrate adherence to instructed precautions during ADL tasks. 2=Patient will verbalize/demonstrate understanding of assistive devices/modifications for ADL. 3=Patient will improve strength/tolerance for activity to enable patient to perform ADL's. OT Education/Plan Problem List/Assessment Assessment: Decreased Activ Tolerance, Decreased Safety Aware, Decreased UE Strength, Impaired Coordination, Impaired Funct Balance, Impaired I ADL's, Impaired Self-Care Skills, Restricted Funct UE ROM Discharge Recommendations Plan/Recommendations: Continue POC Treatment Plan/Plan of Care Treatment,Training & Education: Yes Patient would benefit from OT for education, treatment and training to promote independence in ADL's, mobility, safety and/or upper extremity function for ADL's. Plan of Care: ADL Retraining, Functional Mobility, Group Exercise/Act as Ind, UE Funct Exercise/Act Treatment Duration: Sep 08, 2021 Frequency: At least 5 of 7 days/Wk (IRF) Estimated Hrs Per Day: 1.5 hours per day Agreement: Yes Rehab Potential: Fair Time/GCodes Start Time: 07:45 (0830) Stop Time: 08:00 (15) Total Time Billed (hr/min): 60 Billed Treatment Time 2 visits ([id number]) and ([id number]) for a total of 60 min. Co-treat with PT for 30 min ADL FA x2 EX Gema Araya OT Aug 24, 2021 09:30
--- NOTE | 2021-08-24 10:20 | Speech Therapy Daily Note ---
Speech Daily Progress Note Subjective Date Seen by Provider: Aug 24, 2021 Time Seen by Provider: 00:30 Patient resting in his bed, difficult to engage today. Objective Patient completed a series of recall of new information questions with 75% given 20% verbal cues and/or repetition. Assessment Assessment Current Status: Fair Progress Treatment Plan Continue Plan of Care Speech Short Term Goals Short Term Goals Short Term Goals 1) The patient will complete memory tasks related to his daily needs at 80% or greater with minimal cues. 2) The patient will complete safety awareness tasks related to his daily needs at 80% or greater with minimal cues. 3) The patient will complete problem solving tasks related to his daily needs at 80% or greater with minimal cues. Speech Fdc Goals Hand Booked Folder And Stitcher Goals Patient will improve functional abilities in order to return home safer and independent. Speech-Plan Patient/Family Goals Patient/Family Goals: Patient plans on living with his daughter upon discharge until he is stronger/independent. Treatment Plan Speech Therapy Treatment Plan: Continue Plan of Care Treatment Duration: Sep 01, 2021 Frequency: 4 times per week (Patient will receive skilled ST 4-5x per week) Estimated Hrs Per Day: .5 hour per day Rehab Potential: Fair Barriers to Learning: Patient's level of function, MNCD range of function Pt/Family Agrees to Plan: Yes Safety Risks/Education Teaching Recipient: Patient Teaching Methods: Demonstration, Discussion Response to Teaching: Verbalize Understanding, Return Demonstration Education Topics Provided: Continued communication of wants/needs Time Speech Therapy Time In: 10:00 Speech Therapy Time Out: 10:30 Total Billed Time: 30 Billed Treatment Time 1, LUCAS Martin Aug 24, 2021 10:20
--- NOTE | 2021-08-24 11:06 | Physical Therapy Daily Note ---
PT Daily Note-Current Subjective Pt in bed upon arrival and agrees to tx. Pt states pain 6/10 in R hand. During amb, pt states "my legs are jello" immediately followed by "I can't walk anymore" Mental Status Patient Orientation: Person, Place, Situation Transfers SCALE: Activities may be completed with or without assistive devices. 6-Fxdlobtnlw-lkyfydb completes the activity by him/herself with no assistance from a helper. 5-Set-up or Clean-up Assistance-helper sets up or cleans up; patient completes activity. [place] assists only prior to or following the activity. 4-Supervision or Touching Assistance-helper provides verbal cues and/or touching/steadying and/or contact guard assistance as patient completes activity. Assistance may be provided throughout the activity or intermittently. 3-Partial/Moderate Assistance-helper does LESS THAN HALF the effort. [place] lifts, holds or supports trunk or limbs, but provides less than half the effort. 2-Substantial/Maximal Assistance-helper does MORE THAN HALF the effort. [place] lifts or holds trunk or limbs and provides more than half the effort. 5-Ajpfcbhnh-nvntnt does ALL the effort. Patient does none of the effort to complete the activity. Or, the assistance of 2 or more helpers is required for the patient to complete the activity. If activity was not attempted, code reason: 7-Patient Refused. 9-Not Applicable-not attempted and the patient did not perform the activity before the current illness, exacerbation or injury. 10-Not Attempted due to Environmental Limitations-(lack of equipment, weather restraints, etc.). 88-Not Attempted due to Medical Conditions or Safety Concerns. Roll Left & Right (QC): 3 Lying to Sitting/Side of Bed(Q: 3 Sit to Stand (QC): 3 Chair/Qtn-tj-Hgqay Xfer(QC): 3 Gait Training Does the Patient Walk?: Yes Distance: 150' Walk 10 feet (QC): 3 Walk 50 ft with 2 Turns(QC): 3 Walk 150 ft (QC): 3 Gait Assistive Device: FWW Pt amb with slow, shuffling gait. During amb pt states "my legs feel like jello" and immediately sits down onto chair. B LE gave out on pt, pt states he "can't do anymore (walking)" Treatments Pt completes bed mobility to sit EOB Sourav. Pt sit to stand Sourav and amb 150'. Pt LE give out and sit in chair. Pt unable to scoot back into chair, ModA x2 for scooting into chair. Pt then transfers to WC Sourav x2 and is propelled back in room. Once back, pt states he may need to use the urinal in a couple of minutes, but has already begun urinating. Pt sit to stand x3 to change brief and shorts with ModA. Pt remains in with RN in room and all needs met. Assessment Current Status: Fair Progress Pt fatigues quickly and requires frequent rest breaks. During amb, pt LE gave out, but pt gave no notice prior to needing a break. Pt barely made it to chair, sitting on edge and being unable to scoot back into chair. PT Short Term Goals Short Term Goals Time Frame: Aug 29, 2021 Roll Left & Right: 6 Sit to lyin Lying to sitting on side of be: 5 Sit to stand: 4 (SBA) Chair/kwx-xr-gesur transfer: 4 (SBA) Walk 10 feet: 4 (SBA) Walk 50 feet with two turns: 4 (SBA) Walk 150 feet: 4 (SBA) PT Intermediate Goals Microbiology Professor Goals PT Intermediate Goals Time Frame: Sep 12, 2021 Roll Left & Right (QC): 6 Sit to Lying (QC): 6 Lying-Sitting on Side/Bed(QC): 6 Sit to Stand (QC): 5 Chair/Uhe-bl-Zzhvo Xfer(QC): 5 Toilet Transfer (QC): 5 Car Transfer (QC): 5 Does the Patient Walk: Yes Walk 10 feet (QC): 5 Walk 50ft with 2 Turns (QC): 5 Walk 150 ft (QC): 5 Walking 10ft on Uneven Surface: 5 1 Step (curb) (QC): 4 4 Steps (QC): 4 12 Steps (QC): 88 Picking up an Object (QC): 4 Wheel 50 feet with 2 turns (QC: 9 Wheel 150 feet: 9 PT Plan Problem List Problem List: Activity Tolerance, Functional Strength, Safety, Gait Treatment/Plan Treatment Plan: Continue Plan of Care Treatment Plan: Bed Mobility, Education, Functional Activity Gabriella, Functional Strength, Group Therapy, Gait, Safety, Therapeutic Exercise, Transfers Treatment Duration: Sep 12, 2021 Frequency: At least 5 of 7 days/Wk (IRF) Estimated Hrs Per Day: 1.5 hours per day Patient and/or Family Agrees t: Yes Time/GCodes Time In: 1030 Time Out: 1100 Total Billed Treatment Time: 30 Total Billed Treatment 1, GT, FA SANDOR SPENCE BALANCE CLERK Aug 24, 2021 11:06
--- NOTE | 2021-08-24 11:20 | PM&R Progress Note ---
Subjective HPI/CC On Admission Date Seen by Provider: Aug 24, 2021 Time Seen by Provider: 11:20 Subjective/Events-last exam 08/24/2021: CT scan ordered by by urology for work-up for hematuria Cystoscopy performed revealing no polyps or masses Bladder retention appears to be present Left hand edema improving 08/23/21: Pt doing okay Requiring verbal cues for therapy Need additional motivation Requires rest breaks Checked meds and labs Hematuria requiring urology consult Review of Systems General: Fatigue, Malaise Objective Exam Vital Signs Vital Signs Date Time Temp Pulse Resp B/P (MAP) Pulse Ox O2 Delivery O2 Flow Rate FiO2 08/24/21 20:30 97 Room Air 08/24/21 20:00 36.2 89 16 171/91 (117) Capillary Refill : General Appearance: No Apparent Distress, WD/WN, Chronically ill, Obese HEENT: PERRL/EOMI, Normal ENT Inspection, Pharynx Normal Neck: Full Range of Motion, Normal Inspection, Non Tender, Supple, Carotid Bruit Respiratory: Chest Non Tender, Lungs Clear, Normal Breath Sounds, No Accessory Muscle Use, No Respiratory Distress Cardiovascular: Regular Rate, Rhythm, No Edema, No Gallop, No JVD, No Murmur, Normal Peripheral Pulses Gastrointestinal: Normal Bowel Sounds, No Organomegaly, No Pulsatile Mass, Non Tender, Soft Back: Normal Inspection, No CVA Tenderness, No Vertebral Tenderness Extremity: Normal Capillary Refill, Normal Inspection, Normal Range of Motion, Non Tender, No Calf Tenderness, No Pedal Edema Neurologic/Psychiatric: Alert, Oriented x3, Normal Mood/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 FIM Transfers Therapy Code Descriptions/Definitions Functional [place] Measure: 0=Not Assessed/NA 4=Minimal Assistance 1=Total Assistance 5=Supervision or Setup 2=Maximal Assistance 6=Modified [place] 3=Moderate Assistance 7=Complete IndependenceSCALE: Activities may be completed with or without assistive devices. 1-Tsuopmupud-xjudpry completes the activity by him/herself with no assistance fr om a helper. 5-Set-up or Clean-up Assistance-helper sets up or cleans up; patient completes activity. [place] assists only prior to or following the activity. 4-Supervision or Touching Assistance-helper provides verbal cues and/or touching/steadying and/or contact guard assistance as patient completes activity. Assistance may be provided throughout the activity or intermittently. 3-Partial/Moderate Assistance-helper does LESS THAN HALF the effort. [place] lifts, holds or supports trunk or limbs, but provides less than half the effort. 2-Substantial/Maximal Assistance-helper does MORE THAN HALF the effort. [place] lifts or holds trunk or limbs and provides more than half the effort. 6-Ivfptdzyt-jqhznx does ALL the effort. Patient does none of the effort to complete the activity. Or, the assistance of 2 or more helpers is required for the patient to complete the activity. If activity was not attempted, code reason: 7-Patient Refused. 9-Not Applicable-not attempted and the patient did not perform the activity before the current illness, exacerbation or injury. 10-Not Attempted due to Environmental Limitations-(lack of equipment, weather restraints, etc.). 88-Not Attempted due to Medical Conditions or Safety Concerns. Roll Left to Right (QC): 3 Sit to Lying (QC): 4 Sit to Stand (QC): 3 Chair/Vfx-ep-Kpxql Xfer(QC): 3 Car Transfer (QC): 4 Gait Training Does the Patient Walk?: Yes Distance: 150' Walk 10 feet (QC): 3 Walk 50 ft with 2 Turns(QC): 3 Walk 150 ft (QC): 3 Walking 10ft/uneven surface-QC: 4 Gait Persons Needed: 1 Gait Assistive Device: FWW Wheelchair Training Does the Pt Use a Wheelchair?: No Wheel 50 ft with 2 turns (QC): 9 Wheel 150 ft (QC): 9 Stair Training #of Steps: 1 1 Step (curb) (QC): 4 4 Steps (QC): 88 12 Steps (QC): 88 Balance Picking up an Object (QC): 88 ADL-Treatment Eating (QC): 5 Oral Hygiene (QC): 4 (steadying assist) Shower/Bathe Self (QC): 3 Upper Body Dressing (QC): 3 Lower Body Dressing (QC): 3 On/Off Footwear (QC): 4 Toileting Hygiene (QC): 3 Toilet Transfer (QC): 3 Assessment/Plan Assessment and Plan Assess & Plan/Chief Complaint Assessment: Generalized weakness with debility Alcoholism no alcohol use for 3 months Diabetes mellitus Hypertension Cognitive deficit Anemia CKD Obesity Hematuria normal cystoscopy with kidney stones on CT scan 08/24/2021 Plan: Supportive care Inpatient rehab protocol 08/23/21: Urology consult Supportive care 08/24/2021: Appreciate urology Continue aggressive therapy (1) Debility Status: Acute (2) Type 2 diabetes mellitus Status: Chronic (3) Hypertension Status: Chronic (4) Weakness Status: Acute CHANTAL LAIRD DO Aug 24, 2021 11:20
--- NOTE | 2021-08-24 11:40 | Diagnostic Imaging Report ---
PROCEDURE: CT abdomen and pelvis without contrast. TECHNIQUE: Multiple contiguous axial images were obtained through the abdomen and pelvis without the use of intravenous contrast. Auto Exposure Controls were utilized during the CT exam to meet ALARA standards for radiation dose reduction. INDICATION: Gross hematuria. COMPARISON: No prior studies are available for comparison. FINDINGS: Lung bases are clear. The liver is unremarkable. The gallbladder is contracted. There is no biliary ductal dilatation. Pancreas and spleen are unremarkable. No adrenal mass is detected. Both kidneys appear to contain small stones within calyces. There is a tiny approximately 2 mm stone in the distal right ureter as well just above the UVJ. The left ureter is unremarkable. No hydronephrosis is seen. Bladder is thick walled and decompressed. No definite bladder calculi are identified. Aorta is calcified but nonaneurysmal. There is some diverticulosis of the descending and sigmoid colon but no evidence of acute diverticulitis. No free fluid or fluid collection is seen. Prostate is unremarkable. Bony structures are nonacute. IMPRESSION: 1. Bilateral nonobstructing nephrolithiasis. In addition, there is a tiny approximately 2 mm calculus in the distal right ureter. No hydronephrosis is identified. 2. Uncomplicated diverticulosis. Dictated by: Dictated on workstation # [id number]
--- NOTE | 2021-08-24 14:26 | Therapy Group Daily Note ---
Therapy Daily Group Note Patient Education Topic Other List Below Exercises LE Seated Exercise, UE Exercise Session Ratio (pt:therapist): 4:1 Goal of Session: Education on ARU Expectations, UE/LE Strengthing, Safety with Transfers, Use of Adaptive Equipment Goal Met for this Session: Yes Pt Benefit of Group: Contributions to Others, F/U Use of Strategies @Home, Increased Functional Safety, Increased Functional Strength, Improved Cognition, Recognition of Peers, Socialization Other/Notes Pt participated in group therapy with focus on topics including bed mobility, UE/LE strengthening, safety, tub/shower transfers and DME. He interacted well with others and asked appropriate questions throughout. Pt with increased LE trembling this afternoon, requiring min a for balance and a second person for safety when transferring in/out of w/c. At end of session, pt reports that he learned a lot from participation in group. Start Time: 13:00 Stop Time: 14:00 Total Billed Treatment Time: 60 Total Billed Treatment 1, Group Gema Araya OT Aug 24, 2021 14:26
[2021-08-24 20:00] VITALS: BP 171/91
[2021-08-24] MEDS: MELATONIN 3 MG TABLET PO PRN (22:59)
--- NOTE | 2021-08-25 05:56 | PM&R Progress Note ---
Subjective HPI/CC On Admission Date Seen by Provider: Aug 25, 2021 Time Seen by Provider: 11:30 Subjective/Events-last exam 08/25/21: Patient doing well Kidney stones noted on CT scan Straining all urine BM+ Left hand will be wrapped 08/24/2021: CT scan ordered by by urology for work-up for hematuria Cystoscopy performed revealing no polyps or masses Bladder retention appears to be present Left hand edema improving 08/23/21: Pt doing okay Requiring verbal cues for therapy Need additional motivation Requires rest breaks Checked meds and labs Hematuria requiring urology consult Review of Systems General: Fatigue Musculoskeletal: arm pain Objective Exam Vital Signs Vital Signs Date Time Temp Pulse Resp B/P (MAP) Pulse Ox O2 Delivery O2 Flow Rate FiO2 08/25/21 20:20 Room Air 08/25/21 20:00 36.6 75 20 145/86 (105) 96 Capillary Refill : General Appearance: No Apparent Distress, WD/WN, Chronically ill, Obese HEENT: PERRL/EOMI, Normal ENT Inspection, Pharynx Normal Neck: Full Range of Motion, Normal Inspection, Non Tender, Supple, Carotid Bruit Respiratory: Chest Non Tender, Lungs Clear, Normal Breath Sounds, No Accessory Muscle Use, No Respiratory Distress Cardiovascular: Regular Rate, Rhythm, No Edema, No Gallop, No JVD, No Murmur, Normal Peripheral Pulses Gastrointestinal: Normal Bowel Sounds, No Organomegaly, No Pulsatile Mass, Non Tender, Soft Back: Normal Inspection, No CVA Tenderness, No Vertebral Tenderness Extremity: Normal Capillary Refill, Normal Inspection, Normal Range of Motion, Non Tender, No Calf Tenderness, No Pedal Edema Neurologic/Psychiatric: Alert, Oriented x3, Normal Mood/Affect, life educator II-XII Norm as Tested, Abnormal Gait, Motor Weakness (Generalized 4/5) Skin: Normal Color, Warm/Dry Lymphatic: No Adenopathy Results/Procedures Lab Patient resulted labs reviewed. FIM Transfers Therapy Code Descriptions/Definitions Functional [place] Measure: 0=Not Assessed/NA 4=Minimal Assistance 1=Total Assistance 5=Supervision or Setup 2=Maximal Assistance 6=Modified [place] 3=Moderate Assistance 7=Complete IndependenceSCALE: Activities may be completed with or without assistive devices. 2-Ownuhctont-iuiubfd completes the activity by him/herself with no assistance from a helper. 5-Set-up or Clean-up Assistance-helper sets up or cleans up; patient completes activity. [place] assists only prior to or following the activity. 4-Supervision or Touching Assistance-helper provides verbal cues and/or touching/steadying and/or contact guard assistance as patient completes activity. Assistance may be provided throughout the activity or intermittently. 3-Partial/Moderate Assistance-helper does LESS THAN HALF the effort. [place] lifts, holds or supports trunk or limbs, but provides less than half the effort. 2-Substantial/Maximal Assistance-helper does MORE THAN HALF the effort. [place] lifts or holds trunk or limbs and provides more than half the effort. 1-Qyginfmet-tcygmo does ALL the effort. Patient does none of the effort to complete the activity. Or, the assistance of 2 or more helpers is required for the patient to complete the activity. If activity was not attempted, code reason: 7-Patient Refused. 9-Not Applicable-not attempted and the patient did not perform the activity before the current illness, exacerbation or injury. 10-Not Attempted due to Environmental Limitations-(lack of equipment, weather restraints, etc.). 88-Not Attempted due to Medical Conditions or Safety Concerns. Roll Left to Right (QC): 3 Sit to Lying (QC): 4 Sit to Stand (QC): 3 Chair/Jpy-jl-Mshed Xfer(QC): 3 Car Transfer (QC): 4 Gait Training Does the Patient Walk?: Yes Distance: 150' Walk 10 feet (QC): 3 Walk 50 ft with 2 Turns(QC): 3 Walk 150 ft (QC): 3 Walking 10ft/uneven surface-QC: 4 Gait Persons Needed: 1 Gait Assistive Device: FWW Wheelchair Training Does the Pt Use a Wheelchair?: No Wheel 50 ft with 2 turns (QC): 9 Wheel 150 ft (QC): 9 Stair Training #of Steps: 1 1 Step (curb) (QC): 4 4 Steps (QC): 88 12 Steps (QC): 88 Balance Picking up an Object (QC): 88 ADL-Treatment Eating (QC): 5 Oral Hygiene (QC): 4 (steadying assist) Shower/Bathe Self (QC): 3 Upper Body Dressing (QC): 3 Lower Body Dressing (QC): 3 On/Off Footwear (QC): 4 Toileting Hygiene (QC): 3 Toilet Transfer (QC): 3 Assessment/Plan Assessment and Plan Assess & Plan/Chief Complaint Assessment: Generalized weakness with debility Alcoholism no alcohol use for 3 months Diabetes mellitus Hypertension Cognitive deficit Anemia CKD Obesity Hematuria normal cystoscopy with kidney stones on CT scan 08/24/2021 Plan: Supportive care Inpatient rehab protocol 08/23/21: Urology consult Supportive care 08/24/2021: Appreciate urology Continue aggressive therapy 08/25/21: Wrap left hand (1) Debility Status: Acute (2) Type 2 diabetes mellitus Status: Chronic (3) Hypertension Status: Chronic (4) Weakness Status: Acute HCANTAL LAIRD DO Aug 25, 2021 05:56
[2021-08-25 07:26] VITALS: BP 142/91
--- NOTE | 2021-08-25 07:43 | Progress Note - Urology ---
Progress Note-Urology Progress Notes/Assess & Plan Progress/Assessment & Plan VOIDING WELL EMPTIES WELL NO HEMATURIA CT: SMALL BILATERAL RENAL STONE AND SMALL VERY DISTAL RT URETERAL STONE WITH MINIMAL OBSTRUCTION AND NO PAIN. PLAN OBSERVE FOR SPONTANEOUS PASSAGE Final Diagnosis GROSS HEMATURIA AND UROLITHIASES FAYE ALBRIGHT MD Aug 25, 2021 07:43
[2021-08-25] MEDS: FOLIC ACID 1 MG TAB PO SCH (07:45)
[2021-08-25] MEDS: TRIM/SULFAMETH 160/800 (SEPTRA DS) TAB PO SCH ×2 (07:45→17:11)
[2021-08-25] MEDS: CEPHALEXIN 250 MG (KEFLEX) CAP PO SCH ×2 (07:45→20:49)
[2021-08-25] MEDS: meTOproloL SUCCINATE 50 MG (TOPROL XL) TAB PO SCH (07:46)
--- NOTE | 2021-08-25 08:55 | Physical Therapy Daily Note ---
PT Daily Note-Current Subjective Patient in recliner pre tx, agrees to PT, has 10/10 pain in left wrist. Will be co-treating with OT due to poor patient mobility, strength, endurance, knee buckling, coordinate UE and LE during activity, safety and reduce risk of falls. Appearance Patient in shower post tx to continue with OT Mental Status Patient Orientation: Person, Place, Situation Transfers SCALE: Activities may be completed with or without assistive devices. 8-Sqetgezvwa-vdajahn completes the activity by him/herself with no assistance from a helper. 5-Set-up or Clean-up Assistance-helper sets up or cleans up; patient completes activity. [place] assists only prior to or following the activity. 4-Supervision or Touching Assistance-helper provides verbal cues and/or touching/steadying and/or contact guard assistance as patient completes activity. Assistance may be provided throughout the activity or intermittently. 3-Partial/Moderate Assistance-helper does LESS THAN HALF the effort. [place] lifts, holds or supports trunk or limbs, but provides less than half the effort. 2-Substantial/Maximal Assistance-helper does MORE THAN HALF the effort. [place] lifts or holds trunk or limbs and provides more than half the effort. 6-Kiubouetv-jgxybl does ALL the effort. Patient does none of the effort to complete the activity. Or, the assistance of 2 or more helpers is required for the patient to complete the activity. If activity was not attempted, code reason: 7-Patient Refused. 9-Not Applicable-not attempted and the patient did not perform the activity before the current illness, exacerbation or injury. 10-Not Attempted due to Environmental Limitations-(lack of equipment, weather restraints, etc.). 88-Not Attempted due to Medical Conditions or Safety Concerns. Sit to Stand (QC): 3 Chair/Fkn-ny-Pcuyi Xfer(QC): 3 Min assist to stand from lower surfaces, cues for hand placement and positioning, after getting back to his room, patient transfers to shower bench, stands but cannot get his pants down, OT does it for him while PT works on standing balance. Gait Training Distance: 50'x2, 100', 20'x2 Walk 10 feet (QC): 4 Walk 50 ft with 2 Turns(QC): 4 Gait Assistive Device: FWW slow ambulation, unsteady, knees seem like they could buckle at any moment, WC follow Exercises NuStep Minutes: 15 NuStep Workload: 5 Treatments PT performed transfers, ambulation, functional strengthening, standing and positioning to start shower and undressing, OT performed dressing, shower , UE positioning and safety during activity Assessment Current Status: Poor Progress slow improvement with LE strength PT Short Term Goals Short Term Goals Time Frame: Aug 29, 2021 Roll Left & Right: 6 Sit to lyin Lying to sitting on side of be: 5 Sit to stand: 4 (SBA) Chair/gej-cc-yflqe transfer: 4 (SBA) Walk 10 feet: 4 (SBA) Walk 50 feet with two turns: 4 (SBA) Walk 150 feet: 4 (SBA) PT Flag Decorator Goals Flag Decorator Goals PT Flag Decorator Goals Time Frame: Sep 12, 2021 Roll Left & Right (QC): 6 Sit to Lying (QC): 6 Lying-Sitting on Side/Bed(QC): 6 Sit to Stand (QC): 5 Chair/Nhe-zh-Cnlsm Xfer(QC): 5 Toilet Transfer (QC): 5 Car Transfer (QC): 5 Does the Patient Walk: Yes Walk 10 feet (QC): 5 Walk 50ft with 2 Turns (QC): 5 Walk 150 ft (QC): 5 Walking 10ft on Uneven Surface: 5 1 Step (curb) (QC): 4 4 Steps (QC): 4 12 Steps (QC): 88 Picking up an Object (QC): 4 Wheel 50 feet with 2 turns (QC: 9 Wheel 150 feet: 9 PT Plan Problem List Problem List: Activity Tolerance, Functional Strength, Safety, Balance, Gait, Transfer, Bed Mobility, ROM Treatment/Plan Treatment Plan: Continue Plan of Care Treatment Plan: Bed Mobility, Education, Functional Activity Gabriella, Functional Strength, Group Therapy, Gait, Safety, Therapeutic Exercise, Transfers Treatment Duration: Sep 12, 2021 Frequency: At least 5 of 7 days/Wk (IRF) Estimated Hrs Per Day: 1.5 hours per day Patient and/or Family Agrees t: Yes Safety Risks/Education Patient Education: Gait Training, Transfer Techniques, Correct Positioning, Safety Issues Teaching Recipient: Patient Teaching Methods: Demonstration, Discussion Response to Teaching: Reinforcement Needed Time/GCodes Time In: 0800 Time Out: 0900 Total Billed Treatment Time: 60 Total Billed Treatment 1 visit EX 15' FA 45' co-treated with OT from OFELIA CHAPARRO PT Aug 25, 2021 08:55
--- NOTE | 2021-08-25 10:01 | Occupational Ther Daily Note ---
OT Current Status-Daily Note Subjective Pt continues to rate pain in L hand/wrist, edema present. RN aware. Co-treat with PT for part of treatment ([id number]) due to reduced safety, balance, strength, and high fall risk. Appearance Pt left supine in bed, all needs within reach. ADL-Treatment Therapy Code Descriptions/Definitions Functional [place] Measure: 0=Not Assessed/NA 4=Minimal Assistance 1=Total Assistance 5=Supervision or Setup 2=Maximal Assistance 6=Modified [place] 3=Moderate Assistance 7=Complete IndependenceSCALE: Activities may be completed with or without assistive devices. 9-Aiubpsdlgi-ebwfkwd completes the activity by him/herself with no assistance from a helper. 5-Set-up or Clean-up Assistance-helper sets up or cleans up; patient completes activity. [place] assists only prior to or following the activity. 4-Supervision or Touching Assistance-helper provides verbal cues and/or touching/steadying and/or contact guard assistance as patient completes activity. Assistance may be provided throughout the activity or intermittently. 3-Partial/Moderate Assistance-helper does LESS THAN HALF the effort. [place] lifts, holds or supports trunk or limbs, but provides less than half the effort. 2-Substantial/Maximal Assistance-helper does MORE THAN HALF the effort. [place] lifts or holds trunk or limbs and provides more than half the effort. 8-Bimxrhrbp-oelaze does ALL the effort. Patient does none of the effort to complete the activity. Or, the assistance of 2 or more helpers is required for the patient to complete the activity. If activity was not attempted, code reason: 7-Patient Refused. 9-Not Applicable-not attempted and the patient did not perform the activity before the current illness, exacerbation or injury. 10-Not Attempted due to Environmental Limitations-(lack of equipment, weather restraints, etc.). 88-Not Attempted due to Medical Conditions or Safety Concerns. Shower/Bathe Self (QC): 3 Upper Body Dressing (QC): 3 Lower Body Dressing (QC): 3 On/Off Footwear: 2 Toileting Hygiene (QC): 3 Toilet Transfer (QC): 3 Pt sitting in gym with physical therapy at OT arrival. Agreeable to shower. He ambulated back to room, w/c follow secondary to unpredictable knee buckling. 1 episode of knee buckling requiring min-mod a to maintain balance and a sitting rest break. Demonstration by OT on preferred shower transfer after Cues were given on correct Sequencing with walker and grab bars. Pt sat on shower bench for majority of shower. He stood only for short time to wash shelby area/buttocks with 1-2 UE support on grab bar. Mod a to stand from low surface. Cues needed to initiate getting body wet, use of soap, and to initiate washing LB. Assist needed to wash L side of buttocks and alysha feet. Pt continues to be very guarded of using L hand. Tender to touch on ulnar styloid process and pain with ulnar deviation. He sat in w/c to dress. Assist needed to pull shirt down in back, more on L side due to pt not using L hand. Extra effort observed when trying to thread feet into LB clothing this session. Requires min-mod a. Max a to don alysha socks. Due to pain and pt not incorporating L hand into tasks, adaptive tools such as sock aid and credit union teller (that require alysha use of hands) may not be appropriate at this time. Different compensatory methods may need to be looked at. Min-mod a to pull clothing over hips, specifically on L side. Pt did present with giving Less effort this date during adls and requires encouragement to attempt tasks before asking for assist. Education OT Patient Education: Correct positioning, Energy conservation, Modified ADL techniques, Progress toward Goal/Update tx plan, Purpose of tx/functional activities, Reviewed precautions, Rehab process, Safety issues, Transfer techniques, Use of adapted equipment, W/C management Teaching Recipient: Patient Teaching Methods: Demonstration, Discussion Response to Teaching: Verbalize Understanding, Reinforcement Needed OT Short Term Goals Short Term Goals Time Frame: Sep 01, 2021 Eatin Oral hygiene: 5 Toileting hygiene: 4 Shower/bathe self: 4 Upper body dressin Lower body dressin Putting on/taking off footwear: 5 OT Retirement Goals Retirement Goals Time Frame: Sep 08, 2021 Eating (QC): 6 Oral Hygiene (QC): 6 Toileting Hygiene (QC): 6 Shower/Bathe Self (QC): 5 Upper Body Dressing (QC): 6 Lower Body Dressing (QC): 6 On/Off Footwear (QC): 6 1=Demonstrate adherence to instructed precautions during ADL tasks. 2=Patient will verbalize/demonstrate understanding of assistive devices/modifications for ADL. 3=Patient will improve strength/tolerance for activity to enable patient to perform ADL's. OT Education/Plan Problem List/Assessment Assessment: Decreased Activ Tolerance, Decreased Safety Aware, Decreased UE Strength, Impaired Cognition, Impaired Coordination, Impaired Funct Balance, Impaired I ADL's, Impaired Self-Care Skills, Restricted Funct UE ROM Discharge Recommendations Plan/Recommendations: Continue POC Treatment Plan/Plan of Care Treatment,Training & Education: Yes Patient would benefit from OT for education, treatment and training to promote independence in ADL's, mobility, safety and/or upper extremity function for ADL's. Plan of Care: ADL Retraining, Functional Mobility, Group Exercise/Act as Ind, UE Funct Exercise/Act Treatment Duration: Sep 08, 2021 Frequency: At least 5 of 7 days/Wk (IRF) Estimated Hrs Per Day: 1.5 hours per day Agreement: Yes Rehab Potential: Fair Time/GCodes Start Time: 08:35 Stop Time: 09:50 Total Time Billed (hr/min): 75 Billed Treatment Time 1 visit, ADL x5 Gema Araya OT Aug 25, 2021 10:01
--- NOTE | 2021-08-25 10:07 | Speech Therapy Daily Note ---
Speech Daily Progress Note Subjective Date Seen by Provider: Aug 25, 2021 Time Seen by Provider: 00:30 The patient was resting in his bed following the other therapies. He said "they put me through the paces this morning". Objective Patient completed a series of safety awareness and memory q/a with 85% given 10% cues. Assessment Assessment Current Status: Good Progress Treatment Plan Continue Plan of Care Speech Short Term Goals Short Term Goals Short Term Goals 1) The patient will complete memory tasks related to his daily needs at 80% or greater with minimal cues. 2) The patient will complete safety awareness tasks related to his daily needs at 80% or greater with minimal cues. 3) The patient will complete problem solving tasks related to his daily needs at 80% or greater with minimal cues. Speech Shelter Goals Shelter Goals Patient will improve functional abilities in order to return home safer and independent. Speech-Plan Patient/Family Goals Patient/Family Goals: Patient will return home where he will live with his daughter until he gets stronger. Treatment Plan Speech Therapy Treatment Plan: Continue Plan of Care Treatment Duration: Sep 01, 2021 Frequency: 4 times per week (Patient will receive skilled ST 4-5x per week) Estimated Hrs Per Day: .5 hour per day Rehab Potential: Fair Barriers to Learning: Patient's decline in health, cognitive deficits including retention of new information Pt/Family Agrees to Plan: Yes Safety Risks/Education Teaching Recipient: Patient Teaching Methods: Demonstration, Discussion Response to Teaching: Verbalize Understanding, Return Demonstration Education Topics Provided: Patient's safety within his room, communication of wants/needs Time Speech Therapy Time In: 10:00 Speech Therapy Time Out: 10:30 Total Billed Time: 30 Billed Treatment Time 1, LUCAS Martin Aug 25, 2021 10:07
--- NOTE | 2021-08-25 14:18 | Physical Therapy Daily Note ---
PT Daily Note-Current Subjective Patient in bed pre tx, agrees to PT, has 4/10 pain in left hand. Appearance Patient in bed post tx with nurse call, phone, tray, all needs met. Mental Status Patient Orientation: Person, Place, Situation Transfers SCALE: Activities may be completed with or without assistive devices. 1-Amhjrybwhf-wjagrvr completes the activity by him/herself with no assistance from a helper. 5-Set-up or Clean-up Assistance-helper sets up or cleans up; patient completes activity. [place] assists only prior to or following the activity. 4-Supervision or Touching Assistance-helper provides verbal cues and/or touching/steadying and/or contact guard assistance as patient completes activity. Assistance may be provided throughout the activity or intermittently. 3-Partial/Moderate Assistance-helper does LESS THAN HALF the effort. [place] lifts, holds or supports trunk or limbs, but provides less than half the effort. 2-Substantial/Maximal Assistance-helper does MORE THAN HALF the effort. [place] l ifts or holds trunk or limbs and provides more than half the effort. 9-Uybhiwkme-jpxsuc does ALL the effort. Patient does none of the effort to complete the activity. Or, the assistance of 2 or more helpers is required for the patient to complete the activity. If activity was not attempted, code reason: 7-Patient Refused. 9-Not Applicable-not attempted and the patient did not perform the activity before the current illness, exacerbation or injury. 10-Not Attempted due to Environmental Limitations-(lack of equipment, weather restraints, etc.). 88-Not Attempted due to Medical Conditions or Safety Concerns. Roll Left & Right (QC): 6 Sit to Lying (QC): 3 Lying to Sitting/Side of Bed(Q: 3 Sit to Stand (QC): 3 Chair/Bzr-vp-Flvgf Xfer(QC): 4 Min assist to stand from lower surfaces. Gait Training Distance: 50'x2 Walk 10 feet (QC): 4 Walk 50 ft with 2 Turns(QC): 4 Gait Persons Needed: 1 Gait Assistive Device: FWW slow ambulation, unsteady, knees on the verge of buckling, significant rest break between bouts of ambulation Treatments bed mobility and transfers, ambulation Assessment Current Status: Fair Progress slowly improving general mobility PT Short Term Goals Short Term Goals Time Frame: Aug 29, 2021 Roll Left & Right: 6 Sit to lyin Lying to sitting on side of be: 5 Sit to stand: 4 (SBA) Chair/wes-wx-hczup transfer: 4 (SBA) Walk 10 feet: 4 (SBA) Walk 50 feet with two turns: 4 (SBA) Walk 150 feet: 4 (SBA) PT Cotton Farmer Goals Cotton Farmer Goals PT Cotton Farmer Goals Time Frame: Sep 12, 2021 Roll Left & Right (QC): 6 Sit to Lying (QC): 6 Lying-Sitting on Side/Bed(QC): 6 Sit to Stand (QC): 5 Chair/Kbp-ix-Vdbje Xfer(QC): 5 Toilet Transfer (QC): 5 Car Transfer (QC): 5 Does the Patient Walk: Yes Walk 10 feet (QC): 5 Walk 50ft with 2 Turns (QC): 5 Walk 150 ft (QC): 5 Walking 10ft on Uneven Surface: 5 1 Step (curb) (QC): 4 4 Steps (QC): 4 12 Steps (QC): 88 Picking up an Object (QC): 4 Wheel 50 feet with 2 turns (QC: 9 Wheel 150 feet: 9 PT Plan Problem List Problem List: Activity Tolerance, Functional Strength, Safety, Balance, Gait, Transfer, Bed Mobility, ROM Treatment/Plan Treatment Plan: Continue Plan of Care Treatment Plan: Bed Mobility, Education, Functional Activity Gabriella, Functional Strength, Group Therapy, Gait, Safety, Therapeutic Exercise, Transfers Treatment Duration: Sep 12, 2021 Frequency: At least 5 of 7 days/Wk (IRF) Estimated Hrs Per Day: 1.5 hours per day Patient and/or Family Agrees t: Yes Safety Risks/Education Patient Education: Gait Training, Transfer Techniques, Correct Positioning, Safety Issues Teaching Recipient: Patient Teaching Methods: Demonstration, Discussion Response to Teaching: Reinforcement Needed Time/GCodes Time In: 1400 Time Out: 1415 Total Billed Treatment Time: 15 Total Billed Treatment 1 visit GT 15' OFELIA CHAPARRO PT Aug 25, 2021 14:17
[2021-08-25] MEDS: DOCUSATE SODIUM 100 MG (COLACE) CAP PO SCH ×2 (16:03→20:52)
[2021-08-25] MEDS: SENNA W/DOCUSATE (SENOKOT S) TABLET PO SCH ×2 (16:04→20:52)
[2021-08-25] MEDS: polyethylene glycoL POWDER 17 GM (MIRALAX) PACK PO SCH ×2 (16:04→20:52)
[2021-08-25 20:00] VITALS: BP 145/86
[2021-08-25] MEDS: MELATONIN 3 MG TABLET PO PRN (20:49)
[2021-08-26 07:30] VITALS: BP 143/88
[2021-08-26] MEDS: TRIM/SULFAMETH 160/800 (SEPTRA DS) TAB PO SCH ×2 (08:21→17:08)
[2021-08-26] MEDS: CEPHALEXIN 250 MG (KEFLEX) CAP PO SCH ×2 (08:21→20:12)
[2021-08-26] MEDS: meTOproloL SUCCINATE 50 MG (TOPROL XL) TAB PO SCH (08:22)
[2021-08-26] MEDS: FOLIC ACID 1 MG TAB PO SCH (08:22)
[2021-08-26] MEDS: polyethylene glycoL POWDER 17 GM (MIRALAX) PACK PO SCH ×2 (09:47→19:35)
[2021-08-26] MEDS: DOCUSATE SODIUM 100 MG (COLACE) CAP PO SCH ×2 (09:47→19:33)
[2021-08-26] MEDS: SENNA W/DOCUSATE (SENOKOT S) TABLET PO SCH ×2 (09:47→19:35)
--- NOTE | 2021-08-26 11:00 | PM&R Progress Note ---
Subjective HPI/CC On Admission Date Seen by Provider: Aug 26, 2021 Time Seen by Provider: 11:00 Subjective/Events-last exam 08/26/21: Patient doing well Monitoring left wrist Wrapped left wrist but did not tolerate it Monitoring closely 08/25/21: Patient doing well Kidney stones noted on CT scan Straining all urine BM+ Left hand will be wrapped 08/24/2021: CT scan ordered by by urology for work-up for hematuria Cystoscopy performed revealing no polyps or masses Bladder retention appears to be present Left hand edema improving 08/23/21: Pt doing okay Requiring verbal cues for therapy Need additional motivation Requires rest breaks Checked meds and labs Hematuria requiring urology consult Review of Systems General: Fatigue, Malaise Musculoskeletal: hand pain Objective Exam Vital Signs Vital Signs Date Time Temp Pulse Resp B/P (MAP) Pulse Ox O2 Delivery O2 Flow Rate FiO2 08/26/21 20:20 Room Air 08/26/21 19:21 36.7 79 16 138/81 (100) 94 Capillary Refill : General Appearance: No Apparent Distress, WD/WN, Chronically ill, Obese HEENT: PERRL/EOMI, Normal ENT Inspection, Pharynx Normal Neck: Full Range of Motion, Normal Inspection, Non Tender, Supple, Carotid Bruit Respiratory: Chest Non Tender, Lungs Clear, Normal Breath Sounds, No Accessory Muscle Use, No Respiratory Distress Cardiovascular: Regular Rate, Rhythm, No Edema, No Gallop, No JVD, No Murmur, Normal Peripheral Pulses Gastrointestinal: Normal Bowel Sounds, No Organomegaly, No Pulsatile Mass, Non Tender, Soft Back: Normal Inspection, No CVA Tenderness, No Vertebral Tenderness Extremity: Normal Capillary Refill, Normal Inspection, Normal Range of Motion, Non Tender, No Calf Tenderness, No Pedal Edema Neurologic/Psychiatric: Alert, Oriented x3, Normal 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 FIM Transfers Therapy Code Descriptions/Definitions Functional [place] Measure: 0=Not Assessed/NA 4=Minimal Assistance 1=Total Assistance 5=Supervision or Setup 2=Maximal Assistance 6=Modified [place] 3=Moderate Assistance 7=Complete IndependenceSCALE: Activities may be completed with or without assistive devices. 9-Mebysnygzc-jlqoebg completes the activity by him/herself with no assistance from a helper. 5-Set-up or Clean-up Assistance-helper sets up or cleans up; patient completes activity. [place] assists only prior to or following the activity. 4-Supervision or Touching Assistance-helper provides verbal cues and/or touching/steadying and/or contact guard assistance as patient completes activity. Assistance may be provided throughout the activity or intermittently. 3-Partial/Moderate Assistance-helper does LESS THAN HALF the effort. [place] lifts, holds or supports trunk or limbs, but provides less than half the effort. 2-Substantial/Maximal Assistance-helper does MORE THAN HALF the effort. [place] lifts or holds trunk or limbs and provides more than half the effort. 1-Zylqpoevu-cguiyp does ALL the effort. Patient does none of the effort to complete the activity. Or, the assistance of 2 or more helpers is required for the patient to complete the activity. If activity was not attempted, code reason: 7-Patient Refused. 9-Not Applicable-not attempted and the patient did not perform the activity before the current illness, exacerbation or injury. 10-Not Attempted due to Environmental Limitations-(lack of equipment, weather restraints, etc.). 88-Not Attempted due to Medical Conditions or Safety Concerns. Roll Left to Right (QC): 6 Sit to Lying (QC): 3 Sit to Stand (QC): 3 Chair/Xws-lu-Cljbw Xfer(QC): 4 Car Transfer (QC): 4 Gait Training Does the Patient Walk?: Yes Distance: 50'x2 Walk 10 feet (QC): 4 Walk 50 ft with 2 Turns(QC): 4 Walk 150 ft (QC): 3 Walking 10ft/uneven surface-QC: 4 Gait Persons Needed: 1 Gait Assistive Device: FWW Wheelchair Training Does the Pt Use a Wheelchair?: No Wheel 50 ft with 2 turns (QC): 9 Wheel 150 ft (QC): 9 Stair Training #of Steps: 1 1 Step (curb) (QC): 4 4 Steps (QC): 88 12 Steps (QC): 88 Balance Picking up an Object (QC): 88 ADL-Treatment Eating (QC): 5 Oral Hygiene (QC): 4 (steadying assist) Shower/Bathe Self (QC): 3 Upper Body Dressing (QC): 3 Lower Body Dressing (QC): 3 On/Off Footwear (QC): 2 Toileting Hygiene (QC): 3 Toilet Transfer (QC): 3 Assessment/Plan Assessment and Plan Assess & Plan/Chief Complaint Assessment: Generalized weakness with debility Alcoholism no alcohol use for 3 months Diabetes mellitus Hypertension Cognitive deficit Anemia CKD Obesity Hematuria normal cystoscopy with kidney stones on CT scan 08/24/2021 Plan: Supportive care Inpatient rehab protocol 08/23/21: Urology consult Supportive care 08/24/2021: Appreciate urology Continue aggressive therapy 08/25/21: Wrap left hand 08/26/21: Could not tolerate left hand wrapping No pain reported otherwise (1) Debility Status: Acute (2) Type 2 diabetes mellitus Status: Chronic (3) Hypertension Status: Chronic (4) Weakness Status: Acute CHANTAL LAIRD DO Aug 26, 2021 11:00
--- NOTE | 2021-08-26 11:24 | Physical Therapy Daily Note ---
PT Daily Note-Current Subjective Pt. in bed, agrees to therapy. Says he is "ok" today. Transfers SCALE: Activities may be completed with or without assistive devices. 0-Ajejvfyclt-yxmqkyr completes the activity by him/herself with no assistance from a helper. 5-Set-up or Clean-up Assistance-helper sets up or cleans up; patient completes activity. [place] assists only prior to or following the activity. 4-Supervision or Touching Assistance-helper provides verbal cues and/or touching/steadying and/or contact guard assistance as patient completes activity. Assistance may be provided throughout the activity or intermittently. 3-Partial/Moderate Assistance-helper does LESS THAN HALF the effort. [place] lifts, holds or supports trunk or limbs, but provides less than half the effort. 2-Substantial/Maximal Assistance-helper does MORE THAN HALF the effort. [place] lifts or holds trunk or limbs and provides more than half the effort. 2-Orbqglpkh-rpanqw does ALL the effort. Patient does none of the effort to complete the activity. Or, the assistance of 2 or more helpers is required for the patient to complete the activity. If activity was not attempted, code reason: 7-Patient Refused. 9-Not Applicable-not attempted and the patient did not perform the activity before the current illness, exacerbation or injury. 10-Not Attempted due to Environmental Limitations-(lack of equipment, weather restraints, etc.). 88-Not Attempted due to Medical Conditions or Safety Concerns. Lying to Sitting/Side of Bed(Q: 6 Gait Training Does the Patient Walk?: Yes Distance: 2 x 60 ft Walk 10 feet (QC): 4 Gait Persons Needed: 1 Gait Assistive Device: FWW Exercises Seated Therapy Exercises: Ankle pumps, Sit to stand (2 x 5 reps), Long arc quads, Hip flexion Seated Reps: 20 Treatments gait and LE exercises Assessment Current Status: Good Progress Pt. c/o of "rubber legs" during ambulation but no losses of balance or giving way of LE's. Pt. declined additional ambulation and Nustep. Pt. up in bedside chair post session with call light and all needs met. PT Short Term Goals Short Term Goals Time Frame: Aug 29, 2021 Roll Left & Right: 6 Sit to lyin Lying to sitting on side of be: 5 Sit to stand: 4 (SBA) Chair/jwz-ih-kdqet transfer: 4 (SBA) Walk 10 feet: 4 (SBA) Walk 50 feet with two turns: 4 (SBA) Walk 150 feet: 4 (SBA) PT Laboratory Tech Goals Laboratory Tech Goals PT Prison Goals Time Frame: Sep 12, 2021 Roll Left & Right (QC): 6 Sit to Lying (QC): 6 Lying-Sitting on Side/Bed(QC): 6 Sit to Stand (QC): 5 Chair/Fuu-gl-Mmjpu Xfer(QC): 5 Toilet Transfer (QC): 5 Car Transfer (QC): 5 Does the Patient Walk: Yes Walk 10 feet (QC): 5 Walk 50ft with 2 Turns (QC): 5 Walk 150 ft (QC): 5 Walking 10ft on Uneven Surface: 5 1 Step (curb) (QC): 4 4 Steps (QC): 4 12 Steps (QC): 88 Picking up an Object (QC): 4 Wheel 50 feet with 2 turns (QC: 9 Wheel 150 feet: 9 PT Plan Treatment/Plan Treatment Plan: Continue Plan of Care Treatment Plan: Bed Mobility, Education, Functional Activity Gabriella, Functional Strength, Group Therapy, Gait, Safety, Therapeutic Exercise, Transfers Treatment Duration: Sep 12, 2021 Frequency: At least 5 of 7 days/Wk (IRF) Estimated Hrs Per Day: 1.5 hours per day Patient and/or Family Agrees t: Yes Time/GCodes Time In: 1100 Time Out: 1120 Total Billed Treatment Time: 20 Total Billed Treatment 1, GT 13', (Ex 7') NELLY GABRIEL PT Aug 26, 2021 11:24
[2021-08-26 19:21] VITALS: BP 138/81
[2021-08-26] MEDS: MELATONIN 3 MG TABLET PO PRN (20:12)
[2021-08-27 07:30] VITALS: BP 146/86
--- NOTE | 2021-08-27 07:45 | PM&R Progress Note ---
Subjective HPI/CC On Admission Date Seen by Provider: Aug 27, 2021 Time Seen by Provider: 14:45 Subjective/Events-last exam 08/27/21: Patient doing well Sarcastic most of the time but this is baseline Left wrist still with edema but can't tolerate any treatment for it BM+ 08/26/21: Patient doing well Monitoring left wrist Wrapped left wrist but did not tolerate it Monitoring closely 08/25/21: Patient doing well Kidney stones noted on CT scan Straining all urine BM+ Left hand will be wrapped 08/24/2021: CT scan ordered by by urology for work-up for hematuria Cystoscopy performed revealing no polyps or masses Bladder retention appears to be present Left hand edema improving 08/23/21: Pt doing okay Requiring verbal cues for therapy Need additional motivation Requires rest breaks Checked meds and labs Hematuria requiring urology consult Review of Systems General: Fatigue, Malaise Musculoskeletal: hand pain Objective Exam Vital Signs Vital Signs Date Time Temp Pulse Resp B/P (MAP) Pulse Ox O2 Delivery O2 Flow Rate FiO2 08/27/21 20:04 Room Air 08/27/21 20:03 36.4 70 20 139/84 (102) 95 Capillary Refill : General Appearance: No Apparent Distress, WD/WN, Chronically ill, Obese HEENT: PERRL/EOMI, Normal ENT Inspection, Pharynx Normal Neck: Full Range of Motion, Normal Inspection, Non Tender, Supple, Carotid Bruit Respiratory: Chest Non Tender, Lungs Clear, Normal Breath Sounds, No Accessory Muscle Use, No Respiratory Distress Cardiovascular: Regular Rate, Rhythm, No Edema, No Gallop, No JVD, No Murmur, Normal Peripheral Pulses Gastrointestinal: Normal Bowel Sounds, No Organomegaly, No Pulsatile Mass, Non Tender, Soft Back: Normal Inspection, No CVA Tenderness, No Vertebral Tenderness Extremity: Normal Capillary Refill, Normal Inspection, Normal Range of Motion, Non Tender, No Calf Tenderness, No Pedal Edema Neurologic/Psychiatric: Alert, Oriented x3, Normal 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 FIM Transfers Therapy Code Descriptions/Definitions Functional [place] Measure: 0=Not Assessed/NA 4=Minimal Assistance 1=Total Assistance 5=Supervision or Setup 2=Maximal Assistance 6=Modified [place] 3=Moderate Assistance 7=Complete IndependenceSCALE: Activities may be completed with or without assistive devices. 5-Udiufoztaz-ozyqdqq completes the activity by him/herself with no assistance from a helper. 5-Set-up or Clean-up Assistance-helper sets up or cleans up; patient completes activity. [place] assists only prior to or following the activity. 4-Supervision or Touching Assistance-helper provides verbal cues and/or touching/steadying and/or contact guard assistance as patient completes activity. Assistance may be provided throughout the activity or intermittently. 3-Partial/Moderate Assistance-helper does LESS THAN HALF the effort. [place] lifts, holds or supports trunk or limbs, but provides less than half the effort. 2-Substantial/Maximal Assistance-helper does MORE THAN HALF the effort. [place] lifts or holds trunk or limbs and provides more than half the effort. 8-Yrkduncdr-qorhiz does ALL the effort. Patient does none of the effort to complete the activity. Or, the assistance of 2 or more helpers is required for the patient to complete the activity. If activity was not attempted, code reason: 7-Patient Refused. 9-Not Applicable-not attempted and the patient did not perform the activity before the current illness, exacerbation or injury. 10-Not Attempted due to Environmental Limitations-(lack of equipment, weather restraints, etc.). 88-Not Attempted due to Medical Conditions or Safety Concerns. Roll Left to Right (QC): 6 Sit to Lying (QC): 3 Sit to Stand (QC): 3 Chair/Efv-tt-Qqpnz Xfer(QC): 4 Car Transfer (QC): 4 Gait Training Does the Patient Walk?: Yes Distance: 2 x 60 ft Walk 10 feet (QC): 4 Walk 50 ft with 2 Turns(QC): 4 Walk 150 ft (QC): 3 Walking 10ft/uneven surface-QC: 4 Gait Persons Needed: 1 Gait Assistive Device: FWW Wheelchair Training Does the Pt Use a Wheelchair?: No Wheel 50 ft with 2 turns (QC): 9 Wheel 150 ft (QC): 9 Stair Training #of Steps: 1 1 Step (curb) (QC): 4 4 Steps (QC): 88 12 Steps (QC): 88 Balance Picking up an Object (QC): 88 ADL-Treatment Eating (QC): 5 Oral Hygiene (QC): 4 (steadying assist) Shower/Bathe Self (QC): 3 Upper Body Dressing (QC): 3 Lower Body Dressing (QC): 3 On/Off Footwear (QC): 2 Toileting Hygiene (QC): 3 Toilet Transfer (QC): 3 Assessment/Plan Assessment and Plan Assess & Plan/Chief Complaint Assessment: Generalized weakness with debility Alcoholism no alcohol use for 3 months Diabetes mellitus Hypertension Cognitive deficit Anemia CKD Obesity Hematuria normal cystoscopy with kidney stones on CT scan 08/24/2021 Plan: Supportive care Inpatient rehab protocol 08/23/21: Urology consult Supportive care 08/24/2021: Appreciate urology Continue aggressive therapy 08/25/21: Wrap left hand 08/26/21: Could not tolerate left hand wrapping No pain reported otherwise 08/27/21: Supportive care Monitor closely (1) Debility Status: Acute (2) Type 2 diabetes mellitus Status: Chronic (3) Hypertension Status: Chronic (4) Weakness Status: Acute CHANTAL LAIRD DO Aug 27, 2021 07:45
[2021-08-27] MEDS: meTOproloL SUCCINATE 50 MG (TOPROL XL) TAB PO SCH (09:22)
[2021-08-27] MEDS: FOLIC ACID 1 MG TAB PO SCH (09:22)
[2021-08-27] MEDS: TRIM/SULFAMETH 160/800 (SEPTRA DS) TAB PO SCH ×2 (09:22→17:30)
[2021-08-27] MEDS: DOCUSATE SODIUM 100 MG (COLACE) CAP PO SCH ×2 (09:28→19:25)
[2021-08-27] MEDS: SENNA W/DOCUSATE (SENOKOT S) TABLET PO SCH ×2 (09:28→19:25)
[2021-08-27] MEDS: polyethylene glycoL POWDER 17 GM (MIRALAX) PACK PO SCH ×2 (09:28→19:25)
[2021-08-27] MEDS: MELATONIN 3 MG TABLET PO PRN (19:48)
[2021-08-27 20:03] VITALS: BP 139/84
[2021-08-28 05:46] LABS: BASOPHILS # (AUTO) 0.1 10^3/uL (0.0-0.1); BASOPHILS % (AUTO) 1 % (0-10); EOSINOPHILS # (AUTO) 0.1 10^3/uL (0.0-0.3); EOSINOPHILS % (AUTO) 1 % (0-10); HEMATOCRIT 28 % (40-54); HEMOGLOBIN 9.1 g/dL (13.3-17.7); LYMPHOCYTES # (AUTO) 0.8 10^3/uL (1.0-4.0); LYMPHOCYTES % (AUTO) 9 % (12-44); MEAN CORPUSCULAR HEMOGLOBIN 31 pg (25-34); MEAN CORPUSCULAR HGB CONC 33 g/dL (32-36); MEAN CORPUSCULAR VOLUME 93 fL (80-99); MEAN PLATELET VOLUME 9.3 fL (9.0-12.2); MONOCYTES # (AUTO) 0.5 10^3/uL (0.0-1.0); MONOCYTES % (AUTO) 6 % (0-12); NEUTROPHILS # (AUTO) 7.4 10^3/uL (1.8-7.8); NEUTROPHILS % (AUTO) 84 % (42-75); PLATELET COUNT 311 10^3/uL (130-400); WHITE BLOOD COUNT 8.8 10^3/uL (4.3-11.0)
[2021-08-28 05:59] LABS: ALBUMIN 3.4 GM/DL (3.2-4.5)
[2021-08-28 06:00] LABS: POTASSIUM 4.1 MMOL/L (3.6-5.0)
[2021-08-28 06:01] LABS: CALCIUM 9.2 MG/DL (8.5-10.1)
[2021-08-28 06:04] LABS: BILIRUBIN,TOTAL 0.6 MG/DL (0.1-1.0)
--- NOTE | 2021-08-28 06:47 | PM&R Progress Note ---
Subjective HPI/CC On Admission Date Seen by Provider: Aug 28, 2021 Time Seen by Provider: 09:00 Subjective/Events-last exam 08/28/2021: Pt doing well Creatinine 2.0 Hgb 9.1 Checked meds and labs No falls 08/27/21: Patient doing well Sarcastic most of the time but this is baseline Left wrist still with edema but can't tolerate any treatment for it BM+ 08/26/21: Patient doing well Monitoring left wrist Wrapped left wrist but did not tolerate it Monitoring closely 08/25/21: Patient doing well Kidney stones noted on CT scan Straining all urine BM+ Left hand will be wrapped 08/24/2021: CT scan ordered by by urology for work-up for hematuria Cystoscopy performed revealing no polyps or masses Bladder retention appears to be present Left hand edema improving 08/23/21: Pt doing okay Requiring verbal cues for therapy Need additional motivation Requires rest breaks Checked meds and labs Hematuria requiring urology consult Review of Systems General: Fatigue, Malaise Musculoskeletal: hand pain Objective Exam Vital Signs Vital Signs Date Time Temp Pulse Resp B/P (MAP) Pulse Ox O2 Delivery O2 Flow Rate FiO2 08/28/21 19:57 37.1 80 18 145/90 (108) 97 Room Air Capillary Refill : General Appearance: No Apparent Distress, WD/WN, Chronically ill, Obese HEENT: PERRL/EOMI, Normal ENT Inspection, Pharynx Normal Neck: Full Range of Motion, Normal Inspection, Non Tender, Supple, Carotid Bruit Respiratory: Chest Non Tender, Lungs Clear, Normal Breath Sounds, No Accessory Muscle Use, No Respiratory Distress Cardiovascular: Regular Rate, Rhythm, No Edema, No Gallop, No JVD, No Murmur, Normal Peripheral Pulses Gastrointestinal: Normal Bowel Sounds, No Organomegaly, No Pulsatile Mass, Non Tender, Soft Back: Normal Inspection, No CVA Tenderness, No Vertebral Tenderness Extremity: Normal Capillary Refill, Normal Inspection, Normal Range of Motion, Non Tender, No Calf Tenderness, No Pedal Edema Neurologic/Psychiatric: Alert, Oriented x3, 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 FIM Transfers Therapy Code Descriptions/Definitions Functional [place] Measure: 0=Not Assessed/NA 4=Minimal Assistance 1=Total Assistance 5=Supervision or Setup 2=Maximal Assistance 6=Modified [place] 3=Moderate Assistance 7=Complete IndependenceSCALE: Activities may be completed with or without assistive devices. 2-Befysdqgrg-ycguand completes the activity by him/herself with no assistance from a helper. 5-Set-up or Clean-up Assistance-helper sets up or cleans up; patient completes activity. [place] assists only prior to or following the activity. 4-Supervision or Touching Assistance-helper provides verbal cues and/or touching/steadying and/or contact guard assistance as patient completes activity. Assistance may be provided throughout the activity or intermittently. 3-Partial/Moderate Assistance-helper does LESS THAN HALF the effort. [place] lifts, holds or supports trunk or limbs, but provides less than half the effort. 2-Substantial/Maximal Assistance-helper does MORE THAN HALF the effort. [place] lifts or holds trunk or limbs and provides more than half the effort. 5-Nyteymcts-fzgjkm does ALL the effort. Patient does none of the effort to complete the activity. Or, the assistance of 2 or more helpers is required for the patient to complete the activity. If activity was not attempted, code reason: 7-Patient Refused. 9-Not Applicable-not attempted and the patient did not perform the activity before the current illness, exacerbation or injury. 10-Not Attempted due to Environmental Limitations-(lack of equipment, weather restraints, etc.). 88-Not Attempted due to Medical Conditions or Safety Concerns. Roll Left to Right (QC): 6 Sit to Lying (QC): 3 Sit to Stand (QC): 3 Chair/Tki-qu-Vsmsh Xfer(QC): 4 Car Transfer (QC): 4 Gait Training Does the Patient Walk?: Yes Distance: 2 x 60 ft Walk 10 feet (QC): 4 Walk 50 ft with 2 Turns(QC): 4 Walk 150 ft (QC): 3 Walking 10ft/uneven surface-QC: 4 Gait Persons Needed: 1 Gait Assistive Device: FWW Wheelchair Training Does the Pt Use a Wheelchair?: No Wheel 50 ft with 2 turns (QC): 9 Wheel 150 ft (QC): 9 Stair Training #of Steps: 1 1 Step (curb) (QC): 4 4 Steps (QC): 88 12 Steps (QC): 88 Balance Picking up an Object (QC): 88 ADL-Treatment Eating (QC): 5 Oral Hygiene (QC): 4 (steadying assist) Shower/Bathe Self (QC): 3 Upper Body Dressing (QC): 3 Lower Body Dressing (QC): 3 On/Off Footwear (QC): 2 Toileting Hygiene (QC): 3 Toilet Transfer (QC): 3 Assessment/Plan Assessment and Plan Assess & Plan/Chief Complaint Assessment: Generalized weakness with debility Alcoholism no alcohol use for 3 months Diabetes mellitus Hypertension Cognitive deficit Anemia CKD Obesity Hematuria normal cystoscopy with kidney stones on CT scan 08/24/2021 Plan: Supportive care Inpatient rehab protocol 08/23/21: Urology consult Supportive care 08/24/2021: Appreciate urology Continue aggressive therapy 08/25/21: Wrap left hand 08/26/21: Could not tolerate left hand wrapping No pain reported otherwise 08/27/21: Supportive care Monitor closely 08/28/2021: Supportive care (1) Debility Status: Acute (2) Type 2 diabetes mellitus Status: Chronic (3) Hypertension Status: Chronic (4) Weakness Status: Acute CHANTAL LAIRD DO Aug 28, 2021 06:47
[2021-08-28 07:33] VITALS: BP 133/89
[2021-08-28] MEDS: meTOproloL SUCCINATE 50 MG (TOPROL XL) TAB PO SCH (08:12)
[2021-08-28] MEDS: TRIM/SULFAMETH 160/800 (SEPTRA DS) TAB PO SCH (08:12)
[2021-08-28] MEDS: FOLIC ACID 1 MG TAB PO SCH (08:12)
--- NOTE | 2021-08-28 08:54 | Physical Therapy Daily Note ---
PT Daily Note-Current Subjective Patient in bed pre tx, agrees to PT, has 3/10 pain in left hand. Appearance Patient in bed post tx with nurse call, phone, tray, all needs met. Mental Status Patient Orientation: Person, Place, Situation Transfers SCALE: Activities may be completed with or without assistive devices. 3-Mtrcilgeyp-cauexrn completes the activity by him/herself with no assistance from a helper. 5-Set-up or Clean-up Assistance-helper sets up or cleans up; patient completes activity. [place] assists only prior to or following the activity. 4-Supervision or Touching Assistance-helper provides verbal cues and/or touching/steadying and/or contact guard assistance as patient completes activity. Assistance may be provided throughout the activity or intermittently. 3-Partial/Moderate Assistance-helper does LESS THAN HALF the effort. [place] lifts, holds or supports trunk or limbs, but provides less than half the effort. 2-Substantial/Maximal Assistance-helper does MORE THAN HALF the effort. [place] l ifts or holds trunk or limbs and provides more than half the effort. 3-Azrvtaere-sqiynn does ALL the effort. Patient does none of the effort to complete the activity. Or, the assistance of 2 or more helpers is required for the patient to complete the activity. If activity was not attempted, code reason: 7-Patient Refused. 9-Not Applicable-not attempted and the patient did not perform the activity before the current illness, exacerbation or injury. 10-Not Attempted due to Environmental Limitations-(lack of equipment, weather restraints, etc.). 88-Not Attempted due to Medical Conditions or Safety Concerns. Roll Left & Right (QC): 6 Sit to Lying (QC): 3 Lying to Sitting/Side of Bed(Q: 4 Sit to Stand (QC): 3 Chair/Wup-vd-Hobxk Xfer(QC): 4 Patient needs min assist for sit to stand from lower surfaces, cues for hand placement and positioning Gait Training Distance: 120', 20' Walk 10 feet (QC): 4 Walk 50 ft with 2 Turns(QC): 4 Gait Persons Needed: 1 Gait Assistive Device: FWW slow, unsteady, knees seem like they could buckle at any moment but hasn't happened yet, knees flex with fatigue Wheelchair Training Does the Pt Use a Wheelchair?: Yes Wheel 50 ft with 2 turns (QC): 4 Type of Wheelchair: Manual 120', slow, uses both feet and right arm Exercises Standing: Heel/toe raises, Mini squats Standing Reps: 15 LAQ alternating for 5 min NuStep Minutes: 15 NuStep Workload: 5 Treatments bed mobility and transfers, ambulation, functional strengthening Assessment Current Status: Poor Progress Patient very fatigued this morning, slow motivation PT Short Term Goals Short Term Goals Time Frame: Aug 29, 2021 Roll Left & Right: 6 Sit to lyin Lying to sitting on side of be: 5 Sit to stand: 4 (SBA) Chair/iyq-fj-jwgtl transfer: 4 (SBA) Walk 10 feet: 4 (SBA) Walk 50 feet with two turns: 4 (SBA) Walk 150 feet: 4 (SBA) PT Skilled Nursing Goals Skilled Nursing Goals PT Lift Electrician Goals Time Frame: Sep 12, 2021 Roll Left & Right (QC): 6 Sit to Lying (QC): 6 Lying-Sitting on Side/Bed(QC): 6 Sit to Stand (QC): 5 Chair/Moq-yg-Pdgbr Xfer(QC): 5 Toilet Transfer (QC): 5 Car Transfer (QC): 5 Does the Patient Walk: Yes Walk 10 feet (QC): 5 Walk 50ft with 2 Turns (QC): 5 Walk 150 ft (QC): 5 Walking 10ft on Uneven Surface: 5 1 Step (curb) (QC): 4 4 Steps (QC): 4 12 Steps (QC): 88 Picking up an Object (QC): 4 Wheel 50 feet with 2 turns (QC: 9 Wheel 150 feet: 9 PT Plan Problem List Problem List: Activity Tolerance, Functional Strength, Safety, Balance, Gait, Transfer, Bed Mobility, ROM Treatment/Plan Treatment Plan: Continue Plan of Care Treatment Plan: Bed Mobility, Education, Functional Activity Gabriella, Functional Strength, Group Therapy, Gait, Safety, Therapeutic Exercise, Transfers Treatment Duration: Sep 12, 2021 Frequency: At least 5 of 7 days/Wk (IRF) Estimated Hrs Per Day: 1.5 hours per day Patient and/or Family Agrees t: Yes Safety Risks/Education Patient Education: Gait Training, Transfer Techniques, Correct Positioning, W/C Management, Safety Issues Teaching Recipient: Patient Teaching Methods: Demonstration, Discussion Response to Teaching: Reinforcement Needed Time/GCodes Time In: 0800 Time Out: 0900 Total Billed Treatment Time: 60 Total Billed Treatment 1 visit EX 30' FA 30' OFELIA CHAPARRO PT Aug 28, 2021 08:54
--- NOTE | 2021-08-28 09:09 | Progress Note - Urology ---
Progress Note-Urology Progress Notes/Assess & Plan Progress/Assessment & Plan DOING WELL STEWART. NO COMPLAINTS. NO PAINS. DID NOT PASS THE STONE. OBSERVE Final Diagnosis GROSS HEMATURIA AND UROLITHIASES FAYE ALBRIGHT MD Aug 28, 2021 09:09
[2021-08-28] MEDS: DOCUSATE SODIUM 100 MG (COLACE) CAP PO SCH ×2 (09:12→19:49)
[2021-08-28] MEDS: SENNA W/DOCUSATE (SENOKOT S) TABLET PO SCH ×2 (09:13→19:49)
[2021-08-28] MEDS: polyethylene glycoL POWDER 17 GM (MIRALAX) PACK PO SCH ×2 (09:13→19:34)
[2021-08-28] MEDS: ACETAMINOPHEN 325 MG TABLET PO PRN (10:05)
--- NOTE | 2021-08-28 12:27 | Occupational Ther Daily Note ---
OT Current Status-Daily Note Subjective Pt reports pain as 3/10 in L wrist. Appearance Pt left sitting in recliner, all needs within reach at OT departure. Mental Status/Objective Patient Orientation: Person, Place, Situation ADL-Treatment Therapy Code Descriptions/Definitions Functional [place] Measure: 0=Not Assessed/NA 4=Minimal Assistance 1=Total Assistance 5=Supervision or Setup 2=Maximal Assistance 6=Modified [place] 3=Moderate Assistance 7=Complete IndependenceSCALE: Activities may be completed with or without assistive devices. 6-Vzgtmydpwk-jbfwfky completes the activity by him/herself with no assistance from a helper. 5-Set-up or Clean-up Assistance-helper sets up or cleans up; patient completes activity. [place] assists only prior to or following the activity. 4-Supervision or Touching Assistance-helper provides verbal cues and/or touching/steadying and/or contact guard assistance as patient completes activity. Assistance may be provided throughout the activity or intermittently. 3-Partial/Moderate Assistance-helper does LESS THAN HALF the effort. [place] lifts, holds or supports trunk or limbs, but provides less than half the effort. 2-Substantial/Maximal Assistance-helper does MORE THAN HALF the effort. [place] lifts or holds trunk or limbs and provides more than half the effort. 0-Ycmzjaoay-twynyl does ALL the effort. Patient does none of the effort to complete the activity. Or, the assistance of 2 or more helpers is required for the patient to complete the activity. If activity was not attempted, code reason: 7-Patient Refused. 9-Not Applicable-not attempted and the patient did not perform the activity before the current illness, exacerbation or injury. 10-Not Attempted due to Environmental Limitations-(lack of equipment, weather restraints, etc.). 88-Not Attempted due to Medical Conditions or Safety Concerns. Upper Body Dressing (QC): 4 Lower Body Dressing (QC): 4 Pt sitting EOB at OT arrival. Reluctant to participate. Reports fatigue from physical therapy despite having 90 min break in between sessions. Little motivation. Agreeable to change clothes with encouragement. CGA-Min a for balance in standing. Cues for safety when doffing (sit vs in standing). Incontinent of urine, contained in brief. Kellee care completed in standing with single UE support on walker. Pt able to demonstrate ability to reach feet this date to don new brief/pants without assist. Steadying assist required when managing up to waist. Pt often initiating several lengthy rest breaks and needs education on trying to push through a little longer each time in order to improve endurance/activity tolerance. Other Treatment Pt participated in static standing activity with focus on improving endurance, LE strength, standing tolerance, balance, functional reach, and activity tolerance. Multiple standing bouts at sink with longest standing time of 1:26. With fatigue, pt begins to sink further into flexion and LE's begin to tremble. Several lengthy rest breaks required in between standing bouts. Mod a required for lifting from w/c as fatigue increases. Pt also completed UE exercises with dowel brenna and 1# resistance. He was able to perform all movements within full range, yet requires reminders to complete to end range. During exercises, challenges incorporated including: slow for eccentric phase/ faster with concentric, holding at end and midrange for 5 seconds, and changing tempo. Pt fatigues easily with modifications and again requires several rest breaks in between exercises. 10-15x1 in all planes. No wrist movements performed due to pain on L. Education OT Patient Education: Correct positioning, Energy conservation, Exercise program, Modified ADL techniques, Progress toward Goal/Update tx plan, Purpose of tx/functional activities, Rehab process, Safety issues, Transfer techniques, W/C management Teaching Recipient: Patient Teaching Methods: Demonstration, Discussion Response to Teaching: Verbalize Understanding, Reinforcement Needed OT Short Term Goals Short Term Goals Time Frame: Sep 01, 2021 Eatin Oral hygiene: 5 Toileting hygiene: 4 Shower/bathe self: 4 Upper body dressin Lower body dressin Putting on/taking off footwear: 5 OT Service Desk Manager Goals Service Desk Manager Goals Time Frame: Sep 08, 2021 Eating (QC): 6 Oral Hygiene (QC): 6 Toileting Hygiene (QC): 6 Shower/Bathe Self (QC): 5 Upper Body Dressing (QC): 6 Lower Body Dressing (QC): 6 On/Off Footwear (QC): 6 1=Demonstrate adherence to instructed precautions during ADL tasks. 2=Patient will verbalize/demonstrate understanding of assistive devices/modifications for ADL. 3=Patient will improve strength/tolerance for activity to enable patient to perform ADL's. OT Education/Plan Problem List/Assessment Assessment: Decreased Activ Tolerance, Decreased Safety Aware, Decreased UE Strength, Impaired Coordination, Impaired Funct Balance, Impaired I ADL's, Impaired Self-Care Skills Discharge Recommendations Plan/Recommendations: Continue POC Treatment Plan/Plan of Care Treatment,Training & Education: Yes Patient would benefit from OT for education, treatment and training to promote independence in ADL's, mobility, safety and/or upper extremity function for ADL's. Plan of Care: ADL Retraining, Functional Mobility, Group Exercise/Act as Ind, UE Funct Exercise/Act Treatment Duration: Sep 08, 2021 Frequency: At least 5 of 7 days/Wk (IRF) Estimated Hrs Per Day: 1.5 hours per day Agreement: Yes Rehab Potential: Fair Time/GCodes Start Time: 10:30 Stop Time: 12:00 Total Time Billed (hr/min): 90 Billed Treatment Time 1 visit ADL x2 FA x2 EX x2 Gema Araya OT Aug 28, 2021 12:27
--- NOTE | 2021-08-28 15:01 | Physical Therapy Daily Note ---
PT Daily Note-Current Subjective Patient in bed pre tx, agrees to PT, has minor pain in left hand. Patient has soiled his shorts, he stands to the side of the bed and gets new shorts on with assist. Appearance Patient in bed post tx with nurse call, phone, tray, all needs met. Mental Status Patient Orientation: Person, Place, Situation Transfers SCALE: Activities may be completed with or without assistive devices. 9-Enhksyyzgu-kiqbeux completes the activity by him/herself with no assistance from a helper. 5-Set-up or Clean-up Assistance-helper sets up or cleans up; patient completes activity. [place] assists only prior to or following the activity. 4-Supervision or Touching Assistance-helper provides verbal cues and/or touching/steadying and/or contact guard assistance as patient completes activity. Assistance may be provided throughout the activity or intermittently. 3-Partial/Moderate Assistance-helper does LESS THAN HALF the effort. [place] lifts, holds or supports trunk or limbs, but provides less than half the effort. 2-Substantial/Maximal Assistance-helper does MORE THAN HALF the effort. [place] lifts or holds trunk or limbs and provides more than half the effort. 8-Zqnvgfufr-jezkxa does ALL the effort. Patient does none of the effort to complete the activity. Or, the assistance of 2 or more helpers is required for the patient to complete the activity. If activity was not attempted, code reason: 7-Patient Refused. 9-Not Applicable-not attempted and the patient did not perform the activity befo re the current illness, exacerbation or injury. 10-Not Attempted due to Environmental Limitations-(lack of equipment, weather re straints, etc.). 88-Not Attempted due to Medical Conditions or Safety Concerns. Roll Left & Right (QC): 6 Sit to Lying (QC): 3 Lying to Sitting/Side of Bed(Q: 4 Sit to Stand (QC): 4 Chair/Nco-rz-Mrwgc Xfer(QC): 4 Gait Training Distance: 50'x2 Walk 10 feet (QC): 4 Walk 50 ft with 2 Turns(QC): 4 Gait Persons Needed: 1 Gait Assistive Device: FWW very unsteady this afternoon, patient needs steadying assist Exercises Supine Ex: Ankle pumps, Quad Set, Glut sets Supine Reps: 20 Treatments bed mobility and transfers, dressing, LE strengthening, ambulation Assessment Current Status: Poor Progress Patient seemed to have worse balance during ambulation PT Short Term Goals Short Term Goals Time Frame: Aug 29, 2021 Roll Left & Right: 6 Sit to lyin Lying to sitting on side of be: 5 Sit to stand: 4 (SBA) Chair/wsw-dk-qvziv transfer: 4 (SBA) Walk 10 feet: 4 (SBA) Walk 50 feet with two turns: 4 (SBA) Walk 150 feet: 4 (SBA) PT [place] [employer] Replacer Goals Snf Goals PT Snf Goals Time Frame: Sep 12, 2021 Roll Left & Right (QC): 6 Sit to Lying (QC): 6 Lying-Sitting on Side/Bed(QC): 6 Sit to Stand (QC): 5 Chair/Rxb-ew-Yloes Xfer(QC): 5 Toilet Transfer (QC): 5 Car Transfer (QC): 5 Does the Patient Walk: Yes Walk 10 feet (QC): 5 Walk 50ft with 2 Turns (QC): 5 Walk 150 ft (QC): 5 Walking 10ft on Uneven Surface: 5 1 Step (curb) (QC): 4 4 Steps (QC): 4 12 Steps (QC): 88 Picking up an Object (QC): 4 Wheel 50 feet with 2 turns (QC: 9 Wheel 150 feet: 9 PT Plan Problem List Problem List: Activity Tolerance, Functional Strength, Safety, Balance, Gait, Transfer, Bed Mobility, ROM Treatment/Plan Treatment Plan: Continue Plan of Care Treatment Plan: Bed Mobility, Education, Functional Activity Gabriella, Functional Strength, Group Therapy, Gait, Safety, Therapeutic Exercise, Transfers Treatment Duration: Sep 12, 2021 Frequency: At least 5 of 7 days/Wk (IRF) Estimated Hrs Per Day: 1.5 hours per day Patient and/or Family Agrees t: Yes Safety Risks/Education Patient Education: Gait Training, Transfer Techniques, Correct Positioning, Safety Issues Teaching Recipient: Patient Teaching Methods: Demonstration, Discussion Response to Teaching: Reinforcement Needed Time/GCodes Time In: 1430 Time Out: 1500 Total Billed Treatment Time: 30 Total Billed Treatment 1 visit FA 20' EX 10' OFELIA CHAPARRO PT Aug 28, 2021 15:01
[2021-08-28] MEDS: MELATONIN 3 MG TABLET PO PRN (19:49)
[2021-08-28 19:57] VITALS: BP 145/90
[2021-08-29 08:00] VITALS: BP 145/83
[2021-08-29] MEDS: meTOproloL SUCCINATE 50 MG (TOPROL XL) TAB PO SCH (08:04)
[2021-08-29] MEDS: SENNA W/DOCUSATE (SENOKOT S) TABLET PO SCH ×2 (08:04→20:24)
[2021-08-29] MEDS: FOLIC ACID 1 MG TAB PO SCH (08:04)
[2021-08-29] MEDS: ACETAMINOPHEN 325 MG TABLET PO PRN (08:05)
[2021-08-29] MEDS: DOCUSATE SODIUM 100 MG (COLACE) CAP PO SCH ×2 (08:05→20:24)
[2021-08-29] MEDS: polyethylene glycoL POWDER 17 GM (MIRALAX) PACK PO SCH ×2 (08:05→20:27)
--- NOTE | 2021-08-29 08:54 | PM&R Progress Note ---
Subjective HPI/CC On Admission Date Seen by Provider: Aug 29, 2021 Time Seen by Provider: 08:50 Subjective/Events-last exam 08/29/2021: Pt sleeping soundly Elevated BP will monitor only Supportive care to continue 08/28/2021: Pt doing well Creatinine 2.0 Hgb 9.1 Checked meds and labs No falls 08/27/21: Patient doing well Sarcastic most of the time but this is baseline Left wrist still with edema but can't tolerate any treatment for it BM+ 08/26/21: Patient doing well Monitoring left wrist Wrapped left wrist but did not tolerate it Monitoring closely 08/25/21: Patient doing well Kidney stones noted on CT scan Straining all urine BM+ Left hand will be wrapped 08/24/2021: CT scan ordered by by urology for work-up for hematuria Cystoscopy performed revealing no polyps or masses Bladder retention appears to be present Left hand edema improving 08/23/21: Pt doing okay Requiring verbal cues for therapy Need additional motivation Requires rest breaks Checked meds and labs Hematuria requiring urology consult Review of Systems General: Fatigue, Malaise Objective Exam Vital Signs Vital Signs Date Time Temp Pulse Resp B/P (MAP) Pulse Ox O2 Delivery O2 Flow Rate FiO2 08/29/21 20:30 37.0 82 20 153/91 (111) 96 Room Air Capillary Refill : General Appearance: No Apparent Distress, WD/WN, Chronically ill, Obese HEENT: PERRL/EOMI, Normal ENT Inspection, Pharynx Normal Neck: Full Range of Motion, Normal Inspection, Non Tender, Supple, Carotid Bruit Respiratory: Chest Non Tender, Lungs Clear, Normal Breath Sounds, No Accessory Muscle Use, No Respiratory Distress Cardiovascular: Regular Rate, Rhythm, No Edema, No Gallop, No JVD, No Murmur, Normal Peripheral Pulses Gastrointestinal: Normal Bowel Sounds, No Organomegaly, No Pulsatile Mass, Non Tender, Soft Back: Normal Inspection, No CVA Tenderness, No Vertebral Tenderness Extremity: Normal Capillary Refill, Normal Inspection, Normal Range of Motion, Non Tender, No Calf Tenderness, No Pedal Edema Neurologic/Psychiatric: Alert, Oriented x3, Normal Mood/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 [facility]IM Transfers Therapy Code Descriptions/Definitions Functional [place] Measure: 0=Not Assessed/NA 4=Minimal Assistance 1=Total Assistance 5=Supervision or Setup 2=Maximal Assistance 6=Modified [place] 3=Moderate Assistance 7=Complete IndependenceSCALE: Activities may be completed with or without assistive devices. 8-Osjusefglt-rjikeuy completes the activity by him/herself with no assistance from a helper. 5-Set-up or Clean-up Assistance-helper sets up or cleans up; patient completes activity. [place] assists only prior to or following the activity. 4-Supervision or Touching Assistance-helper provides verbal cues and/or t ouching/steadying and/or contact guard assistance as patient completes activity. Assistance may be provided throughout the activity or intermittently. 3-Partial/Moderate Assistance-helper does LESS THAN HALF the effort. [place] lifts, holds or supports trunk or limbs, but provides less than half the effort. 2-Substantial/Maximal Assistance-helper does MORE THAN HALF the effort. [place] lifts or holds trunk or limbs and provides more than half the effort. 1-Lugkmlxli-pcorhc does ALL the effort. Patient does none of the effort to complete the activity. Or, the assistance of 2 or more helpers is required for the patient to complete the activity. If activity was not attempted, code reason: 7-Patient Refused. 9-Not Applicable-not attempted and the patient did not perform the activity before the current illness, exacerbation or injury. 10-Not Attempted due to Environmental Limitations-(lack of equipment, weather restraints, etc.). 88-Not Attempted due to Medical Conditions or Safety Concerns. Roll Left to Right (QC): 6 Sit to Lying (QC): 3 Sit to Stand (QC): 4 Chair/Vbf-yi-Bngln Xfer(QC): 4 Car Transfer (QC): 4 Gait Training Does the Patient Walk?: Yes Distance: 50'x2 Walk 10 feet (QC): 4 Walk 50 ft with 2 Turns(QC): 4 Walk 150 ft (QC): 3 Walking 10ft/uneven surface-QC: 4 Gait Persons Needed: 1 Gait Assistive Device: FWW Wheelchair Training Does the Pt Use a Wheelchair?: Yes Wheel 50 ft with 2 turns (QC): 4 Wheel 150 ft (QC): 9 Type of Wheelchair: Manual Stair Training #of Steps: 1 1 Step (curb) (QC): 4 4 Steps (QC): 88 12 Steps (QC): 88 Balance Picking up an Object (QC): 88 ADL-Treatment Eating (QC): 5 Oral Hygiene (QC): 4 (steadying assist) Shower/Bathe Self (QC): 3 Upper Body Dressing (QC): 4 Lower Body Dressing (QC): 4 On/Off Footwear (QC): 2 Toileting Hygiene (QC): 3 Toilet Transfer (QC): 3 Assessment/Plan Assessment and Plan Assess & Plan/Chief Complaint Assessment: Generalized weakness with debility Alcoholism no alcohol use for 3 months Diabetes mellitus Hypertension Cognitive deficit Anemia CKD Obesity Hematuria normal cystoscopy with kidney stones on CT scan 08/24/2021 Plan: Supportive care Inpatient rehab protocol 08/23/21: Urology consult Supportive care 08/24/2021: Appreciate urology Continue aggressive therapy 08/25/21: Wrap left hand 08/26/21: Could not tolerate left hand wrapping No pain reported otherwise 08/27/21: Supportive care Monitor closely 08/28/2021: Supportive care 08/29/2021: Continue aggressive therapy Disposition soon (1) Debility Status: Acute (2) Type 2 diabetes mellitus Status: Chronic (3) Hypertension Status: Chronic (4) Weakness Status: Acute CHANTAL LAIRD DO Aug 29, 2021 08:54
--- NOTE | 2021-08-29 08:58 | Physical Therapy Daily Note ---
PT Daily Note-Current Subjective Pt in bed upon arrival and agrees to tx. Pt states pain in L hand 03/23, RN notified and gives pain medication during tx. During tx, pt state B knees feel sore and tired Pain Numeric Pain Scale: 6 Location: Left Location Body Site: Hand Mental Status Patient Orientation: Person, Place, Situation Transfers SCALE: Activities may be completed with or without assistive devices. 9-Cwlidaayeh-uzscxuz completes the activity by him/herself with no assistance from a helper. 5-Set-up or Clean-up Assistance-helper sets up or cleans up; patient completes activity. [place] assists only prior to or following the activity. 4-Supervision or Touching Assistance-helper provides verbal cues and/or touching/steadying and/or contact guard assistance as patient completes activity. Assistance may be provided throughout the activity or intermittently. 3-Partial/Moderate Assistance-helper does LESS THAN HALF the effort. [place] lifts, holds or supports trunk or limbs, but provides less than half the effort. 2-Substantial/Maximal Assistance-helper does MORE THAN HALF the effort. [place] lifts or holds trunk or limbs and provides more than half the effort. 5-Ojzsopkks-foebgj does ALL the effort. Patient does none of the effort to complete the activity. Or, the assistance of 2 or more helpers is required for the patient to complete the activity. If activity was not attempted, code reason: 7-Patient Refused. 9-Not Applicable-not attempted and the patient did not perform the activity before the current illness, exacerbation or injury. 10-Not Attempted due to Environmental Limitations-(lack of equipment, weather restraints, etc.). 88-Not Attempted due to Medical Conditions or Safety Concerns. Roll Left & Right (QC): 4 Sit to Lying (QC): 4 Lying to Sitting/Side of Bed(Q: 4 Sit to Stand (QC): 3 Sit <> stand Sourav/CGA dependent on fatigue and height of surface. VC for hand placement Gait Training Does the Patient Walk?: Yes Distance: 75' x2 Walk 10 feet (QC): 4 Walk 50 ft with 2 Turns(QC): 4 Gait Persons Needed: 1 Gait Assistive Device: FWW Pt has slow gait with wide JOSE. B knee flexion when fatigued. Seems knees may buckle at any time Exercises Seated Therapy Exercises: Long arc quads Seated Reps: 10 Standing: Hamstring curls, Heel/toe raises, Marching, Mini squats, Sit to Stand, Side steps Standing Reps: 10 NuStep Minutes: 15 NuStep Workload: 5 Treatments Pt completes bed mobility and sits EOB. Pt holds static sitting unsupported as RN gives medication. Pt sit to stand CGA and amb 75' on ARU to therapy gym. pt completes NuStep for 15 mins on WL of 5, followed by standing ex in // bars. Pt completes seated ex, then amb 75' back to room. Pt sit <> supine CGA, remains in bed with all needs met and call light in hand. Assessment Current Status: Fair Progress Pt requires frequent rest breaks during tx. Pt increasing strength, mobility, and balance PT Short Term Goals Short Term Goals Time Frame: Aug 29, 2021 Roll Left & Right: 6 Sit to lyin Lying to sitting on side of be: 5 Sit to stand: 4 (SBA) Chair/syd-mv-ilbai transfer: 4 (SBA) Walk 10 feet: 4 (SBA) Walk 50 feet with two turns: 4 (SBA) Walk 150 feet: 4 (SBA) PT Longterm Goals Anchor Tack Puller Goals PT Anchor Tack Puller Goals Time Frame: Sep 12, 2021 Roll Left & Right (QC): 6 Sit to Lying (QC): 6 Lying-Sitting on Side/Bed(QC): 6 Sit to Stand (QC): 5 Chair/Ymu-rj-Vpluu Xfer(QC): 5 Toilet Transfer (QC): 5 Car Transfer (QC): 5 Does the Patient Walk: Yes Walk 10 feet (QC): 5 Walk 50ft with 2 Turns (QC): 5 Walk 150 ft (QC): 5 Walking 10ft on Uneven Surface: 5 1 Step (curb) (QC): 4 4 Steps (QC): 4 12 Steps (QC): 88 Picking up an Object (QC): 4 Wheel 50 feet with 2 turns (QC: 9 Wheel 150 feet: 9 PT Plan Problem List Problem List: Activity Tolerance, Functional Strength, Safety, Balance Treatment/Plan Treatment Plan: Continue Plan of Care Treatment Plan: Bed Mobility, Education, Functional Activity Gabriella, Functional Strength, Group Therapy, Gait, Safety, Therapeutic Exercise, Transfers Treatment Duration: Sep 12, 2021 Frequency: At least 5 of 7 days/Wk (IRF) Estimated Hrs Per Day: 1.5 hours per day Patient and/or Family Agrees t: Yes Safety Risks/Education Patient Education: Gait Training, Correct Positioning, Safety Issues Teaching Recipient: Patient Teaching Methods: Discussion Response to Teaching: Verbalize Understanding Time/GCodes Time In: 745 Time Out: 900 Total Billed Treatment Time: 75 Total Billed Treatment 1, EX x3, GT x2 [facility] Aug 29, 2021 08:58
--- NOTE | 2021-08-29 09:17 | Speech Therapy Daily Note ---
Speech Daily Progress Note Subjective Date Seen by Provider: Aug 29, 2021 Time Seen by Provider: 00:30 Patient was resting in his bed following his PT session. He states he is feeling a little stronger and has some soreness. Objective Patient completed a series of problem solving q/a related to his return home and daily needs at 95% without cuing. Assessment Assessment Current Status: Good Progress Treatment Plan Continue Plan of Care Speech Short Term Goals Short Term Goals Short Term Goals 1) The patient will complete memory tasks related to his daily needs at 80% or greater with minimal cues. 2) The patient will complete safety awareness tasks related to his daily needs at 80% or greater with minimal cues. 3) The patient will complete problem solving tasks related to his daily needs at 80% or greater with minimal cues. Speech Intermediate Goals Intermediate Goals Patient will improve functional abilities in order to return home safer and independent. Speech-Plan Patient/Family Goals Patient/Family Goals: Patient plans on living with his daughter until he is independent. Treatment Plan Speech Therapy Treatment Plan: Continue Plan of Care Treatment Duration: Sep 01, 2021 Frequency: 4 times per week (Patient will receive skilled ST 4-5x per week) Estimated Hrs Per Day: .5 hour per day Rehab Potential: Fair Barriers to Learning: Patient's recent decline in function and debility Pt/Family Agrees to Plan: Yes Safety Risks/Education Teaching Recipient: Patient Teaching Methods: Demonstration, Discussion Response to Teaching: Verbalize Understanding, Return Demonstration Education Topics Provided: Patient safety within his room and communication of wants/needs Time Speech Therapy Time In: 09:00 Speech Therapy Time Out: 09:30 Total Billed Time: 30 Billed Treatment Time 1, LUCAS Martin Aug 29, 2021 09:16
--- NOTE | 2021-08-29 11:20 | Occupational Ther Daily Note ---
OT Current Status-Daily Note Subjective Pt alert, laying in bed when OT entered. Pt agreed to therapy, but stated "my knees are very sore from PT today." Pt reported pain in LUE Mental Status/Objective Patient Orientation: Person, Place, Time, Situation ADL-Treatment Pt declined going in shower at this time due to knees being sore from PT. Pt agreed to complete sponge bath at bedside. Pt transferred from supine to EOB i ndependently. Pt doffed UB dressing while seated at EOB. Pt sit-stand from EOB using FWW to doff LB dressing. Once seated pt able to thread BLUE out of LB dressing. Pt was able to doff using opposite LE. After set up of materials, pt cleansed/dried UB, chest, abdomen, and LB with close supervision. After set up, pt able to don UB dressing. Pt was able to thread BLUE through LB dressing. Pt sit-stand from EOB to FWW to cleanse shelby area and buttocks with CGA. Pt required assist to cleanse L side of buttocks due to increase pain in LUE. Pt hiked LB dressing with CGA. Pt then requested resting break before transferring to w/c. Pt sit-stand from EOB using FWW and transferred to w/c. Pt propelled self to bathroom completed oral hygiene and grooming task while seated at sink. Pt required assist to twist cap off toothpaste. Therapy Code Descriptions/Definitions Functional [place] Measure: 0=Not Assessed/NA 4=Minimal Assistance 1=Total Assistance 5=Supervision or Setup 2=Maximal Assistance 6=Modified [place] 3=Moderate Assistance 7=Complete IndependenceSCALE: Activities may be completed with or without assistive devices. 4-Lciualxtaw-hhdccew completes the activity by him/herself with no assistance from a helper. 5-Set-up or Clean-up Assistance-helper sets up or cleans up; patient completes activity. [place] assists only prior to or following the activity. 4-Supervision or Touching Assistance-helper provides verbal cues and/or touching/steadying and/or contact guard assistance as patient completes activity. Assistance may be provided throughout the activity or intermittently. 3-Partial/Moderate Assistance-helper does LESS THAN HALF the effort. [place] lifts, holds or supports trunk or limbs, but provides less than half the effort. 2-Substantial/Maximal Assistance-helper does MORE THAN HALF the effort. [place] lifts or holds trunk or limbs and provides more than half the effort. 5-Vhyaslujp-sggupe does ALL the effort. Patient does none of the effort to complete the activity. Or, the assistance of 2 or more helpers is required for the patient to complete the activity. If activity was not attempted, code reason: 7-Patient Refused. 9-Not Applicable-not attempted and the patient did not perform the activity before the current illness, exacerbation or injury. 10-Not Attempted due to Environmental Limitations-(lack of equipment, weather restraints, etc.). 88-Not Attempted due to Medical Conditions or Safety Concerns. Other Treatment Pt participated in functional w/c mobility task from room to gym. Pt required m ultiple resting breaks before making it to gym due to low activity tolerance. Once in gym, pt participated in BUE task while seated in w/c of grasping resistive clothespin and placing them on brenna to increase hand strength for improved independence with ADLs. Pt was able to grasp the least restive clothespin using LUE. Pt participated in FM task of unscrewing/screwing nuts using RUE with 1lb weight around wrist while seated. Pt tolerated task well, but quickly fatigued and requested to take off wrist weight. Pt propelled self back to room using w/c. Pt sit-stand from w/c to FWW with Min A. Pt transferred to EOB using FWW with CGA. Pt transferred from EOB to supine with min A to swing BLUE onto bed. After session, pt laying in bed. Call light in reach and all needs met. Education OT Patient Education: Correct positioning, Energy conservation, Purpose of tx/functional activities, W/C management Teaching Recipient: Patient Teaching Methods: Demonstration, Discussion Response to Teaching: Verbalize Understanding, Return Demonstration OT Short Term Goals Short Term Goals Time Frame: Sep 01, 2021 Eatin Oral hygiene: 5 Toileting hygiene: 4 Shower/bathe self: 4 Upper body dressin Lower body dressin Putting on/taking off footwear: 5 OT Jail Goals Jail Goals Time Frame: Sep 08, 2021 Eating (QC): 6 Oral Hygiene (QC): 6 Toileting Hygiene (QC): 6 Shower/Bathe Self (QC): 5 Upper Body Dressing (QC): 6 Lower Body Dressing (QC): 6 On/Off Footwear (QC): 6 1=Demonstrate adherence to instructed precautions during ADL tasks. 2=Patient will verbalize/demonstrate understanding of assistive devices/modifications for ADL. 3=Patient will improve strength/tolerance for activity to enable patient to perform ADL's. OT Education/Plan Problem List/Assessment Assessment: Decreased Activ Tolerance, Decreased UE Strength, Impaired I ADL's, Impaired Self-Care Skills, Restricted Funct UE ROM Discharge Recommendations Plan/Recommendations: Continue POC Treatment Plan/Plan of Care Patient would benefit from OT for education, treatment and training to promote independence in ADL's, mobility, safety and/or upper extremity function for ADL's. Plan of Care: ADL Retraining, Functional Mobility, Group Exercise/Act as Ind, UE Funct Exercise/Act Treatment Duration: Sep 08, 2021 Frequency: At least 5 of 7 days/Wk (IRF) Estimated Hrs Per Day: 1.5 hours per day Agreement: Yes Rehab Potential: Fair Time/GCodes Start Time: 09:30 Stop Time: 10:45 Total Time Billed (hr/min): 75 Billed Treatment Time 1 visit- ADL 3 ( 42 mins) FA 2 ( 33 mins) CAROLINA WHITE Aug 29, 2021 11:20
[2021-08-29 20:30] VITALS: BP 153/91
[2021-08-30] MEDS: ACETAMINOPHEN 325 MG TABLET PO PRN (00:15)
[2021-08-30] MEDS: MELATONIN 3 MG TABLET PO PRN ×2 (00:15→20:07)
[2021-08-30 07:49] VITALS: BP 144/85
[2021-08-30] MEDS: FOLIC ACID 1 MG TAB PO SCH (07:56)
[2021-08-30] MEDS: DOCUSATE SODIUM 100 MG (COLACE) CAP PO SCH ×3 (07:56→20:06)
[2021-08-30] MEDS: meTOproloL SUCCINATE 50 MG (TOPROL XL) TAB PO SCH (07:56)
[2021-08-30] MEDS: SENNA W/DOCUSATE (SENOKOT S) TABLET PO SCH ×3 (07:56→20:06)
[2021-08-30] MEDS: polyethylene glycoL POWDER 17 GM (MIRALAX) PACK PO SCH ×2 (07:57→20:07)
--- NOTE | 2021-08-30 08:51 | Occupational Ther Daily Note ---
OT Current Status-Daily Note Subjective Pt reports feeling "poorly" today due to lack of sleep. Appearance Pt left supine in bed, RN notified. All needs within reach. ADL-Treatment Therapy Code Descriptions/Definitions Functional [place] Measure: 0=Not Assessed/NA 4=Minimal Assistance 1=Total Assistance 5=Supervision or Setup 2=Maximal Assistance 6=Modified [place] 3=Moderate Assistance 7=Complete IndependenceSCALE: Activities may be completed with or without assistive devices. 8-Fljhjgxfkb-guvkowa completes the activity by him/herself with no assistance from a helper. 5-Set-up or Clean-up Assistance-helper sets up or cleans up; patient completes activity. [place] assists only prior to or following the activity. 4-Supervision or Touching Assistance-helper provides verbal cues and/or touching/steadying and/or contact guard assistance as patient completes activity. Assistance may be provided throughout the activity or intermittently. 3-Partial/Moderate Assistance-helper does LESS THAN HALF the effort. [place] lifts, holds or supports trunk or limbs, but provides less than half the effort. 2-Substantial/Maximal Assistance-helper does MORE THAN HALF the effort. [place] lifts or holds trunk or limbs and provides more than half the effort. 2-Ofrizxobv-nkshpi does ALL the effort. Patient does none of the effort to complete the activity. Or, the assistance of 2 or more helpers is required for the patient to complete the activity. If activity was not attempted, code reason: 7-Patient Refused. 9-Not Applicable-not attempted and the patient did not perform the activity before the current illness, exacerbation or injury. 10-Not Attempted due to Environmental Limitations-(lack of equipment, weather restraints, etc.). 88-Not Attempted due to Medical Conditions or Safety Concerns. Upper Body Dressing (QC): 5 On/Off Footwear: 4 Grooming and partial dressing activities performed sitting EOB with set up Other Treatment Pt sitting EOB at OT arrival. He reports feeling poorly secondary to lack of sleep. He requires increased motivation and encouragement to participate. Very slow with all initiation this date. He refuses ambulating to bathroom as he reports fatigue/weakness in legs as well as pain in L knee. Agreeable to activities at EOB. Vitals at start of session: 141/93, HR: 110, 95%. Sit<>Stand from bed x4 and x6 with SBA-CGA. Lengthy rest breaks needed in between sets. After ~3-4 reps, pt requires extra time to come to full upright. Slight unsteadiness exhibited in knees when fatigue increases. Pt than sat to complete core exercises 10x2 in all directions (back, forward, and laterally). During exercises pt reports ringing in ear but no other symptoms. Once back in bed, he reports difficulty breathing. HR 181, O2, 95%, BP: 89/66. RN notified immediately regarding change in status. After lengthy rest break vitals taken again: BP 106/60, HR 180, O2: 97%. RN to request EKG. Education OT Patient Education: Correct positioning, Energy conservation, Exercise program, Progress toward Goal/Update tx plan, Purpose of tx/functional activities, Reviewed precautions, Transfer techniques Teaching Recipient: Patient Teaching Methods: Demonstration, Discussion Response to Teaching: Verbalize Understanding, Return Demonstration, Reinforcement Needed OT Short Term Goals Short Term Goals Time Frame: Sep 01, 2021 Eatin Oral hygiene: 5 Toileting hygiene: 4 Shower/bathe self: 4 Upper body dressin Lower body dressin Putting on/taking off footwear: 5 [address] Go[address] Associate Justice Goals Time Frame: Sep 08, 2021 Eating (QC): 6 Oral Hygiene (QC): 6 Toileting Hygiene (QC): 6 Shower/Bathe Self (QC): 5 Upper Body Dressing (QC): 6 Lower Body Dressing (QC): 6 On/Off Footwear (QC): 6 1=Demonstrate adherence to instructed precautions during ADL tasks. 2=Patient will verbalize/demonstrate understanding of assistive d evices/modifications for ADL. 3=Patient will improve strength/tolerance for activity to enable patient to perform ADL's. OT Education/Plan Problem List/Assessment Assessment: Decreased Activ Tolerance, Impaired Funct Balance, Impaired I ADL's, Impaired Self-Care Skills, Restricted Funct UE ROM Discharge Recommendations Plan/Recommendations: Continue POC Treatment Plan/Plan of Care Treatment,Training & Education: Yes Patient would benefit from OT for education, treatment and training to promote independence in ADL's, mobility, safety and/or upper extremity function for ADL's. Plan of Care: ADL Retraining, Functional Mobility, Group Exercise/Act as Ind, UE Funct Exercise/Act Treatment Duration: Sep 08, 2021 Frequency: At least 5 of 7 days/Wk (IRF) Estimated Hrs Per Day: 1.5 hours per day Agreement: Yes Rehab Potential: Fair Time/GCodes Start Time: 07:47 Stop Time: 08:41 Total Time Billed (hr/min): 54 Billed Treatment Time 1 visit ADL (15 min) EX x3 (39 min) Gema Araya OT Aug 30, 2021 08:51
[2021-08-30] MEDS ORDERED: ADENOSINE 6 MG/2 ML (ADENOCARD) VIAL IV ONE (09:15)
--- NOTE | 2021-08-30 09:22 | Speech Therapy Daily Note ---
Speech Daily Progress Note Subjective Date Seen by Provider: Aug 30, 2021 Time Seen by Provider: 00:30 Patient states he slept pretty well last night. Objective Patient demonstrates recall of information related to procedures completed this morning with 95% without cues. Assessment Assessment Current Status: Good Progress Treatment Plan Continue Plan of Care Speech Short Term Goals Short Term Goals Short Term Goals 1) The patient will complete memory tasks related to his daily needs at 80% or greater with minimal cues. 2) The patient will complete safety awareness tasks related to his daily needs at 80% or greater with minimal cues. 3) The patient will complete problem solving tasks related to his daily needs at 80% or greater with minimal cues. Speech Household Refrigerator Mechanic Goals Household Refrigerator Mechanic Goals Patient will improve functional abilities in order to return home safer and independent. Speech-Plan Patient/Family Goals Patient/Family Goals: Patient plans on discharging to home and living with his daughter. He will receive home health therapy to continue strengthening. Treatment Plan Speech Therapy Treatment Plan: Continue Plan of Care Treatment Duration: Sep 01, 2021 Frequency: 4 times per week (Patient will receive skilled ST 4-5x per week) Estimated Hrs Per Day: .5 hour per day Rehab Potential: Fair Barriers to Learning: Patient's recent decline in function/debility Pt/Family Agrees to Plan: Yes Safety Risks/Education Teaching Recipient: Patient Teaching Methods: Demonstration, Discussion Response to Teaching: Verbalize Understanding, Return Demonstration Education Topics Provided: Continued safety within his room and communication of wants/needs Time Speech Therapy Time In: 15:45 Speech Therapy Time Out: 16:15 Billed Treatment Time 1, SLLUCAS Villalba Aug 30, 2021 09:21
--- NOTE | 2021-08-30 09:27 | Consultation-Cardiology ---
HPI-Cardiology Cardiology Consultation: Date of Consultation 08/30/2021 Date of Admission Attending Physician Tati Humphreys DO Admitting Physician Sam Zambrano DO Consulting Physician HUBERT CANCINO JR, MD HPI: Time Seen by a Provider: 09:26 Chief Complaint: Reason for consultation: Supraventricular tachycardia. I had the pleasure of seeing Capo in the inpatient rehab unit at [facility] in [place], [place] this morning. He was admitted to the general medical floor a couple of weeks ago after suffering falls at home and then having general debility. Once his acute issues were improved, he was transferred over to the inpatient rehab unit. This morning when the nurse went to check his v ital signs, he was found to have tachycardia up to 180 bpm. An electrocardiogram was then performed that showed supraventricular tachycardia. A cardiology consultation was then requested. When I first saw the patient he denied any palpitations. He did have some slight shortness of breath which was new. He denied chest discomfort, paroxysmal nocturnal dyspnea, orthopnea, lightheadedness, or syncope. He did have some lower extremity edema prior to admission but this has resolved. He states that when he was falling at home, his knees would just give out and he would fall to the floor. He denies any syncope. Certain portions of this document may have been dictated utilizing voice recognition technology. Inherent to this technology, typographical and gr ammatical errors may exist. As much as I am diligent to identify and correct these mistakes, some errors may remain in the document. Review of Systems-Cardiology Review of Systems Other comments Review of 10 organ systems is as per the history of present illness, otherwise negative. All Other Systems Reviewed Negative Unless Noted: Yes LGL-Ndkhlk-Qpsqgz Hx Patient Social History Marrital Status: single Employed/Student: unemployed Alcohol Use?: No Pt feels they are or have been: No Past Medical History PMH As described under Assessment. Family Medical History Family Medical History: The patient does not know of any family history of premature coronary artery disease in first-degree relatives. Allergies and Home Medications Allergies Coded Allergies: No Known Drug Allergies (Unverified , 07/22/21) NKDA Patient Home Medication List Home Medication List Reviewed: Yes Cephalexin (Cephalexin) 250 Mg Capsule, 500 MG PO BID Prescribed by: CICI SNELL on 08/22/2104 Last Action: Continued Folic Acid (Folic Acid) 1 Mg Tablet, 1 MG PO DAILY, (Reported) Entered as Reported by: SHINE NEGRETE on 08/21/21 1258 Last Action: Continued Metoprolol Tartrate (Metoprolol Tartrate) 50 Mg Tablet, 50 MG PO DAILY, (Reported) Entered as Reported by: WOO FRAIRE on 07/23/21 1704 Last Action: Continued Exam Vital Signs Vital Signs Date Time Temp Pulse Resp B/P (MAP) Pulse Ox O2 Delivery O2 Flow Rate FiO2 08/30/21 07:49 35.8 82 16 144/85 (104) 96 Room Air Physical Exam General: Alert. No acute distress. Well nourished and appears stated age. He is obese. Eye: Extraocular movements are intact. Conjunctivae are clear. There are no xanthelasma. HENT: Normocephalic. Atraumatic. Carotid pulsations 2/2 without bruits. Neck: Jugular venous pressure does not appear elevated. No thyromegaly appreciated. Respiratory: Lungs are clear to auscultation. Respirations are non-labored. Breath sounds are equal. Symmetrical chest wall expansion. Cardiovascular: Tachycardia with regular rhythm. No murmur. No gallop. Point of maximal impulse is not appear displaced. Good pulses equal in all extremities. No edema. Gastrointestinal: Soft. Normal bowel sounds. Skin: Skin turgor is normal. There is no pallor. Musculoskeletal: No kyphosis or scoliosis appreciated. Neurologic: Alert and oriented to person, place, time. Cranial nerves 3-12 appear grossly intact. The patient has good motor tone strength in the upper and lower extremities bilaterally. Psychiatric: Cooperative. Appropriate mood & affect. Labs Laboratory Tests Test 08/30/21 09:56 Range/Units Glucometer 171 H 70-110 MG/DL ECG Impression ECG Comment Supraventricular tachycardia. Diagnosis/Problems Diagnosis/Problems (1) Supraventricular tachycardia Assessment & Plan: Exact mechanism and clear. I attempted carotid massage of the right carotid artery and this did not break the tachycardia. I then administered 6 mg of intravenous adenosine while he was in the cardiac stepdown unit and the supraventricular tachycardia resolved. I will increase his dose of metoprolol succinate from 50 mg daily to 100 mg daily. I will also obtain an echocardiogram. (2) Left arm weakness Assessment & Plan: Soon after performing the carotid massage of the right carotid artery, he complained of left arm weakness. He denied any other neurologic complaints. A code stroke was initiated. He will be going for a head CT and I have also ordered a carotid ultrasound. He will need serial neurologic checks. (3) Primary hypertension Assessment & Plan: His blood pressure had been elevated while he was in rehab. I have doubled the dose of metoprolol succinate due to the supraventricular tachycardia. This should also help with his high blood pressure. (4) Type 2 diabetes mellitus Status: Chronic Assessment & Plan: This is being managed by the hospitalist. (5) Acute kidney injury superimposed on chronic kidney disease Status: Acute Assessment & Plan: His creatinine level appears to have stabilized. I ordered follow-up labs for this morning. I am not entirely sure of his baseline renal function. (6) Overweight Assessment & Plan: He needs to work on weight loss. HUBERT CANCINO JR, MD Aug 30, 2021 09:27
[2021-08-30] MEDS ORDERED: meTOprolol TARTRATE 50 MG (LOPRESSOR) TAB PO ONE (09:30)
[2021-08-30] MEDS ORDERED: meTOproloL SUCCINATE 50 MG (TOPROL XL) TAB PO SCH (09:45)
[2021-08-30 10:16] LABS: BASOPHILS # (AUTO) 0.1 10^3/uL (0.0-0.1); BASOPHILS % (AUTO) 1 % (0-10); EOSINOPHILS # (AUTO) 0.1 10^3/uL (0.0-0.3); EOSINOPHILS % (AUTO) 1 % (0-10); HEMATOCRIT 31 % (40-54); HEMOGLOBIN 10.2 g/dL (13.3-17.7); LYMPHOCYTES % (AUTO) 10 % (12-44); MEAN CORPUSCULAR HEMOGLOBIN 30 pg (25-34); MEAN CORPUSCULAR HGB CONC 33 g/dL (32-36); MEAN CORPUSCULAR VOLUME 94 fL (80-99); MEAN PLATELET VOLUME 9.8 fL (9.0-12.2); MONOCYTES # (AUTO) 0.5 10^3/uL (0.0-1.0); MONOCYTES % (AUTO) 5 % (0-12); NEUTROPHILS # (AUTO) 8.5 10^3/uL (1.8-7.8); NEUTROPHILS % (AUTO) 83 % (42-75); PLATELET COUNT 402 10^3/uL (130-400); WHITE BLOOD COUNT 10.2 10^3/uL (4.3-11.0)
--- NOTE | 2021-08-30 11:11 | Diagnostic Imaging Report ---
EXAMINATION: CT head without contrast. TECHNIQUE: Multiple contiguous axial images were obtained through the brain without the use of intravenous contrast. All CT scans use one or more of the following dose optimizing techniques: automated exposure control, MA and/or KvP adjustment based on patient size and exam type or iterative reconstruction. HISTORY: Left arm weakness. Concern for acute ischemia. COMPARISON: None available. FINDINGS: No large acute territorial ischemia, mass, or hemorrhage. No midline shift or mass effect. Decreased attenuation is seen in the periventricular and subcortical white matter. The ventricles and cortical sulci are prominent. The basilar cisterns are patent and unremarkable. The orbits are normal. Routine secretions are seen in the right sphenoid sinus with associated sinus wall thickening. Mastoid air cells are clear. No soft tissue abnormality is seen. No osseus lesions or fractures are seen. IMPRESSION: 1. No large acute territorial ischemia, mass, or hemorrhage. If continued concern for acute ischemia consider MRI brain to further evaluate. 2. Chronic microvascular disease. 3. Generalized parenchymal volume loss. 4. Chronic sinusitis in the right sphenoid sinus. Dictated by: Dictated on workstation # [id number]
[2021-08-30 11:48] LABS: ALBUMIN 3.4 GM/DL (3.2-4.5); POTASSIUM 4.4 MMOL/L (3.6-5.0)
[2021-08-30 11:49] LABS: CALCIUM 9.3 MG/DL (8.5-10.1)
[2021-08-30 11:52] LABS: BILIRUBIN,TOTAL 0.6 MG/DL (0.1-1.0)
[2021-08-30 11:54] LABS: CREATININE SERUM 1.99 MG/DL (0.60-1.30)
[2021-08-30 11:58] LABS: MAGNESIUM 1.7 MG/DL (1.6-2.4)
--- NOTE | 2021-08-30 12:32 | PM&R Progress Note ---
Subjective HPI/CC On Admission Date Seen by Provider: Aug 30, 2021 Time Seen by Provider: 12:10 Subjective/Events-last exam 08/30/2021: Episode of SVT prompted transfer for adenosine by Dr. Berkowitz which aborted Increase metoprolol to 100 mg daily Left arm weakness ruled out CVA so moved back down to rehab 08/29/2021: Pt sleeping soundly Elevated BP will monitor only Supportive care to continue 08/28/2021: Pt doing well Creatinine 2.0 Hgb 9.1 Checked meds and labs No falls 08/27/21: Patient doing well Sarcastic most of the time but this is baseline Left wrist still with edema but can't tolerate any treatment for it BM+ 08/26/21: Patient doing well Monitoring left wrist Wrapped left wrist but did not tolerate it Monitoring closely 08/25/21: Patient doing well Kidney stones noted on CT scan Straining all urine BM+ Left hand will be wrapped 08/24/2021: CT scan ordered by by urology for work-up for hematuria Cystoscopy performed revealing no polyps or masses Bladder retention appears to be present Left hand edema improving 08/23/21: Pt doing okay Requiring verbal cues for therapy Need additional motivation Requires rest breaks Checked meds and labs Hematuria requiring urology consult Review of Systems General: Fatigue Musculoskeletal: arm pain Objective Exam Vital Signs Vital Signs Date Time Temp Pulse Resp B/P (MAP) Pulse Ox O2 Delivery O2 Flow Rate FiO2 08/31/21 01:00 70 08/30/21 20:41 Room Air 08/30/21 20:41 36.0 18 129/77 (94) 97 Capillary Refill : General Appearance: No Apparent Distress, WD/WN, Chronically ill, Obese HEENT: PERRL/EOMI, Normal ENT Inspection, Pharynx Normal Neck: Full Range of Motion, Normal Inspection, Non Tender, Supple, Carotid Bruit Respiratory: Chest Non Tender, Lungs Clear, Normal Breath Sounds, No Accessory Muscle Use, No Respiratory Distress Cardiovascular: Regular Rate, Rhythm, No Edema, No Gallop, No JVD, No Murmur, Normal Peripheral Pulses Gastrointestinal: Normal Bowel Sounds, No Organomegaly, No Pulsatile Mass, Non Tender, Soft Back: Normal Inspection, No CVA Tenderness, No Vertebral Tenderness Extremity: Normal Capillary Refill, Normal Inspection, Normal Range of Motion, Non Tender, No Calf Tenderness, No Pedal Edema Neurologic/Psychiatric: Alert, Oriented x3, Normal 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 FIM Transfers Therapy Code Descriptions/Definitions Functional [place] Measure: 0=Not Assessed/NA 4=Minimal Assistance 1=Total Assistance 5=Supervision or Setup 2=Maximal Assistance 6=Modified [place] 3=Moderate Assistance 7=Complete IndependenceSCALE: Activities may be completed with or without assistive devices. 2-Vfjxofsxbl-tfqebyg completes the activity by him/herself with no assistance from a helper. 5-Set-up or Clean-up Assistance-helper sets up or cleans up; patient completes activity. [place] assists only prior to or following the activity. 4-Supervision or Touching Assistance-helper provides verbal cues and/or touching/steadying and/or contact guard assistance as patient completes activity. Assistance may be provided throughout the activity or intermittently. 3-Partial/Moderate Assistance-helper does LESS THAN HALF the effort. [place] lifts, holds or supports trunk or limbs, but provides less than half the effort. 2-Substantial/Maximal Assistance-helper does MORE THAN HALF the effort. [place] lifts or holds trunk or limbs and provides more than half the effort. 1-Xnqbhkwop-uhfser does ALL the effort. Patient does none of the effort to complete the activity. Or, the assistance of 2 or more helpers is required for t he patient to complete the activity. If activity was not attempted, code reason: 7-Patient Refused. 9-Not Applicable-not attempted and the patient did not perform the activity before the current illness, exacerbation or injury. 10-Not Attempted due to Environmental Limitations-(lack of equipment, weather restraints, etc.). 88-Not Attempted due to Medical Conditions or Safety Concerns. Roll Left to Right (QC): 4 Sit to Lying (QC): 4 Sit to Stand (QC): 3 Chair/Obv-rx-Ogycm Xfer(QC): 4 Car Transfer (QC): 4 Gait Training Does the Patient Walk?: Yes Distance: 75' x2 Walk 10 feet (QC): 4 Walk 50 ft with 2 Turns(QC): 4 Walk 150 ft (QC): 3 Walking 10ft/uneven surface-QC: 4 Gait Persons Needed: 1 Gait Assistive Device: FWW Wheelchair Training Does the Pt Use a Wheelchair?: Yes Wheel 50 ft with 2 turns (QC): 4 Wheel 150 ft (QC): 9 Type of Wheelchair: Manual Stair Training #of Steps: 1 1 Step (curb) (QC): 4 4 Steps (QC): 88 12 Steps (QC): 88 Balance Picking up an Object (QC): 88 ADL-Treatment Eating (QC): 5 Oral Hygiene (QC): 4 (steadying assist) Shower/Bathe Self (QC): 3 Upper Body Dressing (QC): 5 Lower Body Dressing (QC): 4 On/Off Footwear (QC): 4 Toileting Hygiene (QC): 3 Toilet Transfer (QC): 3 Assessment/Plan Assessment and Plan Assess & Plan/Chief Complaint Assessment: Generalized weakness with debility Alcoholism no alcohol use for 3 months Diabetes mellitus Hypertension Cognitive deficit Anemia CKD Obesity Hematuria normal cystoscopy with kidney stones on CT scan 08/24/2021 Episode of SVT aborted with adenosine [address] Berkowitz increase metoprolol dose to 100 mg Acute onset left arm weakness but stroke protocol did not give rise to CVA confirmation now resolved Plan: Supportive care Inpatient rehab protocol 08/23/21: Urology consult Supportive care 08/24/2021: Appreciate urology Continue aggressive therapy 08/25/21: Wrap left hand 08/26/21: Could not tolerate left hand wrapping No pain reported otherwise 08/27/21: Supportive care Monitor closely 08/28/2021: Supportive care 08/29/2021: Continue aggressive therapy Disposition soon 08/30/2021: Appreciate Dr. Berkowitz (1) Supraventricular tachycardia Assessment & Plan: Exact mechanism and clear. I attempted carotid massage of the right carotid artery and this did not break the tachycardia. I then administered 6 mg of intravenous adenosine while he was in the cardiac stepdown unit and the supraventricular tachycardia resolved. I will increase his dose of metoprolol succinate from 50 mg daily to 100 mg daily. I will also obtain an echocardiogram. (2) Left arm weakness Assessment & Plan: Soon after performing the carotid massage of the right carotid artery, he complained of left arm weakness. He denied any other neurologic complaints. A code stroke was initiated. He will be going for a head CT and I have also ordered a carotid ultrasound. He will need serial neurologic checks. (3) Primary hypertension Assessment & Plan: His blood pressure had been elevated while he was in rehab. I have doubled the dose of metoprolol succinate due to the supraventricular tachycardia. This should also help with his high blood pressure. (4) Type 2 diabetes mellitus Status: Chronic Assessment & Plan: This is being managed by the hospitalist. (5) Acute kidney injury superimposed on chronic kidney disease Status: Acute Assessment & Plan: His creatinine level appears to have stabilized. I ordered follow-up labs for this morning. I am not entirely sure of his baseline renal function. (6) Overweight Assessment & Plan: He needs to work on weight loss. CHANTAL LAIRD DO Aug 30, 2021 12:32
[2021-08-30 14:25] VITALS: BP 111/73
--- NOTE | 2021-08-30 15:31 | Physical Therapy Daily Note ---
PT Daily Note-Current Subjective Pt. in bed. Daughter present . Daughter shares that she wants to be present for PT Rx to learn more about how to assist her father etc. Pt. pleasant and agreeable to Rx. States he has had a rather crazy day. No pain at this time, but very fatigued and needs to move slowly Pain Location: No Pain Reported Appearance pale, edema noted at left hand Mental Status Patient Orientation: Person, Place, Time, Situation Transfers SCALE: Activities may be completed with or without assistive devices. 9-Wzkxrpxbme-kstxtkd completes the activity by him/herself with no assistance from a helper. 5-Set-up or Clean-up Assistance-helper sets up or cleans up; patient completes activity. [place] assists only prior to or following the activity. 4-Supervision or Touching Assistance-helper provides verbal cues and/or touching /steadying and/or contact guard assistance as patient completes activity. Assistance may be provided throughout the activity or intermittently. 3-Partial/Moderate Assistance-helper does LESS THAN HALF the effort. [place] lifts, holds or supports trunk or limbs, but provides less than half the effort. 2-Substantial/Maximal Assistance-helper does MORE THAN HALF the effort. [place] lifts or holds trunk or limbs and provides more than half the effort. 7-Phammglcd-xmqxsg does ALL the effort. Patient does none of the effort to complete the activity. Or, the assistance of 2 or more helpers is required for the patient to complete the activity. If activity was not attempted, code reason: 7-Patient Refused. 9-Not Applicable-not attempted and the patient did not perform the activity before the current illness, exacerbation or injury. 10-Not Attempted due to Environmental Limitations-(lack of equipment, weather restraints, etc.). 88-Not Attempted due to Medical Conditions or Safety Concerns. Roll Left & Right (QC): 6 Sit to Lying (QC): 6 Lying to Sitting/Side of Bed(Q: 6 Sit to Stand (QC): 4 Chair/Pur-ag-Zrtro Xfer(QC): 4 pt. demonstrated indep in bed mob to push up in bed sup to sit and sit to sup Gait Training Does the Patient Walk?: Yes Walk 10 feet (QC): 4 Walk 50 ft with 2 Turns(QC): 4 Gait Persons Needed: 1 Gait Assistive Device: FWW slow gait with rest at chair, slow sit to stands, pt. relying on FWW secondary to balance . some retropulsion noted upon stance 2 trials Exercises Supine Ex: Bridging, Ankle pumps, Quad Set, Rolling, Glut sets, Heel Slides, Short Arc Quads, Scooting, Straight leg raise, Hip abd/add Supine Reps: 20 Seated Therapy Exercises: Ankle pumps, Sit to stand, Long arc quads, Hip flexi on, Hip abd/add Seated Reps: 15 Treatments vitals checked during Rx : BP 117/73, HR 90, O2 sats 98% Assessment Current Status: Good Progress Pt. with an episode in AM in which pt. had arrythmia and stroke symptoms and was sent to ICU for monitoring. Pt. returned to ARU in PM . Pt tolerated slow gentle exercise and mobility and short gait distance well with rest breaks. PT Short Term Goals Short Term Goals Time Frame: Aug 29, 2021 Roll Left & Right: 6 Sit to lyin Lying to sitting on side of be: 5 Sit to stand: 4 (SBA) Chair/akt-ss-crauk transfer: 4 (SBA) Walk 10 feet: 4 (SBA) Walk 50 feet with two turns: 4 (SBA) Walk 150 feet: 4 (SBA) PT Tire Builder Goals Snf Goals PT Tire Builder Goals Time Frame: Sep 12, 2021 Roll Left & Right (QC): 6 Sit to Lying (QC): 6 Lying-Sitting on Side/Bed(QC): 6 Sit to Stand (QC): 5 Chair/Fmr-ef-Hbnbj Xfer(QC): 5 Toilet Transfer (QC): 5 Car Transfer (QC): 5 Does the Patient Walk: Yes Walk 10 feet (QC): 5 Walk 50ft with 2 Turns (QC): 5 Walk 150 ft (QC): 5 Walking 10ft on Uneven Surface: 5 1 Step (curb) (QC): 4 4 Steps (QC): 4 12 Steps (QC): 88 Picking up an Object (QC): 4 Wheel 50 feet with 2 turns (QC: 9 Wheel 150 feet: 9 PT Plan Treatment/Plan Treatment Plan: Continue Plan of Care Treatment Plan: Bed Mobility, Education, Functional Activity Gabriella, Functional Strength, Group Therapy, Gait, Safety, Therapeutic Exercise, Transfers Treatment Duration: Sep 12, 2021 Frequency: At least 5 of 7 days/Wk (IRF) Estimated Hrs Per Day: 1.5 hours per day Patient and/or Family Agrees t: Yes Safety Risks/Education Patient Education: Gait Training, Transfer Techniques, Correct Positioning, Disease Process, Safety Issues Teaching Recipient: Patient Teaching Methods: Demonstration, Discussion Response to Teaching: Verbalize Understanding, Return Demonstration, Reinforcement Needed discussed safety at home zeynep when pt may feel vulnerable or have poor balance Time/GCodes Time In: 1400 Time Out: 1515 Total Billed Treatment Time: 75 Total Billed Treatment 1,GT15m,EX30m,FA30m 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
--- NOTE | 2021-08-30 15:38 | Occupational Ther Daily Note ---
OT Current Status-Daily Note Subjective Pt denies pain, reports only fatigue from stress of day Appearance Pt left supine in bed, all needs within reach. Mental Status/Objective Attachments: IV ADL-Treatment Therapy Code Descriptions/Definitions Functional [place] Measure: 0=Not Assessed/NA 4=Minimal Assistance 1=Total Assistance 5=Supervision or Setup 2=Maximal Assistance 6=Modified [place] 3=Moderate Assistance 7=Complete IndependenceSCALE: Activities may be completed with or without assistive devices. 8-Vfdqszeobj-rarsxsa completes the activity by him/herself with no assistance from a helper. 5-Set-up or Clean-up Assistance-helper sets up or cleans up; patient completes activity. [place] assists only prior to or following the activity. 4-Supervision or Touching Assistance-helper provides verbal cues and/or touching/steadying and/or contact guard assistance as patient completes activity. Assistance may be provided throughout the activity or intermittently. 3-Partial/Moderate Assistance-helper does LESS THAN HALF the effort. [place] lifts, holds or supports trunk or limbs, but provides less than half the effort. 2-Substantial/Maximal Assistance-helper does MORE THAN HALF the effort. [place] lifts or holds trunk or limbs and provides more than half the effort. 8-Bgccejaig-eldvec does ALL the effort. Patient does none of the effort to complete the activity. Or, the assistance of 2 or more helpers is required for the patient to complete the activity. If activity was not attempted, code reason: 7-Patient Refused. 9-Not Applicable-not attempted and the patient did not perform the activity before the current illness, exacerbation or injury. 10-Not Attempted due to Environmental Limitations-(lack of equipment, weather restraints, etc.). 88-Not Attempted due to Medical Conditions or Safety Concerns. Other Treatment Pt agreeable to light exercises at bed level. AROM, 10x1 in all planes. Rest breaks between each exercise. Cues for slow, controlled movement. No L wrist AROM exercises due to pain. HR: 66 bpm at end of treatment. Education OT Patient Education: Correct positioning, Exercise program, Progress toward Goal/Update tx plan, Purpose of tx/functional activities, Reviewed precautions Teaching Recipient: Patient Teaching Methods: Discussion Response to Teaching: Verbalize Understanding, Return Demonstration OT Short Term Goals Short Term Goals Time Frame: Sep 01, 2021 Eatin Oral hygiene: 5 Toileting hygiene: 4 Shower/bathe self: 4 Upper body dressin Lower body dressin Putting on/taking off footwear: 5 OT Senior Care Goals Senior Care Goals Time Frame: Sep 08, 2021 Eating (QC): 6 Oral Hygiene (QC): 6 Toileting Hygiene (QC): 6 Shower/Bathe Self (QC): 5 Upper Body Dressing (QC): 6 Lower Body Dressing (QC): 6 On/Off Footwear (QC): 6 1=Demonstrate adherence to instructed precautions during ADL tasks. 2=Patient will verbalize/demonstrate understanding of assistive devices/modifications for ADL. 3=Patient will improve strength/tolerance for activity to enable patient to perform ADL's. OT Education/Plan Problem List/Assessment Assessment: Decreased Activ Tolerance, Decreased UE Strength, Impaired Funct Balance, Impaired I ADL's, Impaired Self-Care Skills Discharge Recommendations Plan/Recommendations: Continue POC Treatment Plan/Plan of Care Treatment,Training & Education: Yes Patient would benefit from OT for education, treatment and training to promote independence in ADL's, mobility, safety and/or upper extremity function for ADL's. Plan of Care: ADL Retraining, Functional Mobility, Group Exercise/Act as Ind, UE Funct Exercise/Act Treatment Duration: Sep 08, 2021 Frequency: At least 5 of 7 days/Wk (IRF) Estimated Hrs Per Day: 1.5 hours per day Agreement: Yes Rehab Potential: Fair Time/GCodes Start Time: 15:12 Stop Time: 15:35 Total Time Billed (hr/min): 23 Billed Treatment Time 1 visit EX Gema Hilario OT Aug 30, 2021 15:38
[2021-08-30 20:41] VITALS: BP 129/77
[2021-08-31 07:15] VITALS: BP 143/88
[2021-08-31] MEDS: meTOproloL SUCCINATE 50 MG (TOPROL XL) TAB PO SCH (07:18)
[2021-08-31] MEDS: FOLIC ACID 1 MG TAB PO SCH (07:19)
[2021-08-31] MEDS: SENNA W/DOCUSATE (SENOKOT S) TABLET PO SCH ×2 (07:19→20:00)
[2021-08-31] MEDS: DOCUSATE SODIUM 100 MG (COLACE) CAP PO SCH ×2 (07:20→20:01)
[2021-08-31] MEDS: polyethylene glycoL POWDER 17 GM (MIRALAX) PACK PO SCH ×2 (07:22→20:01)
--- NOTE | 2021-08-31 09:18 | Speech Therapy Daily Note ---
Speech Daily Progress Note Subjective Date Seen by Provider: Aug 31, 2021 Time Seen by Provider: 00:30 Patient was resting in his bed, waiting for pain medication. Objective Patient completed a series of questions related to his return home with 100% without cues. Assessment Assessment Current Status: Good Progress Treatment Plan Continue Plan of Care Speech Short Term Goals Short Term Goals Short Term Goals 1) The patient will complete memory tasks related to his daily needs at 80% or greater with minimal cues. 2) The patient will complete safety awareness tasks related to his daily needs at 80% or greater with minimal cues. 3) The patient will complete problem solving tasks related to his daily needs at 80% or greater with minimal cues. Speech Snf Goals Box Estimator Goals Patient will improve functional abilities in order to return home safer and independent. Speech-Plan Patient/Family Goals Patient/Family Goals: Patient will return home or live with his daughter. He has expressed he does not want to live with his daughter due to her wanting to control everything. Treatment Plan Speech Therapy Treatment Plan: Continue Plan of Care Treatment Duration: Sep 01, 2021 Frequency: 4 times per week (Patient will receive skilled ST 4-5x per week) Estimated Hrs Per Day: .5 hour per day Rehab Potential: Fair Barriers to Learning: Patient's recent health decline/debility Pt/Family Agrees to Plan: Yes Safety Risks/Education Teaching Recipient: Patient Teaching Methods: Demonstration, Discussion Response to Teaching: Verbalize Understanding, Return Demonstration Education Topics Provided: Continued safety and communication Time Speech Therapy Time In: 09:00 Speech Therapy Time Out: 09:30 Total Billed Time: 30 Billed Treatment Time 1, LUCAS Martin Aug 31, 2021 09:18
[2021-08-31 09:25] VITALS: BP 151/77
--- NOTE | 2021-08-31 10:04 | Progress Note - Urology ---
Progress Note-Urology Progress Notes/Assess & Plan Progress/Assessment & Plan NO SX. NO STONE PASSED. SEE PRN Final Diagnosis HEMATURIA (RESOLVED) FAYE ALBRIGHT MD Aug 31, 2021 10:04
--- NOTE | 2021-08-31 10:50 | Occupational Ther Daily Note ---
OT Current Status-Daily Note Subjective Pt reports pain in LUE as 4/10. He states pain as moved up into elbow today Appearance Returned to supine, all needs within reach. Mental Status/Objective Attachments: IV ADL-Treatment Therapy Code Descriptions/Definitions Functional [place] Measure: 0=Not Assessed/NA 4=Minimal Assistance 1=Total Assistance 5=Supervision or Setup 2=Maximal Assistance 6=Modified [place] 3=Moderate Assistance 7=Complete IndependenceSCALE: Activities may be completed with or without assistive devices. 1-Dyygimgbdv-txuewdo completes the activity by him/herself with no assistance from a helper. 5-Set-up or Clean-up Assistance-helper sets up or cleans up; patient completes activity. [place] assists only prior to or following the activity. 4-Supervision or Touching Assistance-helper provides verbal cues and/or touching/steadying and/or contact guard assistance as patient completes activity. Assistance may be provided throughout the activity or intermittently. 3-Partial/Moderate Assistance-helper does LESS THAN HALF the effort. [place] lifts, holds or supports trunk or limbs, but provides less than half the effort. 2-Substantial/Maximal Assistance-helper does MORE THAN HALF the effort. [place] lifts or holds trunk or limbs and provides more than half the effort. 2-Qsgwcsyxi-xthmri does ALL the effort. Patient does none of the effort to complete the activity. Or, the assistance of 2 or more helpers is required for the patient to complete the activity. If activity was not attempted, code reason: 7-Patient Refused. 9-Not Applicable-not attempted and the patient did not perform the activity before the current illness, exacerbation or injury. 10-Not Attempted due to Environmental Limitations-(lack of equipment, weather restraints, etc.). 88-Not Attempted due to Medical Conditions or Safety Concerns. Toileting Hygiene (QC): 4 Toilet Transfer (QC): 4 Other Treatment Pt verbalizes frustration as he states he does not want to go stay with his daughter for a week. Emotional support provided with attempt to have pt identify reasons for having him stay with family. He declines changing clothes. He continues to report pain in L wrist/hand and now up into his elbow. Pt only able to actively flex elbow to ~90 degrees. With PROM, it appears pt is resisting further flexion. Shoulder remains WNL. Pt unable to make fist or complete opposition of digits when asked. However, during dexterity activity, pt observed to garbage pick up man/pinch small rubber band with L index/thumb without difficulty. He sat to complete geoboard activity with rubber bands. Slower movements with L hand, but able to complete activity without any physical assist. He demonstrates unorganized method, but no mistakes made. Education OT Patient Education: Correct positioning, Modified ADL techniques, Progress toward Goal/Update tx plan, Purpose of tx/functional activities Teaching Recipient: Patient Teaching Methods: Discussion Response to Teaching: Reinforcement Needed OT Short Term Goals Short Term Goals Time Frame: Sep 01, 2021 Eatin Oral hygiene: 5 Toileting hygiene: 4 Shower/bathe self: 4 Upper body dressin Lower body dressin Putting on/taking off footwear: 5 OT Prison Goals Prison Goals Time Frame: Sep 08, 2021 Eating (QC): 6 Oral Hygiene (QC): 6 Toileting Hygiene (QC): 6 Shower/Bathe Self (QC): 5 Upper Body Dressing (QC): 6 Lower Body Dressing (QC): 6 On/Off Footwear (QC): 6 1=Demonstrate adherence to instructed precautions during ADL tasks. 2=Patient will verbalize/demonstrate understanding of assistive devices/m odifications for ADL. 3=Patient will improve strength/tolerance for activity to enable patient to perform ADL's. OT Education/Plan Problem List/Assessment Assessment: Decreased Activ Tolerance, Decreased UE Strength, Edema, Impaired Funct Balance, Impaired I ADL's, Impaired Self-Care Skills, Restricted Funct UE ROM Discharge Recommendations Plan/Recommendations: Continue POC Treatment Plan/Plan of Care Treatment,Training & Education: Yes Patient would benefit from OT for education, treatment and training to promote independence in ADL's, mobility, safety and/or upper extremity function for ADL's. Plan of Care: ADL Retraining, Functional Mobility, Group Exercise/Act as Ind, UE Funct Exercise/Act Treatment Duration: Sep 08, 2021 Frequency: At least 5 of 7 days/Wk (IRF) Estimated Hrs Per Day: 1.5 hours per day Agreement: Yes Rehab Potential: Fair Time/GCodes Start Time: 09:45 Stop Time: 10:35 Total Time Billed (hr/min): 50 Billed Treatment Time 1 visit FA x3 Gema Araay OT Aug 31, 2021 10:50
--- NOTE | 2021-08-31 12:25 | PM&R Progress Note ---
Subjective HPI/CC On Admission Date Seen by Provider: Aug 31, 2021 Time Seen by Provider: 12:20 Subjective/Events-last exam 08/31/2021: Patient doing well Ready to go home tomorrow Discontinue telemetry 08/30/2021: Episode of SVT prompted transfer for adenosine by Dr. Berkowitz which aborted Increase metoprolol to 100 mg daily Left arm weakness ruled out CVA so moved back down to rehab 08/29/2021: Pt sleeping soundly Elevated BP will monitor only Supportive care to continue 08/28/2021: Pt doing well Creatinine 2.0 Hgb 9.1 Checked meds and labs No falls 08/27/21: Patient doing well Sarcastic most of the time but this is baseline Left wrist still with edema but can't tolerate any treatment for it BM+ 08/26/21: Patient doing well Monitoring left wrist Wrapped left wrist but did not tolerate it Monitoring closely 08/25/21: Patient doing well Kidney stones noted on CT scan Straining all urine BM+ Left hand will be wrapped 08/24/2021: CT scan ordered by by urology for work-up for hematuria Cystoscopy performed revealing no polyps or masses Bladder retention appears to be present Left hand edema improving 08/23/21: Pt doing okay Requiring verbal cues for therapy Need additional motivation Requires rest breaks Checked meds and labs Hematuria requiring urology consult Review of Systems General: Fatigue Objective Exam Vital Signs Vital Signs Date Time Temp Pulse Resp B/P (MAP) Pulse Ox O2 Delivery O2 Flow Rate FiO2 08/31/21 21:27 Room Air 08/31/21 21:25 36.5 112 20 148/89 (108) 95 Capillary Refill : General Appearance: No Apparent Distress, WD/WN, Chronically ill, Obese HEENT: PERRL/EOMI, Normal ENT Inspection, Pharynx Normal Neck: Full Range of Motion, Normal Inspection, Non Tender, Supple, Carotid Bruit Respiratory: Chest Non Tender, Lungs Clear, Normal Breath Sounds, No Accessory Muscle Use, No Respiratory Distress Cardiovascular: Regular Rate, Rhythm, No Edema, No Gallop, No JVD, No Murmur, Normal Peripheral Pulses Gastrointestinal: Normal Bowel Sounds, No Organomegaly, No Pulsatile Mass, Non Tender, Soft Back: Normal Inspection, No CVA Tenderness, No Vertebral Tenderness Extremity: Normal Capillary Refill, Normal Inspection, Normal Range of Motion, Non Tender, No Calf Tenderness, No Pedal Edema Neurologic/Psychiatric: Alert, Oriented x3, Normal Mood/Affect, animal rehabilitator II-XII Norm as Tested, Abnormal Gait, Motor Weakness (Generalized 4/5) Skin: Normal Color, Warm/Dry Lymphatic: No Adenopathy Results/Procedures Lab Patient resulted labs reviewed. FIM Transfers Therapy Code Descriptions/Definitions Functional [place] Measure: 0=Not Assessed/NA 4=Minimal Assistance 1=Total Assistance 5=Supervision or Setup 2=Maximal Assistance 6=Modified [place] 3=Moderate Assistance 7=Complete IndependenceSCALE: Activities may be completed with or without assistive devices. 8-Hrxuqcpfcq-ihjhwmp completes the activity by him/herself with no assistance from a helper. 5-Set-up or Clean-up Assistance-helper sets up or cleans up; patient completes activity. [place] assists only prior to or following the activity. 4-Supervision or Touching Assistance-helper provides verbal cues and/or touching/steadying and/or contact guard assistance as patient completes activity. Assistance may be provided throughout the activity or intermittently. 3-Partial/Moderate Assistance-helper does LESS THAN HALF the effort. [place] lifts, holds or supports trunk or limbs, but provides less than half the effort. 2-Substantial/Maximal Assistance-helper does MORE THAN HALF the effort. [place] lifts or holds trunk or limbs and provides more than half the effort. 4-Fjrusaqtd-erujdp does ALL the effort. Patient does none of the effort to complete the activity. Or, the assistance of 2 or more helpers is required for the patient to complete the activity. If activity was not attempted, code reason: 7-Patient Refused. 9-Not Applicable-not attempted and the patient did not perform the activity before the current illness, exacerbation or injury. 10-Not Attempted due to Environmental Limitations-(lack of equipment, weather restraints, etc.). 88-Not Attempted due to Medical Conditions or Safety Concerns. Roll Left to Right (QC): 6 Sit to Lying (QC): 6 Sit to Stand (QC): 4 Chair/Jvt-nt-Ckedv Xfer(QC): 4 Car Transfer (QC): 4 Gait Training Does the Patient Walk?: Yes Distance: 75' x2 Walk 10 feet (QC): 4 Walk 50 ft with 2 Turns(QC): 4 Walk 150 ft (QC): 3 Walking 10ft/uneven surface-QC: 4 Gait Persons Needed: 1 Gait Assistive Device: FWW Wheelchair Training Does the Pt Use a Wheelchair?: Yes Wheel 50 ft with 2 turns (QC): 4 Wheel 150 ft (QC): 9 Type of Wheelchair: Manual Stair Training #of Steps: 1 1 Step (curb) (QC): 4 4 Steps (QC): 88 12 Steps (QC): 88 Balance Picking up an Object (QC): 88 ADL-Treatment Eating (QC): 5 Oral Hygiene (QC): 4 (steadying assist) Shower/Bathe Self (QC): 3 Upper Body Dressing (QC): 5 Lower Body Dressing (QC): 4 On/Off Footwear (QC): 4 Toileting Hygiene (QC): 4 Toilet Transfer (QC): 4 Assessment/Plan Assessment and Plan Assess & Plan/Chief Complaint Assessment: Generalized weakness with debility Alcoholism no alcohol use for 3 months Diabetes mellitus Hypertension Cognitive deficit Anemia CKD Obesity Hematuria normal cystoscopy with kidney stones on CT scan 08/24/2021 Episode of SVT aborted with adenosine [address] Berkowitz increase metoprolol dose to 100 mg Acute onset left arm weakness but stroke protocol did not give rise to CVA confirmation now resolved Plan: Supportive care Inpatient rehab protocol 08/23/21: Urology consult Supportive care 08/24/2021: Appreciate urology Continue aggressive therapy 08/25/21: Wrap left hand 08/26/21: Could not tolerate left hand wrapping No pain reported otherwise 08/27/21: Supportive care Monitor closely 08/28/2021: Supportive care 08/29/2021: Continue aggressive therapy Disposition soon 08/30/2021: Appreciate Dr. Berkowitz 08/31/2021: Discharge tomorrow (1) Supraventricular tachycardia Assessment & Plan: Exact mechanism and clear. I attempted carotid massage of the right carotid artery and this did not break the tachycardia. I then administered 6 mg of intravenous adenosine while he was in the cardiac stepdown unit and the supraventricular tachycardia resolved. I will increase his dose of metoprolol succinate from 50 mg daily to 100 mg daily. I will also obtain an echocardiogram. (2) Left arm weakness Assessment & Plan: Soon after performing the carotid massage of the right carotid artery, he complained of left arm weakness. He denied any other neurologic complaints. A code stroke was initiated. He will be going for a head CT and I have also ordered a carotid ultrasound. He will need serial neurologic checks. (3) Primary hypertension Assessment & Plan: His blood pressure had been elevated while he was in rehab. I have doubled the dose of metoprolol succinate due to the supraventricular tachycardia. This should also help with his high blood pressure. (4) Type 2 diabetes mellitus Status: Chronic Assessment & Plan: This is being managed by the hospitalist. (5) Acute kidney injury superimposed on chronic kidney disease Status: Acute Assessment & Plan: His creatinine level appears to have stabilized. I ordered follow-up labs for this morning. I am not entirely sure of his baseline renal function. (6) Overweight Assessment & Plan: He needs to work on weight loss. CHANTAL LAIRD DO Aug 31, 2021 12:25
--- NOTE | 2021-08-31 12:36 | Cardiology Progress Note ---
Progress Note-Cardiology Events since last exam Date Seen by Provider: Aug 31, 2021 Time Seen by Provider: 12:35 Events since last exam I am seeing him for SVT. He has not had any further SVT since giving adenosine and increasing metoprolol. He denies chest pain, dyspnea, palpitations, syncope, or ankle edema. He may be going home over the weekend. Certain portions of this document may have been dictated utilizing voice recognition technology. Inherent to this technology, typographical and grammatical errors may exist. As much as I am diligent to identify and correct these mistakes, some errors may remain in the document. Vitals Last set of Vitals Signs Vital Signs 08/31/21 08/31/21 08/31/21 07:15 08:39 09:25 Temp 36.8 Pulse 85 Resp 20 B/P (MAP) 151/77 (101) Pulse Ox 97 O2 Delivery Room Air Exam Vital Signs Vital Signs Date Time Temp Pulse Resp B/P (MAP) Pulse Ox O2 Delivery O2 Flow Rate FiO2 08/31/21 09:25 85 151/77 (101) 08/31/21 08:39 Room Air 08/31/21 07:15 36.8 20 97 Physical Exam General: Alert. No acute distress. Eye: No xanthelasma. HENT: Normocephalic. Neck: Jugular venous pressure does not appear elevated. Respiratory: Lungs are clear to auscultation. Respirations are non-labored. Breath sounds are equal. Symmetrical chest wall expansion. Cardiovascular: Normal rate. Regular rhythm. 2/6 systolic ejection murmur. No gallop. No edema. Gastrointestinal: Soft. Normal bowel sounds. Skin: Warm. Dry. Neurologic: Alert and oriented to person, place, time. Cranial nerves 3-11 grossly intact. Psychiatric: Cooperative. Appropriate mood & affect. Diagnosis/Problems Diagnosis/Problems (1) Supraventricular tachycardia Assessment & Plan: Exact mechanism unclear. This spoke with intravenous adenosine. I have increased his dose of metoprolol succinate and there have been no further episodes of supraventricular tachycardia. The telemetry can be discontinued. I will plan to see him in my office in 1 month. At this point in time, there do not appear to be any acute, active cardiac issues. As such, cardiology will sign off. Please call if you have other questions or concerns. (2) Left arm weakness Assessment & Plan: Soon after performing the carotid massage of the right carotid artery, he complained of left arm weakness. He denied any other neurologic complaints. His left arm weakness resolved within 1 hour after it started. His head CT did not show any acute abnormalities and his carotid ultrasound was unremarkable. I would just recommend he take aspirin 81 mg once a day. (3) Primary hypertension Assessment & Plan: His blood pressure had been elevated while he was in rehab. I have doubled the dose of metoprolol succinate due to the supraventricular tachycardia. This should also help with his high blood pressure. (4) Acute kidney injury superimposed on chronic kidney disease Status: Acute Assessment & Plan: His creatinine level appears to have stabilized. This will need to be followed after discharge. (5) Type 2 diabetes mellitus Status: Chronic Assessment & Plan: This is being managed by the hospitalist. (6) Overweight Assessment & Plan: He needs to work on weight loss. HUBERT CANCINO JR, MD Aug 31, 2021 12:36
--- NOTE | 2021-08-31 13:47 | Occupational Ther Daily Note ---
OT Current Status-Daily Note Subjective Continues to have pain in L hand, RN aware. Appearance Returned to supine in bed, all needs within reach, physical therapy entering room. Mental Status/Objective Patient Orientation: Person, Place, Situation Attachments: IV ADL-Treatment Therapy Code Descriptions/Definitions Functional [place] Measure: 0=Not Assessed/NA 4=Minimal Assistance 1=Total Assistance 5=Supervision or Setup 2=Maximal Assistance 6=Modified [place] 3=Moderate Assistance 7=Complete IndependenceSCALE: Activities may be completed with or without assistive devices. 2-Uwgbikaibd-bsnjmfx completes the activity by him/herself with no assistance from a helper. 5-Set-up or Clean-up Assistance-helper sets up or cleans up; patient completes activity. [place] assists only prior to or following the activity. 4-Supervision or Touching Assistance-helper provides verbal cues and/or touching/steadying and/or contact guard assistance as patient completes activity. Assistance may be provided throughout the activity or intermittently. 3-Partial/Moderate Assistance-helper does LESS THAN HALF the effort. [place] lifts, holds or supports trunk or limbs, but provides less than half the effort. 2-Substantial/Maximal Assistance-helper does MORE THAN HALF the effort. [place] lifts or holds trunk or limbs and provides more than half the effort. 1-Gfktfsalj-eyvbyt does ALL the effort. Patient does none of the effort to complete the activity. Or, the assistance of 2 or more helpers is required for the patient to complete the activity. If activity was not attempted, code reason: 7-Patient Refused. 9-Not Applicable-not attempted and the patient did not perform the activity before the current illness, exacerbation or injury. 10-Not Attempted due to Environmental Limitations-(lack of equipment, weather restraints, etc.). 88-Not Attempted due to Medical Conditions or Safety Concerns. Eating (QC): 6 Oral Hygiene (QC): 6 Shower/Bathe Self (QC): 4 Upper Body Dressing (QC): 5 Lower Body Dressing (QC): 4 On/Off Footwear: 3 Toileting Hygiene (QC): 4 Toilet Transfer (QC): 4 Bathing task completed seated EOB. Pt able to wash upper body without assist. Demonstrates no difficulty reaching across midline to opposite axilla with use of Ben hands. He bends at waist to reach feet, extra effort but no assist. He stood to wash shelyb area/buttocks, close sup/SBA for safety with balance. Re minder to sit to doff LB clothing completely over feet as pt attempts to complete while standing and demonstrates increased unsteadiness with effort. Extra time to thread into shorts as pt only uses R hand. Pt was encouraged to incorporate L hand into task, but he refuses. Again, SBA for safety as he stood to manage up to waist. Assist needed to initiate socks over toes after effortful attempt one handed (pt refuses to use L hand). Pt able to machine puller over heels. Education OT Patient Education: Correct positioning, Energy conservation, Modified ADL techniques, Progress toward Goal/Update tx plan, Purpose of tx/functional activities, Reviewed precautions, Safety issues Teaching Recipient: Patient Teaching Methods: Demonstration, Discussion Response to Teaching: Verbalize Understanding, Reinforcement Needed OT Short Term Goals Short Term Goals Time Frame: Sep 01, 2021 Eatin Oral hygiene: 5 Toileting hygiene: 4 Shower/bathe self: 4 Upper body dressin Lower body dressin Putting on/taking off footwear: 5 OT Block And Case Maker Goals Block And Case Maker Goals Time Frame: Sep 08, 2021 Eating (QC): 6 (met) Oral Hygiene (QC): 6 (met) Toileting Hygiene (QC): 6 (not met) Shower/Bathe Self (QC): 5 (not met) Upper Body Dressing (QC): 6 (not met) Lower Body Dressing (QC): 6 (not met) On/Off Footwear (QC): 6 (not met) 1=Demonstrate adherence to instructed precautions during ADL tasks. 2=Patient will verbalize/demonstrate understanding of assistive devices/modifications for ADL. 3=Patient will improve strength/tolerance for activity to enable patient to perform ADL's. OT Education/Plan Problem List/Assessment Assessment: Decreased Activ Tolerance, Decreased Safety Aware, Decreased UE Strength, Edema, Impaired Coordination, Impaired Funct Balance, Impaired I ADL's, Impaired Self-Care Skills, Restricted Funct UE ROM Discharge Recommendations Plan/Recommendations: Continue POC Therapy Discharge Recommendati: Intermittent Supervision, Homemaker Support Equpiment Recommendations-D/C: Rails on Tub/Shower, Toilet Riser with Rails, Bath Chair Comment Home health Treatment Plan/Plan of Care Patient would benefit from OT for education, treatment and training to promote independence in ADL's, mobility, safety and/or upper extremity function for ADL's. Plan of Care: ADL Retraining, Functional Mobility, Group Exercise/Act as Ind, UE Funct Exercise/Act Treatment Duration: Sep 08, 2021 Frequency: At least 5 of 7 days/Wk (IRF) Estimated Hrs Per Day: 1.5 hours per day Agreement: Yes Rehab Potential: Fair Time/GCodes Start Time: 13:00 Stop Time: 13:30 Total Time Billed (hr/min): 30 Billed Treatment Time 1 visit ADL x2 Gema Araya OT Aug 31, 2021 13:47
--- NOTE | 2021-08-31 14:01 | Physical Therapy Daily Note ---
PT Daily Note-Current Subjective Patient reports he is very tired. Reports 4/10 pain in left hand and feels like he can't use it for anything. Transfers SCALE: Activities may be completed with or without assistive devices. 4-Iesbcfqoqq-gsbfubg completes the activity by him/herself with no assistance from a helper. 5-Set-up or Clean-up Assistance-helper sets up or cleans up; patient completes activity. [place] assists only prior to or following the activity. 4-Supervision or Touching Assistance-helper provides verbal cues and/or touching/steadying and/or contact guard assistance as patient completes activity. Assistance may be provided throughout the activity or intermittently. 3-Partial/Moderate Assistance-helper does LESS THAN HALF the effort. [place] lifts, holds or supports trunk or limbs, but provides less than half the effort. 2-Substantial/Maximal Assistance-helper does MORE THAN HALF the effort. [place] lifts or holds trunk or limbs and provides more than half the effort. 3-Ratwcmpcp-yyaeaz does ALL the effort. Patient does none of the effort to compl ete the activity. Or, the assistance of 2 or more helpers is required for the patient to complete the activity. If activity was not attempted, code reason: 7-Patient Refused. 9-Not Applicable-not attempted and the patient did not perform the activity before the current illness, exacerbation or injury. 10-Not Attempted due to Environmental Limitations-(lack of equipment, weather restraints, etc.). 88-Not Attempted due to Medical Conditions or Safety Concerns. Roll Left & Right (QC): 3 Sit to Lying (QC): 3 Lying to Sitting/Side of Bed(Q: 3 Sit to Stand (QC): 4 Chair/Riu-sn-Lrazc Xfer(QC): 4 Gait Training Does the Patient Walk?: Yes Distance: 150 feet x 2 Walk 10 feet (QC): 5 Walk 50 ft with 2 Turns(QC): 5 Walk 150 ft (QC): 5 Gait Persons Needed: 1 Gait Assistive Device: FWW Wheelchair Training Does the Pt Use a Wheelchair?: Yes Wheel 50 ft with 2 turns (QC): 5 Wheel 150 ft (QC): 4 Type of Wheelchair: Manual Exercises Supine Ex: Ankle pumps, Glut sets, Heel Slides, Short Arc Quads, Straight leg raise, Hip abd/add Supine Reps: 20 Seated Therapy Exercises: Long arc quads, Hip flexion, Hamstring Curls, Hip abd/add Seated Reps: 20 Standing: Heel/toe raises, Marching Standing Reps: 10 Treatments Patient performed bed therapeutic exercise. Transfers and bed mobility to edge of bed. Patient ambulated 150 feet with CGA, with FWW. Patient propels w/c for 150 feet with min A. Patient performs standing and sitting therapeutic exercise at the parallel bars. Patient propels w/c back to his room. Assessment Current Status: Fair Progress Patient tolerated treatment fair. Reports significant LE strength deficit with all standing exercises, walking and transfers. Requires sitting rest breaks with each activity. Patient ambulates 150 feet with FWW x 2, with CGA and verbal cues for safety, progression, balance, and posture. Patient fatigues quickly towards the end of the gait training session and requires quick access to w/c. Patient is able to safely propel the w/c 100 feet with SBA, howeve to 150 feet he requires min A due to fatigue and poor safety perception. Patient returns to room and chair post treatment with min A for sit to stand and transfer from the w/c to the recliner. PT Short Term Goals Short Term Goals Time Frame: Aug 29, 2021 Roll Left & Right: 6 Sit to lyin Lying to sitting on side of be: 5 Sit to stand: 4 (SBA) Chair/kew-as-abjcx transfer: 4 (SBA) Walk 10 feet: 4 (SBA) Walk 50 feet with two turns: 4 (SBA) Walk 150 feet: 4 (SBA) PT Service Observer Goals Prison Goals PT Service Observer Goals Time Frame: Sep 12, 2021 Roll Left & Right (QC): 6 Sit to Lying (QC): 6 Lying-Sitting on Side/Bed(QC): 6 Sit to Stand (QC): 5 Chair/Wbw-ku-Jxbao Xfer(QC): 5 Toilet Transfer (QC): 5 Car Transfer (QC): 5 Does the Patient Walk: Yes Walk 10 feet (QC): 5 Walk 50ft with 2 Turns (QC): 5 Walk 150 ft (QC): 5 Walking 10ft on Uneven Surface: 5 1 Step (curb) (QC): 4 4 Steps (QC): 4 12 Steps (QC): 88 Picking up an Object (QC): 4 Wheel 50 feet with 2 turns (QC: 9 Wheel 150 feet: 9 PT Plan Treatment/Plan Treatment Plan: Continue Plan of Care Treatment Plan: Bed Mobility, Education, Functional Activity Gabriella, Functional Strength, Group Therapy, Gait, Safety, Therapeutic Exercise, Transfers Treatment Duration: Sep 12, 2021 Frequency: At least 5 of 7 days/Wk (IRF) Estimated Hrs Per Day: 1.5 hours per day Patient and/or Family Agrees t: Yes Safety Risks/Education Patient Education: Gait Training, Transfer Techniques, W/C Management Teaching Recipient: Patient Teaching Methods: Demonstration, Discussion Response to Teaching: Verbalize Understanding, Return Demonstration Time/GCodes Time In: 1100 Time Out: 1200 Total Billed Treatment Time: 60 Total Billed Treatment Visit, Tonya, Ex x 2, w/c LESLIE HARDIN PT Aug 31, 2021 14:01
--- NOTE | 2021-08-31 14:58 | Physical Therapy Daily Note ---
PT Daily Note-Current Subjective Patient lying supine in bed, agreeable to treatment. Transfers SCALE: Activities may be completed with or without assistive devices. 2-Krrlzdehbk-bsscygr completes the activity by him/herself with no assistance from a helper. 5-Set-up or Clean-up Assistance-helper sets up or cleans up; patient completes activity. [place] assists only prior to or following the activity. 4-Supervision or Touching Assistance-helper provides verbal cues and/or touching/steadying and/or contact guard assistance as patient completes activity. Assistance may be provided throughout the activity or intermittently. 3-Partial/Moderate Assistance-helper does LESS THAN HALF the effort. [place] lifts, holds or supports trunk or limbs, but provides less than half the effort. 2-Substantial/Maximal Assistance-helper does MORE THAN HALF the effort. [place] lifts or holds trunk or limbs and provides more than half the effort. 8-Uwmkzuwan-mjoqly does ALL the effort. Patient does none of the effort to complete the activity. Or, the assistance of 2 or more helpers is required for the patient to complete the activity. If activity was not attempted, code reason: 7-Patient Refused. 9-Not Applicable-not attempted and the patient did not perform the activity before the current illness, exacerbation or injury. 10-Not Attempted due to Environmental Limitations-(lack of equipment, weather restraints, etc.). 88-Not Attempted due to Medical Conditions or Safety Concerns. Roll Left & Right (QC): 3 Sit to Lying (QC): 3 Lying to Sitting/Side of Bed(Q: 4 Sit to Stand (QC): 5 Chair/Ccs-lr-Ugoug Xfer(QC): 5 Toilet Transfer (QC): 4 Car Transfer (QC): 4 Gait Training Does the Patient Walk?: Yes Distance: 150 Walk 10 feet (QC): 5 Walk 50 ft with 2 Turns(QC): 5 Walk 150 ft (QC): 4 Walking 10ft/uneven surface-QC: 4 Gait Persons Needed: 1 Gait Assistive Device: FWW Wheelchair Training Does the Pt Use a Wheelchair?: Yes Wheel 50 ft with 2 turns (QC): 5 Wheel 150 ft (QC): 4 Type of Wheelchair: Manual Stair Training Stair Training: Handrails/: 2 handrails #of Steps: 4 1 Step (curb) (QC): 4 4 Steps (QC): 3 12 Steps (QC): 88 Stairs: Pattern: Step to Balance Picking up an Object (QC): 88 Assessment Current Status: Fair Progress Patient tolerated treatment fair. Demonstrates difficulty processing steps of bed mobility and requires min A for rolling and sitting to edge of bed. Patient reports he has been performing transfers with the HOB elevated fully. He was educated that since he did not have a hospital bed at home, he needed to practice getting up from a flat bed. At this time patient is unable to do so. He reports that he uses a dresser at home to assist him in transferring from supine to sit. Patient was educated that this is unsafe as the dresser isn't designed to bed used to transfer, and although this is unsafe, he is not able to perform this action due to the pain in his left hand. Patient ambulates to the PT gym where he was educated on ascending and descending stairs. He reports he has no steps at home, however was able to ascend and descend 4 steps with min a and bilateral rails. Patient required extra time during descent due to bilateral knees being unable to maintain extension. Patient educated that if he were to have to use stairs, he would not only have to go slow to ensure that his knees did not buckle, but he would need assistance from someone to ensure his safety. Patient ambulates back to the room with gait over uneven surfaces and transfers to the car. Patient in bed post treatment with all needs met, nursing notified, call light in reach. Patient is not safe to return home alone at this time. He was educated that returning home with assistance is the only way that he should consider being discharged due to his current LOF. Patient reports he wants to be Discharged home alone. Nurse notified. PT Short Term Goals Short Term Goals Time Frame: Aug 29, 2021 Roll Left & Right: 6 Sit to lyin Lying to sitting on side of be: 5 Sit to stand: 4 (SBA) Chair/erp-yf-hnevv transfer: 4 (SBA) Walk 10 feet: 4 (SBA) Walk 50 feet with two turns: 4 (SBA) Walk 150 feet: 4 (SBA) PT Usp Goals Plugger Goals PT Plugger Goals Time Frame: Sep 12, 2021 Roll Left & Right (QC): 6 Sit to Lying (QC): 6 Lying-Sitting on Side/Bed(QC): 6 Sit to Stand (QC): 5 Chair/Bma-ui-Mmdkc Xfer(QC): 5 Toilet Transfer (QC): 5 Car Transfer (QC): 5 Does the Patient Walk: Yes Walk 10 feet (QC): 5 (Met) Walk 50ft with 2 Turns (QC): 5 (MEt) Walk 150 ft (QC): 5 Walking 10ft on Uneven Surface: 5 1 Step (curb) (QC): 4 4 Steps (QC): 4 12 Steps (QC): 88 Picking up an Object (QC): 4 Does the Pt use WC or Scooter?: Yes Wheel 50 feet with 2 turns (QC: 9 (5) Type: Manual Wheel 150 feet: 9 (4) Type: Manual PT Plan Treatment/Plan Treatment Plan: Continue Plan of Care Treatment Plan: Bed Mobility, Education, Functional Activity Gabriella, Functional Strength, Group Therapy, Gait, Safety, Therapeutic Exercise, Transfers Treatment Duration: Sep 12, 2021 Frequency: At least 5 of 7 days/Wk (IRF) Estimated Hrs Per Day: 1.5 hours per day Patient and/or Family Agrees t: Yes Safety Risks/Education Patient Education: Gait Training, Transfer Techniques, Steps Teaching Recipient: Patient Teaching Methods: Demonstration, Discussion Response to Teaching: Verbalize Understanding, Reinforcement Needed Time/GCodes Time In: 1330 Time Out: 1355 Total Billed Treatment Time: 25 Total Billed Treatment Visit, DEBBY Castaneda JOHN A PT Aug 31, 2021 14:58
[2021-08-31] MEDS: DICLOFENAC 1% GEL 100 GM (VOLTAREN) TUBE TOP SCH ×2 (16:52→20:02)
[2021-08-31 21:25] VITALS: BP 148/89
[2021-09-01] MEDS ORDERED: METO50TA7 PO (06:06)
[2021-09-01] MEDS ORDERED: ASPI-1238 PO (06:06)
--- NOTE | 2021-09-01 06:07 | Discharge Summary ---
Diagnosis/Chief Complaint Date of Admission Aug 22, 2021 at 11:00 Date of Discharge Discharge Date: Sep 01, 2021 Discharge Diagnosis Assessment: Generalized weakness with debility Alcoholism no alcohol use for 3 months Diabetes mellitus Hypertension Cognitive deficit Anemia CKD Obesity Hematuria normal cystoscopy with kidney stones on CT scan 08/24/2021 Episode of SVT aborted with adenosine [address] Berkowitz increase metoprolol dose to 100 mg Acute onset left arm weakness but stroke protocol did not give rise to CVA confirmation now resolved Plan: Supportive care Inpatient rehab protocol 08/23/21: Urology consult Supportive care 08/24/2021: Appreciate urology Continue aggressive therapy 08/25/21: Wrap left hand 08/26/21: Could not tolerate left hand wrapping No pain reported otherwise 08/27/21: Supportive care Monitor closely 08/28/2021: Supportive care 08/29/2021: Continue aggressive therapy Disposition soon 08/30/2021: Appreciate Dr. Berkowitz 08/31/2021: Discharge tomorrow Discharge Summary Discharge Physical Examination Allergies: Coded Allergies: No Known Drug Allergies (Unverified , 07/22/21) NKDA Vitals & I&Os Vital Signs Date Time Temp Pulse Resp B/P (MAP) Pulse Ox O2 Delivery O2 Flow Rate FiO2 09/01/21 11:30 36.6 88 20 148/78 97 Room Air General Appearance: Alert, Oriented X3, Cooperative Respiratory: Clear to Auscultation Cardiovascular: Regular Rate Neuro: Normal Gait, Normal Speech, Strength at 5/5 X4 Ext Psych/Mental Status: Mental Status NL Hospital Course Was the Problem List Reviewed?: Yes Standard course after admitted for debility with alcoholism and depression and apathy. Finished abx for left hand cellulitis. Participated with PT OT and bowel regimen maintained. Episode of SVT occurred and Dr Berkowitz transferred the patient to [facility] and initiated 1 dose of Adenocard with aborted SVT results. CVA w/u ensued due to left arm weakness, the same arm he was not able to move well since the cellulitis, so CVA protocol initiated and revealed no new acute CVA. Patient had psych appt prior to DC and he was DC with daughter. Labs (last 24 hrs) Laboratory Tests 08/22/21 11:00: Lab Scanned Report Referred Lab Report 08/22/21 17:02: Urine Color BROWNH, Urine Clarity CLOUDY, Urine pH 6.5, Urine Specific [place] 1.025H, Urine Protein 3+H, Urine Glucose (UA) NEGATIVE, Urine Ketones TRACEH, Urine Nitrite POSITIVEH, Urine Bilirubin 1+H, Urine Urobilinogen 1.0, Urine Leukocyte Esterase TRACEH, Urine RBC (Auto) 3+H, Urine RBC 50-100H, Urine WBC 5- 10H, Urine Crystals PRESENTH, Urine Amorphous Sediment LARGE PAZ URATESH, Urine Bacteria TRACE, Urine Casts NONE, Urine Mucus NEGATIVE, Urine Culture Indicated YES 08/23/21 06:44: White Blood Count 9.7, Red Blood Count 3.20L, Hemoglobin 9.6L, Hematocrit 30L, Mean Corpuscular Volume 92, Mean Corpuscular Hemoglobin 30, Mean Corpuscular Hemoglobin Concent 33, Red Cell Distribution Width 14.7H, Platelet Count 362, Mean Platelet Volume 9.2, Immature Granulocyte % (Auto) 1, Neutrophils (%) (Auto) 85H, Lymphocytes (%) (Auto) 8L, Monocytes (%) (Auto) 5, Eosinophils (%) (Auto) 1, Basophils (%) (Auto) 0, Neutrophils # (Auto) 8.2H, Lymphocytes # (Auto) 0.8L, Monocytes # (Auto) 0.5, Eosinophils # (Auto) 0.1, Basophils # (Auto) 0.0, Immature Granulocyte # (Auto) 0.1, Sodium Level 133L, Potassium Level 3.9, Chloride Level 99, Carbon Dioxide Level 19L, Anion Gap 15H, Blood Urea Nitrogen 21H, Creatinine 1.85H, Estimat Glomerular Filtration Rate 37, B UN/Creatinine Ratio 11, Glucose Level 134H, Calcium Level 9.5, Corrected Calcium 10.0, Total Bilirubin 0.7, Aspartate Amino Transf (AST/SGOT) 32, Alanine Aminotransferase (ALT/SGPT) 42, Alkaline Phosphatase 77, Total Protein 7.5, Albumin 3.4 08/28/21 05:30: White Blood Count 8.8, Red Blood Count 2.98L, Hemoglobin 9.1L, Hematocrit 28L, Mean Corpuscular Volume 93, Mean Corpuscular Hemoglobin 31, Mean Corpuscular Hemoglobin Concent 33, Red Cell Distribution Width 15.9H, Platelet Count 311, Mean Platelet Volume 9.3, Immature Granulocyte % (Auto) 0, Neutrophils (%) (Auto) 84H, Lymphocytes (%) (Auto) 9L, Monocytes (%) (Auto) 6, Eosinophils (%) (Auto) 1, Basophils (%) (Auto) 1, Neutrophils # (Auto) 7.4, Lymphocytes # (Auto) 0.8L, Monocytes # (Auto) 0.5, Eosinophils # (Auto) 0.1, Basophils # (Auto) 0.1, Immature Granulocyte # (Auto) 0.0, Sodium Level 132L, Potassium Level 4.1, Chloride Level 100, Carbon Dioxide Level 19L, Anion Gap 13, Blood Urea Nitrogen 19H, Creatinine 2.00H, Estimat Glomerular Filtration Rate 34, BUN/Creatinine Ratio 10, Glucose Level 107H, Calcium Level 9.2, Corrected Calcium 9.7, Total Bilirubin 0.6, Aspartate Amino Transf (AST/SGOT) 38H, Alanine Aminotransferase (ALT/SGPT) 42, Alkaline Phosphatase 74, Total Protein 7.0, Albumin 3.4 08/30/21 09:56: White Blood Count 10.2, Red Blood Count 3.35L, Hemoglobin 10.2L, Hematocrit 31L, Mean Corpuscular Volume 94, Mean Corpuscular Hemoglobin 30, Mean Corpuscular Hemoglobin Concent 33, Red Cell Distribution Width 16.0H, Platelet Count 402H, Mean Platelet Volume 9.8, Immature Granulocyte % (Auto) 1, Neutrophils (%) (Auto) 83H, Lymphocytes (%) (Auto) 10L, Monocytes (%) (Auto) 5, Eosinophils (%) (Auto) 1, Basophils (%) (Auto) 1, Neutrophils # (Auto) 8.5H, Lymphocytes # (Auto) 1.0, Monocytes # (Auto) 0.5, Eosinophils # (Auto) 0.1, Basophils # (Auto) 0.1, Immature Granulocyte # (Auto) 0.1, Glucometer 171H 08/30/21 11:25: Sodium Level 135, Potassium Level 4.4, Chloride Level 102, Carbon Dioxide Level 20L, Anion Gap 13, Blood Urea Nitrogen 22H, Creatinine 1.99H, Estimat Glomerular Filtration Rate 34, BUN/Creatinine Ratio 11, Glucose Level 138H, Calcium Level 9.3, Corrected Calcium 9.8, Magnesium Level 1.7, Total Bilirubin 0.6, Aspartate Amino Transf (AST/SGOT) 53H, Alanine Aminotransferase (ALT/SGPT) 64H, Alkaline Phosphatase 72, Total Protein 7.0, Albumin 3.4, Triglycerides Level 113, Cholesterol Level 178, LDL Cholesterol Direct 128, VLDL Cholesterol 23, HDL Cholesterol 29L, Thyroid Stimulating Hormone (TSH) 5.54H Microbiology 08/22/21 Urine Culture - Final, Complete NO GROWTH Pending Labs Microbiology Date/Time Source Procedure Growth Status 08/22/21 17:02 Urine Clean Catch Urine Culture - Final NO GROWTH Complete Laboratory Tests 08/22/21 11:00: Lab Scanned Report Referred Lab Report 08/22/21 17:02: Urine Color BROWN, Urine Clarity CLOUDY, Urine pH 6.5, Urine Specific [place] 1.025, Urine Protein 3+, Urine Glucose (UA) NEGATIVE, Urine Ketones TRACE, Urine Nitrite POSITIVE, Urine Bilirubin 1+, Urine Urobilinogen 1.0, Urine Leukocyte Esterase TRACE, Urine RBC (Auto) 3+, Urine RBC 50-100, Urine WBC 5-10, Urine Crystals PRESENT, Urine Amorphous Sediment LARGE PAZ URATES, Urine Bacteria TRACE, Urine Casts NONE, Urine Mucus NEGATIVE, Urine Culture Indicated YES 08/23/21 06:44: White Blood Count 9.7, Red Blood Count 3.20, Hemoglobin 9.6, Hematocrit 30, Mean Corpuscular Volume 92, Mean Corpuscular Hemoglobin 30, Mean Corpuscular Hemoglobin Concent 33, Red Cell Distribution Width 14.7, Platelet Count 362, Mean Platelet Volume 9.2, Immature Granulocyte % (Auto) 1, Neutrophils (%) (Auto) 85, Lymphocytes (%) (Auto) 8, Monocytes (%) (Auto) 5, Eosinophils (%) (Auto) 1, Basophils (%) (Auto) 0, Neutrophils # (Auto) 8.2, Lymphocytes # (Auto) 0.8, Monocytes # (Auto) 0.5, Eosinophils # (Auto) 0.1, Basophils # (Auto) 0.0, Immature Granulocyte # (Auto) 0.1, Sodium Level 133, Potassium Level 3.9, Chloride Level 99, Carbon Dioxide Level 19, Anion Gap 15, Blood Urea Nitrogen 21, Creatinine 1.85, Estimat Glomerular Filtration Rate 37, BUN/Creatinine Ratio 11, Glucose Level 134, Calcium Level 9.5, Corrected Calcium 10.0, Total Bilirubin 0.7, Aspartate Amino Transf (AST/SGOT) 32, Alanine Aminotransferase (ALT/SGPT) 42, Alkaline Phosphatase 77, Total Protein 7.5, Albumin 3.4 08/28/21 05:30: White Blood Count 8.8, Red Blood Count 2.98, Hemoglobin 9.1, Hematocrit 28, Mean Corpuscular Volume 93, Mean Corpuscular Hemoglobin 31, Mean Corpuscular Hemoglobin Concent 33, Red Cell Distribution Width 15.9, Platelet Count 311, Mean Platelet Volume 9.3, Immature Granulocyte % (Auto) 0, Neutrophils (%) (Auto) 84, Lymphocytes (%) (Auto) 9, Monocytes (%) (Auto) 6, Eosinophils (%) (Auto) 1, Basophils (%) (Auto) 1, Neutrophils # (Auto) 7.4, Lymphocytes # (Auto) 0.8, Monocytes # (Auto) 0.5, Eosinophils # (Auto) 0.1, Basophils # (Auto) 0.1, Immature Granulocyte # (Auto) 0.0, Sodium Level 132, Potassium Level 4.1, Chloride Level 100, Carbon Dioxide Level 19, Anion Gap 13, Blood Urea Nitrogen 19, Creatinine 2.00, Estimat Glomerular Filtration Rate 34, BUN/Creatinine Ratio 10, Glucose Level 107, Calcium Level 9.2, Corrected Calcium 9.7, Total Bilirubin 0.6, Aspartate Amino Transf (AST/SGOT) 38, Alanine Aminotransferase (ALT/SGPT) 42, Alkaline Phosphatase 74, Total Protein 7.0, Albumin 3.4 08/30/21 09:56: White Blood Count 10.2, Red Blood Count 3.35, Hemoglobin 10.2, Hematocrit 31, Me an Corpuscular Volume 94, Mean Corpuscular Hemoglobin 30, Mean Corpuscular Hemoglobin Concent 33, Red Cell Distribution Width 16.0, Platelet Count 402, Mean Platelet Volume 9.8, Immature Granulocyte % (Auto) 1, Neutrophils (%) (Auto) 83, Lymphocytes (%) (Auto) 10, Monocytes (%) (Auto) 5, Eosinophils (%) (Auto) 1, Basophils (%) (Auto) 1, Neutrophils # (Auto) 8.5, Lymphocytes # (Auto) 1.0, Monocytes # (Auto) 0.5, Eosinophils # (Auto) 0.1, Basophils # (Auto) 0.1, Immature Granulocyte # (Auto) 0.1, Glucometer 171 08/30/21 11:25: Sodium Level 135, Potassium Level 4.4, Chloride Level 102, Carbon Dioxide Level 20, Anion Gap 13, Blood Urea Nitrogen 22, Creatinine 1.99, Estimat Glomerular Filtration Rate 34, BUN/Creatinine Ratio 11, Glucose Level 138, Calcium Level 9.3, Corrected Calcium 9.8, Magnesium Level 1.7, Total Bilirubin 0.6, Aspartate Amino Transf (AST/SGOT) 53, Alanine Aminotransferase (ALT/SGPT) 64, Alkaline Phosphatase 72, Total Protein 7.0, Albumin 3.4, Triglycerides Level 113, Kiah sterol Level 178, LDL Cholesterol Direct 128, VLDL Cholesterol 23, HDL Cholesterol 29, Thyroid Stimulating Hormone (TSH) 5.54 Discharge Home Medications: Active Scripts Active Aspirin EC (Aspirin) 81 Mg Tablet.dr 81 Mg PO DAILY Metoprolol Succinate 50 Mg Tab.er.24h 100 Mg PO DAILY Reported Folic Acid 1 Mg Tablet 1 Mg PO DAILY Instructions to patient/family Please see electronic discharge instructions given to patient. Diagnosis/Problems Diagnosis/Problems (1) Debility Status: Acute (2) Type 2 diabetes mellitus Status: Chronic (3) Hypertension Status: Chronic (4) Weakness Status: Acute CHANTAL LAIRD DO Sep 01, 2021 06:07
[2021-09-01 08:00] VITALS: BP 156/84
--- NOTE | 2021-09-01 08:18 | Therapy Team Discharge Summary ---
Therapy Discharge Summary Discharge Recommendations Date of Discharge Occupational Therapy Decreased Activ Tolerance, Decreased Safety Aware, Decreased UE Strength, Edema, Impaired Coordination, Impaired Funct Balance, Impaired I ADL's, Impaired Self- Care Skills, Restricted Funct UE ROM Speech-Language Pathology Patient was admitted to the ARU due to debility/weakness. He was given the SLUMS at that time with score indicating the need for further ST. Patient's therapy focus was for him to be able to return home safer and independent. The patient will be discharging today to live with his daughter until he regains strength to be safe. PT Prison Goals Prison Goals PT Parts Counterman Goals Time Frame: Sep 12, 2021 Roll Left to Right (QC): 6 Sit to Lying (QC): 6 Lying-Sitting on Side/Bed(QC): 6 Sit to Stand (QC): 5 Chair/Qox-ic-Buaby Xfer(QC): 5 Car Transfer (QC): 5 Does the Patient Walk: Yes Walk 10 feet (QC): 5 (Met) Walk 10ft-Uneven Surface(QC): 5 Walk 50ft with 2 Turns (QC): 5 (MEt) Walk 150 ft (QC): 5 Does the Pt use WC or Scooter?: Yes Wheel 50 feet with 2 turns (QC: 9 (5) 1 Step (curb) (QC): 4 4 Steps (QC): 4 12 Steps (QC): 88 Picking up an Object (QC): 4 OT Parts Counterman Goals Parts Counterman Goals Time Frame: Sep 08, 2021 Eating (QC): 6 (met) Oral Hygiene (QC): 6 (met) Shower/Bathe Self (QC): 5 (not met) Upper Body Dressing (QC): 6 (not met) Lower Body Dressing (QC): 6 (not met) On/Off Footwear (QC): 6 (not met) Toileting Hygiene (QC): 6 (not met) Toilet/Commode Transfer (QC): 5 1=Demonstrate adherence to instructed precautions during ADL tasks. 2=Patient will verbalize/demonstrate understanding of assistive devices/modifications for ADL. 3=Patient will improve strength/tolerance for activity to enable patient to perform ADL's. Speech Prison Goals Parts Counterman Goals Patient will improve functional abilities in order to return home safer and independent. LUCAS OLIVA Sep 01, 2021 08:18
--- NOTE | 2021-09-01 08:19 | Physical Therapy Daily Note ---
PT Daily Note-Current Subjective Patient in bed pre tx, agrees to PT, voices no complaints of pain. Will be co- treating with OT for family training before patient leaves. Patient's daughter is here for family training. Patient is very tired/drowsy this morning. Appearance Patient sitting EOB post tx with nurse call, OT to finish up with him. Mental Status Patient Orientation: Person, Place, Situation Transfers SCALE: Activities may be completed with or without assistive devices. 0-Inuegiztfo-ccjmeoc completes the activity by him/herself with no assistance from a helper. 5-Set-up or Clean-up Assistance-helper sets up or cleans up; patient completes activity. [place] assists only prior to or following the activity. 4-Supervision or Touching Assistance-helper provides verbal cues and/or touching/steadying and/or contact guard assistance as patient completes activity. Assistance may be provided throughout the activity or intermittently. 3-Partial/Moderate Assistance-helper does LESS THAN HALF the effort. [place] lifts, holds or supports trunk or limbs, but provides less than half the effort. 2-Substantial/Maximal Assistance-helper does MORE THAN HALF the effort. [place] lifts or holds trunk or limbs and provides more than half the effort. 8-Ymgfvjkyf-bjehtb does ALL the effort. Patient does none of the effort to complete the activity. Or, the assistance of 2 or more helpers is required for the patient to complete the activity. If activity was not attempted, code reason: 7-Patient Refused. 9-Not Applicable-not attempted and the patient did not perform the activity before the current illness, exacerbation or injury. 10-Not Attempted due to Environmental Limitations-(lack of equipment, weather restraints, etc.). 88-Not Attempted due to Medical Conditions or Safety Concerns. Roll Left & Right (QC): 4 Lying to Sitting/Side of Bed(Q: 3 Sit to Stand (QC): 4 Chair/Buj-sc-Wvzpl Xfer(QC): 4 Gait Training Distance: 60' Walk 10 feet (QC): 4 Walk 50 ft with 2 Turns(QC): 4 Gait Persons Needed: 1 Gait Assistive Device: FWW slow ambulation, has moments of unsteadiness, slumped posture Balance Picking up an Object (QC): 4 Treatments PT performed and trained daughter with patient's bed mobility and transfers and ambulation. Patient states he will not have any steps to go up to enter the home. Daughter had no questions about patient's functional mobility. Instructed patient to ambulate as much as he can at home to increase his strength and balance and that being sedentary with make him weaker Assessment Current Status: Fair Progress Patient will be discharged from PT later, family training done. PT Short Term Goals Short Term Goals Time Frame: Aug 29, 2021 Roll Left & Right: 6 Sit to lyin Lying to sitting on side of be: 5 Sit to stand: 4 (SBA) Chair/vsq-xa-etodi transfer: 4 (SBA) Walk 10 feet: 4 (SBA) Walk 50 feet with two turns: 4 (SBA) Walk 150 feet: 4 (SBA) PT Sewer Goals Mcfp Goals PT Mcfp Goals Time Frame: Sep 12, 2021 Roll Left & Right (QC): 6 Sit to Lying (QC): 6 Lying-Sitting on Side/Bed(QC): 6 Sit to Stand (QC): 5 Chair/Gvp-ln-Rfuwn Xfer(QC): 5 Toilet Transfer (QC): 5 Car Transfer (QC): 5 Does the Patient Walk: Yes Walk 10 feet (QC): 5 (Met) Walk 50ft with 2 Turns (QC): 5 (MEt) Walk 150 ft (QC): 5 Walking 10ft on Uneven Surface: 5 1 Step (curb) (QC): 4 4 Steps (QC): 4 12 Steps (QC): 88 Picking up an Object (QC): 4 Does the Pt use WC or Scooter?: Yes Wheel 50 feet with 2 turns (QC: 9 (5) Type: Manual Wheel 150 feet: 9 (4) Type: Manual PT Plan Problem List Problem List: Activity Tolerance, Functional Strength, Safety, Balance, Gait, Transfer, Bed Mobility, ROM Treatment/Plan Treatment Plan: Continue Plan of Care Treatment Plan: Bed Mobility, Education, Functional Activity Gabriella, Functional Strength, Group Therapy, Gait, Safety, Therapeutic Exercise, Transfers Treatment Duration: Sep 12, 2021 Frequency: At least 5 of 7 days/Wk (IRF) Estimated Hrs Per Day: 1.5 hours per day Patient and/or Family Agrees t: Yes Safety Risks/Education Patient Education: Gait Training, Transfer Techniques, Correct Positioning, Safety Issues Teaching Recipient: Patient Teaching Methods: Demonstration, Discussion Response to Teaching: Reinforcement Needed Time/GCodes Time In: 0800 Time Out: 0815 Total Billed Treatment Time: 15 Total Billed Treatment 1 visit FA Celeste' OFELIA CHAPARRO PT Sep 01, 2021 08:19
--- NOTE | 2021-09-01 08:26 | Therapy Team Discharge Summary ---
Therapy Discharge Summary Discharge Recommendations Date of Discharge Physical Therapy Patient came to rehab with weakness and cellulitis. Upon evaluation patient performed bed mobility and supine <-> sit with SBA, sit <-> stand min assist (from low surfaces), transfers and car transfer SBA, ambulated 150' with a r olling walker with CGA (including 50' with at least 2 turns of 90 degrees and 10' over an uneven surface), and went up and down 1 step using a rolling walker with CGA. Patient has been performing bed mobility and transfer training, balance and endurance training, functional strengthening, stair training, gait training, and education. 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 Now, patient performs rolling and supine <-> sit with min assist, sit <-> stand and transfers setup, car transfer CGA/SBA, ambulates 150' with a rolling walker with CGA/SBA (including 50' with at least 2 turns of 90 degrees and 10' over an uneven surface), can go up and down 4 steps using 2 handrails with min assist, and can pick and shovel man and object from the floor using a piano case maker with SBA. Patient is being discharged from this facility today and will be discharged from PT at this time. Occupational Therapy Decreased Activ Tolerance, Decreased Safety Aware, Decreased UE Strength, Edema, Impaired Coordination, Impaired Funct Balance, Impaired I ADL's, Impaired Self- Care Skills, Restricted Funct UE ROM PT Furniture Refinisher Goals Halfway Goals PT Halfway Goals Time Frame: Sep 12, 2021 Roll Left to Right (QC): 6 Sit to Lying (QC): 6 Lying-Sitting on Side/Bed(QC): 6 Sit to Stand (QC): 5 Chair/Uvz-fb-Iqhtc Xfer(QC): 5 Car Transfer (QC): 5 Does the Patient Walk: Yes Walk 10 feet (QC): 5 (Met) Walk 10ft-Uneven Surface(QC): 5 Walk 50ft with 2 Turns (QC): 5 (MEt) Walk 150 ft (QC): 5 Does the Pt use WC or Scooter?: Yes Wheel 50 feet with 2 turns (QC: 9 (5) 1 Step (curb) (QC): 4 4 Steps (QC): 4 12 Steps (QC): 88 Picking up an Object (QC): 4 OT Halfway Goals Furniture Refinisher Goals Time Frame: Sep 08, 2021 Eating (QC): 6 (met) Oral Hygiene (QC): 6 (met) Shower/Bathe Self (QC): 5 (not met) Upper Body Dressing (QC): 6 (not met) Lower Body Dressing (QC): 6 (not met) On/Off Footwear (QC): 6 (not met) Toileting Hygiene (QC): 6 (not met) Toilet/Commode Transfer (QC): 5 1=Demonstrate adherence to instructed precautions during ADL tasks. 2=Patient will verbalize/demonstrate understanding of assistive devices/modifications for ADL. 3=Patient will improve strength/tolerance for activity to enable patient to perform ADL's. Speech Furniture Refinisher Goals Halfway Goals Patient will improve functional abilities in order to return home safer and independent. OFELIA CHAPARRO PT Sep 01, 2021 08:26
[2021-09-01] MEDS: FOLIC ACID 1 MG TAB PO SCH (08:40)
[2021-09-01] MEDS: meTOproloL SUCCINATE 50 MG (TOPROL XL) TAB PO SCH (08:40)
[2021-09-01] MEDS ORDERED: ASPIRIN E.C. 81 MG (ECOTRIN) TAB PO SCH (09:00)
--- NOTE | 2021-09-01 10:36 | Occupational Ther Daily Note ---
OT Current Status-Daily Note Subjective Will be co-treating with OT for family training before patient leaves. Patient's daughter present for training. Patient reports being very tired/drowsy this morning. Appearance Pt left sitting EOB, daughter in room. Mental Status/Objective Attachments: IV ADL-Treatment Therapy Code Descriptions/Definitions Functional [place] Measure: 0=Not Assessed/NA 4=Minimal Assistance 1=Total Assistance 5=Supervision or Setup 2=Maximal Assistance 6=Modified [place] 3=Moderate Assistance 7=Complete IndependenceSCALE: Activities may be completed with or without assistive devices. 9-Jazrkdyaie-ibawffs completes the activity by him/herself with no assistance from a helper. 5-Set-up or Clean-up Assistance-helper sets up or cleans up; patient completes activity. [place] assists only prior to or following the activity. 4-Supervision or Touching Assistance-helper provides verbal cues and/or touching/steadying and/or contact guard assistance as patient completes activity. Assistance may be provided throughout the activity or intermittently. 3-Partial/Moderate Assistance-helper does LESS THAN HALF the effort. [place] lifts, holds or supports trunk or limbs, but provides less than half the effort. 2-Substantial/Maximal Assistance-helper does MORE THAN HALF the effort. [place] lifts or holds trunk or limbs and provides more than half the effort. 5-[place]ep[place]hnn-lnbgnv does ALL the effort. Patient does none of the effort to complete the activity. Or, the assistance of 2 or more helpers is required for the patient to complete the activity. If activity was not attempted, code reason: 7-Patient Refused. 9-Not Applicable-not attempted and the patient did not perform the activity before the current illness, exacerbation or injury. 10-Not Attempted due to Environmental Limitations-(lack of equipment, weather restraints, etc.). 88-Not Attempted due to Medical Conditions or Safety Concerns. Other Treatment Daughter present for family training. Discussion/education on adaptive/compensatory strategies as well as energy conservation techniques pt could utilize post d/c. Dtr asks appropriate questions and appears to have good understanding. She reports that pt is still wanting to go home alone. OT discussed benefits of staying with daughter for short time. Pt in agreement and reports he will go home with daughter. OT stressed the importance of continuing mobility and exercises and not relying on lift chair or sedentary lifestyle. Education OT Patient Education: Correct positioning, Energy conservation, Home exercise program, Instructions to caregiver, Modified ADL techniques, Purpose of tx/functional activities, Reviewed precautions, Safety issues, Transfer techniques Teaching Recipient: Patient, Family Teaching Methods: Demonstration, Discussion Response to Teaching: Verbalize Understanding OT Short Term Goals Short Term Goals Time Frame: Sep 01, 2021 Eatin Oral hygiene: 5 Toileting hygiene: 4 Shower/bathe self: 4 Upper body dressin Lower body dressin Putting on/taking off footwear: 5 OT Shelter Goals Pharmacy Clinical Coordinator Goals Time Frame: Sep 08, 2021 Eating (QC): 6 (met) Oral Hygiene (QC): 6 (met) Toileting Hygiene (QC): 6 (not met) Shower/Bathe Self (QC): 5 (not met) Upper Body Dressing (QC): 6 (not met) Lower Body Dressing (QC): 6 (not met) On/Off Footwear (QC): 6 (not met) 1=Demonstrate adherence to instructed precautions during ADL tasks. 2=Patient will verbalize/demonstrate understanding of assistive devices/modifications for ADL. 3=Patient will improve strength/tolerance for activity to enable patient to perform ADL's. OT Education/Plan Problem List/Assessment Assessment: Decreased Activ Tolerance, Decreased UE Strength, Edema, Impaired Coordination, Impaired Funct Balance, Impaired I ADL's, Restricted Funct UE ROM Discharge Recommendations Plan/Recommendations: Discontinue OT Therapy Discharge Recommendati: Intermittent Supervision, Homemaker Support Equpiment Recommendations-D/C: Rails on Tub/Shower, Toilet Riser with Rails, Bath Chair Treatment Plan/Plan of Care Treatment,Training & Education: Yes Patient would benefit from OT for education, treatment and training to promote independence in ADL's, mobility, safety and/or upper extremity function for ADL's. Plan of Care: ADL Retraining, Functional Mobility, Group Exercise/Act as Ind, UE Funct Exercise/Act Treatment Duration: Sep 08, 2021 Frequency: At least 5 of 7 days/Wk (IRF) Estimated Hrs Per Day: 1.5 hours per day Agreement: Yes Rehab Potential: Fair Time/GCodes Start Time: 08:00 Stop Time: 08:25 Total Time Billed (hr/min): 25 Billed Treatment Time 1 visit ADL x2 Gema Araya OT Sep 01, 2021 10:36
[2021-09-01 11:30] VITALS: BP 148/78
--- NOTE | 2021-09-01 13:20 | Behavioral Health Consult ---
Consult- Consult Date Seen by Provider: Sep 01, 2021 Time Seen by Provider: 10:10 [facility] PSYCHOLOGICAL CONS[facility]ATION PATIENT: Capo Matthews DATE: 1955 DATE OF EVALUATION: 09/01/21 (10:10-10:55) DATE OF REPORT: 09/01/21 REFERRAL QUESTION: Capo Matthews is a 65-year-old male who was admitted to the hospital because of debility. Dr. Humphreys asked for a psychological consultation due to patient wanting to return home instead of going to his daughters house. TEST ADMINISTERED: Clinical Interview with Patient PRESENTING PROBLEMS: Capo Matthews reportedly fell a few times at home lately. He wants to return home although he is not steady when walking by report. The staff indicate that they want him to go and stay with his daughter until he fully recovers. Mr. Matthews indicates that he likes his house in [place] and rebuilt it himself. He states that he appreciates his daughter and seemed to be more willing to stay with her for a while as the discussion progressed. He shared some stories about himself and his family and seems to be in decent spirits as he prepares to leave the hospital today. CURRENT/PREVIOUS MENTAL HEALTH TREATMENT: No previous mental health treatment was reported. MEDICAL HISTORY: See medical chart for detailed history. He did not mention any major health issues and medications were not discussed. RECREATIONAL DRUG USAGE: There was not any report of substance abuse problems. The records indicate a history of alcohol problems. EDUCATIONAL AND VOCATIONAL HISTORIES: Mr. 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 He states that stopped doing any side jobs this past January. Educational history was not attained. LEGAL HISTORY: No legal problems were reported. FAMILY AND SOCIAL HISTORIES/SOCIAL SUPPORT: Mr. Matthews lives at home by himself. He reports that his daughter used to live three houses away but moved to [place], [place] last year. He states that he has been lonely since that time as he does not have too many friends in [place]. He talked about losing numerous people in his family the past several years including his parents, siblings, and step daughter. BEHAVIORAL OBSERVATIONS/MENTAL STATUS: The patient was seen in his hospital room as he was sitting up in his hospital bed. He made good eye contact and engaged well with the rfp writer. His answers started out being brief but talked more freely as the interview progressed. He admits to feeling lonely at home but states that he finds things to do to stay busy. He states that he looks forward to being able to fish again. SUMMARY: Mr. Matthews is currently at the hospital due to deterioration in physical functioning. He was cooperative during the exam and appears more open to going home with his daughter than when the referral request was made yesterday. He is encouraged to follow up with outpatient psychotherapy with this rfp writer should he desire. 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 Copy Copies To 1: CHANTAL HUMPHREYS JEFFREY M SILVIANO Sep 01, 2021 13:20
--- NOTE | 2021-09-01 14:10 | Therapy Team Discharge Summary ---
Therapy Discharge Summary Discharge Recommendations Date of Discharge 09/01/21 Therapy D/C Recommendations: Occupational Therapy Home Care, Homemaker Support, Intermittent Supervision Occupational Therapy Patient came to rehab with weakness and cellulitis. Upon evaluation he performed LB dressing and toileting with Min A and was CGA for footwear, upper body dressing, and oral hygiene. While on rehab, OT focused on safety, endurance, LE strength, balance, UE strength/rom, coordination/dexterity and activity tolerance needed for adls. Initially pt was making good progress however as his stay continued, pt refused to incorporate his LUE into functional tasks. Patient has made some progress but has only met a couple of fci goals for adls. Now, patient performs toileting, transfers, bathing, and lower body dressing with SBA-CGA, Mod a for footwear, and is set up for upper body dressing. Patient is being discharged from this facility today and will be discharged from OT at this time. Decreased Activ Tolerance, Decreased UE Strength, Edema, Impaired Coordination, Impaired Funct Balance, Impaired I ADL's, Restricted Funct UE ROM PT Parcel Post Carrier Goals Parcel Post Carrier Goals PT Parcel Post Carrier Goals Time Frame: Sep 12, 2021 Roll Left to Right (QC): 6 Sit to Lying (QC): 6 Lying-Sitting on Side/Bed(QC): 6 Sit to Stand (QC): 5 Chair/Qxo-nl-Jizuv Xfer(QC): 5 Car Transfer (QC): 5 Does the Patient Walk: Yes Walk 10 feet (QC): 5 (Met) Walk 10ft-Uneven Surface(QC): 5 Walk 50ft with 2 Turns (QC): 5 (MEt) Walk 150 ft (QC): 5 Does the Pt use WC or Scooter?: Yes Wheel 50 feet with 2 turns (QC: 9 (5) 1 Step (curb) (QC): 4 4 Steps (QC): 4 12 Steps (QC): 88 Picking up an Object (QC): 4 OT Snf Goals Snf Goals Time Frame: Sep 08, 2021 Eating (QC): 6 (met) Oral Hygiene (QC): 6 (met) Shower/Bathe Self (QC): 5 (not met) Upper Body Dressing (QC): 6 (not met) Lower Body Dressing (QC): 6 (not met) On/Off Footwear (QC): 6 (not met) Toileting Hygiene (QC): 6 (not met) Toilet/Commode Transfer (QC): 5 (not met) 1=Demonstrate adherence to instructed precautions during ADL tasks. 2=Patient will verbalize/demonstrate understanding of assistive devices/modifications for ADL. 3=Patient will improve strength/tolerance for activity to enable patient to perform ADL's. Speech Parcel Post Carrier Goals Snf Goals Patient will improve functional abilities in order to return home safer and independent. Gema Araya OT Sep 01, 2021 14:10
== END 2021-09-01 11:30 | disposition home or self-care (01) | DRG 948 ==
PROVIDERS: ADMIT Internal Medicine; ATTEND Internal Medicine
DX: R53.81 Other malaise (principal); L03.114 Cellulitis of left upper limb; N20.2 Calculus of kidney with calculus of ureter; I47.1 Supraventricular tachycardia; R53.1 Weakness; Z91.81 History of falling; R41.89 Other symptoms and signs involving cognitive functions and awareness; D64.9 Anemia, unspecified; R31.0 Gross hematuria; F10.21 Alcohol dependence, in remission; Z79.84 Long term (current) use of oral hypoglycemic drugs; I12.9 Hypertensive chronic kidney disease with stage 1 through stage 4 chronic kidney disease, or unspecified chronic kidney disease; E11.22 Type 2 diabetes mellitus with diabetic chronic kidney disease; N18.9 Chronic kidney disease, unspecified; E66.9 Obesity, unspecified; Z68.29 Body mass index [BMI] 29.0-29.9, adult; R29.898 Other symptoms and signs involving the musculoskeletal system; F32.A Depression, unspecified; R45.3 Demoralization and apathy
CPT/HCPCS: 36415; 70450; 74176; 80053; 80061; 81000; 82947; 83735; 84443; 85025; 87088; 88112; 93005; 93306

== ENCOUNTER → 2021-08-24 | Day surgery (SDC) | payer SELFPAY ==
[~2021-08-24] MED LIST changes: +ADENOSINE 6 MG/2 ML (ADENOCARD) VIAL IV ONE; +ASPI-1238 PO; +DILT240C90 PO; +LIDO700A45 TP; +LIDOCAINE UROJET 2% GEL 10 ML PKG ONE; +METO50TA7 PO; +NS (IVPB) 100 ML ONE; +NS IV 1000 ML 1,000 ML ONE
--- NOTE | 2021-08-24 07:32 | Progress Note-Pre Operative ---
Pre-Operative Progress Note H&P Reviewed The H&P was reviewed, patient examined and no changes noted. Date Seen by Provider: Aug 24, 2021 Time Seen by Provider: 07:32 Date H&P Reviewed: Aug 24, 2021 Time H&P Reviewed: 07:32 Pre-Operative Diagnosis: GROSS HEMATURIA FAYE ALBRIGHT MD Aug 24, 2021 07:32
--- NOTE | 2021-08-24 07:33 | Progress Note-Post Operative ---
Post-Operative Progess Note Surgeon (s)/Dinkey Dispatcher (s) Surgeon FAYE ALBRIGHT MD Dinkey Dispatcher: NONE Pre-Operative Diagnosis GROSS HEMATURIA Post-Operative Diagnosis SAME Procedure & Operative Findings Date of Procedure 08/24/21 Procedure Performed/Findings CYSTOSCOPY Anesthesia Type LOCAL Estimated Blood Loss Estimated blood loss (mL): NONE Specimens/Packing Specimens Removed NONE Packing: NONE FAYE ALBRIGHT MD Aug 24, 2021 07:33
--- NOTE | 2021-08-24 20:25 | OPERATIVE REPORT ---
DATE OF SERVICE: 08/24/2021 PREOPERATIVE DIAGNOSIS: Gross hematuria. POSTOPERATIVE DIAGNOSIS: Gross hematuria. OPERATION PERFORMED: Cystoscopy. SURGEON: Dano Albright MD ANESTHESIA: Local. COMPLICATIONS: None. DESCRIPTION OF PROCEDURE: With the patient supine in his bed, the genitalia were prepped and draped in the usual sterile fashion. Urethra was infiltrated with lidocaine jelly and a penile clamp was applied. This was then removed and a flexible cystoscope was introduced under vision. The anterior urethra was normal. The prostate revealed trilobar enlargement with bladder neck obstruction. Bladder was entered and revealed a kind of full with trabeculations, no foreign body, bladder tumor or stone visualized. No carcinoma in situ or cystitis visualized. Ureteric orifices normal in shape, size and configuration with clear efflux. Cystoscopy was confirmed in an antegrade fashion and the cystoscope was removed. The patient tolerated the procedure and anesthesia well, remained in his bed in stable condition. Examination of genitalia, phallus circumcised. Testes down to scrotum and decreased in size. Rectal exam flat, 1+ benign, nontender elastic prostate. PLAN: 1. Check postvoid residual bladder scan this afternoon. 2. Obtain a noncontrast CT scan of the abdomen and pelvis to complete the gross hematuria workup. Plan was fully explained to the patient. Job ID: [id number] DocumentID: [id number] Dictated Date: 08/24/2021 08:36:59 Petroleum Engineering Professor Date: 08/24/2021 13:05:41 Dictated By: DANO ALBRIGHT MD
--- NOTE | 2021-09-21 11:18 | CONSULTATION REPORT ---
NAME: [facility]ANNA [facility] REC#: [id number] : 1955 ADMIT DATE: 08/22/21 DATE OF SERVICE: 08/23/2021 ATTENDING PHYSICIAN: Dr. Humphreys. SUMMARY: After reviewing the patient's records, interviewing him, this is a 65-year-old white man admitted because of debility and significant weakness and multiple falls. Yesterday, he started having gross hematuria, which is totally asymptomatic, start clearing up. Never had it before. He denies any history of urolithiasis. Denies any history of cancer. Denies any usage of aspirin or blood thinners. Physical exam was deferred at the time of cystoscopy. IMPRESSION: Gross hematuria. PLAN: 1. Urine cytology. 2. Cystoscopy at bedside local tomorrow, fully explained to the patient with instructions. 3. We will order a noncontrast CT scan of the abdomen after the cystoscopy. The plan was fully explained to the patient. Job ID: [id number] DocumentID: [id number] Dictated Date: 08/23/2021 13:24:17 [employer] Date: 08/23/2021 14:22:19 Dictated By: FAYE ALBRIGHT MD <Dictated by FAYE ALBRIGHT MD> <Electronically signed by FAYE ALBRIGHT MD> 08/25/21 [id number] MTDD
== END | disposition home or self-care (01) ==
LOC: SDC 06:55
PROVIDERS: ATTEND Urology
DX: R31.0 Gross hematuria (principal); R53.81 Other malaise; R53.1 Weakness; R29.6 Repeated falls

== ENCOUNTER 2021-08-30 09:45 | Observation (INO) | payer SELFPAY ==
[~2021-08-30] VITALS: Ht 195.6 cm; Wt 122.0 kg
[~2021-08-30 09:45] MED LIST changes: -ADENOSINE 6 MG/2 ML (ADENOCARD) VIAL IV ONE; -ASPI-1238 PO; -DILT240C90 PO; -LIDO700A45 TP; -LIDOCAINE UROJET 2% GEL 10 ML PKG ONE; -METO50TA7 PO; -NS (IVPB) 100 ML ONE; -NS IV 1000 ML 1,000 ML ONE
--- NOTE | 2021-08-30 10:28 | Cardiac Procedure Note ---
Cardiology Procedures Date of Procedure 08/30/2021 The patient developed asymptomatic supraventricular tachycardia. Carotid ultrasound did not convert the patient to sinus rhythm. He was subsequently transferred from the inpatient rehabilitation unit to the cardiac stepdown unit. 6 mg of intravenous adenosine was administered. This broke the tachycardia and to sinus rhythm. Please see his inpatient rehab account for my full consultation note. HUBERT CANCINO JR, MD Aug 30, 2021 10:28
--- NOTE | 2021-08-30 10:48 | History & Physical ---
History of Present Illness HPI/Chief Complaint CC: Episode of SVT with left arm weakness under stroke protocol HPI: This is a 65yoWM who was transferred from inpatient rehab due to a report of fast HR of 180 during PT. EKG was obtained, Dr. Berkowitz was consulted and diagnosis of SVT. He was mildly hypotensive and only slightly weak for symptoms. He was moved upstairs, and Adenosine aborted the SVT. Metoprolol was increased from 50 to 100 and he is doing well [facility] stroke protocol showed no evidence of any type of stroke and he will be transferred back to rehab for continued recovery Source: patient, RN/MD Exam Limitations: clinical condition Date Seen 08/30/21 Time Seen by a Provider: 09:00 Attending Physician Tati Humphreys DO PCP Sam Zambrano DO Referring Physician Date of Admission Aug 30, 2021 at 10:08 Home Medications & Allergies Home Medications Reviewed patient Home Medication Reconciliation performed by pharmacy medication reconciliations painting technician and/or nursing. Patients Allergies have been reviewed. Allergies Allergies Coded Allergies No Known Drug Allergies ([id number]/9/21) NKDA Past Zzardjf-Ucpdhp-Zluhoo Hx Past Med/Social Hx: Reviewed Nursing Past Med/Soc Hx, Reviewed and Corrections made Patient Social History Marrital Status: single Employed/Student: unemployed Alcohol Use: Regular Use Smoking Status: Former Smoker Past Medical History Surgeries: Orthopedic Cardiac: Hypertension Musculoskeletal: Chronic Back Pain Endocrine: Diabetes, Non-Insulin dep Skin/Integumentary: Psoriasis Family History Cancer Review of Systems Constitutional: see HPI, malaise, weakness EENTM: no symptoms reported Respiratory: no symptoms reported Cardiovascular: no symptoms reported Gastrointestinal: no symptoms reported Musculoskeletal: back pain Skin: no symptoms reported Psychiatric/Neurological: No Symptoms Reported All Other Systems Reviewed Negative Unless Noted: Yes Physical Exam Physical Exam Vital Signs Vital Signs - First Documented 08/30/21 09:44 Temp 36.1 Pulse 184 Resp 20 B/P (MAP) 95/63 Pulse Ox 96 O2 Delivery Room Air Capillary Refill : Height, Weight, BMI Height: '" Weight: lbs. oz. kg; 29.63 BMI Method: General Appearance: No Apparent Distress, WD/WN, Anxious, Chronically ill, Obese Eyes: Bilateral Eye Normal Inspection, Bilateral Eye PERRL HEENT: PERRL/EOMI, Normal ENT Inspection, Pharynx Normal Neck: Full Range of Motion, Normal Inspection, Non Tender, Supple, Carotid Bruit Respiratory: Chest Non Tender, Lungs Clear, Normal Breath Sounds, No Accessory Muscle Use, No Respiratory Distress Cardiovascular: Regular Rate, Rhythm, No Edema, No Gallop, No JVD, No Murmur, Normal Peripheral Pulses Gastrointestinal: Normal Bowel Sounds, No Organomegaly, No Pulsatile Mass, Non Tender, Soft Back: Normal Inspection, No CVA Tenderness, No Vertebral Tenderness Extremity: Normal Capillary Refill, Normal Inspection, Normal Range of Motion, Non Tender, No Calf Tenderness, No Pedal Edema Neurologic/Psychiatric: Alert, Oriented x3, No Motor/Sensory Deficits, Normal Mood/Affect Skin: Normal Color, Warm/Dry Lymphatic: No Adenopathy Results Results/Procedures Labs Patient resulted labs reviewed. Assessment/Plan Admission Diagnosis Assessment: Acute onset of SVT requiring transfer to cardiac stepdown on monitor to give adenosine by Dr. Berkowitz Acute left arm weakness NIH scale of 2 on stroke protocol Plan: Stroke protocol Adenosine Increase metoprolol Appreciate Dr. Berkowitz Admission Status: Observation Diagnosis/Problems Diagnosis/Problems (1) Left arm weakness (2) Supraventricular tachycardia TATI HUMPHREYS DO Aug 30, 2021 10:48
[2021-08-30 11:47] LABS: INR 1.1 (0.8-1.4); PROTHROMBIN TIME PATIENT 14.4 SEC (12.2-14.7)
--- NOTE | 2021-08-30 12:27 | Discharge Summary ---
Diagnosis/Chief Complaint Date of Admission Aug 30, 2021 at 10:08 Date of Discharge Discharge Date: Aug 30, 2021 Discharge Diagnosis Episode of SVT aborted with adenosine Left arm weakness on stroke protocol no evidence of CVA Discharge Summary Discharge Physical Examination Allergies: Coded Allergies: No Known Drug Allergies (Unverified , 07/22/21) NKDA Vitals & I&Os Vital Signs Date Time Temp Pulse Resp B/P (MAP) Pulse Ox O2 Delivery O2 Flow Rate FiO2 08/30/21 12:31 83 08/30/21 12:03 36.3 13 135/85 96 Room Air Hospital Course Was the Problem List Reviewed?: Yes See HPI Labs (last 24 hrs) Laboratory Tests 08/30/21 11:25: Prothrombin Time 14.4, INR Comment 1.1 Pending Labs Laboratory Tests 08/30/21 11:25: Prothrombin Time 14.4, INR Comment 1.1 Discharge Home Medications: Active Scripts Active Cephalexin 250 Mg Capsule 500 Mg PO BID Reported Folic Acid 1 Mg Tablet 1 Mg PO DAILY Metoprolol Tartrate 50 Mg Tablet 50 Mg PO DAILY Instructions to patient/family Please see electronic discharge instructions given to patient. CHANTAL LAIRD DO Aug 30, 2021 12:27
--- NOTE | 2021-08-30 12:51 | Progress Note ---
MITCH THAYER 08/30/21 1251: Progress Note Mr. Matthews is a current patient in inpatient rehab at [facility]. This morning around 0930 he experienced a sudden HR of 189, a BP of 89/66, and L arm pain, weakness, and SOB. An EKG was performed that showed SVT. He was given metoprolol. He denied chest pain, vision changes, or nausea. He was cool and clammy on physical exam. He was transferred up to [facility] where his vital signs remained abnormal. An NIH test was administered by nursing staff due to suspected stroke to which he scored a 2. He was then given adenosine with Dr. Berkowitz which successfully converted his SVT. This afternoon I administered another NIH test to which he scored a 0. He had no complaints, pain, CP, or issues. His HR and BP were normalized at the time of our encounter and he was in sinus rhythm. The current plan is to move him back to inpatient rehab. TATI LAIRD DO 08/31/21 0554: Supervisory-Addendum Brief Verification & Attestation Participated in pt care: history, MDM, physical Personally performed: exam, history, MDM, supervision of care Care discussed with: Medical Student Procedures: n/a Results interpretation: Verified all documentation Verification and Attestation of Medical Student E/M Service A medical student performed and documented this service in my presence. I reviewed and verified all information documented by the medical student and made modifications to such information, when appropriate. I personally performed the physical exam and medical decision making. Tati Laird Aug 31, 2021,05:54 MITCH THAYER Aug 30, 2021 12:51 TATI LAIRD DO Aug 31, 2021 05:54
--- NOTE | 2021-08-30 16:56 | Diagnostic Imaging Report ---
PROCEDURE: US carotid duplex, bilateral. TECHNIQUE: Multiple real-time grayscale images were obtained over the carotid arteries in various projections, bilaterally. Additional spectral analysis and color Doppler duplex images were also obtained. INDICATION: Left arm weakness. COMPARISON: None available. FINDINGS: Minimal scattered plaque is noted within the bilateral carotid arterial systems. Peak systolic velocities throughout the bilateral carotid arterial systems are within normal limits. Additionally, the bilateral internal carotid artery to common carotid artery ratios are within normal limits. Antegrade flow within the bilateral vertebral arteries. IMPRESSION: No evidence of hemodynamically significant stenosis. Antegrade flow within the bilateral vertebral arteries. Parameters based on the consensus panel Mckinney-Scale and Doppler ultrasound criteria published August 2003, Radiology, Volume 229. DOPPLER (peak systolic velocity M/S Right Left CCA .76 .62 ICA Proximal .27 .48 ICA Mid .34 .40 ICA Distal .44 .58 RATIO .58 .93 ECA .52 .83 VERT .39 .49 Dictated by: Dictated on workstation # [id number]
[2021-08-31] MEDS ORDERED: meTOprolol SUCCINATE 100 MG (TOPROL XL) TAB PO SCH (09:00)
[2021-08-31] MEDS ORDERED: ASPIRIN E.C. 81 MG (ECOTRIN) TAB PO SCH (09:00)
[2021-09-01] MEDS ORDERED: METO50TA7 PO (06:06)
[2021-09-01] MEDS ORDERED: ASPI-1238 PO (06:06)
== END 2021-08-30 14:00 ==
LOC: CSD 09:45 → UNDOADMIN 10:08 → CSD 10:08 → UNDODISIN 14:00 → EDSTATUS 22:58
PROVIDERS: ADMIT Internal Medicine; ATTEND Internal Medicine
DX: I47.1 Supraventricular tachycardia (principal); R53.1 Weakness; Z79.2 Long term (current) use of antibiotics; Z79.899 Other long term (current) drug therapy; Z87.891 Personal history of nicotine dependence
CPT/HCPCS: 85610; 93880; G0378; G0379; 36415

== ENCOUNTER 2021-09-04 05:59 | Emergency (ER) | payer SELFPAY ==
[~2021-09-04 05:59] MED LIST changes: +ASPI-1238 PO; +LISI1TAB26 PO; -LISI1TAB48 PO; +METO50TA7 PO
--- NOTE | 2021-09-04 06:27 | ED Cardiac General ---
History of Present Illness General Chief Complaint: Cardiac/General Problems Stated Complaint: SOB Nursing Triage Note: Pt brought in by ems with tachycardia. Pt states he was feeling short of breath and weak. Source: patient, EMS Exam Limitations: no limitations History of Present Illness Date Seen by Provider: Sep 04, 2021 Time Seen by Provider: 06:00 Initial Comments 65-year-old male with past medical history of hypertension coming in due to generally feeling weak and short of breath. He woke up at [address] felt [address] way. Never felt this way before. His dyspnea is moderate, constant, nothing seems to make it better or worse. Says he was recently discharged from rehab on Saturday for weakness and frequent falls. This occurred once in the hospital he said, but they said it went away and they called that a fluke. He is otherwise denying any chest pain, fever, abdominal pain, nausea, vomiting, focal weakness or numbness, vision changes, headache, or any other concerns. Allergies and Home Medications Allergies Coded Allergies: No Known Drug Allergies (Unverified , 09/04/21) Patient Home Medication List Home Medication List Reviewed: Yes Lidocaine (Lidocaine 5% Patch) 1 Each Adh..patch, 1 EACH TP Q12H PRN for Neuropathic pain Prescribed by: KATHY SHEETS on 09/04/21 0713 Review of Systems Review of Systems Constitutional: No chills, No fever EENTM: No Blurred Vision Respiratory: Denies Cough; Shortness of Air Cardiovascular: Denies Chest Pain; Palpitations Gastrointestinal: Denies Abdominal Pain Genitourinary: No Symptoms Reported Musculoskeletal: no symptoms reported Skin: no symptoms reported Psychiatric/Neurological: No Symptoms Reported Endocrine: No Symptoms Reported Hematologic/Lymphatic: No Symptoms Reported All Other Systems Reviewed Negative Unless Noted: Yes Past Fijnvue-Godncx-Bppuuq Hx Patient Social History Tobacco Use?: No Use of E-Cig and/or Vaping dev: No Substance use?: No Alcohol Use?: No Pt feels they are or have been: No Past Medical History Surgeries: Yes Orthopedic Physical Exam Vital Signs Vital Signs - First Documented 09/04/21 06:00 Pulse 170 Resp 20 B/P (MAP) 90/52 (65) Pulse Ox 99 O2 Delivery Room Air Capillary Refill : Less Than 3 Seconds Height, Weight, BMI Height: '" Weight: lbs. oz. kg; BMI Method: General Appearance: No Apparent Distress, WD/WN HEENT: PERRL/EOMI, Normal ENT Inspection, Pharynx Normal Neck: Full Range of Motion, Normal Inspection, Non Tender, Supple Respiratory: Chest Non Tender, Lungs Clear, Normal Breath Sounds, No Accessory Muscle Use, No Respiratory Distress Cardiovascular: No Murmur, Normal Peripheral Pulses, Tachycardia (regular) Gastrointestinal: Normal Bowel Sounds, Non Tender, Soft; No Distended, No Guarding Extremity: Normal Capillary Refill, Normal Inspection, Normal Range of Motion, Non Tender, No Calf Tenderness, No Pedal Edema Neurologic/Psychiatric: Alert, Oriented x3, No Motor/Sensory Deficits, Normal Mood/Affect Skin: Normal Color, Warm/Dry Lymphatic: No Adenopathy Progress/Results/Core Measures Results/Orders Lab Results Laboratory Tests Test 09/04/21 06:20 Range/Units White Blood Count 14.4 H 4.3-11.0 10^3/uL Red Blood Count 3.32 L 4.30-5.52 10^6/uL Hemoglobin 9.9 L 13.3-17.7 g/dL Hematocrit 31 L 40-54 % Mean Corpuscular Volume 93 80-99 fL Mean Corpuscular Hemoglobin 30 25-34 pg Mean Corpuscular Hemoglobin Concent 32 32-36 g/dL Red Cell Distribution Width 15.9 H 10.0-14.5 % Platelet Count 434 H 130-400 10^3/uL Mean Platelet Volume 9.4 9.0-12.2 fL Immature Granulocyte % (Auto) 0 % Neutrophils (%) (Auto) 84 H 42-75 % Lymphocytes (%) (Auto) 9 L 12-44 % Monocytes (%) (Auto) 5 0-12 % Eosinophils (%) (Auto) 1 0-10 % Basophils (%) (Auto) 1 0-10 % Neutrophils # (Auto) 12.0 H 1.8-7.8 X 10^3 Lymphocytes # (Auto) 1.3 1.0-4.0 X 10^3 Monocytes # (Auto) 0.8 0.0-1.0 X 10^3 Eosinophils # (Auto) 0.2 0.0-0.3 10^3/uL Basophils # (Auto) 0.1 0.0-0.1 10^3/uL Immature Granulocyte # (Auto) 0.1 0.0-0.1 10^3/uL Neutrophils % (Manual) 89 % Lymphocytes % (Manual) 10 % Monocytes % (Manual) 1 % Toxic Granulation 4+ Polychromasia MODERATE Poikilocytosis SLIGHT Sodium Level 133 L 135-145 MMOL/L Potassium Level 4.4 3.6-5.0 MMOL/L Chloride Level 97 L 98-107 MMOL/L Carbon Dioxide Level 20 L 21-32 MMOL/L Anion Gap 16 H 5-14 MMOL/L Blood Urea Nitrogen 26 H 7-18 MG/DL Creatinine 1.94 H 0.60-1.30 MG/DL Estimat Glomerular Filtration Rate 35 BUN/Creatinine Ratio 13 Glucose Level 159 H 70-105 MG/DL Calcium Level 9.5 8.5-10.1 MG/DL Magnesium Level 1.9 1.6-2.4 MG/DL My Orders Orders - KATHY SHEETS MD Adenosine Injection (Adenocard Injection (09/04/21 06:30) Lactated Ringers (Lr 1000 Ml Iv Solution (09/04/21 06:30) Basic Metabolic Panel (09/04/21 06:22) Cbc With Automated Diff (09/04/21 06:22) Magnesium (09/04/21 06:22) Ed Iv/Invasive Line Start (09/04/21 06:22) Ekg Tracing (09/04/21 06:22) Monitor-Rhythm Ecg Trace Only (09/04/21 06:22) Ct Lumbar Spine Wo (09/04/21 06:28) Diltiazem Injection (Cardizem Injection) (09/04/21 06:45) Manual Differential (09/04/21 06:20) Medications Given in ED Current Medications Medications Dose Ordered Sig/Stephen Route Start Time Stop Time Status Last Admin Dose Admin Adenosine 12 mg ONCE ONCE IV 09/04/21 06:30 09/04/21 06:31 DC 09/04/21 06:33 12 MG Diltiazem HCl 10 mg ONCE ONCE IVP 09/04/21 06:45 09/04/21 06:46 DC 09/04/21 06:39 10 MG Vital Signs/I&O 09/04/21 06:00 Pulse 170 Resp 20 B/P (MAP) 90/52 (65) Pulse Ox 99 O2 Delivery Room Air Blood Pressure Mean: 65 Progress Progress Note : Progress Note 65-year-old male with above history coming in due to weakness and feel like his heart is racing and being short of breath. He was tachycardic to the 160s to 170s on arrival with blood pressure 90/65 initially. Normal mentation during this time. EKG with SVT. Tried vagal maneuvers x1, but he was unable to give a significant effort so aborted these and started an IV. He was given 12 mg of adenosine followed by flush and converted to sinus rhythm. He was then given a bolus of fluids. Basic labs including electrolytes ordered. During the episode he said he is having low back pain, and noted that he fell roughly 2 days ago landing on his buttocks. He is complaining of right lower back pain. No weakness or numbness with this. CT lumbar spine ordered. He did not hit his h ead or passed out. He is not on any blood thinners. He is Potter head and cervical spine rule negative. Labs significant for hemoglobin in the 9 range which is at his baseline, creatinine around 1.9 which is around his baseline, normal potassium, normal magnesium. CT lumbar spine ordered and interpreted by me showing advanced arthritis but no obvious fracture. We continue to monitor him and he continues to be in sinus rhythm. Blood pressure continues to be a MAP greater than 65. I believe he is stable for discharge with outpatient follow-up. He was sent home with strict return precautions. Initial ECG Impression Date: Sep 04, 2021 Initial ECG Impression Time: 06:01 Initial ECG Rate: 169 Initial ECG Rhythm: SVT Comment Narrow QRS, normal axis, ST depressions high lateral and inferiorly, likely rate related Diagnostic Imaging Diagonstic Imaging: CT Plain Films/CT/US/NM/MRI: other (lumbar spine) Comments No fracture or dislocation seen on my interpretation. Does have degenerative changes Departure Impression Primary Impression: SVT (supraventricular tachycardia) Additional Impression: Low back pain Qualified Codes: M54.50 - Low back pain, unspecified Disposition: 01 HOME, SELF-CARE Condition: Improved Departure-Patient Inst. Decision time for Depature: 07:10 Referrals: NO,LOCAL PHYSICIAN (PCP) Primary Care Physician HUBERT BEKROWITZ JR, MD ZAFUTA, MICHAEL P MD Patient Instructions: Low Back Pain (DC), Supraventricular Tachycardia (SVT) Add. Discharge Instructions: You are seen in the emergency department for your heart racing and you are in a rhythm called supraventricular tachycardia or SVT. You went into this while in the hospital recently and saw the cleaning machine operator Dr. Berkowitz. I do want you to follow-up with him within the next week because there are medications he can put you on to help prevent this from happening again. If this becomes a significant problem, you may need to have what is called an ablation, which Dr. Berkowitz can help coordinate for you. You were also seen for low back pain. Please take Tylenol 1000 mg every 6-8 hours for pain. You can also use a lidocaine patch. Ibuprofen is harmful to your kidneys so I would try to avoid that. You can also use a heating pad if that makes it feel better. Please also follow-up with the orthopedic doctor of your choice, Dr. Mccullough is the number I placed in this paperwork. Scripts Lidocaine (Lidocaine 5% Patch) 1 Each Adh..patch 1 EACH TP Q12H PRN for Neuropathic pain MDD 2 for 14 Days, #28 PATCH 2 patches max for 12 hours, then 12 hours patch-free period. Prov: KATHY SHEETS MD 09/04/21 KATHY SHEETS MD Sep 04, 2021 06:27
[2021-09-04] MEDS ORDERED: ADENOSINE 6 MG/2 ML (ADENOCARD) VIAL IV ONE (06:30)
[2021-09-04] MEDS ORDERED: LACTATED RINGERS 1,000 ML IV SCH (06:30)
[2021-09-04 06:36] LABS: WHITE BLOOD COUNT 14.4 10^3/uL (4.3-11.0)
[2021-09-04 06:37] LABS: BASOPHILS # (AUTO) 0.1 10^3/uL (0.0-0.1); BASOPHILS % (AUTO) 1 % (0-10); EOSINOPHILS # (AUTO) 0.2 10^3/uL (0.0-0.3); EOSINOPHILS % (AUTO) 1 % (0-10); HEMATOCRIT 31 % (40-54); HEMOGLOBIN 9.9 g/dL (13.3-17.7); LYMPHOCYTES # (AUTO) 1.3 X 10^3 (1.0-4.0); LYMPHOCYTES % (AUTO) 9 % (12-44); MEAN CORPUSCULAR HEMOGLOBIN 30 pg (25-34); MEAN CORPUSCULAR HGB CONC 32 g/dL (32-36); MEAN CORPUSCULAR VOLUME 93 fL (80-99); MEAN PLATELET VOLUME 9.4 fL (9.0-12.2); MONOCYTES # (AUTO) 0.8 X 10^3 (0.0-1.0); MONOCYTES % (AUTO) 5 % (0-12); NEUTROPHILS % (AUTO) 84 % (42-75); PLATELET COUNT 434 10^3/uL (130-400)
[2021-09-04 06:42] LABS: LYMPHOCYTES % (MANUAL) 10 %; NEUTROPHILS % (MANUAL) 89 %
[2021-09-04 06:43] LABS: MONOCYTES % (MANUAL) 1 %; POIKILOCYTOSIS SLIGHT; POLYCHROMASIA MODERATE; TOXIC GRANULATION/VACUOLAZATIO 4+
[2021-09-04 06:46] LABS: CALCIUM 9.5 MG/DL (8.5-10.1); MAGNESIUM 1.9 MG/DL (1.6-2.4); POTASSIUM 4.4 MMOL/L (3.6-5.0)
[2021-09-04 06:49] LABS: CREATININE SERUM 1.94 MG/DL (0.60-1.30)
--- NOTE | 2021-09-04 07:11 | Diagnostic Imaging Report ---
PROCEDURE: CT lumbar spine without contrast. TECHNIQUE: Multiple contiguous axial images were obtained through the lumbar spine without the use of intravenous contrast. Sagittal and coronal reformations were then performed. Auto Exposure Controls were utilized during the CT exam to meet ALARA standards for radiation dose reduction. INDICATION: Fall. Low back pain. COMPARISON: CT abdomen and pelvis without contrast 08/24/2021. FINDINGS: Normal alignment. Vertebral body heights are preserved. No fractures. The visualized pelvis is intact. Moderate to advanced spondylotic changes at L3-L5 appear to result in at least moderate spinal canal stenosis at both levels. Nonobstructing calyceal tip renal stones in the right kidney. Mild atherosclerotic calcifications. IMPRESSION: 1. No acute CT findings in the lumbar spine. 2. Moderate to advanced spondylotic changes at L3-L5 appear to result in at least moderate spinal canal stenosis at both levels. This could be better evaluated with MRI. Dictated by: Dictated on workstation # [id number]
[2021-09-04] MEDS ORDERED: LIDO700A45 TP (07:13)
[2021-09-04 07:50] VITALS: BP 108/89
[2021-09-05] MEDS ORDERED: DILT240C90 PO (04:55)
== END 2021-09-04 07:18 | disposition home or self-care (01) ==
LOC: ER FS 05:59 → MERGE 06:33 → ER FS 06:33
DX: I47.1 Supraventricular tachycardia (principal); M54.50 Low back pain, unspecified; I10 Essential (primary) hypertension
CPT/HCPCS: 36415; 72131; 80048; 83735; 85007; 85027; 93041

== ENCOUNTER 2021-09-05 03:11 | Emergency (ER) | payer SELFPAY ==
[~2021-09-05] VITALS: Ht 195.5 cm; Wt 122.4 kg
[~2021-09-05 03:11] MED LIST changes: +LIDO700A45 TP; -LISI1TAB26 PO; +LISI1TAB48 PO
[2021-09-05] MEDS ORDERED: NS IV 1000 ML 1,000 ML IV STA (03:33)
[2021-09-05 03:51] LABS: HEMATOCRIT 31 % (40-54); HEMOGLOBIN 9.8 g/dL (13.3-17.7); MEAN CORPUSCULAR HEMOGLOBIN 30 pg (25-34); MEAN CORPUSCULAR HGB CONC 30 g/dL (32-36); MEAN CORPUSCULAR VOLUME 93 fL (80-99); WHITE BLOOD COUNT 13.5 10^3/uL (4.3-11.0)
[2021-09-05 03:52] LABS: BASOPHILS # (AUTO) 0.1 10^3/uL (0.0-0.1); BASOPHILS % (AUTO) 0 % (0-10); EOSINOPHILS # (AUTO) 0.1 10^3/uL (0.0-0.3); EOSINOPHILS % (AUTO) 1 % (0-10); LYMPHOCYTES # (AUTO) 1.1 X 10^3 (1.0-4.0); LYMPHOCYTES % (AUTO) 8 % (12-44); MEAN PLATELET VOLUME 9.9 fL (9.0-12.2); MONOCYTES # (AUTO) 0.7 X 10^3 (0.0-1.0); MONOCYTES % (AUTO) 5 % (0-12); NEUTROPHILS # (AUTO) 11.5 X 10^3 (1.8-7.8); NEUTROPHILS % (AUTO) 85 % (42-75); PLATELET COUNT 385 10^3/uL (130-400); PROTHROMBIN TIME PATIENT 13.5 SEC (12.2-14.7)
--- NOTE | 2021-09-05 03:52 | ED Cardiac General ---
History of Present Illness General Chief Complaint: Chest Pain Stated Complaint: SOB Nursing Triage Note: Patient arrived via EMS for chest pain and shortness of breath. EMS states that the patient's heart rate was 170 upon their arrival. EMS started a 20g in the left AC and gave 6mg of Adenosine with successful conversion. Patient was still complaining of chest pain. Patient was given 2 nitro and 324mg of baby ASA. NS is running wide open with 200mls in upon arrival. Patient was seen in the ER for the same issue yesterday. Source: patient, EMS, old records History of Present Illness Date Seen by Provider: Sep 05, 2021 Time Seen by Provider: 03:11 Initial Comments 65-year-old male presenting with recurrent SVT episode this morning. He reportedly was having this for approximately 30 minutes prior to arrival of EMS. He was complaining of chest pain at the base of his throat and shortness of breath. The chest pain was just with taking a breath. He has been having multiple recurrent episodes of SVT recently. He was recently in the hospital where he had SVT as well. He had had SVT back in July and was associated with dehydration and renal insufficiency at that time. Yesterday morning when he was here in the ED for SVT he converted with 6 mg of adenosine. This worked again this morning when EMS saw him. He was in a sinus rhythm on arrival to the ED. He also had received 324 mg of baby aspirin and 2 nitroglycerin prior to arrival in the ED. He rates the pain when he takes of breath at 3 or 4. He states that his chest at the base of his throat does not radiate anywhere. He denies having that with previous episodes. Severity: mild Location: other (base of throat) Activities at Onset: sleep Prior CP/Workup: no prior chest pain, echocardiography (with svt beginning of 2020) NTG SL ENGINEERING INTERN: Yes ASA po ENGINEERING INTERN: Yes Associated Systoms: Chest Pain (at base of throat when he breaths in); No Cough, No Diaphoresis, No Fever/Chills, No Headaches, No Loss of Appetite, No Malaise, No Nausea/Vomiting, No Rash, No Seizure; Shortness of Air (when he was having SVT); No Syncope; Weakness (generalized) Allergies and Home Medications Allergies Coded Allergies: No Known Drug Allergies (Unverified , 07/22/21) NKDA Patient Home Medication List Home Medication List Reviewed: Yes Aspirin (Aspirin EC) 81 Mg Tablet.dr, 81 MG PO DAILY Prescribed by: CHANTAL LAIRD on 09/01/21 06 Diltiazem HCl (Diltiazem 24Hr Cd) 240 Mg Cap.er.24h, 240 MG PO DAILY Prescribed by: LIZA GIBSON on 09/05/21 0455 Folic Acid (Folic Acid) 1 Mg Tablet, 1 MG PO DAILY, (Reported) Entered as Reported by: SHINE NEGRETE on 08/21/21 1258 Lidocaine (Lidocaine 5% Patch) 1 Each Adh..patch, 1 EACH TP Q12H PRN for Neuropathic pain Prescribed by: KATHY SHEETS on 09/04/21 0713 Discontinued Medications Cephalexin (Cephalexin) 250 Mg Capsule, 500 MG PO BID Prescribed by: CICI SNELL on 08/22/21 0929 Metoprolol Succinate (Metoprolol Succinate) 50 Mg Tab.er.24h, 100 MG PO DAILY Prescribed by: CHANTAL LAIRD on 09/01/21 06 Metoprolol Tartrate (Metoprolol Tartrate) 50 Mg Tablet, 50 MG PO DAILY, (Reported) Entered as Reported by: WOO FRAIRE on 07/23/21 1704 Review of Systems Review of Systems Constitutional: No chills, No diaphoresis, No dizziness, No fever EENTM: No Symptoms Reported Respiratory: See HPI Cardiovascular: See HPI Gastrointestinal: Denies Nausea, Denies Vomiting Genitourinary: Denies Burning, Denies Frequency, Denies Flank Pain, Denies Hematuria Musculoskeletal: back pain (chronic) Skin: no symptoms reported Psychiatric/Neurological: Denies Numbness; Weakness (generalized weakness) Endocrine: No Symptoms Reported Hematologic/Lymphatic: Denies Blood Clots Past Cejkqku-Aqzwuv-Thrsdo Hx Patient Social History Tobacco Use?: No Substance use?: No Alcohol Use?: No Immunizations Up To Date First/Initial COVID19 Vaccinat: 04/03 Second COVID19 Vaccination Duc: 05/03 Third COVID19 Vaccination Date: 03/2021 COVID19 Vaccine Keyboard Specialist: Ting Past Medical History Surgery/Hospitalization HX: SVT, hx of alcohol abuse Surgeries: Yes Orthopedic Hypertension Chronic Back Pain Diabetes, Non-Insulin dep Psoriasis Family Medical History Cancer Physical Exam Vital Signs Vital Signs - First Documented 09/05/21 03:12 Temp 37.0 Pulse 97 Resp 18 B/P (MAP) 115/81 (92) Pulse Ox 96 O2 Delivery Room Air Capillary Refill : Less Than 3 Seconds Height, Weight, BMI Height: '" Weight: lbs. oz. kg; 32.00 BMI Method: General Appearance: No Apparent Distress, Chronically ill, Obese, Other (poor personal hygiene) HEENT: PERRL/EOMI, Pharynx Normal Neck: Full Range of Motion, Normal Inspection, Non Tender, Supple; No Carotid Bruit Respiratory: Chest Non Tender, Lungs Clear, Normal Breath Sounds, No Accessory Muscle Use, No Respiratory Distress Cardiovascular: Regular Rate, Rhythm, Normal Peripheral Pulses Gastrointestinal: Normal Bowel Sounds, No Pulsatile Mass, Non Tender, Soft Rectal: Deferred Extremity: Normal Capillary Refill, Normal Inspection, No Pedal Edema Neurologic/Psychiatric: Alert, Oriented x3, top lift and automatic window repairer II-XII Norm as Tested Skin: Normal Color, Warm/Dry Images 1 - pain at base of throat with inspiration only since the SVT resolved Progress/Results/Core Measures Results/Orders Lab Results Laboratory Tests Test 09/05/21 03:20 Range/Units White Blood Count 13.5 H 4.3-11.0 10^3/uL Red Blood Count 3.30 L 4.30-5.52 10^6/uL Hemoglobin 9.8 L 13.3-17.7 g/dL Hematocrit 31 L 40-54 % Mean Corpuscular Volume 93 80-99 fL Mean Corpuscular Hemoglobin 30 25-34 pg Mean Corpuscular Hemoglobin Concent 30 L 32-36 g/dL Red Cell Distribution Width 16.0 H 10.0-14.5 % Platelet Count 385 130-400 10^3/uL Mean Platelet Volume 9.9 9.0-12.2 fL Immature Granulocyte % (Auto) 1 % Neutrophils (%) (Auto) 85 H 42-75 % Lymphocytes (%) (Auto) 8 L 12-44 % Monocytes (%) (Auto) 5 0-12 % Eosinophils (%) (Auto) 1 0-10 % Basophils (%) (Auto) 0 0-10 % Neutrophils # (Auto) 11.5 H 1.8-7.8 X 10^3 Lymphocytes # (Auto) 1.1 1.0-4.0 X 10^3 Monocytes # (Auto) 0.7 0.0-1.0 X 10^3 Eosinophils # (Auto) 0.1 0.0-0.3 10^3/uL Basophils # (Auto) 0.1 0.0-0.1 10^3/uL Immature Granulocyte # (Auto) 0.1 0.0-0.1 10^3/uL Prothrombin Time 13.5 12.2-14.7 SEC INR Comment 1.0 0.8-1.4 Activated Partial Thromboplast Time 31 24-35 SEC Sodium Level 135 135-145 MMOL/L Potassium Level 4.4 3.6-5.0 MMOL/L Chloride Level 98 98-107 MMOL/L Carbon Dioxide Level 19 L 21-32 MMOL/L Anion Gap 18 H 5-14 MMOL/L Blood Urea Nitrogen 29 H 7-18 MG/DL Creatinine 2.05 H 0.60-1.30 MG/DL Estimat Glomerular Filtration Rate 33 BUN/Creatinine Ratio 14 Glucose Level 171 H 70-105 MG/DL Calcium Level 9.6 8.5-10.1 MG/DL Corrected Calcium 9.9 8.5-10.1 MG/DL Magnesium Level 2.0 1.6-2.4 MG/DL Total Bilirubin 0.5 0.1-1.0 MG/DL Aspartate Amino Transf (AST/SGOT) 30 5-34 U/L Alanine Aminotransferase (ALT/SGPT) 45 0-55 U/L Alkaline Phosphatase 85 40-136 U/L Troponin I < 0.30 <0.30 NG/ML Pro-B-Type Natriuretic Peptide 93617.0 H <75.0 PG/ML Total Protein 7.8 6.4-8.2 GM/DL Albumin 3.6 3.2-4.5 GM/DL Lipase 42 8-78 U/L My Orders Orders - LIZA GIBSON MD Cbc With Automated Diff (09/05/21 03:33) Magnesium (09/05/21 03:33) Chest 1 View Ap/Pa Only (09/05/21:33) Ekg Tracing (09/05/21 03:33) Comprehensive Metabolic Panel (09/05/21 03:33) Protime With Inr (09/05/21:) Partial Thromboplastin Time (09/05/21 03:33) Monitor-Rhythm Ecg Trace Only (09/05/21 03:33) Ed Iv/Invasive Line Start (09/05/21 03:33) Lipase (09/05/21 03:33) Ns Iv 1000 Ml (Sodium Chloride 0.9%) (09/05/21 03:33) Ua Culture If Indicated (09/05/21 03:33) Probnp Fs (09/05/21 03:33) Troponin I Fs (09/05/21 03:33) Diltiazem Cd 24 Hr Capsule (Cardizem Cd (09/05/21 04:55) Vital Signs/I&O 09/05/21 09/05/21 03:12 05:01 Temp 37.0 Pulse 97 86 Resp 18 22 B/P (MAP) 115/81 (92) 141/89 Pulse Ox 96 97 O2 Delivery Room Air Room Air Blood Pressure Mean: 92 Progress Progress Note #1: Progress Note Will finish the bag of IV fluids from EMS. The electrocardiogram obtained on arrival to the ED shows sinus rhythm with a heart rate 100. He has no ST elevation. His heart rate and blood pressure are stable. Obtain a chest x-ray since patient is complaining of pain at the base of his throat when he breathes in. Recheck labs to compare to the morning of September 04. Progress Note #2: Time: 04:03 Progress Note On my review of his 1 view CXR it shows poor inspiratory effort. No definite infiltrate or effusions. CBC stable with mild elevation of WBC count to 13.5 and chronic anemia with Hgb stable at 9.8. Progress Note #3: Time: 04:38 Progress Note Labs appear stable with potassium and magnesium in normal range. chronic renal insufficiency. hemodynamically stable. Troponin is negative but he does have an elevated proBNP. However, his echocardiogram from last week did not show any significant heart failure. Call placed to Dr. Berkowitz, power generation engineer storm door maker. He was familiar with patient from visit last week. He recommends change from metoprolol to Cardizem CD 240 mg and to call clinic about follow up for ablation. Family reports he has appt at 130 pm on Saturday. When asked if there is anything different to do if he returns in recurrent SVT, Dr. Berkowitz advised that as long as he is coming out of the rhythm with adenosine and remains hemodynamically stable then he would not warrant an sukhwinder gent transfer or admit just for the SVT. It would be treated and when resolved he could be discharged home. Hopefully with stopping the Metoprolol that was increased from 50 mg a day last week to 100 mg a day, and changing to Diltazem CD 240 mg he would have better control until could see cardiology newspaper carriers supervisor. Initial ECG Impression Date: Sep 05, 2021 Initial ECG Impression Time: 03:11 Initial ECG Rate: 100 Initial ECG Rhythm: Normal Sinus Initial ECG Comparisson: Unchanged Comment Sinus rhythm with a heart rate of 100 bpm. Left atrial enlargement. SD interval [address] elevation. QT interval 356 ms with a QTc interval 460 ms. Appears similar to prior tracings. Diagnostic Imaging Diagonstic Imaging: Xray Plain Films/CT/US/NM/MRI: chest Comments NAME: SAVANNA GREEN [facility] REC#: [id number] PT STATUS: REG ER : 1955 PHYSICIAN: LIZA GIBSON MD ADMIT DATE: 09/05/21/ER FS Draft Date of Exam:09/05/21 CHEST 1 VIEW AP/PA ONLY INDICATION: Chest pain EXAMINATION: Chest 09/05/2021 COMPARISON: 07/22/2021 FINDINGS: There is cardiomegaly. No infiltrates, effusions or pneumothorax. No acute osseous abnormality. IMPRESSION: 1. No acute cardiopulmonary process. Dictated on workstation # [id number] Dict: 09/05/21 0402 Trans: 09/05/21 0406 CHIRAG [id number] Interpreted by: MARIUSZ DICKEY MD Electronically signed by: Reviewed: Reviewed by Ct CP/AMI: Aspirin (324 mg by EMS), ECG, Nitrates (2 SL ntg by EMS) Departure Impression Primary Impression: Nonsustained paroxysmal supraventricular tachycardia Disposition: 01 HOME, SELF-CARE Condition: Stable Departure-Patient Inst. Decision time for Depature: 04:51 Referrals: SANDY MONGE DO (PCP/Family) Primary Care Physician HUBERT BERKOWITZ JR, MD Keep appointment Saturday at 1:[address] Berkowitz. Ask about ablation procedure for your recurrent episodes of SVT. Patient Instructions: Paroxysmal Supraventricular Tachycardia (DC) Add. Discharge Instructions: Stop the Metoprolol and start taking the Diltiazem in its place. Keep the appointment on Saturday at [address] Berkowitz will help arrange a cardiac ablation, a procedure with a special type of storm door maker to find the electrical pathway in your heart that is causing this fast rate to happen. They then burn that pathway so you will stay at a slower rate and not keep going into the fast rates. Make sure are staying well hydrated and drinking water and electrolyte drinks to stay hydrated. All discharge instructions reviewed with patient and/or family. Voiced understanding. Scripts Diltiazem HCl (Diltiazem 24Hr Cd) 240 Mg Cap.er.24h 240 MG PO DAILY for Supraventricular Tachycar for 30 Days, #30 CAP 0 Refills Prov: LIZA GIBSON MD 09/05/21 Copy Copies To 1: HUBERT BERKOWITZ JR, MD ENYART, MARC E MD Sep 05, 2021 03:52
--- NOTE | 2021-09-05 04:07 | Diagnostic Imaging Report ---
INDICATION: Chest pain EXAMINATION: Chest 09/05/2021 COMPARISON: 07/22/2021 FINDINGS: There is cardiomegaly. No infiltrates, effusions or pneumothorax. No acute osseous abnormality. IMPRESSION: 1. No acute cardiopulmonary process. Dictated by: Dictated on workstation # [id number]
[2021-09-05 04:09] LABS: ALANINE AMINOTRANSFERASE 45 U/L (0-55); ALBUMIN 3.6 GM/DL (3.2-4.5); ALKALINE PHOSPHATASE 85 U/L (40-136); BILIRUBIN,TOTAL 0.5 MG/DL (0.1-1.0); BUN/CREATININE RATIO 14; CALCIUM 9.6 MG/DL (8.5-10.1); CARBON DIOXIDE 19 MMOL/L (21-32); CHLORIDE 98 MMOL/L (98-107); CREATININE SERUM 2.05 MG/DL (0.60-1.30); GFR ESTIMATED 33; GLUCOSE 171 MG/DL (70-105); LIPASE 42 U/L (8-78); POTASSIUM 4.4 MMOL/L (3.6-5.0); SODIUM 135 MMOL/L (135-145); TOTAL PROTEIN 7.8 GM/DL (6.4-8.2)
[2021-09-05] MEDS ORDERED: DILT240C90 PO (04:55)
[2021-09-05] MEDS ORDERED: dilTIAZem120 MG (CARDIZEM CD) CAP PO STA (04:55)
[2021-09-05 05:01] VITALS: BP 141/89
== END 2021-09-05 05:01 | disposition home or self-care (01) ==
LOC: EDUNIT# 03:11 → ER FS 03:12
DX: I47.1 Supraventricular tachycardia (principal); I10 Essential (primary) hypertension; E66.9 Obesity, unspecified; Z68.32 Body mass index [BMI] 32.0-32.9, adult; Z79.82 Long term (current) use of aspirin
CPT/HCPCS: 36415; 71045; 80053; 83690; 83735; 83880; 84484; 85025; 85610; 85730; 93005; 93041

== ENCOUNTER → 2021-09-14 | Outpatient (CLI) | payer SELFPAY ==
[~2021-09-14] MED LIST changes: +CATHETER FLUSH 10 ML SYR IV PRN; +DILT240C90 PO; +REGADENOSON 0.4 MG/5 ML SYR (LEXISCAN) IV ONE
[2021-09-14 09:40] VITALS: BP 130/77
--- NOTE | 2021-09-14 11:54 | NUCLEAR STRESS TEST ---
REGADENOSON NUCLEAR STRESS Date of procedure: 09/14/2021. Primary care provider: Sam Zambrano DO Admitting physician: Conrad Berkowitz Jr., MD. INDICATION: Supraventricular tachycardia. BASELINE ELECTROCARDIOGRAM: Sinus rhythm with occasional premature supraventricular complexes, poor R wave progression and nonspecific T wave changes. STRESS TEST PROCEDURE: The patient was administered 0.4 mg of intravenous Regadenoson. The resting heart rate was 89 bpm and the peak heart rate was 105 bpm. The resting blood pressure was 157/89 mmHg and the minimum blood pressure was 130/77 mmHg. This represents a normal heart rate and a normal blood pressure response to Regadenoson. The test was stopped due to the protocol. There was no chest discomfort during the test. There were isolated premature ventricular complexes during the test. There were no significant stress induced electrocardiogram changes. NUCLEAR PROCEDURE: The patient was administered 9.9 mCi of intravenous technetiu m 99m Tetrofosmin at rest for the rest images. The patient was subsequently administered 28.4 mCi of intravenous technetium 99m Tetrofosmin at peak stress for the stress images. Following an appropriate wait after each injection, imaging was obtained. The images were subsequently processed and reformatted in the usual views. Gated imaging was obtained. The image quality was adequate with some degree of gastrointestinal attenuation artifact. CT attenuation correction was used as a adjunct to standard imaging. Both the corrected and uncorrected images were reviewed for interpretation. NUCLEAR RESULTS: There was normal myocardial perfusion in all segments without evidence of infarction or ischemia. There was normal left ventricular chamber size with an end-diastolic volume of 46 mL and an end-systolic volume of 16 mL. There was no evidence of transient ischemic dilatation. The TID ratio was 1.06. There was normal wall motion in all segments with a calculated ejection fraction of 65%. IMPRESSION: 1. Normal heart rate and blood pressure response to regadenoson. 2. There was no chest discomfort during the test. 3. There were isolated premature supraventricular complexes throughout the test. 4. There were no electrocardiogram changes during the test. 5. There was normal myocardial perfusion in all segments without evidence of infarction or ischemia. 6. There was normal wall motion in all segments with a calculated ejection fraction of 65%. Certain portions of this document may have been dictated utilizing voice recognition technology. Inherent to this technology, typographical and grammatical errors may exist. As much as I am diligent to identify and correct these mistakes, some errors may remain in the document. CONRAD BERKOWITZ JR, MD Sep 14, 2021 11:54
== END ==
LOC: CARD 08:00
PROVIDERS: ATTEND Internal Medicine Cardiovascular Disease
DX: I47.1 Supraventricular tachycardia (principal)
CPT/HCPCS: 78452; 93017; A9502

== ENCOUNTER → 2022-08-29 | Outpatient (CLI) | payer MEDICARE ==
[~2022-08-29] MED LIST changes: -CATHETER FLUSH 10 ML SYR IV PRN; -REGADENOSON 0.4 MG/5 ML SYR (LEXISCAN) IV ONE
[2022-08-29 12:49] LABS: BASOPHILS # (AUTO) 0.1 10^3/uL (0.0-0.1); BASOPHILS % (AUTO) 1 % (0-10); EOSINOPHILS # (AUTO) 0.1 10^3/uL (0.0-0.3); EOSINOPHILS % (AUTO) 1 % (0-10); HEMATOCRIT 45 % (40-54); HEMOGLOBIN 16.5 g/dL (13.3-17.7); LYMPHOCYTES # (AUTO) 1.2 10^3/uL (1.0-4.0); LYMPHOCYTES % (AUTO) 13 % (12-44); MEAN CORPUSCULAR HEMOGLOBIN 34 pg (25-34); MEAN CORPUSCULAR HGB CONC 37 g/dL (32-36); MEAN CORPUSCULAR VOLUME 93 fL (80-99); MEAN PLATELET VOLUME 9.4 fL (9.0-12.2); MONOCYTES # (AUTO) 0.7 10^3/uL (0.0-1.0); MONOCYTES % (AUTO) 8 % (0-12); NEUTROPHILS # (AUTO) 7.3 10^3/uL (1.8-7.8); NEUTROPHILS % (AUTO) 78 % (42-75); PLATELET COUNT 201 10^3/uL (130-400); WHITE BLOOD COUNT 9.4 10^3/uL (4.3-11.0)
[2022-08-29 13:34] LABS: ALBUMIN 4.4 GM/DL (3.2-4.5); CALCIUM 9.5 MG/DL (8.5-10.1); CREATININE SERUM 1.35 MG/DL (0.60-1.30); POTASSIUM 3.8 MMOL/L (3.6-5.0); TOTAL PROTEIN 8.3 GM/DL (6.4-8.2)
== END ==
LOC: LAB FS 12:25
PROVIDERS: ATTEND Internal Medicine Cardiovascular Disease
DX: I47.1 Supraventricular tachycardia (principal); E11.22 Type 2 diabetes mellitus with diabetic chronic kidney disease; I12.9 Hypertensive chronic kidney disease with stage 1 through stage 4 chronic kidney disease, or unspecified chronic kidney disease; N18.32 Chronic kidney disease, stage 3b; E78.2 Mixed hyperlipidemia; E11.21 Type 2 diabetes mellitus with diabetic nephropathy; D64.9 Anemia, unspecified; E66.9 Obesity, unspecified
CPT/HCPCS: 36415; 80053; 80061; 84443; 85025

== ENCOUNTER → 2022-10-11 | Outpatient (CLI) | payer MEDICARE ==
[2022-10-11 10:52] LABS: BILIRUBIN,TOTAL 0.6 MG/DL (0.1-1.0); CALCIUM 9.5 MG/DL (8.5-10.1); CREATININE SERUM 1.31 MG/DL (0.60-1.30); POTASSIUM 4.4 MMOL/L (3.6-5.0); TOTAL PROTEIN 7.9 GM/DL (6.4-8.2)
[2022-10-11 10:53] LABS: ALBUMIN 4.3 GM/DL (3.2-4.5)
== END ==
LOC: LAB FS 09:51
PROVIDERS: ATTEND Internal Medicine Cardiovascular Disease
DX: I12.9 Hypertensive chronic kidney disease with stage 1 through stage 4 chronic kidney disease, or unspecified chronic kidney disease (principal); N18.32 Chronic kidney disease, stage 3b; I47.1 Supraventricular tachycardia; E78.2 Mixed hyperlipidemia; E11.21 Type 2 diabetes mellitus with diabetic nephropathy; D64.9 Anemia, unspecified; E66.9 Obesity, unspecified
CPT/HCPCS: 36415; 80053; 80061

== ENCOUNTER → 2022-11-21 | Outpatient (CLI) | payer MEDICARE ==
[2022-11-21 13:05] LABS: POTASSIUM 3.9 MMOL/L (3.6-5.0)
[2022-11-21 13:06] LABS: CALCIUM 9.5 MG/DL (8.5-10.1); CREATININE SERUM 1.42 MG/DL (0.60-1.30)
== END ==
LOC: LAB FS 12:10
PROVIDERS: ATTEND Internal Medicine Cardiovascular Disease
DX: E11.21 Type 2 diabetes mellitus with diabetic nephropathy (principal); I47.1 Supraventricular tachycardia; I12.9 Hypertensive chronic kidney disease with stage 1 through stage 4 chronic kidney disease, or unspecified chronic kidney disease; N18.32 Chronic kidney disease, stage 3b; E78.2 Mixed hyperlipidemia; D64.9 Anemia, unspecified; E66.9 Obesity, unspecified
CPT/HCPCS: 36415; 80048; 83036